=== PATIENT | female | born 1955 | race Caucasian/White ===

== ENCOUNTER → 2022-03-19 13:48 | Outpatient (BNVA) | payer MEDICARE, MEDICAID, SELFPAY | PROVIDERS: PCP Nurse Practitioner Adult Health; Visit Provider Psychiatry & Neurology Psychiatry | DX: F33.41 Major depressive disorder, recurrent, in partial remission (principal); F41.1 Generalized anxiety disorder | CPT/HCPCS: 99212 ==

== ENCOUNTER → 2022-06-25 13:59 | Outpatient (BNVA) | payer MEDICARE, MEDICAID, SELFPAY | PROVIDERS: PCP Nurse Practitioner Adult Health; Visit Provider Psychiatry & Neurology Psychiatry | DX: F41.1 Generalized anxiety disorder (principal); F33.41 Major depressive disorder, recurrent, in partial remission; E11.9 Type 2 diabetes mellitus without complications; I25.10 Atherosclerotic heart disease of native coronary artery without angina pectoris; G47.33 Obstructive sleep apnea (adult) (pediatric) | CPT/HCPCS: 90833; 99212 ==

== ENCOUNTER → 2022-08-06 14:00 | Outpatient (BNVA) | payer MEDICARE, MEDICAID, SELFPAY | PROVIDERS: PCP Nurse Practitioner Adult Health; Visit Provider Psychiatry & Neurology Psychiatry | DX: F41.1 Generalized anxiety disorder (principal); F33.41 Major depressive disorder, recurrent, in partial remission | CPT/HCPCS: 90833; 99212 ==

== ENCOUNTER → 2022-10-08 14:19 | Outpatient (BNVA) | payer MEDICARE, MEDICAID, SELFPAY | PROVIDERS: PCP Nurse Practitioner Adult Health; Visit Provider Psychiatry & Neurology Psychiatry | DX: F33.41 Major depressive disorder, recurrent, in partial remission (principal); F41.1 Generalized anxiety disorder; G47.33 Obstructive sleep apnea (adult) (pediatric); E11.9 Type 2 diabetes mellitus without complications; I25.10 Atherosclerotic heart disease of native coronary artery without angina pectoris | CPT/HCPCS: 90833; 99212 ==

== ENCOUNTER 2022-12-01 14:38 | Outpatient (AMB) | payer MEDICARE, MEDICAID, SELFPAY ==
--- NOTE | 2022-12-01 14:39 | MHC.OFFVIS ---
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 She was actually seen and worked up by [facility] emergency room back on 10/09/2022. At that time she was worked up for some chest pain in addition she was noted to have lower extremity discomfort and significant swelling. She now presents to us for vascular follow-up. Upon discussion with her she has had no prior lower extremity venous interventions. No prior history of DVT as well. She also denies any significant injuries as well. She reports some swelling right more so than left. Also of note she has a prior history of an NH with coronary stents dating back to 2020. [facility] Medical History (Updated 12/02/22 @ 09:53 by Mike Patterson MD) ASHD (arteriosclerotic heart disease) Diabetes Generalized anxiety disorder Major depressive disorder, recurrent episode, in partial remission with seasonal pattern JACQUELINE (obstructive sleep apnea) Ovarian cyst Surgical History (Updated 12/01/22 @ 14:58 by Jennifer Rascon Jordyn) H/O bilateral oophorectomy Hx of appendectomy Review of Systems Const All systems reviewed & are unremarkable except as noted in HPI and below Reports no additional complaints ENT Reports Normal hearing present Card Denies chest pain, Denies chest pain at rest, Denies chest pain with activity and Denies pedal edema Resp Denies cough GI Denies abdominal pain Musc Details: pain over varicosities, aching of lower extremities, swelling, cramping, heaviness and tiredness, itching Denies abnormal gait, Denies muscle cramps and Denies radiating pain into limb Skin/Breast Denies skin ulcer and Denies wounds Neuro Reports Normal hearing present and Denies abnormal gait Psych Reports no additional complaints Physical Exam Const General: cooperative, healthy appearing and comfortable Orientation/consciousness: oriented to person, oriented to place and oriented to time HEENT Head: Yes normal to inspection Neck Neck: Yes normal visual inspection Carotids: no bruits Chest Chest palpation & inspection: normal inspection of the chest Resp Effort & Inspection: normal respiratory effort and able to speak in complete sentences Auscultation: clear to auscultation bilaterally, no crackles, no rales, no rhonchi and no wheezes Cardio Rate: regular rate Rhythm: regular rhythm Heart sounds: S1 normal heart sound present and S2 normal heart sound present Bruits: no carotid bruits Peripheral pulses: Peripheral pulses 2+ throughout GI Inspection: Yes normal to inspection Skin Other: +2 edema, General skin exam: dry skin Wounds: no wounds Hair: normal Neuro General: oriented to person, oriented to place and oriented to time Cranial nerves: Yes CN's II-XII intact bilaterally and Yes Normal hearing present Cognition (Neuro): normal cognition Motor exam (neuro): 5/5 motor strength present throughout Extrem Other: venous exam: Plus two edema General: No clubbing, No cyanosis and Yes edema Right lower extremity: full ROM, normal capillary refill and edema Left lower extremity: full ROM, normal capillary refill and edema Psych Appearance: grossly normal Mental Status: mental status grossly normal Speech and movement: Normal speech and movement present Assessment & Plan Assessment & Plan (1) Varicose veins of right lower extremity with inflammation: Code(s): I83.11 - Varicose veins of right lower extremity with inflammation Plan: unclear etiology of lower extremity discomfort. She does have significant swelling. This may be multifactorial inclusive of her morbid obesity And coronary artery disease. In terms of the lower extremities she does have palpable arterial pulses. I have taken the liberty of ordering venous insufficiency testing to rule that out. She will follow up with us after testing. We did discuss routine conservative measures including compression elevation and exercise. Thank you for allowing us to assist in her care. If there are any questions or concerns please do not hesitate to contact us. Orders: Orders US venous duplex LE BI 1 Week I83.11 - Varicose veins of right lower extremity with inflammation Coding Level of Care Code New Pt Level 4 (40386) Diagnoses Varicose veins of right lower extremity with inflammation I83.11
== END 2022-12-01 15:10 | disposition home or self-care (01) ==
PROVIDERS: PCP Nurse Practitioner Adult Health; Visit Provider Surgery Vascular Surgery
DX: I83.11 Varicose veins of right lower extremity with inflammation (principal)
CPT/HCPCS: 99204

== ENCOUNTER → 2022-12-01 14:38 | Outpatient (BNVA) | payer MEDICARE, MEDICAID, SELFPAY | PROVIDERS: PCP Nurse Practitioner Adult Health; Visit Provider Surgery Vascular Surgery | DX: I83.11 Varicose veins of right lower extremity with inflammation (principal); R60.0 Localized edema; I25.2 Old myocardial infarction; E66.01 Morbid (severe) obesity due to excess calories; F41.1 Generalized anxiety disorder | CPT/HCPCS: 99202 ==

== ENCOUNTER 2022-12-16 13:03 | Outpatient (REF) | payer MEDICARE, MEDICAID, SELFPAY ==
--- NOTE | ~2022-12-16 | US_ITS ---
EXAMINATION: US LOWER EXTREMITY VENOUS (REFLUX EXAM), BILATERAL CLINICAL INDICATION: Varicose veins COMPARISON: None. TECHNIQUE: Color flow triplex imaging and compression Doppler was performed to evaluate both the deep and the superficial systems bilaterally. To evaluate the superficial system, the examination was performed in the upright position. Color-flow Doppler ultrasound and compression ultrasound were utilized. In addition, maneuvers were utilized to demonstrate reflux. FINDINGS: 1. DEEP VENOUS ULTRASOUND OF THE RIGHT LOWER EXTREMITY: Common Femoral Vein: Compressible, normal respiratory variation and augmented flow. Femoral Vein: Compressible, normal color flow and augmentation. Popliteal Vein: Compressible, normal augmentation. Deep Reflux: There is no evidence of reflux in the deep system in either the common femoral vein or the popliteal vein. There is no evidence of a Roe's cyst. There is a 0.3 cm subcutaneous calcification in the right popliteal fossa. There is calf edema. 2. SUPERFICIAL ULTRASOUND WITH DOPPLER OF RIGHT LOWER EXTREMITY: GREAT SAPHENOUS VEIN: Saphenofemoral Junction: 0.5 cm; Reflux: 0 ms Proximal Thigh: 0.7 cm; Reflux: 0 ms Mid Thigh: 0.3 cm; Reflux: 0 ms Above Knee: 0.3 cm; Reflux: 0 ms At Knee: 0.3 cm; Reflux: 0 ms Below Knee: 0.2 cm; Reflux: 0 ms Mid Calf: 0.1 cm; Reflux: 0 ms Ankle: 0.1 cm; Reflux: 0 ms DUPLICATED MEDIAL GREAT SAPHENOUS VEIN: Diameter: None imaged Reflux: NA DUPLICATED LATERAL GREAT SAPHENOUS VEIN: Diameter: None imaged Reflux: NA SMALL SAPHENOUS VEIN: Proximal: 0.2 cm; Reflux: 0 ms Distal: 0.2 cm; Reflux: 0 ms VEIN OF GIACOMINI: Size: NA Reflux: NA PERFORATORS: Location: Mid thigh Size: 0.2 cm Reflux: NA VARICOSITIES: Location: None imaged Size: NA Reflux: NA 3. DEEP VENOUS ULTRASOUND OF THE LEFT LOWER EXTREMITY: Common Femoral Vein: Compressible, normal respiratory variation and augmented flow. Femoral Vein: Compressible, normal color flow and augmentation. Popliteal Vein: Compressible, normal augmentation. Deep Reflux: There is no evidence of reflux in the deep system in either the common femoral vein or the popliteal vein. There is no evidence of a Roe's cyst. There is calf edema. 4. SUPERFICIAL ULTRASOUND WITH DOPPLER OF LEFT LOWER EXTREMITY: GREAT SAPHENOUS VEIN: Saphenofemoral Junction: 0.6 cm; Reflux: 0 ms Proximal Thigh: 0.5 cm; Reflux: 0 ms Mid Thigh: 0.2 cm; Reflux: 0 ms Above Knee: 0.3 cm; Reflux: 0 ms At Knee: 0.3 cm; Reflux: 0 ms Below Knee: 0.3 cm; Reflux: 0 ms Mid Calf: 0.1 cm; Reflux: 0 ms Ankle: 0.1 cm; Reflux: 0 ms DUPLICATED MEDIAL GREAT SAPHENOUS VEIN: Diameter: None imaged Reflux: NA DUPLICATED LATERAL GREAT SAPHENOUS VEIN: Diameter: None imaged Reflux: NA SMALL SAPHENOUS VEIN: Proximal: 0.3 cm; Reflux: 0 ms Distal: 0.2 cm; Reflux: 0 ms VEIN OF GIACOMINI: Size: NA Reflux: NA PERFORATORS: Location: None imaged Size: NA Reflux: NA VARICOSITIES: Location: None Imaged Size: NA Reflux: NA US/US venous duplex LE BI IMPRESSION: 1. No evidence of DVT or deep venous reflux. 2. Bilateral lower extremity edema. 3. No significant reflux in the bilateral great saphenous veins or small saphenous veins.
== END 2022-12-16 13:04 | disposition home or self-care (01) ==
LOC: HO.US 13:03
PROVIDERS: Visit Provider Surgery Vascular Surgery
DX: I83.11 Varicose veins of right lower extremity with inflammation (principal)
CPT/HCPCS: 93970

== ENCOUNTER 2023-01-07 14:32 | Outpatient (AMB) | payer MEDICARE, MEDICAID, SELFPAY ==
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
== END 2023-01-07 15:22 | disposition home or self-care (01) ==
LOC: HO.HOP 14:32
PROVIDERS: PCP Nurse Practitioner Adult Health; Visit Provider Psychiatry & Neurology Psychiatry
DX: F41.1 Generalized anxiety disorder (principal); F33.41 Major depressive disorder, recurrent, in partial remission; G47.33 Obstructive sleep apnea (adult) (pediatric); I25.10 Atherosclerotic heart disease of native coronary artery without angina pectoris
CPT/HCPCS: 90833; 99213

== ENCOUNTER → 2023-01-07 14:32 | Outpatient (BNVA) | payer MEDICARE, MEDICAID, SELFPAY | PROVIDERS: PCP Nurse Practitioner Adult Health; Visit Provider Psychiatry & Neurology Psychiatry | DX: F33.41 Major depressive disorder, recurrent, in partial remission (principal); F41.1 Generalized anxiety disorder; G47.33 Obstructive sleep apnea (adult) (pediatric); I25.10 Atherosclerotic heart disease of native coronary artery without angina pectoris | CPT/HCPCS: 90833; 99212 ==

== ENCOUNTER 2023-01-26 14:41 | Outpatient (AMB) | payer MEDICARE, MEDICAID, SELFPAY ==
--- NOTE | 2023-01-26 14:54 | A.OFFVIS_ITS ---
Intake Intake Visit Reasons: follow up 12/16/2022 Intake Note: follow up 12/16/2022 for LE swelling Left LE worse than Right LE Allergies exenatide [From Byetta] Allergy (Mild, Verified 01/26/23 14:57) Hives metronidazole [From Flagyl] Adverse Reaction (Mild, Verified 01/26/23 14:57) Vomiting HPI follow up [facility] 12/16/2022 HPI Details Very pleasant 67-year-old female presents for follow-up evaluation regarding swelling of the lower extremities. She was seen back in the [facility] emergency room for discomfort and swelling. She has undergone noninvasive venous testing. Of note she is morbidly obese and she does have some dermatologic issues that have been followed by Derm. She now presents for follow-up. 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 [facility] Medical History Ovarian cyst Generalized anxiety disorder Major depressive disorder, recurrent episode, in partial remission with seasonal pattern Diabetes JACQUELINE (obstructive sleep apnea) ASHD (arteriosclerotic heart disease) Surgical History H/O bilateral oophorectomy Hx of appendectomy Review of Systems Const All systems reviewed & are unremarkable except as noted in HPI and below Reports no additional complaints ENT Reports Normal hearing present Card Denies chest pain, Denies chest pain at rest, Denies chest pain with activity and Denies pedal edema Resp Denies cough GI Denies abdominal pain Musc Denies abnormal gait, Denies muscle cramps and Denies radiating pain into limb Skin/Breast Denies skin ulcer and Denies wounds Neuro Reports Normal hearing present and Denies abnormal gait Psych Reports no additional complaints Physical Exam Const General: cooperative, healthy appearing and comfortable Orientation/consciousness: oriented to person, oriented to place and oriented to time HEENT Head: Yes normal to inspection Neck Neck: Yes normal visual inspection Carotids: no bruits Chest Chest palpation & inspection: normal inspection of the chest Resp Effort & Inspection: normal respiratory effort and able to speak in complete sentences Auscultation: clear to auscultation bilaterally, no crackles, no rales, no rhonchi and no wheezes Cardio Rate: regular rate Rhythm: regular rhythm Heart sounds: S1 normal heart sound present and S2 normal heart sound present Bruits: no carotid bruits Peripheral pulses: Peripheral pulses 2+ throughout GI Inspection: Yes normal to inspection Skin Wounds: no wounds Hair: normal Neuro General: oriented to person, oriented to place and oriented to time Cranial nerves: Yes CN's II-XII intact bilaterally and Yes Normal hearing present Cognition (Neuro): normal cognition Motor exam (neuro): 5/5 motor strength present throughout Extrem Other: venous exam: +2 edema of the right lower extremity General: No clubbing, No cyanosis and No edema Psych Appearance: grossly normal Mental Status: mental status grossly normal Speech and movement: Normal speech and movement present Results Reviewed Results Reviewed: Brief summary of venous insufficiency testing is as follows: right great saphenous vein: negative right small saphenous vein: negative right accessory vein: none present left great saphenous vein: negative left small saphenous vein: negative left accessory vein: none present Please note there is no evidence of any venous aneurysms or significant tortuosity Assessment & Plan Assessment & Plan (1) Varicose veins of right lower extremity with inflammation: Code(s): I83.11 - Varicose veins of right lower extremity with inflammation Plan: In short patient is negative for any significant venous insufficiency I do believe some of her swelling a related to her comorbid conditions. I did discuss the importance of ambulation exercise and possibly some weight loss. We did discuss risk factor modification. In addition I did recommend follow-up dermatologic evaluation. She will see us in an as-needed basis. Thank you for allowing us to participate in her care. Coding Level of Care Code Est Pt Level 4 (19207) Diagnoses Varicose veins of right lower extremity with inflammation I83.11
== END 2023-01-26 15:11 | disposition home or self-care (01) ==
PROVIDERS: PCP Nurse Practitioner Adult Health; Visit Provider Surgery Vascular Surgery
DX: I83.11 Varicose veins of right lower extremity with inflammation (principal)
CPT/HCPCS: 99213

== ENCOUNTER → 2023-01-26 14:41 | Outpatient (BNVA) | payer MEDICARE, MEDICAID, SELFPAY | PROVIDERS: PCP Nurse Practitioner Adult Health; Visit Provider Surgery Vascular Surgery | DX: I83.11 Varicose veins of right lower extremity with inflammation (principal) | CPT/HCPCS: 99212 ==

== ENCOUNTER 2023-06-24 15:26 | Outpatient (AMB) | payer MEDICARE, MEDICAID, SELFPAY ==
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
== END 2023-06-24 15:30 | disposition home or self-care (01) ==
LOC: HO.HOP 15:26
PROVIDERS: PCP Nurse Practitioner Adult Health; Visit Provider Psychiatry & Neurology Psychiatry
DX: F41.1 Generalized anxiety disorder (principal); F33.41 Major depressive disorder, recurrent, in partial remission; G47.33 Obstructive sleep apnea (adult) (pediatric)
CPT/HCPCS: 90833; 99213

== ENCOUNTER → 2023-06-24 15:26 | Outpatient (BNVA) | payer MEDICARE, MEDICAID, SELFPAY | PROVIDERS: PCP Nurse Practitioner Adult Health; Visit Provider Psychiatry & Neurology Psychiatry | DX: F33.41 Major depressive disorder, recurrent, in partial remission (principal); F41.1 Generalized anxiety disorder; G47.33 Obstructive sleep apnea (adult) (pediatric) | CPT/HCPCS: 99212 ==

== ENCOUNTER 2023-09-09 14:10 | Outpatient (AMB) | payer MEDICARE, MEDICAID, SELFPAY ==
--- NOTE | 2023-09-09 14:36 | MHC.OFFVISPS ---
Intake Intake Visit Reasons: depression Allergies exenatide [From Byetta] Allergy (Mild, Verified 01/26/23 14:57) Hives metronidazole [From Flagyl] Adverse Reaction (Mild, Verified 01/26/23 14:57) Vomiting Medication List - Last Reconciled 09/09/23 by Sudhir Moran MD albuterol sulfate 90 mcg/actuation 1 inh inhalation QID amiodarone 200 mg PO DAILY aspirin (Adult Aspirin Regimen) 81 mg PO DAILY atorvastatin 80 mg PO DAILY betamethasone dipropionate 0.05% appl topical BID budesonide 90 mcg/actuation (Pulmicort Flexhaler) 0 inhalations inhalation calcitriol 1 appl topical BID clomipramine 75 mg (3 x 25 mg) PO QPM 3 months clonazepam 0.5 mg PO BID cyanocobalamin (vitamin B-12) 500 mcg PO 3XW famotidine 40 mg PO DAILY fluocinonide 0.05% topical DAILY furosemide 20 mg PO DAILY gabapentin 300 mg PO BEDTIME 3 months gabapentin 100 mg PO BID PRN insulin glargine (Lantus Solostar U-100 Insulin) 55 units subcut BEDTIME levothyroxine 88 mcg PO QAM losartan 100 mg PO DAILY metformin 1,000 mg PO BID metoprolol succinate ER 50 mg PO DAILY nystatin topical BEDTIME valacyclovir 500 mg PO DAILY venlafaxine ER 150 mg PO BID HPI- Psychiatric Chief Complaint: depression HPI Narrative: Pt has been having inc anxiety recently 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 Mental Status Exam Mental Status Exam Narrative: Mental Status Exam Narrative: Appearance: Casually dressed skin lesions flat noted on both arms Behavior: Cooperative appropriate psychomotor: Within normal limits Speech: Normal volume and prosody Thought proccess logical and goal-directed Thought content: Future oriented multiple worries feels overwhelmed by medical and practical issues needing to move Mood: anxious dysphoric Affect: Appropriate to mood constricted SI:denies HI:denies VH/AH:none Delusions: None Insight/judgment: insight and judgment generally intact Memory/cog: Intact Assessment and Plan Assessment & Plan (1) Generalized anxiety disorder: Status: Acute Code(s): F41.1 - Generalized anxiety disorder (2) Major depressive disorder, recurrent episode, in partial remission with seasonal pattern: Status: Acute Code(s): F33.41 - Major depressive disorder, recurrent, in partial remission (3) JACQUELINE (obstructive sleep apnea): Status: Acute Code(s): G47.33 - Obstructive sleep apnea (adult) (pediatric) (4) ASHD (arteriosclerotic heart disease): Status: Acute Code(s): I25.10 - Atherosclerotic heart disease of [place] coronary artery without angina pectoris (5) Diabetes: Status: Acute Code(s): E11.9 - Type 2 diabetes mellitus without complications Plan Given few dissolving tablets of clonazepam 0.5 mg secondary to occasional intrusive panic attack patient has been under more stress leading to move has been rehearsing 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 Self Management counseling: Breathing, Cognitive restructuring and Problem solving Details-Self Mgmt counseling: Issues related to managing chronic stress Medication management counseling: Effectiveness, Side effects and Dosing range Diagnosis and Prognosis Counseling: Adequacy of current interventions Details: I spent [37] minutes reviewing the record, seeing the patient and documenting in the medical record. Counseling provided to the patient/caregiver as outlined below. Addressed patient/caregiver concerns regarding current medication regime including effective adherence. Addressed patient/caregiver concerns regarding diagnosis and prognosis including accuracy of diagnosis, prognosis over time, impact of diagnosis. Addressed patient/caregiver concerns regarding impact of recent stressors. [facility] Medical History Ovarian cyst Generalized anxiety disorder Major depressive disorder, recurrent episode, in partial remission with seasonal pattern Diabetes JACQUELINE (obstructive sleep apnea) ASHD (arteriosclerotic heart disease) Surgical History H/O bilateral oophorectomy Hx of appendectomy Social History: The patient has 1 sister who lives in [place] limited contact her sister may have Parkinson's disease. Her mother a few years ago she has limited social contact. 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
== END 2023-09-09 15:06 | disposition home or self-care (01) ==
LOC: HO.HOP 14:10
PROVIDERS: PCP Nurse Practitioner Adult Health; Visit Provider Psychiatry & Neurology Psychiatry
DX: F41.1 Generalized anxiety disorder (principal); F33.41 Major depressive disorder, recurrent, in partial remission; G47.33 Obstructive sleep apnea (adult) (pediatric); I25.10 Atherosclerotic heart disease of native coronary artery without angina pectoris; E11.9 Type 2 diabetes mellitus without complications
CPT/HCPCS: 90833; 99213

== ENCOUNTER → 2023-09-09 14:10 | Outpatient (BNVA) | payer MEDICARE, MEDICAID, SELFPAY | PROVIDERS: PCP Nurse Practitioner Adult Health; Visit Provider Psychiatry & Neurology Psychiatry | DX: F41.1 Generalized anxiety disorder (principal); F33.41 Major depressive disorder, recurrent, in partial remission; G47.33 Obstructive sleep apnea (adult) (pediatric); I25.10 Atherosclerotic heart disease of native coronary artery without angina pectoris; E11.9 Type 2 diabetes mellitus without complications | CPT/HCPCS: 99212 ==

== ENCOUNTER 2023-11-18 14:49 | Outpatient (AMB) | payer MEDICARE, MEDICAID, SELFPAY ==
--- NOTE | 2023-11-18 14:33 | MHC.OFFVISPS ---
Intake Intake Visit Reasons: depression Allergies exenatide [From Byetta] Allergy (Mild, Verified 01/26/23 14:57) Hives metronidazole [From Flagyl] Adverse Reaction (Mild, Verified 01/26/23 14:57) Vomiting Medication List - Last Reconciled 11/18/23 by Sudhir Moran MD albuterol sulfate 90 mcg/actuation 1 inh inhalation QID amiodarone 200 mg PO DAILY aspirin (Adult Aspirin Regimen) 81 mg PO DAILY atorvastatin 80 mg PO DAILY betamethasone dipropionate 0.05% appl topical BID budesonide 90 mcg/actuation (Pulmicort Flexhaler) 0 inhalations inhalation clomipramine 75 mg (3 x 25 mg) PO QPM 3 months clonazepam 0.25 mg PO DAILY PRN clonazepam 0.5 mg PO BID cyanocobalamin (vitamin B-12) 500 mcg PO 3XW famotidine 40 mg PO DAILY fluocinonide 0.05% topical DAILY gabapentin 100 mg PO BID PRN gabapentin 300 mg PO BEDTIME insulin glargine (Lantus Solostar U-100 Insulin) 55 units subcut BEDTIME levothyroxine 88 mcg PO QAM losartan 100 mg PO DAILY metformin 1,000 mg PO BID metoprolol succinate ER 50 mg PO DAILY nystatin topical BEDTIME valacyclovir 500 mg PO DAILY venlafaxine ER 150 mg PO BID HPI- Psychiatric Chief Complaint: depression HPI Narrative: Patient seen in psychiatric follow-up. The patient recently moved to a new apartment which has been a big relief although it will cost more money. 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 Continues to have chronic medical problems unknown chronic rash that does not appear to be related to her psoriasis. Some degree of chronic anxiety some of this relates to chronic procrastination time management issues. Has been relatively stable without severe depressive episodes on Effexor 300 mg 150 b.i.d. Anafranil bedtime gabapentin which we have tried lowering and limiting over time. Some degree chronic insomnia some this appears to be related to sleep hygiene staying up late with an altered sleep-wake cycle Past Psychiatric History: Long hx of recurrent depression CHEO has been on effexor x yrs half-way psychotx Mental Status Exam Mental Status Exam Narrative: Mental Status Exam Narrative: Appearance: Casually dressed skin lesions flat noted on both arms ongoing Behavior: Cooperative appropriate psychomotor: Within normal limits Speech: Normal volume and prosody Thought proccess logical and goal-directed somewhat ruminative Thought content: Future oriented ongoing worries but somewhat less preoccupied feels more secure after move Mood: Some anxiety Affect: Appropriate to mood betts affect SI:denies HI:denies VH/AH:none Delusions: None Insight/judgment: insight and judgment generally intact Memory/cog: Intact Assessment and Plan Assessment & Plan (1) Major depressive disorder, recurrent episode, in partial remission with seasonal pattern: Status: Acute Code(s): F33.41 - Major depressive disorder, recurrent, in partial remission (2) Generalized anxiety disorder: Status: Acute Code(s): F41.1 - Generalized anxiety disorder Plan Check B12 folate TSH have been altered in the past contributing factors to anxiety and depression continue Effexor Anafranil try and gabapentin and clonazepam to lowest effective dosing Medications: Changed From cyanocobalamin (vitamin B-12) 500 mcg PO 3XW To cyanocobalamin (vitamin B-12) 500 mcg PO 3XW 13 tabs 3RF 30 days Orders: Orders TSH reflex Free T4 11/18/23 E03.9 - Hypothyroidism, unspecified, F33.41 - Major depressive disorder, recurrent, in partial remission, F41.1 - Generalized anxiety disorder Vitamin B12 and Folate 11/18/23 E03.9 - Hypothyroidism, unspecified, F33.41 - Major depressive disorder, recurrent, in partial remission, F41.1 - Generalized anxiety disorder Counseling and coordination of Care Pt. Self Management counseling: Breathing, Maintenance-social rhythm, Sleep hygiene and Behavior activation Diagnosis and Prognosis Counseling: Impact of diagnosis on life functions and Adequacy of current interventions Details: I spent [38] minutes reviewing the record, seeing the patient and documenting in the medical record. Counseling provided to the patient/caregiver as outlined below. Addressed patient/caregiver concerns regarding current medication regime including effective adherence. Addressed patient/caregiver concerns regarding diagnosis and prognosis including accuracy of diagnosis, prognosis over time, impact of diagnosis. Addressed patient/caregiver concerns regarding impact of recent stressors. [facility] Medical History Ovarian cyst Generalized anxiety disorder Major depressive disorder, recurrent episode, in partial remission with seasonal pattern Diabetes JCAQUELINE (obstructive sleep apnea) ASHD (arteriosclerotic heart disease) Surgical History H/O bilateral oophorectomy Hx of appendectomy Social History: The patient has 1 sister who lives in [place] limited contact her sister may have Parkinson's disease. Her mother a few years ago she has limited social contact. 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
== END 2023-11-18 14:54 | disposition home or self-care (01) ==
LOC: HO.HOP 14:49
PROVIDERS: PCP Nurse Practitioner Adult Health; Visit Provider Psychiatry & Neurology Psychiatry
DX: F33.41 Major depressive disorder, recurrent, in partial remission (principal); F41.1 Generalized anxiety disorder
CPT/HCPCS: 90833; 99213

== ENCOUNTER → 2023-11-18 14:49 | Outpatient (BNVA) | payer MEDICARE, MEDICAID, SELFPAY | PROVIDERS: PCP Nurse Practitioner Adult Health; Visit Provider Psychiatry & Neurology Psychiatry | DX: F33.41 Major depressive disorder, recurrent, in partial remission (principal); F41.1 Generalized anxiety disorder | CPT/HCPCS: 99212 ==

== ENCOUNTER 2024-03-02 14:16 | Outpatient (AMB) | payer MEDICARE, MEDICAID, SELFPAY ==
--- NOTE | 2024-03-02 14:39 | MHC.OFFVISPS ---
Intake Intake Visit Reasons: depression Allergies exenatide [From Byetta] Allergy (Mild, Verified 01/26/23 14:57) Hives metronidazole [From Flagyl] Adverse Reaction (Mild, Verified 01/26/23 14:57) Vomiting Medication List - Last Reconciled 03/02/24 by Sudhir Moran MD albuterol sulfate 90 mcg/actuation 1 inh inhalation QID amiodarone 200 mg PO DAILY aspirin (Adult Aspirin Regimen) 81 mg PO DAILY atorvastatin 80 mg PO DAILY betamethasone dipropionate 0.05% appl topical BID budesonide 90 mcg/actuation (Pulmicort Flexhaler) 0 inhalations inhalation clomipramine 75 mg (3 x 25 mg) PO QPM 3 months clonazepam 0.25 mg PO DAILY PRN clonazepam 0.5 mg PO BID cyanocobalamin (vitamin B-12) 500 mcg PO 3XW 30 days famotidine 40 mg PO DAILY fluocinonide 0.05% topical DAILY gabapentin 100 mg PO BID PRN gabapentin 300 mg PO BEDTIME insulin glargine (Lantus Solostar U-100 Insulin) 55 units subcut BEDTIME levothyroxine 88 mcg PO QAM losartan 100 mg PO DAILY metformin 1,000 mg PO BID metoprolol succinate ER 50 mg PO DAILY nystatin topical BEDTIME valacyclovir 500 mg PO DAILY venlafaxine ER 150 mg PO BID HPI- Psychiatric Chief Complaint: depression HPI Narrative: Patient seen psychiatric follow-up. The patient's mood is trending somewhat upward. She does have chronic anxiety but she did complete a move recently and is now in secure apartment. There has been some support regarding her finances from her sister who is helping her on a monthly basis. There is some concern with her sister who has significant Parkinson's disease and lives in [place]. 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 Mental Status Exam Mental Status Exam Narrative: Mental Status Exam Narrative: Appearance: Casually dressed skin lesions flat noted on both arms ongoing Behavior: Cooperative appropriate psychomotor: Within normal limits Speech: Normal volume and prosody sometimes mildly pressured Thought proccess logical and goal-directed somewhat ruminative Thought content: Future oriented ongoing worries but somewhat less preoccupied feels more secure after move ongoing some concerns re sleep Mood: Some anxiety Affect: Appropriate to mood betts affect SI:denies HI:denies VH/AH:none Delusions: None Insight/judgment: insight and judgment generally intact Memory/cog: Intact Assessment and Plan Assessment & Plan (1) Major depressive disorder, recurrent episode, in partial remission with seasonal pattern: Status: Acute Code(s): F33.41 - Major depressive disorder, recurrent, in partial remission (2) Generalized anxiety disorder: Status: Acute Code(s): F41.1 - Generalized anxiety disorder (3) ADD (attention deficit disorder) without hyperactivity: Status: Acute Code(s): F98.8 - Other specified behavioral and emotional disorders with onset usually occurring in childhood and adolescence Plan cont clomipramine effexor anxiety ocd in general ck feeling more secure generally discussed risks of oversedating before sleep given JACQUELINE Medications: Refilled clomipramine 75 mg (3 x 25 mg) PO QPM 270 caps 1RF 3 months clonazepam 0.5 mg PO BID 60 tabs 2RF Counseling and coordination of Care Pt. Self Management counseling: General coping skills Details-Self Mgmt counseling: issues related to grief with sister who has been having episodes of confusion Medication management counseling: Effectiveness, Side effects and Dosing range Diagnosis and Prognosis Counseling: Adequacy of current interventions Details: I spent [39] minutes reviewing the record, seeing the patient and documenting in the medical record. Counseling provided to the patient/caregiver as outlined below. Addressed patient/caregiver concerns regarding current medication regime including effective adherence. Addressed patient/caregiver concerns regarding diagnosis and prognosis including accuracy of diagnosis, prognosis over time, impact of diagnosis. Addressed patient/caregiver concerns regarding impact of recent stressors. 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 Her mother a few years ago she has limited social contact. 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
== END 2024-03-02 17:02 | disposition home or self-care (01) ==
LOC: HO.HOP 14:16
PROVIDERS: PCP Nurse Practitioner Adult Health; Visit Provider Psychiatry & Neurology Psychiatry
DX: F33.41 Major depressive disorder, recurrent, in partial remission (principal); F41.1 Generalized anxiety disorder; F98.8 Other specified behavioral and emotional disorders with onset usually occurring in childhood and adolescence
CPT/HCPCS: 90833; 99213

== ENCOUNTER → 2024-03-02 14:16 | Outpatient (BNVA) | payer MEDICARE, MEDICAID, SELFPAY | PROVIDERS: PCP Nurse Practitioner Adult Health; Visit Provider Psychiatry & Neurology Psychiatry | DX: F33.41 Major depressive disorder, recurrent, in partial remission (principal); F41.1 Generalized anxiety disorder; F98.8 Other specified behavioral and emotional disorders with onset usually occurring in childhood and adolescence; Z71.89 Other specified counseling | CPT/HCPCS: 99212 ==

== ENCOUNTER → 2024-06-08 14:06 | Outpatient (BNVA) | payer MEDICARE, MEDICAID, SELFPAY | PROVIDERS: PCP Nurse Practitioner Adult Health; Visit Provider Psychiatry & Neurology Psychiatry | DX: F41.1 Generalized anxiety disorder (principal); F98.8 Other specified behavioral and emotional disorders with onset usually occurring in childhood and adolescence; F33.41 Major depressive disorder, recurrent, in partial remission; R29.818 Other symptoms and signs involving the nervous system | CPT/HCPCS: 99212 ==

== ENCOUNTER 2024-08-04 14:25 | Outpatient (AMB) | payer MEDICARE, MEDICAID, SELFPAY ==
--- NOTE | 2024-08-04 12:54 | A.OFFPSYCH_ITS ---
Intake Intake Visit Reasons: Depression Allergies exenatide [From Byetta] Allergy (Mild, Verified 01/26/23 14:57) Hives metronidazole [From Flagyl] Adverse Reaction (Mild, Verified 01/26/23 14:57) Vomiting HPI- Psychiatric Chief Complaint: Depression HPI Narrative: Pt seen in f/u mood has been somewhat anxious recently at [facility] after episode of vertigo has had an episode of 2 falls has had episodes of vertigo Pt has small meningioma has 2 nodules being worked up . Has resentment about not performing and [employer] group that she had been in does performed with the [employer]. Chronically deals with anxiety sensory integration difficulties chronically and ADD. We have discussed trying to retrain sleep. Less difficulty with money since her sister and are sending her some monthly funds to help her with her rent recent move when okay Past Psychiatric History: Long hx of recurrent depression CHEO has been on effexor x yrs [facility] psychotx Mental Status Exam Mental Status Exam Narrative: Mental Status Exam Narrative: Appearance: Casually dressed skin lesions flat noted on both arms ongoing Behavior: Cooperative appropriate psychomotor: Within normal limits Speech: Normal volume and prosody sometimes mildly pressured Thought proccess logical and goal-directed somewhat ruminative and obsessional in thinking pattern Thought content: Future oriented ongoing worries regarding her health getting new medical workup Mood: anxiety Affect: Appropriate to mood betts affect SI:denies HI:denies VH/AH:none Delusions: None Insight/judgment: insight and judgment generally intact Memory/cog: Intact Assessment and Plan Assessment & Plan (1) Major depressive disorder, recurrent episode, in partial remission with seasonal pattern: Status: Acute Code(s): F33.41 - Major depressive disorder, recurrent, in partial remission (2) Generalized anxiety disorder: Status: Acute Code(s): F41.1 - Generalized anxiety disorder (3) ADD (attention deficit disorder) without hyperactivity: Status: Acute Code(s): F98.8 - Other specified behavioral and emotional disorders with onset usually occurring in childhood and adolescence (4) ASHD (arteriosclerotic heart disease): Status: Acute Code(s): I25.10 - Atherosclerotic heart disease of [place] coronary artery without angina pectoris (5) Diabetes: Status: Acute Code(s): E11.9 - Type 2 diabetes mellitus without complications Plan At discuss with patient getting advice from her sleep MD whether or not clonazepam gabapentin at HS might be contributing factors regarding JACQUELINE to see if they have any alternative recommendations. We have discussed sleep hygiene trying to go to sleep earlier using relaxation skills. Patient did have syncopal episode does have a meningioma no reported seizure brief periods of vertigo. Discussed consideration of benign positional vertigo patient is post see neurologist question EEG Medications: Refilled clomipramine 75 mg (3 x 25 mg) PO QPM 270 caps 1RF 3 months venlafaxine ER 150 mg PO BID 180 caps 1RF clonazepam 0.5 mg PO BID 60 tabs 2RF gabapentin 300 mg PO BEDTIME 90 caps 1RF Counseling and coordination of Care Pt. Self Management counseling: Breathing, Mindfulness, Muscle relaxation, Sleep hygiene and Cognitive restructuring Medication management counseling: Effectiveness, Side effects and Dosing range Diagnosis and Prognosis Counseling: Impact of diagnosis on life functions, Problematic behaviors secondary to diagnosis and Adequacy of current interventions Details: I spent [39] minutes reviewing the record, seeing the patient and documenting in the medical record. Counseling provided to the patient/caregiver as outlined below. Addressed patient/caregiver concerns regarding current medication regime including effective adherence. Addressed patient/caregiver concerns regarding diagnosis and prognosis including accuracy of diagnosis, prognosis over time, impact of diagnosis. Addressed patient/caregiver concerns regarding impact of recent stressors. [facility] Medical History (Updated 06/14/24 @ 14:14 by Sudhir Moran MD) ADD (attention deficit disorder) without hyperactivity Ovarian cyst Generalized anxiety disorder Major depressive disorder, recurrent episode, in partial remission with seasonal pattern Diabetes JACQUELINE (obstructive sleep apnea) ASHD (arteriosclerotic heart disease) Surgical History H/O bilateral oophorectomy Hx of appendectomy Social History: The patient has 1 sister who lives in [place] limited contact her sister may have Parkinson's disease. Her mother a few years ago she has limited social contact. 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
== END 2024-08-04 14:39 | disposition home or self-care (01) ==
LOC: HO.HOP 14:25
PROVIDERS: PCP Nurse Practitioner Adult Health; Visit Provider Psychiatry & Neurology Psychiatry
DX: F33.41 Major depressive disorder, recurrent, in partial remission (principal); F41.1 Generalized anxiety disorder; F98.8 Other specified behavioral and emotional disorders with onset usually occurring in childhood and adolescence; I25.10 Atherosclerotic heart disease of native coronary artery without angina pectoris; E11.9 Type 2 diabetes mellitus without complications
CPT/HCPCS: 90833; 99213

== ENCOUNTER → 2024-08-04 14:25 | Outpatient (BNVA) | payer MEDICARE, MEDICAID, SELFPAY | PROVIDERS: PCP Nurse Practitioner Adult Health; Visit Provider Psychiatry & Neurology Psychiatry | DX: F33.41 Major depressive disorder, recurrent, in partial remission (principal); F41.1 Generalized anxiety disorder; F98.8 Other specified behavioral and emotional disorders with onset usually occurring in childhood and adolescence; I25.10 Atherosclerotic heart disease of native coronary artery without angina pectoris; E11.9 Type 2 diabetes mellitus without complications | CPT/HCPCS: 99212 ==

== ENCOUNTER 2024-09-14 14:38 | Outpatient (AMB) | payer MEDICARE, MEDICAID, SELFPAY ==
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
== END 2024-09-14 15:14 | disposition home or self-care (01) ==
LOC: HO.HOP 14:38
PROVIDERS: PCP Nurse Practitioner Adult Health; Visit Provider Psychiatry & Neurology Psychiatry
DX: F33.41 Major depressive disorder, recurrent, in partial remission (principal); F41.1 Generalized anxiety disorder; F98.8 Other specified behavioral and emotional disorders with onset usually occurring in childhood and adolescence; I25.10 Atherosclerotic heart disease of native coronary artery without angina pectoris
CPT/HCPCS: 90833; 99213

== ENCOUNTER → 2024-09-14 14:38 | Outpatient (BNVA) | payer MEDICARE, MEDICAID, SELFPAY | PROVIDERS: PCP Nurse Practitioner Adult Health; Visit Provider Psychiatry & Neurology Psychiatry | DX: F33.41 Major depressive disorder, recurrent, in partial remission (principal); F41.1 Generalized anxiety disorder; F98.8 Other specified behavioral and emotional disorders with onset usually occurring in childhood and adolescence; I25.10 Atherosclerotic heart disease of native coronary artery without angina pectoris | CPT/HCPCS: 99212 ==

== ENCOUNTER 2024-10-19 16:38 | Outpatient (AMB) | payer MEDICARE, MEDICAID, SELFPAY ==
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
== END 2024-10-19 16:38 | disposition home or self-care (01) ==
LOC: HO.HOP 16:38
PROVIDERS: PCP Nurse Practitioner Adult Health; Visit Provider Psychiatry & Neurology Psychiatry
DX: F33.41 Major depressive disorder, recurrent, in partial remission (principal); F41.1 Generalized anxiety disorder; F98.8 Other specified behavioral and emotional disorders with onset usually occurring in childhood and adolescence; Z95.0 Presence of cardiac pacemaker
CPT/HCPCS: 99214

== ENCOUNTER → 2024-10-19 16:38 | Outpatient (BNVA) | payer MEDICARE, MEDICAID, SELFPAY | PROVIDERS: PCP Nurse Practitioner Adult Health; Visit Provider Psychiatry & Neurology Psychiatry ==

== ENCOUNTER 2024-11-07 16:15 | Outpatient (AMB) | payer MEDICARE, MEDICAID, SELFPAY ==
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
== END 2024-11-07 16:15 | disposition home or self-care (01) ==
LOC: HO.HOP 16:15
PROVIDERS: PCP Nurse Practitioner Adult Health; Visit Provider Psychiatry & Neurology Psychiatry
DX: F33.41 Major depressive disorder, recurrent, in partial remission (principal); F41.1 Generalized anxiety disorder; F98.8 Other specified behavioral and emotional disorders with onset usually occurring in childhood and adolescence; Z95.0 Presence of cardiac pacemaker
CPT/HCPCS: 99214

== ENCOUNTER 2025-03-01 14:58 | Outpatient (AMB) | payer MEDICARE, MEDICAID, SELFPAY ==
--- OUTSIDE RECORDS SUMMARY | 2025-02-27 15:57 | XMS_ITS | Encounter Summary ---
Author Organization [facility] Address [address] [place] [address] Phone Care Team Providers Care Public Health Analyst Name Role Phone Telma Chino RN Unavailable [phone] Toña Garza REGISTER IN CHANCERY Primary Care Provider Mirna Zhou PA-C Unavailable [phone] Marv Olmos MD Unavailable [phone] Kayla Toña REGISTER IN CHANCERY Unavailable [phone] Tori Esposito Unavailable [phone] Encounter Details Date Type Department Care Team (Latest Contact Info) Description 02/27/2025 3:57 PM EDT - 02/27/2025 11:59 PM EDT Hospital Encounter [facility] [address] [place] [address] Mirna Zhou PA-C [address] [place] [address] Discharge Disposition: Home or Self Care Social History Tobacco Use Types Packs/Day Years Used Date Smoking Tobacco: Never Passive Smoke Exposure: Never Smokeless Tobacco: Never Alcohol Use Standard Drinks/Week Comments No 0 (1 standard drink = 0.6 oz pur e alcohol) Home Health Assessment: Transportation Answer Date Recorded Lack of Transportation (Medical) No 12/12/2024 Lack of Transportation (Non-Medical) No 12/12/2024 Patient Unable or Declines to Respond No 12/12/2024 Child or Family Care Answer Date Record ed Do you have problems with on e of the following making it difficult for you to work, study, or receive health care? No 08/01/2020 Education Answer Date Recorded Are you interested in more education? Not on gabe e 09/04/2022 Are you concerned about learning? Not on file 09/04/2022 No 09/04/2022 No 09/04/2022 Food Answer Date Recorded Within the past 6 months we worried whether our food would run out before we got money to buy more. Sometimes True 025 Within the past 6 months the food we bought just didn't last and we didn't have enough money to get more. Sometimes True 10/2024 Residential Stability Answer Date Recor ded What is your housing situation today? I have herberth sing 10/13/2024 How many times have you move d in the past 12 months? Zero (I did not move) 10/13/2024 Paying for Meds Answer Date Recorded Do you have trouble paying for medicines? Yes 10/13/2024 Paying Utility Bills Answer Date Record ed Do you have trouble paying your heating or elect ricity bill? Yes 10/13/2024 Transportation Answer Date Recorded Has the lack of transportati on kept you from medical appointments or from getting medications? No 10/13/2024 Digital Access Answer Date Recorded No 10/13/2024 Yes 10/13/2024 Do you have reliable internet access at home? Ye s 10/13/2024 Do you have a device (e.g., phone, tablet, computer) with a working camera? Yes 10/13/2024 Intimate Partner Violence Answer Date R ecorded Are you denied basic needs s uch as food, clothing, or medical care? No 10/13/2024 In the past 12 months have y ou been in a relationship with a person who hurts, threatens, or tries to control you? No 10/13/2024 Are you denied basic needs s uch as food, clothing, or medical care? No 10/13/2024 In the past 12 months have y ou been in a relationship with a person who hurts, threatens, or tries to control you? 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 1 g 1 5 aluminum hydroxide magnesium carbonate sodium bicarbonate (GAVISCON 80) 80-14.2 mg Chew Take 2 tablets by mouth as needed. apixaban (ELIQUIS) 5 mg tabletIndications:P aroxysmal atrial fibrillation Take 1 tablet (5 mg total) by mouth 2 (two) times a day. 180 tablet 3 5 atorvastatin (LIPITOR) 80 MG tablet Take 1 tablet (80 mg total) by mouth daily. Labs due 90 tablet 5 betamethasone, augmented, (DIPROLENE) 0.05 % ointment prn 5 clonazePAM (KLONOPIN) 0.5 MG tablet Take 0.5 mg by mouth 2 (two) times a day. Pt taking this twice a day 2 7 clotrimazole-betame thasone (LOTRISONE) creamIndications:Ra sh and other nonspecific skin eruption Apply topically 2 (two) times a day for 14 days. 45 g 5 03/01/20 25 cyanocobalamin, vitamin B-12, 500 mcg disintegrating tablet TAKE 1 TABLET BY MOUTH 3 TIMES A WEEK 12 tablet 11 4 ergocalciferol (DRISDOL) 50,000 unit capsuleIndications: Vitamin D deficiency Take 1 capsule (50,000 Units total) by mouth once a week. 6 capsule 5 estradioL (ESTRACE) 0.01 % (0.1 mg/gram) vaginal cream 1/2g to vulva twice weekly 42.5 g 1 5 famotidine (PEPCID) 40 MG tabletIndications:G ERD (gastroesophageal reflux disease) TAKE 1 TABLET BY MOUTH EVERY DAY 90 tablet 3 5 ferumoxytoL (FERAHEME) 510 mg/17 mL (30 mg/mL) SolnIndications:iro n deficiency anemia Inject 510 mg of [place] iron into the vein once. The dosage is expressed in terms of mg of elemental iron, with each mL contains 30 mg of elemental iron. Indications: anemia from inadequate iron 5 fluocinonide 0.05 % ointmentIndications :Lichen sclerosus Apply 1/4g amount to the vulva daily (3 month supply) 30 g 1 5 fluticasone propionate (FLONASE) 50 mcg/actuation nasal sprayIndications:En vironmental allergies SPRAY 2 SPRAYS BY NASAL ROUTE DAILY. 48 mL 2 5 FREESTYLE 28 gauge lancetsIndications: Type 2 diabetes mellitus without complication, with long-term current use of insulin USE THREE TIMES DAILY DIRECTED. DX:E11.9 300 each 3 4 FREESTYLE FREEDOM LITE meter kitIndications:Type 2 diabetes mellitus without complication, with long-term current use of insulin,custodial current use of insulin Use as instructed E11.9 E79.4 1 each 5 FREESTYLE HAYES 2 READERIndications:T ype 2 diabetes mellitus with hyperglycemia, with long-term current use of insulin USE DIRECTED (E11.65) 1 each 5 FREESTYLE LITE Strp stripsIndications:T ype 2 diabetes mellitus without complication, with long-term current use of insulin Monitor blood sugar as directed 3 times daily DX:E11.9 300 strip 3 4 gabapentin (NEURONTIN) 300 MG capsule Take 300 mg by mouth nightly at bedtime. hydrocortisone acetate (ANUSOL-HC) [address] 1 suppository (25 mg total) rectally daily as needed for hemorrhoid discomfort. 24 suppository 1 5 insulin pen needles, disposable, (BD GINA 2ND GEN PEN NEEDLE) 32 gauge x /32 NdleIndications:Typ e 2 diabetes mellitus without complication, with long-term current use of insulin Inject 1 each under the skin 2 (two) times a day. 180 each 3 5 ketoconazole 2 % creamIndications:Fu ngal infection APPLY TO AFFECTED AREA TWICE A DAY 60 g 3 5 LANTUS SOLOSTAR U-100 INSULIN 100 unit/mL (3 mL) InPn injection penIndications:Type 2 diabetes mellitus without complication, with long-term current use of insulin Inject 55 Units under the skin daily. E11.40 60 mL 3 5 levothyroxine (SYNTHROID, LEVOTHROID) 100 MCG tabletIndications:H ypothyroidism Take 1 tablet (100 mcg total) by mouth every morning. 30 tablet 5 5 03/25/20 25 losartan (COZAAR) 100 MG tabletIndications:E ssential hypertension TAKE 1 TABLET BY MOUTH EVERY DAY 90 tablet 3 5 metFORMIN (GLUCOPHAGE-XR) 500 MG 24 hr tabletIndications:T ype 2 diabetes mellitus with other specified complication, with long-term current use of insulin Take 2 tablets (1,000 mg total) by mouth 2 (two) times a day with meals. 2 tabs with breakfast and 2 tabs with dinner 120 tablet 11 5 metoprolol succinate (TOPROL-XL) 50 MG 24 hr tabletIndications:E ssential hypertension,Fall, subsequent encounter,Dizziness TAKE 1 TABLET BY MOUTH EVERY DAY 90 tablet 5 nystatin ointmentIndications :Lichen sclerosus APPLY TOPICALLY NIGHTLY AT BEDTIME. 0.5G AMOUNT TO VULVA, 90 DAY SUPPLY 30 g 1 5 OZEMPIC 0.25 mg or 0.5 mg (2 mg/3 mL) subcutaneous injection penIndications:Type 2 diabetes mellitus without complication, with long-term current use of insulin Inject 0.25 mg under the skin every 7 days. 3 mL 1 5 STELARA 90 mg/mL Syrg subcutaneous injection syringe Inject 90 mg under the skin once every 12 weeks. 3 STEQEYMA 90 mg/mL Syrg 5 triamcinolone acetonide 0.1 % ointment Apply 1 Application topically as needed. 5 valACYclovir (VALTREX) 500 MG tabletIndications:H SV infection TAKE 1 TABLET BY MOUTH EVERY MORNING. 90 tablet 3 5 venlafaxine (EFFEXOR-XR) 150 MG 24 hr capsule Take 2 capsules (300 mg total) by mouth daily. 1 documented as of this encounter Plan of Treatment Upcoming Encounters Date Type Department Care Team (Late st Contact Info) Description 03/02/2025 1:45 PM EDT Office Visit [facility] [address] [place] [address] Cordell Lutz PA-C, MARIXA [address] [place] [address] Marshal Jimenez, PT [address] [place] [address] [email or web address] 03/06/2025 12:00 PM EDT Telemedicine - audio only [facility] [address] [place] [address] Mirna Zhou PA-C [address] [place] [address] 03/06/2025 2:40 PM EDT Office Visit [facility] [address] [place] [phone] Jasmina Peraza MD 22 [facility], 1st [place] [address] 03/08/2025 1:00 PM EDT Office Visit [facility] [address] [place] [address] Cordell Lutz PA-C, MARIXA [address] [place] [address] [email or web address] Marshal Jimenez, PT [address] [place] [address] [email or web address] 03/12/2025 1:15 PM EST Office Visit [facility] [address] [place] [address] Yessenia Shah MD, MPH [address] [place] [address] [email or web address] Qiana Llamas, OT [address] [place] [address] 03/19/2025 1:15 PM EST Office Visit [facility] [address] [place] [address] Yessenia Shah MD, MPH [address] [place] [address] [email or web address] Qiana Llamas, OT [address] [place] [address] 03/20/2025 1:20 PM EST Telemedicine [facility] [address] [place] [address] Aniyah Ogden PA-C [address] [place] [phone] [email or web address] 03/26/2025 2:10 PM EST Office Visit [facility] [address] [place] [address] Yessenia Shah MD, MPH [address] [place] [address], [address] [address] 03/30/2025 4:15 PM EST Office Visit [facility] [address] [place] [address] Arron Alejandre DO [address] [facility], [facility] 7 [place] [address] 04/12/2025 2:00 PM EST Nutrition [facility] [address] [place] [phone] Maddison Lea LDN [address] [place] [address], [address] [place] [address] 04/20/2025 2:30 PM EST Office Visit [address] [address] Toña Garza, REGISTER IN CHANCERY [address] [address] 06/04/2025 1:30 PM EST Office Visit [facility] [address] [place] [address] Anisa Crowell, REGISTER IN CHANCERY [address] [place] [address], [address] [place] [address] 08/06/2025 1:00 PM EDT Office Visit [facility] [address] [place] [address] [place] [address], [address] [place] [address] Beulah Watkins DNP [address] [place] [address], [address] [address] 02/07/2026 1:20 PM EDT Office Visit [facility] [address] [place] [address], [address] [place] [address] Diaz Verdugo MD 22 [facility], [address] [place] [address] [email or web address] documented as of this encounter Goals Goal Patient Goal Type Associated Problems Recent Progress Patient-Stated? Author Increase physical activity / mobility Care Plan Activity intolerance / Impaired Functional Mobility No Telma Chino, DIXIE Note: Adhere to treatment plan Care Plan Chronic Condition Self-Management No Telma Chino, RN Note: documented as of this encounter Procedures Procedure Name Priority Date/Time Associated Diagnosis Comments IRON AND IRON BINDING CAPACITY Routine 02/27/2025 3:58 PM EDT Iron deficiency anemia, unspecified iron deficiency anemia type CBC AND DIFFERENTIAL Routine 02/27/2025 3:58 PM EDT Iron deficiency anemia, unspecified iron deficiency anemia type FERRITIN Routine 02/27/2025 3:58 PM EDT Iron deficiency anemia, unspecified iron deficiency anemia type documented in this encounter Results * (ABNORMAL) CBC and differential (02/27/2025 3:58 PM EDT) WBC 8.05 4.00 - 11.00 K/uL [facility] RBC 4.53 4.00 - 5.20 M/uL [facility] HGB 12.4 12.0 - 16.0 g/dL [facility] HCT 40.4 36.0 - 46.0 % [facility] PLT 228 150 - 450 K/uL [facility] MCV 89.2 80.0 - 100.0 fL [facility] MCH 27.4 27.0 - 31.0 pg [facility] MCHC 30.7(L) 32.0 - 36.0 g/dL [facility] RDW 14.8(H) 11.5 - 14.5 % [facility] MPV 10.8 8.4 - 12.0 fL [facility] NRBC 0.00 0.00 /100 WBCs [facility] ABSOLUTE NRBC 0.00 0.00 K/uL [facility] DIFF METHOD Auto [facility] NEUTS 72.5 48.0 - 76.0 % [facility] LYMPHS 18.8 18.0 - 41.0 % [facility] MONOS 5.7 4.0 - 11.0 % [facility] EOS 2.0 0.0 - 5.0 % [facility] BASOS 0.6 0.0 - 1.5 % [facility] Granulocytes, immature (%) 0.4 0.0 - 0.9 % [facility] ABSOLUTE NEUTS 5.84 1.92 - 7.60 K/uL [facility] ABSOLUTE LYMPHS 1.51 0.72 - 4.10 K/uL [facility] ABSOLUTE MONOS 0.46 0.16 - 1.10 K/uL [facility] ABSOLUTE EOS 0.16 0.00 - 0.50 K/uL [facility] ABSOLUTE BASOS 0.05 0.00 - 0.15 K/uL [facility] Granulocytes, immature 0.03 0.00 - 0.09 K/uL [facility] Blood 02/27/2025 3:58 PM EDT 02/27/2025 4:07 PM EDT Mirna Zhou PA-C LAB BLOOD ORDERABLES Final Result Performing Organization Address City/[facility] Co de Phone Number [facility] [address] [place] [address] * Iron and iron binding capacity (02/27/2025 3:58 PM EDT) IRON 57 30 - 160 ug/dL [facility] IRON BINDING CAPACITY 326 228 - 428 ug/dL [facility] TRANSFERRIN SATURAT. 17 15 - 50 % [facility] Blood 02/27/2025 3:58 PM EDT 02/27/2025 4:07 PM EDT Mirna Zhou PA-C LAB BLOOD ORDERABLES Final Result [facility] [address] [place] [address] * Ferritin (02/27/2025 3:58 PM EDT) FERRITIN 28 13 - 150 ug/L [facility] Blood 02/27/2025 3:58 PM EDT 02/27/2025 4:07 PM EDT us Mirna Zhou PA-C LAB BLOOD ORDERABLES Final Result Performing Organization Address [facility] Co de Phone Number [facility] [address] [place] [address] documented in this encounter Visit Diagnoses Diagnosis Iron deficiency anemia, unspecified iron deficiency anemia type documented in this encounter Additional Health Concerns Active Problems Noted Date Diagnosed Date Activity intolerance / Impaired Functional Mobil ity 12/14/2019 Chronic Condition Self-Management 12/14/2019 Assessment Noted Time PHQ-9 Depression Total Score: 13 10/30/ 021 2:15 PM EDT PHQ-2 Depression Total Score: 2 11/04/19 25 4:43 PM EDT documented as of this encounter Care Teams Public Health Analyst Relationship Specialty Start Date End Date Toña Garza CNP [address] [place] [address], [facility] [address] [place] [address] [email or web address] PCP - General Nurse Practitioner 02/23/23 Telma Chino, RN [address] [place] [address] PHCM Viticulturist 10/24/19 Mirna Zhou PA-C [address] [place] [address] [email or web address] Physician Cause Analyst 02/18/24 Marv Olmos MD [address] [place] [address] [email or web address] Dermatology 07/11/24 Kayla Toña, CNP [address] [place] [address], [facility] [address] [place] [address] [email or web address] Insurance Assigned Provider 08/13/24 Tori Esposito [address] [place] [address] [email or web address] Community Health Worker 02/26/25 documented as of this encounter Additional Source Comments The information contained in this document represents components of the legal health record. It is not the complete legal health record.[facility]
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
--- OUTSIDE RECORDS SUMMARY | 2025-03-01 18:50 | XMS_ITS | Encounter Summary ---
Author Organization [facility] Address [address] [place] [address] Phone Care Team Providers Care Recycling Operator Name Role Phone Luci Marsh ALLIANCE MANAGER Primary Care Provider [phone] Janis Aquino MD Unavailable [phone] Telma Chino RN Unavailable [phone] Tori Esposito Unavailable [phone] Mihir Garner MD Unavailable SahArron balderas DO Primary Care Provider [phone] Luci Marsh ALLIANCE MANAGER Primary Care Provider [phone] [facility] DO Primary Care Provider [phone] Toña Garza ALLIANCE MANAGER Primary Care Provider [phone] Arron Alejandre DO Unavailable Mirna Zhou PA-C Unavailable Marv Olmos MD Unavailable Toña Garza CNP Unavailable [phone] Laura Valencia Unavailable heidi Tori Esposito Unavailable [phone] Encounter Details Date Type Department Care Team (Late Contact Info) Description 06/14/2017 Ancillary Orders [facility] [address] [place] [address] Luci Marsh, ALLIANCE MANAGER 15 [facility], 2nd [place] [address] Breast screening Social History Tobacco Use Types Packs/Day Years Used Date Smoking Tobacco: Never Smokeless Tobacco: Never Alcohol Use Standard Drinks/Week Comments No 0 (1 standard drink = 0.6 oz pur e alcohol) Comments No Sex and Gender Information Value Date Recorded Sex Assigned at Female 02/14/2020 9:35 PM EDT Legal Sex Female 8:29 AM EDT Gender Identity Female 02/14/2020 9:35 PM EDT Sexual Orientation Straight 05/18/2023 5: 26 PM EST 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 30 [place] [address] Mirna Zhou PA-C 30 [place] [address] 03/06/2025 2:40 PM EDT Office Visit [facility] [address] [place] [phone] Jasmina Peraza MD 22 [facility], 1st [place] [address] 03/08/2025 1:00 PM EDT Office Visit [address] [address] Cordell Lutz PA-C, MARIXA [address] [place] [address] Marshal Jimenez, PT 8 [place] [address] [email or web address] 03/12/2025 1:15 PM EST Office Visit [address] [address] Yessenia Shah MD, MPH [address] [place] [address], [address] [address] Qiana Llamas, OT 8 [place] [address] 03/19/2025 1:15 PM EST Office Visit [address] [address] Yessenia Shah MD, MPH 22 [facility], [address] [address] Qiana Llamas, OT 8 [place] [address] 03/20/2025 1:20 PM EST Telemedicine [facility] 2 [place] [address] Aniyah Ogden, PADuaneC 2 [place] [phone] [email or web address] 03/26/2025 2:10 PM EST Office Visit [facility] Rheumatology [address] [place] [address] Yessenia Shah MD, MPH 22 [facility], [address] [place] [address] [email or web address] 03/30/2025 4:15 PM EST Office Visit [address] [address] Arron Alejandre, 234 [facility] 7 [place] [address] [email or web address] 04/12/2025 2:00 PM EST Nutrition [facility] 40 [place] [address] Maddison Lea, JULIETTE [address] [address] [email or web address] 04/20/2025 2:30 PM EST Office Visit [address] [address] Toña Garza, ALLIANCE MANAGER 234 [facility] 7 [place] [address] [email or web address] 06/04/2025 1:30 PM EST Office Visit [facility] [address] [place] [address] Anisa Crowell, ALLIANCE MANAGER 22 [facility], [address] [place] [address] 08/06/2025 1:00 PM EDT Office Visit [facility] [address] 3rd [facility], [address] [place] [address] Beulah Watkins DNP 22 [facility], [address] [place] [address] 02/07/2026 1:20 PM EDT Office Visit [facility] [address] [place] [address] [place] [address], [address] [place] [address] Diaz Verdugo MD [address] [place] [address], [address] [place] [address] documented as of this encounter Results * BI MAMMOGRAM SCREENING WITH TOMOSYNTHESIS WITH CAD (BILATERAL) (08/05/2017 1:18 PM EDT) Anatomical Region Laterality Modality Breast Left, Breast Right, Breast Bilateral Bila teral Mammography 08/05/2017 1:33 PM EDT Impressions 08/05/2017 1:35 PM EDT No mammographic evidence of malignancy. BI-RADS CATEGORY: 1 - Negative. DENSITY: There are scattered fibroglandular densities. POS - [id number] Narrative 08/05/2017 1:35 PM EDT Standard digital full-field 2-D C view and two-plane tomographic imaging was performed and compared with multiple prior studies, most recently 2-17, with utilization of computer-aided detection. The breasts are composed of scattered fibroglandular densities. The stromal markings are essentially unchanged in overall appearance and distribution. No dominant spiculated mass, suspicious clustered microcalcifications, or focal zone of pathologic skin thickening or retraction are noted to have arisen in the interim. Procedure Note Silvano Nieto MD - 08/05/2017 Standard digital full-field 2-D C view and two-plane tomographic imagingwas performed and compared with multiple prior studies, most recently2-17, with utilization of computer-aided detection. The breasts are composed of scattered fibroglandular densities. Thestromal markings are essentially unchanged in overall appearance anddistribution. No dominant spiculated mass, suspicious clusteredmicrocalcifications, or focal zone of pathologic skin thickening orretraction are noted to have arisen in the interim. IMPRESSION: No mammographic evidence of malignancy. BI-RADS CATEGORY: 1 - Negative. DENSITY: There are scattered fibroglandular densities. POS - [id number] Luci Marsh ALLIANCE MANAGER IMG MG EXAMS Final Resu lt documented in this encounter Visit Diagnoses Diagnosis Breast screening Breast screening, unspecified Breast screening Breast screening, unspecified documented in this encounter Additional Health Concerns Infection Onset Date Last Indicated Resolved Time CoV-Risk Comment:Per note documentation 04/16/2020 04/17/2020 0 2:00 PM EST CoV-Risk 06/10/2020 06/10/2020 06/20/2020 1:24 AM EST CoV-Risk 07/09/2020 07/09/2020 07/10/2020 7:23 PM EST CoV-Presumed Comment:Negative second test 07/09/2020 07/09/2020 07/15/2020 11:28 AM EST CoV-Exposed Comment:Recent close contact documented in the COVID-19 PCR/PRO order 12/08/2020 12/14/2020 12/23/2020 1:25 AM E DT CoV-Presumed 03/25/2022 03/25/2022 04/15/2022 2:31 AM EST CoV-Risk 03/29/2022 03/29/2022 04/09/2022 1:36 AM EST CoV-Risk 05/18/2023 05/18/2023 05/18/2023 6:21 PM EST COVID-19 05/18/2023 05/18/2023 06/08/2023 1:22 AM EST CoV-Risk 08/16/2023 08/16/2023 08/27/2023 1:25 AM EDT CDiff-Risk 01/30/2025 02/12/2025 02/06/2025 1:25 AM EDT CDiff-Risk 02/11/2025 02/11/2025 02/12/2025 7:15 PM EDT Assessment Noted Time PHQ-2 Depression Total Score: 2 06/01/19 18 11:15 AM EST documented as of this encounter Care Teams Recycling Operator Relationship Specialty Start Date End Date Luci Marsh CNP [address] [address] [email or web address] PCP - General 05/20/17 10/20/22 Arron Alejandre DO [address] [place] [address] 7 [place] [address] [email or web address] PCP - General Family Medicine 10/21/22 01/16/23 Luci Marsh CNP [address] [place] [address] PCP - General Nurse Practitioner 01/17/23 02/01/23 Arron Alejandre DO [address] [place] [address] 7 [place] [address] [email or web address] PCP - General Family Medicine 02/02/23 02/22/23 Toña Garza CNP [address] [place] [address] 7 [place] [address] PCP - General Nurse Practitioner 02/23/23 Janis Aquino MD [address] [place] [address] 7 [place] [address] Insurance Assigned Provider 09/10/18 08/15/22 Telma Chino, RN [address] [place] [address] [email or web address] Network Technical Analyst 10/24/19 Tori Esposito [address] [place] [address] [email or web address] Community Health Worker 01/08/20 01/27/21 Mihir Garner MD [address] [place] [address] 7 [place] [address] [email or web address] Insurance Assigned Provider 08/15/22 08/14/23 Arron Alejandre DO [address] [place] [address] 7 [place] [address] [email or web address] Insurance Assigned Provider 08/14/23 08/13/24 Mirna Zhou PA-C [address] [place] [address] [email or web address] Physician Piccolo Mechanic 02/18/24 Marv Olmos MD 29 [place] [address] [email or web address] Dermatology 07/11/24 Toña Garza CNP [address] [place] [address] 7 [place] [address] [email or web address] Insurance Assigned Provider 08/13/24 Laura Valencia [address] [place] [address] [email or web address] [facility] Community Sql Dba 10/09/24 10/09/24 Tori Esposito [address] [place] [address] [email or web address] Community Health Worker 02/26/25 documented as of this encounter Additional Source Comments The information contained in this document represents components of the legal health record. It is not the complete legal health record.[facility]
--- OUTSIDE RECORDS SUMMARY | 2025-03-01 18:50 | XMS_ITS | Encounter Summary ---
Author Organization [facility] Address [address] [place] [address] Phone Care Team Providers Care Door To Door Selling Distributor Name Role Phone Telma Chino RN Unavailable Toña Garza DIRECTOR IMMUNOLOGY Primary Care Provider Mirna Zhou PA-C Unavailable Marv Olmos MD Unavailable Toña Garza DIRECTOR IMMUNOLOGY Unavailable Tori Esposito Unavailable [phone] Reason for Visit * Reason Onset Date Comments Care Coordination 02/26/2025 Social Work Encounter Details Date Type Department Care Team (Latest Contact Info) Description 02/26/2025 Patient Outreach [facility] Physicians - Primary Care [address] [place] [address] Jailyn Mathur, FRANCISCO [address] [place] [address] [email or web address] Care Coordination (Social Work) Social History Tobacco Use Types Packs/Day Years [...] fi le documented as of this encounter Miscellaneous Notes * Plan of Care - Jailyn Mathur, [facility] - 02/26/2025 2:00 PM EDT ICMP Social Work Progress Note [facility] This SW spoke with Alice over the phone. She reports that she has felt increasing worry around paying her bills and rent. She is currently paying $1900 a month for rent. 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 Alice shares that she sees a psychiatrist thru [facility], Dr. Moran and a therapist, [place], weekly in [place]. She has multiplehealth concerns and sees a few different specialists. She receives MOW and is on the list for homemaking services thru [facility]. PLAN/INTERVENTIONS: -POC reviewed and updated -SMP discussed and sent to patient: Not Indicated at this encounter -Referral to [facility] for support with applying for SNAP, fuel assistance and affordable housing FOLLOW-UP OUTREACH: Two weeks Contact method: Phone outreach Plan of Care Problem: Financial Insecurity - Care Management - Adult/Pediatric Goal: Reduce financial stress Description: Patient's stated goal: Feel less worried about paying bills and rent Progress measured by: Applying to two programs that offer financial assistance Patient will contribute towards managing this health goal by: Working with [facility] on applications Barrier(s) identified by patient to achieving this health goal: Limited time and resources Patient Agrees with goal priority: Yes Outcome: [facility]ing [facility]: Alice reports that she is worried about paying her bills and rent. She pays $1900 a month for rent and gets $997 a month from [employer]. 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 She is interested in applying for fuel assistance, SNAP and affordable housing. This SW sent referral to [facility] for assistance with completing applications. Alice also reports that she needs dental insurance and this SW encouraged her to meet with a [facility] counselor as well to review her Medicare benefits. She has worked with Rufina at [facility] in the past and plans to meet with her on this. Next contact to assess goal progression: Date: Two weeks Method of contact: Phone outreach documented in this encounter Plan of Treatment Upcoming Encounters Date Type Department Care Team (Late st Contact Info) Description 03/02/2025 1:45 PM EDT Office Visit [facility] 8 [place] [address] Cordell Lutz PA-C, MARIXA [address] [place] [address] Marshal Jimenez, PT 8 [place] [address] [email or web address] 03/06/2025 12:00 PM EDT Telemedicine - audio only [facility] 30 [place] [address] Mirna Zhou PA-C 30 [place] [address] 03/06/2025 2:40 PM EDT Office Visit [facility] [address] [place] [phone] Jasmina Peraza MD 22 [facility], 1st [place] [address] 03/08/2025 1:00 PM EDT Office Visit [facility] 8 [place] [address] Cordell Lutz PA-C, MARIXA [address] [place] [address] Marshal Jimenez, PT 8 [place] [address] [email or web address] 03/12/2025 1:15 PM EST Office Visit [address] [address] Yessenia Shah MD, MPH [address] [place] [address] Qiana Llamas, OT 8 [place] [address] 03/19/2025 1:15 PM EST Office Visit [address] [address] Yessenia Shah MD, MPH [address] [place] [address] Qiana Llamas, OT 8 [place] [address] 03/20/2025 1:20 PM EST Telemedicine [facility] SUPPORT 2 [place] [address] Aniyah Ogden PA-C 2 [place] [phone] 03/26/2025 2:10 PM EST Office Visit [facility] Rheumatology [address] [place] [address] Yessenia Shah MD, MPH 22 [facility], [address] [place] [address] 03/30/2025 4:15 PM EST Office Visit [facility] [address] [place] [address] Arron Alejandre, 234 [facility] 7 [place] [address] 04/12/2025 2:00 PM EST Nutrition [facility] 40 [place] [address] Maddison Lea, JULIETTE 22 [facility], 1st [place] [address] 04/20/2025 2:30 PM EST Office Visit [facility] [address] [place] [address] Toña Garza, DIRECTOR IMMUNOLOGY 234 [facility] 7 [place] [address] 06/04/2025 1:30 PM EST Office Visit [facility] [address] [place] [address] Anisa Crowell, DIRECTOR IMMUNOLOGY 22 [facility], 1st [place] [address] 08/06/2025 1:00 PM EDT Office Visit [facility] 22 [facility] 3rd Floor, [address] [address] Roland BeulahPATRICA santos [address] [address] 02/07/2026 1:20 PM EDT Office Visit [facility] [address] [place] [address] 3rd Floor, [address] [address] Diaz Verdugo MD [address] [address] [email or web address] documented as of this encounter Goals Goal Patient Goal Type Associated Problems Recent Progress Patient-Stated? Author Increase physical activity / mobility Care Plan Activity intolerance / Impaired Functional Mobility No Telma Chino, DIXIE Note: Adhere to treatment plan Care Plan Chronic Condition Self-Management No Telma Chino RN Note: documented as of this encounter Visit Diagnoses Not on filedocumented in this encounter Additional Health Concerns Active Problems Noted Date Diagnosed Date Activity intolerance / Impaired Functional Mobil ity 12/14/2019 Chronic Condition Self-Management 12/14/2019 Assessment Noted Time PHQ-9 Depression Total Score: 13 10/30/ 021 2:15 PM EDT PHQ-2 Depression Total Score: 2 11/04/19 25 4:43 PM EDT documented as of this encounter Care Teams Door To Door Selling Distributor Relationship Specialty Start Date End Date Toña Garza CNP [address] [place] [address] PCP - General Nurse Practitioner 02/23/23 Telma Chino RN [address] [place] [phone] PHCM Doctor Of Podiatric Medicine 10/24/19 Mirna Zhou PA-C [address] [place] [address] Physician Software Development Specialist 02/18/24 Marv Olmos MD [address] [place] [address] Dermatology 07/11/24 Toña Garza CNP [address] [place] [address] 7 [place] [address] [email or web address] Insurance Assigned Provider 08/13/24 Tori Esposito [address] [place] [address] [email or web address] Community Health Worker 02/26/25 documented as of this encounter Additional Source Comments The information contained in this document represents components of the legal health record. It is not the complete legal health record.[facility]
--- OUTSIDE RECORDS SUMMARY | 2025-03-01 18:50 | XMS_ITS | Encounter Summary ---
Author Organization [facility] Address [address] [place] [address] Phone Care Team Providers Care Community Cultural Development Officer Name Role Phone Telma Chino RN Unavailable [phone] Toña Garza PROFESSOR OF FINANCE Primary Care Provider Mirna Zhou PA-C Unavailable Marv Olmos MD Unavailable [phone] Toña Garza PROFESSOR OF FINANCE Unavailable [phone] Tori Esposito Unavailable [phone] Reason for Visit * Reason Comments Med Change Request Encounter Details Date Type Department Care Team (Late st Contact Info) Description 02/22/2025 [facility] 22 [place] [address] Anisa Crowell CNP 22 [facility], 1st [place] [address] [email or web address] Med Change Request Social History Tobacco Use Types Packs/Day Years [...] fi le documented as of this encounter Progress Notes * Shawanda Puri MA - 02/22/2025 11:45 AM EDT EPA initiated for [facility] documented in this encounter Plan of Treatment Upcoming Encounters Date Type Department Care Team (Late st Contact Info) Description 03/02/2025 1:45 PM EDT Office Visit [facility] 8 [place] [address] Cordell Lutz PA-C, MARIXA [address] [place] [address] Marshal Jimenez, PT 8 [place] [address] [email or web address] 03/06/2025 12:00 PM EDT Telemedicine - audio only [facility] 30 [place] [address] Mirna Zhou PA-C 30 [place] [address] 03/06/2025 2:40 PM EDT Office Visit [facility] [address] [place] [phone] Jasmina Peraza MD 22 [facility], 1st [place] [address] 03/08/2025 1:00 PM EDT Office Visit [facility] 8 [place] [address] Cordell Lutz PA-C, MARIXA [address] [place] [address] Marshal Jimenez, PT 8 [place] [address] [email or web address] 03/12/2025 1:15 PM EST Office Visit [address] [address] Yessenia Shah MD, MPH [address] [place] [address], [address] [address] Qiana Llamas, OT 8 [place] [address] [email or web address] 03/19/2025 1:15 PM EST Office Visit [facility] [address] [place] [address] Yessenia Shah MD, MPH [address] [place] [address], [address] [address] Qiana Llamas OT 8 [place] [address] 03/20/2025 1:20 PM EST Telemedicine [facility] 2 [place] [address] Aniyah Ogden PA-C [address] [place] [phone] 03/26/2025 2:10 PM EST Office Visit [facility] Rheumatology [address] [place] [address] Yessenia Shah MD, MPH 22 [facility], [address] [place] [address] 03/30/2025 4:15 PM EST Office Visit [facility] 234 [place] [address] Arron Alejandre, [address] [address] 04/12/2025 2:00 PM EST Nutrition [facility] 40 [place] [address] Maddison Lea, KATHYN 22 [facility], [address] [place] [address] 04/20/2025 2:30 PM EST Office Visit [facility] 234 [place] [address] Toña Garza, PROFESSOR OF FINANCE 234 [facility] 7 [place] [address] 06/04/2025 1:30 PM EST Office Visit [facility] [address] [place] [address] Anisa Crowell, PROFESSOR OF FINANCE 22 [facility], [address]st [place] [address] 08/06/2025 1:00 PM EDT Office Visit [facility] [address] [place] [address] Dr 3rd Floor, [address] [place] [address] Beulah Watkins DNP 22 [facility], [address] [address] 02/07/2026 1:20 PM EDT Office Visit [facility] [address] 3rd [facility], [address] [place] [address] Diaz Verdugo MD 22 [facility], [address] [address] [email or web address] documented as of this encounter Goals Goal Patient Goal Type Associated Problems Recent Progress Patient-Stated? Author Increase physical activity / mobility Care Plan Activity intolerance / Impaired Functional Mobility No Telma Chino, DIXIE Note: Adhere to treatment plan Care Plan Chronic Condition Self-Management No Telma Chino, RN Note: documented as of this encounter Visit Diagnoses Diagnosis Type 2 diabetes mellitus with hyperglycemia, with long-term current use of insulin documented in this encounter Additional Health Concerns Active Problems Noted Date Diagnosed Date Activity intolerance / Impaired Functional Mobil ity 12/14/2019 Chronic Condition Self-Management 12/14/2019 Assessment Noted Time PHQ-9 Depression Total Score: 13 10/30/ 021 2:15 PM EDT PHQ-2 Depression Total Score: 2 11/04/19 25 4:43 PM EDT documented as of this encounter Care Teams Community Cultural Development Officer Relationship Specialty Start Date End Date Toña Garza CNP [address] [place] [address] 7 [place] [address] PCP - General Nurse Practitioner 02/23/23 Telma Chino RN [address] [place] [address] PHCM Edi Manager 10/24/19 Mirna Zhou PA-C 30 [place] [address] [email or web address] Physician Wooden Boat Builder 02/18/24 Marv Olmos MD 29 [place] [address] [email or web address] Dermatology 07/11/24 Toña Garza CNP [address] [place] [address], [address] [place] [address] [email or web address] Insurance Assigned Provider 08/13/24 Tori Esposito 10 [place] [address] [email or web address] Community Health Worker 02/26/25 documented as of this encounter Additional Source Comments The information contained in this document represents components of the legal health record. It is not the complete legal health record.[facility]
--- OUTSIDE RECORDS SUMMARY | 2025-03-01 18:50 | XMS_ITS ---
Author Organization [facility] Address [address] [address] Phone Care Team Providers Care Hard Metals Hand Engraver Name Role Phone Telma Chino RN Unavailable [phone] Toña Garza STORE MGR Primary Care Provider Mirna Zhou PA-C Unavailable Marv Olmos MD Unavailable [phone] Toña Garza STORE MGR Unavailable Tori Esposito Unavailable [phone] Population Health Care Management (PHCM) Status:Enrolled (Active) Start date:05/25/2023 Enrollment date:05/25/2023 Current support & services provided:[facility] Related social drivers of health:Housing Stability, Child or Family Care, Education, Food, Unemployment, Paying for Meds, Paying Utility Bills, Transportation, Digital Access, SNAP/WIC Case Team Name Relationship Phone Email Telma Chino RN Registered Nurse [phone] puja Jailyn Mathur [facility] PHCM Windows System Admin(Responsible Staff) [phone] Tori Esposito Community Health Worker [phone] Shanon Brock [facility] Appointment Coordinator Continued Care and Services Coordination
--- OUTSIDE RECORDS SUMMARY | 2025-03-01 18:51 | XMS_ITS | Encounter Summary ---
Author Organization [facility] Address [address] [place] [address] [place] [address] Phone Care Team Providers Care Forest Examiner Name Role Phone Telma Chino RN Unavailable Toña Garza SYSTEMS APPLICATIONS PROGRAMMING LEAD Primary Care Provider Mirna Zhou PA-C Unavailable Marv Olmos MD Unavailable Toña Garza SYSTEMS APPLICATIONS PROGRAMMING LEAD Unavailable [phone] Tori Esposito Unavailable [phone] Reason for Visit * Reason Comments Medication Refill Encounter Details Date Type Department Care Team (Late st Contact Info) Description 01/12/2025 Refill [facility] [address] [place] [address] Arron Alejandre, 234 [facility] [address] [place] [address] [email or web address] Medication Refill Social History Tobacco Use Types Packs/Day Years [...] as of this encounter Progress Notes * Babs Carias CNP - 01/12/2025 11:32 AM EDT * Miguelina Will - 01/12/2025 10:27 AM EDT Rx Care Gap Status - Instructions for Clinical Staff (prescriber discretion applies): > Mismatch review guide > N/a - No action needed Visit Info Last visit: 12/04/2024 Clair-Cait Rogers MD - Family Medicine [facility] > Requested f/u: Return in about 4 weeks (around 01/01/2025). Upcoming visit: 01/16/2025 Arron Alejandre DO - Family Medicine [facility] ACTIONS TAKEN BY Miguelina Will - Criteria met. - Updated rx duration per protocol. AV Rosibel Blockers Rx Protocol (on HTN Registry) - metoprolol succinate Criteria met; renew for up to 12 months. Visit in the past 14 months: Yes Clinical criteria: - BP within last 6 months: 158/79 on 01/10/2025 - Last HR: 75 on 01/10/2025 documented in this encounter Plan of Treatment Upcoming Encounters Date Type Department Care Team (Late st Contact Info) Description 03/02/2025 1:45 PM EDT Office [facility] [address] [place] [address] [place] [address] Cordell Lutz PA-C, MARIXA [address] [place] [address] Marshal Jimenez, PT 8 [place] [address] [email or web address] 03/06/2025 12:00 PM EDT Telemedicine - audio only [facility] 30 [place] [address] Mirna Zhou PA-C 30 [place] [address] 03/06/2025 2:40 PM EDT Office Visit [facility] [address] [place] [phone] Jasmina Peraza MD 22 [facility], 1st [place] [address] 03/08/2025 1:00 PM EDT Office Visit [facility] 8 [place] [address] Cordell Lutz PA-C, MARIXA [address] [place] [address] Marshal Jimenez, PT 8 [place] [address] [email or web address] 03/12/[email or web address] 1:15 PM EST Office Visit [facility] 8 [place] [address] Yessenia Shah MD, MPH 22 [facility], [address] [place] [address] Muriel Qiana, OT 8 [place] [address] 03/19/2025 1:15 PM EST Office Visit [facility] [address] [place] [address] Yessenia Shah MD, MPH 22 [facility], [address] [place] [address] Muriel Qiana, OT 8 [place] [address] 03/20/2025 1:20 PM EST Telemedicine [facility] 2 [place] [address] Aniyah Ogden, PA-C 2 [place] [phone] [email or web address] 03/26/2025 2:10 PM EST Office Visit [facility] Rheumatology [address] [place] [address] Yessenia Shah MD, MPH [address] [place] [address] 03/30/2025 4:15 PM EST Office Visit [address] [address] Arron Aljeandre, 234 [facility], [address] [place] [address] [email or web address] 04/12/2025 2:00 PM EST Nutrition [facility] [address] [place] [address] [place] [address] Maddison Lea LDN [address] [place] [address], [address] [place] [address] 04/20/2025 2:30 PM EST Office Visit [facility] 234 [place] [address] Toña Garza, SYSTEMS APPLICATIONS PROGRAMMING LEAD 234 [facility] 7 [place] [address] 06/04/2025 1:30 PM EST Office Visit [facility] [address] [place] [address] [place] [address] Anisa Crowell, SYSTEMS APPLICATIONS PROGRAMMING LEAD 22 [facility], [address] [place] [address] 08/06/2025 1:00 PM EDT Office Visit [facility] [address] [place] [address], [address] [place] [address] Beulah Watkins DNP [address] [place] [address] 02/07/2026 1:20 PM EDT Office Visit [facility] [address], [address] [address] Diaz Verdugo MD [address] [place] [address], [address] [address] documented as of this encounter Goals Goal Patient Goal Type Associated Problems Recent Progress Patient-Stated? Author Increase physical activity / mobility Care Plan Activity intolerance / Impaired Functional Mobility No Telma Chino, DIXIE Note: Adhere to treatment plan Care Plan Chronic Condition Self-Management No Telma Chino RN Note: documented as of this encounter Visit Diagnoses Diagnosis Essential hypertension Unspecified essential hypertension Fall, subsequent encounter Dizziness Dizziness and giddiness documented in this encounter Additional Health Concerns Active Problems Noted Date Diagnosed Date Activity intolerance / Impaired Functional Mobil ity 12/14/2019 Chronic Condition Self-Management 12/14/2019 Infection Onset Date Last Indicated Resolved Time CDiff-Risk 01/30/2025 02/12/2025 02/06/2025 1:25 AM EDT CDiff-Risk 02/11/2025 02/11/2025 02/12/2025 7:15 PM EDT Assessment Noted Time PHQ-9 Depression Total Score: 13 021 2:15 PM EDT PHQ-2 Depression Total Score: 2 11/04/19 25 4:43 PM EDT documented as of this encounter Care Teams Forest Examiner Relationship Specialty Start Date End Date Toña Garza CNP [address] [place] [address] PCP - General Nurse Practitioner 02/23/23 Telma Chino, RN [address] [place] [address] PHCM Boring Machine Operator Production 10/24/19 Mirna Zhou PA-C [address] [place] [address] Physician Diesel Mechanic Farm 02/18/24 Marv Olmos MD 29 [place] [address] Dermatology 07/11/24 Toña Garza CNP [address] [place] [address] Insurance Assigned Provider 08/13/24 Tori Esposito [address] [place] [address] Community Health Worker 02/26/25 documented as of this encounter Additional Source Comments The information contained in this document represents components of the legal health record. It is not the complete legal health record.[facility]
--- OUTSIDE RECORDS SUMMARY | 2025-03-01 18:51 | XMS_ITS | Encounter Summary ---
Author Organization [facility] Address [address] [address] Phone Care Team Providers Care Government Affairs Specialist Name Role Phone Telma Chino RN Unavailable Toña Garza FRAUD ANALYST Primary Care Provider Mirna Zhou PA-C Unavailable Marv Olmos MD Unavailable [phone] Toña Garza FRAUD ANALYST Unavailable Tori Esposito Unavailable [phone] Reason for Visit * Reason Onset Date Comments Care Coordination 03/01/2025 Care compass C Encounter Details Date Type Department Care Team (Latest Contact Info) Description 03/01/[address] [facility] Physicians - Primary Care [address] [place] [address] Tori Esposito [address] [place] [phone] [email or web address] Care Coordination (Care compass CHW) Social History Tobacco Use Types Packs/Day Years [...] as of this encounter Progress Notes * Tori Esposito - 03/01/2025 9:11 AM EDT Note Subject: iCMP Progress Note Resource Requested: DTA, Fuel Assistance, Housing Status: Active Comments: Community Health Worker (CHW) 03/01/2025 PROGRESS NOTE CHW called patient yesterday. Patient reported he was at an appointment and will call back to schedule community visit. PLAN Follow-up with patient schedule community visit. Next Follow-Up Date: 03/01/2025 Update:03/01/2025 Outreach call to patient. CHW scheduled community visit with patient for next week to assist with housing, DTA, and fuel assistance. documented in this encounter Plan of Treatment Upcoming Encounters Date Type Department Care Team ([facility] Contact Info) Description 03/02/2025 1:45 PM EDT Office Visit [facility] Services 8 [place] [address] Cordell Lutz PA-C, MARIXA [address] [place] [address] Marshal Jimenez, PT 8 [place] [address] [email or web address] 03/06/2025 12:00 PM EDT Telemedicine - audio only [facility] 30 [place] [address] Mirna Zhou PA-C 30 [place] [address] 03/06/2025 2:40 PM EDT Office Visit [facility] 234 [place] [address] Jasmina Peraza MD 22 [facility], 1st [place] [address] 03/08/2025 1:00 PM EDT Office Visit [address] [address] Cordell Lutz PA-C, MARIXA [address] [place] [address] Marshal Jimenez, PT 8 [place] [address] [email or web address] 03/12/2025 1:15 PM EST Office Visit [address] [address] Yessenia Shah MD, MPH [address] [place] [address] Qiana Llamas, OT 8 [place] [address] 03/19/2025 1:15 PM EST Office Visit [facility] 8 [place] [address] Yessenia Shah MD, MPH [address] [place] [address] Qiana Llamas, OT 8 [place] [address] 03/20/2025 1:20 PM EST Telemedicine [facility] 2 [place] [address] Aniyah Ogden PA-C 2 [place] [phone] [email or web address] 03/26/2025 2:10 PM EST Office Visit [facility] Rheumatology [address] [place] [address] Yessenia Shah MD, MPH 22 [facility], [address] [place] [address] [email or web address] 03/30/2025 4:15 PM EST Office Visit [address] [address] Arron Alejandre, DO 234 [facility], [facility] 7 [place] [address] [email or web address] 04/12/2025 2:00 PM EST Nutrition [facility] 40 [place] [phone] Maddison Lea, JULIETTE 22 [facility], 1st [place] [address] 04/20/2025 2:30 PM EST Office Visit [facility] 234 [place] [address] Toña Garza, RAFAEL 234 [facility], [address] [place] [address] 06/04/2025 1:30 PM EST Office Visit [facility] [address] [place] [address] [place] [address] Anisa Crowell CNP [address] [place] [address], 1st [place] [address] [email or web address] 08/06/2025 1:00 PM EDT Office Visit [facility] [address] [place] [address] Dr 3rd Floor, [address] [place] [address] Beulah Watkins DNP [address] [place] [address], [address] [address] 02/07/2026 1:20 PM EDT Office Visit [facility] [address], [address] [place] [address] Diaz Verdugo MD [address] [place] [address], [address] [place] [address] documented as of this encounter Goals Goal Patient Goal Type Associated Problems Recent Progress Patient-Stated? Author Increase physical activity / mobility Care Plan Activity intolerance / Impaired Functional Mobility No Tlema Chino, DIXIE Note: Adhere to treatment plan [...] documented as of this encounter Care Teams Government Affairs Specialist Relationship Specialty Start Date End Date Toña Garza CNP [address] [place] [address] 7 [place] [address] [email or web address] PCP - General Nurse Practitioner 02/23/23 Telma Chino, RN [address] [place] [address] [email or web address] PHCM Conference And Event Organiser 10/24/19 Mirna Zhou PA-C [address] [place] [address] [email or web address] Physician Creative Services Designer 02/18/24 Marv Olmos MD [address] [place] [address] Dermatology 07/11/24 Toña Garza CNP [address] [place] [address] [address] [place] [address] [email or web address] Insurance Assigned Provider 08/13/24 Tori Esposito [address] [place] [address] [email or web address] Community Health Worker 02/26/25 documented as of this encounter Additional Source Comments The information contained in this document represents components of the legal health record. It is not the complete legal health record.[facility]
--- OUTSIDE RECORDS SUMMARY | 2025-03-01 18:51 | XMS_ITS | Encounter Summary ---
Author Organization [facility] Address [address] [place] [address] Phone Care Team Providers Care Tool And Die Engineer Name Role Phone Telma Chino RN Unavailable Toña Garza REMOTE SENSING SPECIALIST Primary Care Provider Mirna Zhou PA-C Unavailable Marv Olmos MD Unavailable Toña Garza REMOTE SENSING SPECIALIST Unavailable Tori Esposito Unavailable [phone] Encounter Details Date Type Department Care Team (Late st Contact Info) Description 10/13/2024 Procedure Pass [facility] 30 [place] [address] Social History Tobacco Use Types Packs/Day Years Used Date Smoking Tobacco: Never Passive Smoke Exposure: Never Smokeless Tobacco: Never Alcohol Use Standard Drinks/Week Comments No 0 (1 standard drink = 0.6 oz pur e alcohol) Home Health Assessment: Transportation Answer Date Recorded Lack of Transportation (Medical) Yes 10/17/2024 Lack of Transportation (Non-Medical) Yes 10/17/2024 Patient Unable or Declines to Respond No 10/17/2024 Child or Family Care Answer Date Record [...] fi le documented as of this encounter Functional Status * Calculated C-SSRS Risk Score (Lifetime/Recent) Answer Date of Assessment Author No Risk Indicated 10/13/2024 8:36 AM EDT Siri Nieves ma, RN * [place] Suicide Severity Rating Scale (Screener/Recent Self-Report) Question Answer Date of Assessment Author 1. Wish to be (Past 1 Month) No 025 8:36 AM EDT Shante Nieves RN 2. Non-Specific Active Suici lupe Thoughts (Past 1 Month) No 10/13/2024 8:36 AM EDT Shante Nieves RN 6. Suicidal Behavior (Lifetime) No 8:36 AM EDT Shante Nieves RN documented as of this encounter Plan of Treatment Upcoming Encounters Date Type Department Care Team (Late st Contact Info) Description 03/02/2025 1:45 PM EDT Office Visit [facility] 8 [place] [address] Cordell Lutz PA-C, MARIXA [address] [place] [address] Marshal Jimenez, PT 8 [place] [address] [email or web address] 03/06/2025 12:00 PM EDT Telemedicine - audio only [facility] 30 [place] [address] Mirna Zhou PA-C 30 [place] [address] 03/06/2025 2:40 PM EDT Office Visit [facility] 234 [place] [address] Jasmina Peraza MD 22 [facility], 1st [place] [address] 03/08/2025 1:00 PM EDT Office Visit [facility] 8 [place] [address] Cordell Lutz PA-C, MARIXA [address] [place] [address] Marshal Jimenez, PT 8 [place] [address] [email or web address] 03/12/2025 1:15 PM EST Office Visit [address] [address] Yessenia Shah MD, MPH 22 [facility], [address] [place] [address] Qiana Llamas, OT 8 [place] [address] [email or web address] 03/19/2025 1:15 PM EST Office Visit [address] [place] [address] Yessenia Shah MD, MPH 22 [facility], [address] [place] [address] Qiana Llamas, OT 8 [place] [address] [email or web address] 03/20/2025 1:20 PM EST Telemedicine [facility] [address] [place] [address] Aniyah Ogden PA-C [address] [place] [phone] 03/26/2025 2:10 PM EST Office Visit [facility] [address] [place] [address] Yessenia Shah MD, MPH 22 [facility], [address] [place] [address] 03/30/2025 4:15 PM EST Office Visit [address] [address] Arron Alejandre, DO [address] [address] 04/12/2025 2:00 PM EST Nutrition [facility] [address] [place] [phone] Maddison Lea LDN [address] [address] 04/20/2025 2:30 PM EST Office Visit [address] [address] Toña Garza, REMOTE SENSING SPECIALIST [address] [address] 06/04/2025 1:30 PM EST Office Visit [facility] 22 [place] [address] Anisa Crowell, REMOTE SENSING SPECIALIST 22 [facility], [address] [place] [address] 08/06/2025 1:00 PM EDT Office Visit [facility] [address] [place] [address] 3rd Floor, [address] [place] [address] Beulah Watkins DNP 22 [facility], [address] [address] 02/07/2026 1:20 PM EDT Office Visit [facility] [address] 3rd Floor, [address] [place] [address] Diaz Verdugo MD 22 [facility], [address] [address] [email or web address] documented as of this encounter Goals Goal [...] PM EDT PHQ-2 Depression Total Score: 2 07/29/19 24 3:40 PM EDT documented as of this encounter Care Teams Tool And Die Engineer Relationship Specialty Start Date End Date Toña Garza CNP [address] [place] [address] 7 [place] [address] [email or web address] PCP - General Nurse Practitioner 02/23/23 Telma Chino, RN 10 [place] [address] [email or web address] PHCM Bread Supervisor 10/24/19 Mirna Zhou PA-C 30 [place] [address] [email or web address] Physician Encoding Machine Operator 02/18/24 Marv Olmos MD [address] [place] [address] [email or web address] Dermatology 07/11/24 Toña Garza CNP [address] [place] [address], [facility] 7 [place] [address] [email or web address] Insurance Assigned Provider 08/13/24 Tori Esposito 10 [place] [address] [email or web address] Community Health Worker 02/26/25 documented as of this encounter Additional Source Comments The information contained in this document represents components of the legal health record. It is not the complete legal health record.[facility]
--- OUTSIDE RECORDS SUMMARY | 2025-03-01 18:51 | XMS_ITS | Encounter Summary ---
Author Organization [facility] Address [address] [place] [address] Phone Care Team Providers Care Sfdc Architect Name Role Phone Telma Chino RN Unavailable [phone] Toña Garza SALES AGENT PEST CONTROL SERVICE Primary Care Provider Arron Alejandre DO Unavailable Mirna Zhou PA-C Unavailable [phone] Marv Olmos MD Unavailable Toña Garza SALES AGENT PEST CONTROL SERVICE Unavailable [phone] Laura Valencia Unavailable heidi Tori Esposito Unavailable [phone] Encounter Details Date Type Department Care Team (Late st Contact Info) Description 02/09/2024 Procedure Pass [facility] Endoscopy Admitting Dept Virtual Department 30 [place], [place] [id number] Social History Tobacco Use Types Packs/Day Years Used Date Smoking Tobacco: Never Smokeless Tobacco: Never Alcohol Use Standard Drinks/Week Comments No 0 (1 standard drink = 0.6 oz pur e alcohol) Child or Family Care Answer Date Record [...] got money to buy more. Sometimes True 021 Within the past 6 months the food we bought just didn't last and we didn't have enough money to get more. Sometimes True 07/09 Paying for Meds Answer Date Recorded Do you have trouble paying for medicines? No 08/01/2020 Paying Utility Bills Answer Date Record ed Do you have trouble paying your heating or elect ricity bill? Yes 08/01/2020 Transportation Answer Date Recorded Has the lack of transportati on kept you from medical appointments or from getting medications? No 08/01/2020 Digital Access Answer Date Recorded No 09/30/2022 No 09/30/2022 Reliable internet access at home? Not on file 09/30/2022 Device with a working camera? Not on file Intimate Partner Violence Answer Date R ecorded Are you denied basic needs s uch as food, clothing, or medical care? No 02/08/2024 In the past 12 months have y ou been in a relationship with a person who hurts, threatens, or tries to control you? No 02/08/2024 Are you denied basic needs s uch as food, clothing, or medical care? No 02/08/2024 In the past 12 months have y ou been in a relationship with a person who hurts, threatens, or tries to control you? No 02/08/2024 Comments No Sex and Gender Information Value [...] Description 03/02/2025 1:45 PM EDT Office Visit [facility] 8 [place] [address] Cordell Lutz PA-C, MARIXA [address] [place] [address] [email or web address] Marshal Jimenez, PT 8 [place] [address] [email or web address] 03/06/2025 12:00 PM EDT Telemedicine - audio only [facility] 30 [place] [address] Mirna Zhou PA-C 30 [place] [address] 03/06/2025 2:40 PM EDT Office Visit [facility] 234 [place] [phone] Jasmina Peraza MD 22 [facility], 1st [place] [address] 03/08/2025 1:00 PM EDT Office Visit [facility] 8 [place] [address] Cordell Lutz PA-C, MARIXA [address] [place] [address] [email or web address] Marshal Jimenez, PT 8 [place] [address] [email or web address] 03/12/[email or web address] 1:15 PM EST Office Visit [facility] 8 [place] [address] Yessenia Shah MD, MPH 22 [facility], [address] [address] [email or web address] Muriel Qinaa, OT 8 [place] [address] [email or web address] 03/19/2025 1:15 PM EST Office Visit [facility] [address] [place] [address] Yessenia Shah MD, MPH [address] [place] [address], [address] [address] [email or web address] Muriel Qiana, OT 8 [place] [address] 03/20/2025 1:20 PM EST Telemedicine [facility] 2 [place] [address] Aniyah Ogden, PA-C 2 [place] [phone] [email or web address] 03/26/2025 2:10 PM EST Office Visit [facility] [address] [place] [address] Yessenia Shah MD, MPH [address] [place] [address], [address] [address] 03/30/2025 4:15 PM EST Office Visit [address] [address] Arron Alejandre, 234 [facility], [address] [place] [address] [email or web address] 04/12/2025 2:00 PM EST Nutrition [facility] [address] [place] [address] Maddison Lea LDN 22 [facility], [address] [place] [address] 04/20/2025 2:30 PM EST Office Visit [facility] 234 [place] [address] Toña Garza, SALES AGENT PEST CONTROL SERVICE [address] [address] 06/04/2025 1:30 PM EST Office Visit [facility] 22 [place] [address] Anisa Crowell, SALES AGENT PEST CONTROL SERVICE 22 [facility], [address] [place] [address] 08/06/2025 1:00 PM EDT Office Visit [facility] [address] [place] [address] [place] [address], [address] [place] [address] Beulah Watkins DNP [address] [place] [address], [address] [address] 02/07/2026 1:20 PM EDT Office Visit [facility] [address] 3rd [facility], [address] [place] [address] Diaz Verdugo MD [address] [place] [address], [address] [address] documented as of this encounter Goals Goal Patient Goal Type Associated Problems Recent Progress Patient-Stated? Author Increase physical activity / mobility Care Plan Activity intolerance / Impaired Functional Mobility Telma Schneider, RN Note: Adhere to treatment plan Care Plan [...] documented as of this encounter Care Teams Sfdc Architect Relationship Specialty Start Date End Date Toña Garza CNP [address] [place] [address] [email or web address] PCP - General Nurse Practitioner 02/23/23 Telma Chino, DIXIE [address] [place] [phone] [email or web address] PHCM Machine Trimmer 10/24/19 Arron Alejandre DO [address] [place] [address] [email or web address] Insurance Assigned Provider 08/14/23 08/13/24 Mirna Zhou PA-C 30 [place] [address] [email or web address] Physician Ride Assembly Supervisor 02/18/24 Marv Olmos MD 29 [place] [address] [email or web address] Dermatology 07/11/24 Toña GarzaRAFAEL [address] [place] [address], [address] [place] [address] [email or web address] Insurance Assigned Provider 08/13/24 Laura Valencia [address] [place] [address] [email or web address] PHCM Community Triage Licensed Practical Nurse 10/09/24 10/09/24 Tori Esposito [address] [place] [address] [email or web address] Community Health Worker 02/26/25 documented as of this encounter Additional Source Comments The information contained in this document represents components of the legal health record. It is not the complete legal health record.[facility]
--- OUTSIDE RECORDS SUMMARY | 2025-03-01 18:51 | XMS_ITS | Encounter Summary ---
Author Organization [facility] Address [address] [place] [address] Phone Care Team Providers Care Dispatcher Motor Vehicle Name Role Phone Luci Marsh MAINTENANCE MECHANIC SUPERVISOR Primary Care Provider [phone] Janis Aquino MD Unavailable [phone] Telma Chino RN Unavailable [phone] Tori Esposito Unavailable [phone] Mihir Garner MD Unavailable SahArron balderas DO Primary Care Provider [phone] Luci Marsh MAINTENANCE MECHANIC SUPERVISOR Primary Care Provider [phone] [facility] DO Primary Care Provider [phone] Toña Garza MAINTENANCE MECHANIC SUPERVISOR Primary Care Provider [phone] Arron Alejandre DO Unavailable Mirna Zhou PA-C Unavailable Marv Olmos MD Unavailable Toña Garza CNP Unavailable [phone] Laura Valencia Unavailable heidi Tori Esposito Unavailable [phone] Encounter Details Date Type Department Care Team (Late st Contact Info) Description 09/12/2020 Procedure Pass [facility] [address] [place] [address] Social History Tobacco Use Types Packs/Day Years [...] Answer Date Recorded Are you interested in help w ith more adult education (for example, completing high school, GED, job training, learning the German language, technical skills, or developing parenting skills)? No 08/01/2020 Food Answer Date Recorded Within the past [...] appointments or from getting medications? No 08/01/2020 Comments No Sex and Gender Information Value [...] Description 03/02/2025 1:45 PM EDT Office Visit [facility] [address] [place] [address] Cordell Lutz PA-C, MARIXA [address] [place] [address] Marshal Jimenez, PT 8 [place] [address] [email or web address] 03/06/2025 12:00 PM EDT Telemedicine - audio only [facility] at [facility] 30 [place] [address] Mirna Zhou PA-C 30 [place] [address] [email or web address] 03/06/2025 2:40 PM EDT Office Visit [facility] [address] [place] [phone] Jasmina Peraza MD 22 [facility], 1st [place] [address] 03/08/2025 1:00 PM EDT Office Visit [facility] 8 [place] [address] Cordell Lutz PA-C, MARIXA [address] [place] [address] Marshal Jimenez, PT 8 [place] [address] [email or web address] 03/12/2025 1:15 PM EST Office Visit [facility] 8 [place] [address] Yessenia Shah MD, MPH 22 [facility], [address] [place] [address] Muriel Qiana, OT 8 [place] [address] [email or web address] 03/19/2025 1:15 PM EST Office Visit [facility] [address] [place] [address] Yessenia Shah MD, MPH 22 [facility], [address] [place] [address] Muriel Qiana, OT 8 [place] [address] 03/20/2025 1:20 PM EST Telemedicine [facility] 2 [place] [address] Aniyah Ogden, PA-C 2 [place] [phone] [email or web address] 03/26/2025 2:10 PM EST Office Visit [facility] [address] [place] [address] Yessenia Shah MD, MPH [address] [place] [address] 03/30/2025 4:15 PM EST Office Visit [address] [address] Arron Alejandre, 234 [facility], [address] [place] [address] [email or web address] 04/12/2025 2:00 PM EST Nutrition [facility] [address] [place] [address] [place] [address] Maddison Lea LDN [address] [place] [address], [address] [place] [address] 04/20/2025 2:30 PM EST Office Visit [facility] 234 [place] [address] Toña Garza, MAINTENANCE MECHANIC SUPERVISOR [address] [address] 06/04/2025 1:30 PM EST Office Visit [facility] [address] [place] [address] [place] [address] Anisa Crowell, MAINTENANCE MECHANIC SUPERVISOR 22 [facility], [address] [place] [address] 08/06/2025 1:00 PM EDT Office Visit [facility] [address] [place] [address], [address] [address] Beulah Watkins DNP [address] [place] [address] 02/07/2026 1:20 PM EDT Office Visit [facility] [address], [address] [address] Diaz Verdugo MD [address] [place] [address], [address] [address] documented as of this encounter Goals Goal [...] Infection Onset Date Last Indicated Resolved Time CoV-Exposed Comment:Recent close contact documented in the [...] Noted Time PHQ-9 Depression Total Score: 13 07/04/ 021 1:25 PM EST PHQ-2 Depression Total Score: 2 06/01/19 18 11:15 AM EST documented as of this encounter Care Teams Dispatcher Motor Vehicle Relationship Specialty Start Date End Date Luci Marsh CNP [address] [place] [address] [email or web address] PCP - General 05/20/17 10/20/22 Arron Alejandre DO [address] [place] [address] [address] [place] [address] [email or web address] PCP - General Family Medicine 10/21/22 01/16/23 Luci Marsh CNP [address] [place] [address], [place] [address] [email or web address] PCP - General Nurse Practitioner 01/17/23 02/01/23 Arron Alejandre DO [address] [place] [address] [address] [place] [address] [email or web address] PCP - General Family Medicine 02/02/23 02/22/23 Toña Garza CNP [address] [place] [address] 7 [place] [address] [email or web address] PCP - General Nurse Practitioner 02/23/23 Janis Aquino MD [address] [place] [address] [address] [place] [address] [email or web address] Insurance Assigned Provider 09/10/18 08/15/22 Telma Chino, RN [address] [place] [address] [email or web address] PHCM Telecommunications Technician 10/24/19 Tori Esposito [address] [place] [address] [email or web address] PHC Community Health Worker 01/08/20 01/27/21 Mihir Garner MD [address] [place] [address] 7 [place] [address] [email or web address] Insurance Assigned Provider 08/15/22 08/14/23 Arron Alejandre DO [address] [place] [address] [address] [place] [address] [email or web address] Insurance Assigned Provider 08/14/23 08/13/24 Mirna Zhou PA-C 30 [place] [address] [email or web address] Physician Day Care Attendant 02/18/24 Marv Olmos MD 29 [place] [address] Dermatology 07/11/24 Toña Garza CNP [address] [place] [address], [facility] [address] [place] [address] [email or web address] [email or web address] Insurance Assigned Provider 08/13/24 Laura Valencia [address] [place] [address] [email or web address] PHCM Community Disaster Recovery Analyst 10/09/24 10/09/24 Tori Esposito [address] [place] [address] [email or web address] Community Health Worker 02/26/25 documented as of this encounter Additional Source Comments The information contained in this document represents components of the legal health record. It is not the complete legal health record.[facility]
--- OUTSIDE RECORDS SUMMARY | 2025-03-01 18:51 | XMS_ITS | Encounter Summary ---
Author Organization [facility] Address [address] [place] [address] [address] [place] [address] Phone Care Team Providers Care Systems Applications Programming Lead Name Role Phone Telma Chino RN Unavailable [phone] Toña Garza INCOME TAX INVESTIGATOR Primary Care Provider [phone] Arron Alejandre DO Unavailable Mirna Zhou PA-C Unavailable Marv Olmos MD Unavailable Toña Garza INCOME TAX INVESTIGATOR Unavailable Laura Valencia Unavailable heidi Tori Esposito Unavailable [phone] Encounter Details Date Type Department Care Team (Late st Contact Info) Description 06/29/2024 Ancillary Orders [facility] [address] [place], [place] [phone] Arron Alejandre DO 234 [facility], [address] [place] [address] [email or web address] Acute cystitis without hematuria (Primary Dx); Elevated alkaline phosphatase level; Iron deficiency anemia, unspecified iron deficiency anemia type; Type 2 diabetes mellitus without complication, with long-term current use of insulin Social History Tobacco Use Types Packs/Day Years [...] as food, clothing, or medical care? No 04/22/2024 In the past 12 months have y ou been in a relationship with a person who hurts, threatens, or tries to control you? No 04/22/2024 Are you denied basic needs s uch as food, clothing, or medical care? No 04/22/2024 In the past 12 months have y ou been in a relationship with a person who hurts, threatens, or tries to control you? No 04/22/2024 Comments No Sex and Gender Information Value [...] Description 03/02/2025 1:45 PM EDT Office Visit [facility] 8 [place] [address] Cordell Lutz PA-C, MARIXA [address] [place] [address] Marshal Jimenez, PT 8 [place] [address] [email or web address] 03/06/2025 12:00 PM EDT Telemedicine - audio only [facility] 30 [place] [address] Mirna Zhou PA-C 30 [place] [address] 03/06/2025 2:40 PM EDT Office Visit [facility] [address] [place] [phone] Jasmina Peraza MD 22 [facility], 1st [place] [address] 03/08/2025 1:00 PM EDT Office Visit [facility] 8 [place] [address] Cordell Lutz PA-C, MARIXA [address] [place] [address] Charleswade Marshal, PT 8 [place] [address] [email or web address] 03/12/2025 1:15 PM EST Office Visit [facility] 8 [place] [address] Yessenia Shah MD, MPH [address] [place] [address] Qiana Llamas, OT 8 [place] [address] 03/19/2025 1:15 PM EST Office Visit [facility] [address] [place] [address] Yessenia Shah MD, MPH [address] [place] [address] Qiana Llamas, OT 8 [place] [address] 03/20/2025 1:[address] [facility]UAL CLIN[facility] SUPPORT 2 [place] [address] Aniyah Ogden, PA-C 2 [place] [phone] 03/26/2025 2:10 PM EST Office Visit [facility] Rheumatology [address] [place] [address] Yessenia Shah MD, MPH [address] [place] [address] 03/30/2025 4:15 PM EST Office Visit [facility] 234 [place] [address] Arron Alejandre DO [address] [address] 04/12/2025 2:00 PM EST Nutrition [facility] Center 40 [place] [address] Maddison Lea, KATHYN 22 [facility], [address] [place] [address] 04/20/2025 2:30 PM EST Office Visit [address] [address] Toña Garza, INCOME TAX INVESTIGATOR [address] [address] 06/04/2025 1:30 PM EST Office Visit [facility] [address] [place] [address] Anisa Crowell, INCOME TAX INVESTIGATOR 22 [facility], [address] [place] [address] 08/06/2025 1:00 PM EDT Office Visit [facility] [address] [place] [address] 3rd [facility], [address] [place] [address] Beulah Watkins DNP 22 [facility], [address] [address] 02/07/2026 1:20 PM EDT Office Visit [facility] [address] [place] 3rd [facility], [address] [place] [address] Diaz Verdugo MD [address] [place] [address] [address] [place] [address] [email or web address] documented as of this encounter Goals Goal Patient Goal Type Associated Problems Recent Progress Patient-Stated? Author Increase physical activity / mobility Care Plan Activity intolerance / Impaired Functional Mobility No Telma Chino, RN Note: Adhere to treatment plan Care Plan Chronic Condition Self-Management No Telma Chino RN Note: documented as of this encounter Results * US ABDOMEN LIMITED RIGHT UPPER QUADRANT (06/29/2024 11:53 AM EST) Anatomical Region Laterality Modality Abdomen Ultrasound 06/29/2024 12:3 1 PM EST Impressions 06/29/2024 12:35 PM EST Increased echogenicity of the hepatic parenchyma. This is a nonspecific finding indicating diffuse hepatocellular disease and limiting the sensitivity of this exam. In the correct clinical scenario, this commonly represents fatty liver. Within the limitations of this study, there is no sonographic evidence for focal hepatic lesion. Narrative 06/29/2024 12:35 PM EST US ABDOMEN LIMITED RIGHT UPPER QUADRANT Referring clinician's provided indication for this examination in [facility]: Elevated Alkaline Phosphatase Level TECHNIQUE: US Abdominal limited right upper quadrant. COMPARISON: CT ABDOMEN/PELVIS (KIDNEY STONE) WITHOUT CONTRAST FINDINGS: Liver: There is increased echogenicity of the hepatic parenchyma. No focal hepatic lesions demonstrated sonographically. Main Portal Vein: Patent with normal direction of flow. Gallbladder: No gallstones or gallbladder wall thickening. Charles's Sign: Negative. Biliary: No intrahepatic or extrahepatic biliary ductal dilatation. The common bile duct measures 3 mm. Right Kidney: No stones or hydronephrosis. Procedure Note Ember Herrera MD - 06/29/2024 US ABDOMEN LIMITED RIGHT UPPER QUADRANT Referring clinician's provided indication for this examination in [facility]:Elevated Alkaline Phosphatase Level TECHNIQUE: US Abdominal limited right upper quadrant. COMPARISON: CT ABDOMEN/PELVIS (KIDNEY STONE) WITHOUT [id number] FINDINGS: Liver: There is increased echogenicity of the hepatic parenchyma. No focalhepatic lesions demonstrated sonographically. Main Portal Vein: Patent with normal direction of flow. Gallbladder: No gallstones or gallbladder wall thickening. Charles's Sign: Negative. Biliary: No intrahepatic or extrahepatic biliary ductal dilatation. The common bile duct measures 3 mm. Right Kidney: No stones or hydronephrosis. IMPRESSION: Increased echogenicity of the hepatic parenchyma. This is a nonspecificfinding indicating diffuse hepatocellular disease and limiting thesensitivity of this exam. In the correct clinical scenario, this commonlyrepresents fatty liver. Within the limitations of this study, there is nosonographic evidence for focal hepatic lesion. us Arron Alejandre DO IMG US ABDOMEN Final Result documented in this encounter Visit Diagnoses Diagnosis Elevated alkaline phosphatase level Acute cystitis without hematuria- Primary Elevated alkaline phosphatase level Iron deficiency anemia, unspecified iron deficiency anemia type Type 2 diabetes mellitus without complication, with long-term current use of insulin documented [...] documented as of this encounter Care Teams Systems Applications Programming Lead Relationship Specialty Start Date End Date Toña Garza CNP [address] [place] [address], [address] [place], [place] [phone] PCP - General Nurse Practitioner 02/23/23 Telma Chino, RN 10 [place] [address] [email or web address] PHCM Chief Compliance Officer 10/24/19 Arron Alejandre DO [address] [place] [address], [address] [place] [address] [email or web address] Insurance Assigned Provider 08/14/23 08/13/24 Mirna Zhou PA-C 30 [place] [address] Physician Seo Intern 02/18/24 Marv Olmos MD 29 [place] [address] Dermatology 07/11/24 Toña Garza CNP [address] [place] [address] 7 [place] [address] Insurance Assigned Provider 08/13/24 Laura Valencia [address] [place] [address] [email or web address] PHCM Community Tanbark Peeler 10/09/24 10/09/24 Tori Esposito [address] [place] [address] [email or web address] Community Health Worker 02/26/25 documented as of this encounter Additional Source Comments The information contained in this document represents components of the legal health record. It is not the complete legal health record.[facility]
--- OUTSIDE RECORDS SUMMARY | 2025-03-01 18:51 | XMS_ITS | Encounter Summary ---
Author Organization [facility] Address [address] [place] [address] Phone Care Team Providers Care Supervisor Bottle House Cleaners Name Role Phone Telma Chino RN Unavailable Toña Garza PORT SURVEYOR Primary Care Provider Arron Alejandre DO Unavailable Mirna Zhou PA-C Unavailable Marv Olmos MD Unavailable Toña Garza PORT SURVEYOR Unavailable [phone] Laura Valencia Unavailable heidi Toir Esposito Unavailable [phone] Encounter Details Date Type Department Care Team (Late st Contact Info) Description 12/15/2023 Procedure Pass [facility] Endoscopy Admitting Dept Virtual Department 30 [place], [place] [phone] Social History Tobacco Use Types Packs/Day Years [...] with a working camera? Not on file Comments No Sex and Gender Information Value [...] Description 03/02/2025 1:45 PM EDT Office Visit [facility] 8 [place] [address] Cordell Lutz PA-C, MARIXA [address] [place] [address] Marshal Jimenez, PT 8 [place] [address] [email or web address] 03/06/2025 12:00 PM EDT Telemedicine - audio only [facility] 30 [place] [address] Mirna Zhou PA-C 30 [place] [address] 03/06/2025 2:40 PM EDT Office Visit [facility] Center 234 [place] [phone] Jasmina Peraza MD 22 [facility], 1st [place] [address] 03/08/2025 1:00 PM EDT Office Visit [facility] 8 [place] [address] Cordell Lutz PA-C, MARIXA [address] [place] [address] Marshal Jimenez, PT 8 [place] [address] [email or web address] 03/12/[email or web address] 1:15 PM EST Office Visit [facility] 8 [place] [address] Yessenia Shah MD, MPH 22 [facility], [address] [place] [address] Qiana Llamas, OT 8 [place] [address] [email or web address] 03/19/2025 1:15 PM EST Office Visit [facility] 8 [place] [address] Yessenia Shah MD, MPH 22 [facility], [address] [address] [email or web address] Qiana Llamas, OT 8 [place] [address] [email or web address] 03/20/2025 1:20 PM EST Telemedicine [facility]IRTUAL CLINIC SUPPORT 2 [place] [address] Aniyah Ogden PADuaneC 2 [place] [phone] [email or web address] 03/26/2025 2:10 PM EST Office Visit [facility] Rheumatology [address] [place] [address] [place] [address] Yessenia Shah MD, MPH [address] [place] [address], [address] [address] [email or web address] 03/30/2025 4:15 PM EST Office Visit [address] [address] Arron Alejandre, [address] [place] [address] [email or web address] 04/12/2025 2:00 PM EST Nutrition [facility] 40 [place] [address] Maddison Lea LDN 22 [facility], 1st [place] [address] [email or web address] 04/20/2025 2:30 PM EST Office Visit [address] [address] Fani Garzaghan, PORT SURVEYOR 234 [facility], [address] [place] [address] 06/04/2025 1:30 PM EST Office Visit [facility] 22 [place] [address] Anisa Crowell, PORT SURVEYOR 22 [facility], 1st [place] [address] 08/06/2025 1:00 PM EDT Office Visit [facility] [address] [place] [address] [facility], [address] [place] [address] Beulah Watkins DNP [address] [place] [address], [address] [address] 02/07/2026 1:20 PM EDT Office Visit [facility] [address] [facility], [address] [place] [address] Diaz Verdugo MD 22 [facility], [address] [place] [address] documented as of this encounter Goals Goal Patient Goal Type Associated Problems Recent Progress Patient-Stated? Author Increase physical activity / mobility Care Plan Activity intolerance / Impaired Functional Mobility No Telma Chino, DIXIE Note: Adhere to treatment plan Care Plan Chronic Condition Self-Management No Telma Chino, DIXIE Note: documented as of this encounter Visit [...] documented as of this encounter Care Teams Supervisor Bottle House Cleaners Relationship Specialty Start Date End Date Toña Garza CNP 234 [facility] 7 [place] [address] [email or web address] PCP - General Nurse Practitioner 02/23/23 Telma Chino, RN [address] [place] [address] [email or web address] PHCM Cloth Mercerizer Back Tender 10/24/19 Arron Alejandre DO [address] [place] [address] 7 [place] [address] [email or web address] Insurance Assigned Provider 08/14/23 08/13/24 Mirna Zhou PA-C 30 [place] [address] [email or web address] Physician Laundry Operator Wash Room 02/18/24 Marv Olmos MD 29 [place] [address] Dermatology 07/11/24 Toña Garza CNP 234 [facility] 7 [place] [address] [email or web address] Insurance Assigned Provider 08/13/24 Laura Valencia [address] [place] [address] [email or web address] PHCM Community Public Stenographer 10/09/24 10/09/24 Tori Esposito [address] [place] [address] [email or web address] Community Health Worker 02/26/25 documented as of this encounter Additional Source Comments The information contained in this document represents components of the legal health record. It is not the complete legal health record.[facility]
--- OUTSIDE RECORDS SUMMARY | 2025-03-01 18:51 | XMS_ITS | Encounter Summary ---
Author Organization [facility] Address [address] [place] [address] [place] [address] Phone Care Team Providers Care Environmental Health Technologist Name Role Phone Telma Chino RN Unavailable Toña Garza CNP Primary Care Provider [phone] Mirna Zhou PA-C Unavailable Marv Olmos MD Unavailable Toña Garza SKETCH LINER Unavailable Tori Esposito Unavailable [phone] Reason for Visit * Reason Onset Date Comments VNA Update 12/21/2024 Encounter Details Date Type Department Care Team (Late st Contact Info) Description 12/21/[address] [facility] 234 [place], [place] [phone] Toña Garza CNP 234 [facility], [address] [place] [address] [email or web address] VNA Update Social History Tobacco Use Types Packs/Day Years [...] as of this encounter Progress Notes * Timi Goldman - 12/21/2024 3:10 PM EDT [facility] called in, Pt had been discharged from [facility]NA services as of 12/12/2024. Central Support Process Maintenance Technician (Please do not reply to this user; this inbox is not monitored.) Thank you. documented in this encounter Plan of Treatment Upcoming Encounters Date Type Department Care Team (Late st Contact Info) Description 03/02/2025 1:45 PM EDT Office Visit [facility] Services [address] [place] [address] Cordell Lutz PA-C, MARIXA 978 [place] [address] Marshal Jimenez, PT 8 [place] [address] [email or web address] 03/06/[email or web address] 12:00 PM EDT Telemedicine - audio only [facility] at [facility] 30 [place] [address] Mirna Zhou PA-C 30 [place] [address] [email or web address] 03/06/2025 2:40 PM EDT Office Visit [facility] 234 [place] [phone] Jasmina Peraza MD 22 [facility], 1st [place] [address] 03/08/2025 1:00 PM EDT Office Visit [address] [address] Cordell Lutz PA-C, MARIXA 978 [place] [address] Marshal Jimenez, PT 8 [place] [address] [email or web address] 03/12/2025 1:15 PM EST Office Visit [address] [address] Yessenia Shah MD, MPH 22 [facility], [address] [place] [address] Qiana Llamas, OT 8 [place] [address] 03/19/2025 1:15 PM EST Office Visit [address] [place] [address] Yessenia Shah MD, MPH 22 [facility], [address] [place] [address] Qiana Llamas, OT 8 [place] [address] 03/20/2025 1:20 PM EST Telemedicine [facility]IN[facility] SUPPORT 2 [place] [address] Aniyah Ogden PA-C 2 [place] [phone] [email or web address] 03/26/2025 2:10 PM EST Office Visit [facility] Rheumatology [address] [place] [address] [place] [address] Yessenia Shah MD, MPH 22 [facility], [address] [place] [address] [email or web address] 03/30/2025 4:15 PM EST Office Visit [address] [address] Arron Alejandre, DO [address] [address] [email or web address] 04/12/2025 2:00 PM EST Nutrition [facility] 40 [place] [address] Maddison Lea, JULIETTE [address] [place] [address], [address] [place] [address] 04/20/2025 2:30 PM EST Office Visit [address] [address] Toña Garza, SKETCH LINER [address] [address] [email or web address] 06/04/2025 1:30 PM EST Office Visit [facility] [address] [place] [address] [place] [address] Anisa Crowell, SKETCH LINER 22 [facility], 1st [place] [address] 08/06/2025 1:00 PM EDT Office Visit [facility] [address] [place] [address] Dr 3rd Floor, [address] [place] [address] Beulah Watkins DNP 22 [facility], [address] [place] [address] 02/07/2026 1:20 PM EDT Office Visit [facility] [address] 3rd Floor, [address] [place] [address] Diaz Verdugo MD [address] [place] [address], [address] [address] [email or web address] documented as of this encounter Goals Goal [...] documented as of this encounter Care Teams Environmental Health Technologist Relationship Specialty Start Date End Date Toña Garza CNP [address] [place] [address] 7 [place] [address] [email or web address] PCP - General Nurse Practitioner 02/23/23 Telma Chino, RN [address] [place] [address] [email or web address] PHCM Janitor And Cleaner 10/24/19 Mirna Zhou PA-C [address] [place] [address] [email or web address] Physician Stave Saw Operator 02/18/24 Marv Olmos MD [address] [place] [address] [email or web address] Dermatology 07/11/24 Toña Garza CNP [address] [place] [address], [address] [place] [address] [email or web address] Insurance Assigned Provider 08/13/24 Tori Esposito 10 [place] [address] [email or web address] Community Health Worker 02/26/25 documented as of this encounter Additional Source Comments The information contained in this document represents components of the legal health record. It is not the complete legal health record.[facility]
--- OUTSIDE RECORDS SUMMARY | 2025-03-01 18:51 | XMS_ITS | Encounter Summary ---
Author Organization [facility] Address [address] [place] [address] Phone Care Team Providers Care Staffing Consultant Name Role Phone Luci Marsh VALIDATION CONSULTANT Primary Care Provider [phone] Janis Aquino MD Unavailable [phone] Telma Chino RN Unavailable [phone] Tori Esposito Unavailable [phone] Mihir Garner MD Unavailable SahArron balderas DO Primary Care Provider [phone] Luci Marsh VALIDATION CONSULTANT Primary Care Provider [phone] [facility] HealthArron balderas DO Primary Care Provider [phone] Toña Garza VALIDATION CONSULTANT Primary Care Provider [phone] Arron Alejandre DO Unavailable Minra Zhou PA-C Unavailable Marv Olmos MD Unavailable Toña Garza CNP Unavailable [phone] Laura Valencia Unavailable heidi Tori Esposito Unavailable [phone] Encounter Details Date Type Department Care Team (Latest Contact Info) Description 07/17/2020 Transcribe Orders [facility] EKG [address] [place] [address] Ap Paulino MD 22 [facility], [address] [place] [address] [email or web address] Stented coronary artery (Primary Dx) Social History Tobacco Use Types Packs/Day Years [...] Date of Assessment Author No Risk Indicated 07/17/2020 3:15 PM Mor Carter RN * [place] Suicide Severity Rating Scale (Screener/Recent Self-Report) Question Answer Date of Assessment Author 1. Wish to be (Past 1 Month) No 021 3:15 PM Za Carter, RN 2. Non-Specific Active Suici lpue Thoughts (Past 1 Month) No 07/17/2020 3:15 PM Za Carter , RN 6. Suicidal Behavior (Lifetime) No 3:15 PM Za Carter, RN documented as of this encounter Plan of Treatment Upcoming Encounters Date Type Department Care Team (Late st Contact Info) Description 03/02/2025 1:45 PM EDT Office Visit [facility] 8 [place] [address] Cordell Lutz PA-C, MARIXA [address] [place] [address] Marshal Jimenez, PT 8 [place] [address] [email or web address] 03/06/2025 12:00 PM EDT Telemedicine - audio only [facility] 30 [place] [address] Mirna Zhou PA-C 30 [place] [address] 03/06/2025 2:40 PM EDT Office Visit [facility] [address] [place] [phone] Jasmina Peraza MD 22 [facility], 1st [place] [address] 03/08/2025 1:00 PM EDT Office Visit [facility] 8 [place] [address] Cordell Lutz PA-C, MARIXA [address] [place] [address] Marshal Jimenez, PT 8 [place] [address] [email or web address] 03/12/2025 1:15 PM EST Office Visit [facility] 8 [place] [address] Yessenia Shah MD, MPH 22 [facility], [address] [place] [address] Qiana Llamas, OT 8 [place] [address] [email or web address] 03/19/2025 1:15 PM EST Office Visit [facility] [address] [place] [address] Yessenia Shah MD, MPH 22 [facility], [address] [place] [address] Muriel Qiana, OT 8 [place] [address] 03/20/2025 1:20 PM EST Telemedicine [facility] SUPPORT 2 [place] [address] Aniyah Ogden, PA-C 2 [place] [phone] 03/26/2025 2:10 PM EST Office Visit [facility] Rheumat[facility] [address] [place] [address] Yessenia Shah MD, MPH [address] [place] [address], [address] [place] [address] 03/30/2025 4:15 PM EST Office Visit [address] [address] Arron Alejandre, DO [address] [place] [address], [address] [place] [address] 04/12/2025 2:00 PM EST Nutrition [facility] [address] [place] [phone] Maddison Lea LDN 22 [facility], 1st [place] [address] 04/20/2025 2:30 PM EST Office Visit [facility] 234 [place] [address] Toña Garza, VALIDATION CONSULTANT 234 [facility] 7 [place] [address] 06/04/2025 1:30 PM EST Office Visit [facility] 22 [place] [address] Anisa Crowell, VALIDATION CONSULTANT 22 [facility], 1st [place] [address] [email or web address] 08/06/2025 1:00 PM EDT Office Visit [facility] [address] [place] [address] 3rd [facility], [address] [place] [address] Beulah Watkins DNP [address] [place] [address], [address] [address] 02/07/2026 1:20 PM EDT Office Visit [facility] [address], [address] [place] [address] Diaz Verdugo MD [address] [place] [address], [address] [address] documented as of this encounter Goals Goal Patient Goal Type Associated Problems Recent Progress Patient-Stated? Author Increase physical activity / mobility Care Plan Activity intolerance / Impaired Functional Mobility No Telma Chino RN Note: Adhere to treatment plan Care Plan Chronic Condition Self-Management No Telma Chino RN Note: documented as of this encounter Results * ECG 12-LEAD (07/17/2020 2:16 PM EST) Ventricular Rate EKG/MIN 82 BPM [facility] Atrial Rate 82 BPM [facility] WV Interval 140 ms [facility] QRS Duration 94 ms [facility] QT Interval 352 ms [facility] QTC Interval 411 ms [facility] P [place] -2 degrees [facility] R Wave [place] 5 degrees [facility] T Wave [place] 44 degrees [facility] 07/17/2020 2:16 PM EST 07/19/2020 6:31 PM EST Narrative [facility] - 07/19/2020 6:31 PM EST Normal sinus rhythm Normal ECG When compared with ECG of 22-JUN-2020 08:09, No significant change was found Confirmed by ZIA RAYMOND MD ([id number]) on 07/19/2020 6:31:34 PM us Ap Paulino MD ECG ORDERABLES Final Resul t [facility] documented in this encounter Visit Diagnoses Diagnosis Stented coronary artery- Primary Postsurgical percutaneous transluminal coronary angioplasty status Stented coronary artery Postsurgical percutaneous transluminal coronary angioplasty status documented in this encounter Additional Health Concerns [...] Time PHQ-9 Depression Total Score: 13 021 1:25 PM EST PHQ-2 Depression Total Score: 2 06/01/19 11:15 AM EST documented as of this encounter Care Teams Staffing Consultant Relationship Specialty Start Date End Date Luci Marsh CNP [address] [place] [address] [email or web address] PCP - General 05/20/17 10/20/22 Arron Alejandre DO [address] [place] [address] 7 [place] [address] [email or web address] PCP - General Family Medicine 10/21/22 01/16/23 Luci Marsh CNP [address] [place] [address] PCP - General Nurse Practitioner 01/17/23 02/01/23 Arron Alejandre DO [address] [place] [address] 7 [place] [address] [email or web address] PCP - General Family Medicine 02/02/23 02/22/23 Toña Garza CNP [address] [place] [address] 7 [place] [address] PCP - General Nurse Practitioner 02/23/23 Janis Aquino MD [address] [place] [address] 7 [place] [address] [email or web address] Insurance Assigned Provider 09/10/18 08/15/22 Telma Chino, RN [address] [place] [address] [email or web address] PHCM Cnc Machine Operator 10/24/19 Tori Esposito [address] [place] [address] [phone] [email or web address] PHC Community Health Worker 01/08/20 01/27/21 Mihir Garner MD [address] [place] [address] 7 [place] [address] [email or web address] Insurance Assigned Provider 08/15/22 08/14/23 Arron Alejandre DO [address] [place] [address] [email or web address] Insurance Assigned Provider 08/14/23 08/13/24 Mirna Zhou PA-C [address] [place] [email or web address] Physician Cardroom Plastic Card Grader 02/18/24 Marv Olmos MD 29 [place] [address] [email or web address] Dermatology 07/11/24 Toña Garza CNP [address] [place] [address] 7 [place] [address] [email or web address] Insurance Assigned Provider 08/13/24 Laura Valencia [address] [place] [address] [email or web address] PHC Community Silk Screen Painter 10/09/24 10/09/24 Tori Esposito [address] [place] [address] [phone] [email or web address] Community Health Worker 02/26/25 documented as of this encounter Additional Source Comments The information contained in this document represents components of the legal health record. It is not the complete legal health record.[facility]
--- OUTSIDE RECORDS SUMMARY | 2025-03-01 18:51 | XMS_ITS | Encounter Summary ---
Author Organization [facility] Address [address] [place] [address] Phone Care Team Providers Care Building And Construction Manager Name Role Phone Telma Chino RN Unavailable Mihir Garner MD Unavailable SahArron balderas DO Primary Care Provider [phone] Luci Marsh ORTHOPEDICS PEDIATRIC PHYSICIAN Primary Care Provider [phone] SahArron balderas DO Primary Care Provider [phone] Toña Garza ORTHOPEDICS PEDIATRIC PHYSICIAN Primary Care Provider [facility] bal[facility] DO Unavailable Mirna Zhou PA-C Unavailable Marv Olmos MD Unavailable Toña Garza CNP Unavailable [phone] Laura Valencia Unavailable heidi Tori Esposito Unavailable [phone] Encounter Details Date Type Department Care Team (Late st Contact Info) Description 01/15/2023 Ancillary Orders [facility] [address] [place] [address] Arron Alejandre Krystal, DO 234 [facility], [address] [place] [address] [email or web address] Bumps on skin Social History Tobacco Use Types Packs/Day Years [...] Description 03/02/2025 1:45 PM EDT Office Visit [facility] 8 [place] [address] Cordell Lutz PA-C, MARIXA [address] [place] [address] Marshal Jimenez, PT 8 [place] [address] [email or web address] 03/06/[email or web address] 12:00 PM EDT Telemedicine - audio only [facility] 30 [place] [address] Mirna Zhou PA-C 30 [place] [address] 03/06/2025 2:40 PM EDT Office Visit [facility] [address] [place] [phone] Jasmina Peraza MD 22 [facility], 1st [place] [address] 03/08/2025 1:00 PM EDT Office Visit [facility] 8 [place] [address] Cordell Lutz PA-C, MARIXA [address] [place] [address] Marshal Jimenez, PT 8 [place] [address] [email or web address] 03/12/[email or web address] 1:15 PM EST Office Visit [facility] 8 [place] [address] Yessenia Shah MD, MPH 22 [facility], [facility] 203 [place] [address] [email or web address] Qiana Llamas, OT 8 [place] [address] [email or web address] 03/19/2025 1:15 PM EST Office Visit [facility] [address] [place] [address] Yessenia Shah MD, MPH [address] [place] [address], [address] [address] [email or web address] Qiana Llamas, OT 8 [place] [address] 03/20/2025 1:20 PM EST Telemedicine [facility] 2 [place] [address] Aniyah Ogden, PA-C 2 [place] [phone] [email or web address] 03/26/2025 2:10 PM EST Office Visit [facility] [address] [place] [address] Yessenia Shah MD, MPH [address] [place] [address], [address] [address] [email or web address] 03/30/2025 4:15 PM EST Office Visit [address] [address] Arron Alejandre, [address] [place] [address], [address] [place] [address] [email or web address] 04/12/2025 2:00 PM EST Nutrition [facility] 40 [place] [address] Maddison Lea LDN 22 [facility], [address] [place] [address] 04/20/2025 2:30 PM EST Office Visit [facility] 234 [place] [address] Toña Garza, ORTHOPEDICS PEDIATRIC PHYSICIAN [address] [address] 06/04/2025 1:30 PM EST Office Visit [facility] 22 [place] [address] Anisa Crowell, ORTHOPEDICS PEDIATRIC PHYSICIAN 22 [facility], [address] [place] [address] 08/06/2025 1:00 PM EDT Office Visit [facility] [address] [place] [address] [place] [address], [address] [place] [address] Beulah Watkins DNP [address] [place] [address], [address] [address] 02/07/2026 1:20 PM EDT Office Visit [facility] [address] [place] [address] Dr 3rd [facility], [address] [place] [address] Diaz Verdugo MD [address] [place] [address], [address] [address] documented as of this encounter Goals Goal Patient Goal Type Associated Problems Recent Progress Patient-Stated? Author Increase physical activity / mobility Care Plan Activity intolerance / Impaired Functional Mobility Telma Schneider, RN Note: Adhere to treatment plan Care Plan Chronic Condition Self-Management Telma Schneider RN Note: documented as of this encounter Results * US ABDOMEN LIMITED RIGHT UPPER QUADRANT (01/15/2023 3:37 PM EDT) Anatomical Region Laterality Modality Abdomen Ultrasound 01/16/2023 6:05 AM EDT Impressions 01/16/2023 7:45 PM EDT No abnormality identified in the areas of clinical concern involving the abdominal wall. RECOMMENDATION: If the palpable abnormality enlarges or becomes increasingly painful, consider further evaluation with CT or MRI. Narrative 01/16/2023 7:45 PM EDT US ABDOMEN LIMITED RIGHT UPPER QUADRANT TECHNIQUE: US Abdominal limited right upper quadrant. COMPARISON: CT ABDOMEN/PELVIS WITH CONTRAST FINDINGS: Focal examination of the superficial right left upper quadrant abdominal wall in the areas of clinical concern indicated by the patient demonstrate no mass, fluid collection, hernia, or other focal soft tissue abnormality. Procedure Note Juan Miguel Singh MD - 01/16/2023 US ABDOMEN LIMITED RIGHT UPPER QUADRANT TECHNIQUE: US Abdominal limited right upper quadrant. COMPARISON: CT ABDOMEN/PELVIS WITH CONTRAST FINDINGS: Focal examination of the superficial right left upper quadrant abdominalwall in the areas of clinical concern indicated by the patient demonstrateno mass, fluid collection, hernia, or other focal soft tissueabnormality. IMPRESSION: No abnormality identified in the areas of clinical concern involving theabdominal wall. RECOMMENDATION: If the palpable abnormality enlarges or becomes increasingly painful,consider further evaluation with CT or MRI. us Arron Alejandre DO IMG US ABDOMEN Final Result documented in this encounter Visit Diagnoses Diagnosis Bumps on skin Bumps on skin documented in this encounter Additional Health Concerns Active Problems Noted Date Diagnosed Date Activity intolerance / Impaired Functional Mobil ity 12/14/2019 Chronic Condition Self-Management 12/14/2019 Infection Onset Date Last Indicated Resolved Time CoV-Risk 05/18/2023 05/18/2023 05/18/2023 6:21 PM EST COVID-19 05/18/2023 05/18/2023 06/08/2023 1:22 AM EST CoV-Risk 08/16/2023 08/16/2023 08/27/2023 1:25 AM EDT CDiff-Risk 01/30/2025 02/12/2025 02/06/2025 1:25 AM EDT CDiff-Risk 02/11/2025 02/11/2025 02/12/2025 7:15 PM EDT Assessment Noted Time PHQ-9 Depression Total Score: 13 021 2:15 PM EDT PHQ-2 Depression Total Score: 2 12/05/19 22 2:15 PM EDT documented as of this encounter Care Teams Building And Construction Manager Relationship Specialty Start Date End Date Arron Alejandre DO [address] [place] [address] 7 [place] [address] PCP - General Family Medicine 10/21/22 01/16/23 Luci Marsh, ORTHOPEDICS PEDIATRIC PHYSICIAN 15 [facility], 2nd [place] [address] PCP - General Nurse Practitioner 01/17/23 02/01/23 Arron Alejandre DO [address] [place] [address] 7 [place] [address] PCP - General Family Medicine 02/02/23 02/22/23 Toña Garza CNP [address] [place] [address] 7 [place] [address] PCP - General Nurse Practitioner 02/23/23 Telma Chino, DIXIE [address] [place] [address] PHCM Buncher Hand 10/24/19 Mihir Garner MD [address] [place] [address] 7 [place] [address] [email or web address] Insurance Assigned Provider 08/15/22 08/14/23 Arron Alejandre DO [address] [place] [address] 7 [place] [address] [email or web address] Insurance Assigned Provider 08/14/23 08/13/24 Mirna Zhou PA-C [address] [place] [address] [email or web address] Physician Surveillance Technician 02/18/24 Marv Olmos MD 29 [place] [address] [email or web address] Dermatology 07/11/24 Toña Garza CNP [address] [place] [address] 7 [place] [address] [email or web address] Insurance Assigned Provider 08/13/24 Laura Valencia [address] [place] [address] [email or web address] PHCM Community Transitional Care Manager 10/09/24 10/09/24 Tori Esposito [address] [place] [address] [email or web address] Community Health Worker 02/26/25 documented as of this encounter Additional Source Comments The information contained in this document represents components of the legal health record. It is not the complete legal health record.[facility]
--- OUTSIDE RECORDS SUMMARY | 2025-03-01 18:51 | XMS_ITS | Encounter Summary ---
Author Organization [facility] Address [address] [place] [address] Phone Care Team Providers Care Glass Ribbon Machine Operator Name Role Phone Telma Chino RN Unavailable [phone] Toña Garza BRAIDED BAND ASSEMBLER Primary Care Provider Arron Alejandre DO Unavailable Mirna Zhou PA-C Unavailable Marv Olmos MD Unavailable Toña Garza BRAIDED BAND ASSEMBLER Unavailable Laura Valencia Unavailable heidi Tori Esposito Unavailable [phone] Encounter Details Date Type Department Care Team (Late st Contact Info) Description 12/15/2023 Procedure Pass [facility] Endoscopy Admitting Dept Virtual Department 30 [place], [place] [phone] Social History Tobacco Use Types Packs/Day Years [...] 03/02/2025 1:45 PM EDT Office Visit [facility] 8 [place] [address] Cordell Lutz PA-C, MARIXA [address] [place] [address] Marshal Jimenez, PT 8 [place] [address] [email or web address] 03/06/2025 12:00 PM EDT Telemedicine - audio only [facility] 30 [place] [address] Mirna Zhou PA-C 30 [place] [address] 03/06/2025 2:40 PM EDT Office Visit [facility] 234 [place] [phone] Jasmina Peraza MD 22 [facility], 1st [place] [address] 03/08/2025 1:00 PM EDT Office Visit [facility] 8 [place] [address] Cordell Lutz PA-C, MARIXA [address] [place] [address] Marshal Jimenez, PT 8 [place] [address] [email or web address] 03/12/[email or web address] 1:15 PM EST Office Visit [facility] 8 [place] [address] Yessenia Shah MD, MPH 22 [facility], [address] [place] [address] Qiana Llamas, OT 8 [place] [address] 03/19/2025 1:15 PM EST Office Visit [facility] 8 [place] [address] Yessenia Shah MD, MPH 22 [facility], [address] [address] [email or web address] Qiana Llamas, OT 8 [place] [address] [email or web address] 03/20/2025 1:20 PM EST Telemedicine [facility] SUPPORT 2 [place] [address] Aniyah Ogden PADuaneC 2 [place] [phone] [email or web address] 03/26/2025 2:10 PM EST Office Visit [facility]umatology [address] [place] [address] [place] [address] Yessenia Shah MD, MPH [address] [place] [address], [address] [address] [email or web address] 03/30/2025 4:15 PM EST Office Visit [address] [address] Arron Alejandre, [address] [place] [address] [email or web address] 04/12/2025 2:00 PM EST Nutrition [facility] 40 [place] [phone] Maddison Lea LDN 22 [facility], 1st [place] [address] [email or web address] 04/20/2025 2:30 PM EST Office Visit [address] [address] Fani Garzaghan, BRAIDED BAND ASSEMBLER 234 [facility], [address] [place] [address] 06/04/2025 1:30 PM EST Office Visit [facility] 22 [place] [address] Anisa Crowell, BRAIDED BAND ASSEMBLER 22 [facility], 1st [place] [address] 08/06/2025 1:00 PM EDT Office Visit [facility] [address] [place] [address] [facility], [address] [place] [address] Beulah Watkins DNP [address] [place] [address], [address] [address] 02/07/2026 1:20 PM EDT Office Visit [facility] [address] [facility], [address] [place] [address] Diaz Verdugo MD 22 [facility], [address] [place] [address] documented as of this encounter Goals Goal [...] documented as of this encounter Care Teams Glass Ribbon Machine Operator Relationship Specialty Start Date End Date Toña Garza CNP 234 [facility] 7 [place] [address] [email or web address] PCP - General Nurse Practitioner 02/23/23 Telma Chino, RN [address] [place] [address] [email or web address] PHCM Hris Specialist 10/24/19 Arron Alejandre DO [address] [place] [address] 7 [place] [address] [email or web address] Insurance Assigned Provider 08/14/23 08/13/24 Mirna Zhou PA-C 30 [place] [address] [email or web address] Physician Seater Grinder 02/18/24 Marv Olmos MD [address] [place] [address] Dermatology 07/11/24 Toña Garza CNP 234 [facility] 7 [place] [address] [email or web address] Insurance Assigned Provider 08/13/24 Laura Valencia [address] [place] [address] [email or web address] PHCM Community Ticket Collector 10/09/24 10/09/24 Tori Esposito [address] [place] [address] [email or web address] Community Health Worker 02/26/25 documented as of this encounter Additional Source Comments The information contained in this document represents components of the legal health record. It is not the complete legal health record.[facility]
--- OUTSIDE RECORDS SUMMARY | 2025-03-01 18:51 | XMS_ITS | Encounter Summary ---
Author Organization [facility] Address [address] [place] [address] [address] [place] [address] Phone Care Team Providers Care Front Desk Name Role Phone Telma Chino RN Unavailable [phone] Toña Garza CNP Primary Care Provider Mirna Zhou PA-C Unavailable Marv Olmos MD Unavailable [phone] Toña Garza DETECTIVE AUTOMOBILE SECTION Unavailable [phone] Tori Esposito Unavailable [phone] Reason for Visit * Reason Onset Date Comments Triage 01/03/2025 Red - Rapid hear t beat after medication Encounter Details Date Type Department Care Team (Late st Contact Info) Description 01/04/2025 Telephone [facility] [address] [place], [place] [phone] Toña Garza CNP 234 [facility], [address] [place] [address] [email or web address] Triage (Red - Rapid heart beat after medication) Social History Tobacco Use Types Packs/Day Years [...] as of this encounter Progress Notes * Loretta Lowry CNP - 01/04/2025 1:51 PM EDT VCS Reviewed: She continues to have racing heart while she is not taking the albuterol I recommend she be seen in person. Thank you Loretta Lowry CNP 01/04/25 1:51 PM * Katharine Page RN - 01/04/2025 1:03 PM EDT Spoke to patient, states her heart rate feels normal again. States she used her albuterol inhaler last night and it made her heart beat fast and gave her anxiety. States she felt it again this morning to. 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 States she is going to stop taking albuterol and try her pulmicort inhaler. States she tested negative for covid. States she is experiencing a dry cough, sore throat, temperature last night 99.4, and hands were achy. States she took tylenol and it helped. Advised no available in-person appts, advised UC and OTC medications to treat symptoms. Will review with VCS. * Beulah Curran - 01/04/2025 12:16 PM EDT Red Yellow Green Guidelines Select Red, Yellow, Green Triage Intake *Route to appropriate staff member/pool according to practice guidelines* Red Call Intake Call Back Number: (if not patient, name/relationship and if patient is with caller) [phone] Red Symptom(s): Triage (Red - Rapid heart beat after medication) When did these symptoms start? Last night Have you ever experienced these symptoms before? Additional information: Pt reports a rapid heart rate after taking Albuterol last night. She statesit slowed down for a little while, but is now rapid again. She also reports sore throat, cough and cold symptoms, which started earlier in the week. (Warm transfer unavailable.) Transfer LIVE call to RN for prompt triage Reason for Call = TRIAGE Comment = RED + symptom Route TE directly to the RN receiving the warm transfer, NOT the nursing pool documented in this encounter Plan of Treatment Upcoming Encounters Date Type Department Care Team (Late st Contact Info) Description 03/02/2025 1:45 PM EDT Office Visit [facility] 8 [place] [address] Cordell Lutz PA-C, MARIXA [address] [place] [address] Marshal Jimenez, PT 8 [place] [address] [email or web address] 03/06/[email or web address] 12:00 PM EDT Telemedicine - audio only [facility] 30 [place] [address] Mirna Zhou PA-C 30 [place] [address] 03/06/2025 2:40 PM EDT Office Visit [facility] [address] [place] [phone] Jasmina Peraza MD 22 [facility], 1st [place] [address] 03/08/2025 1:00 PM EDT Office Visit [address] [address] Cordell Lutz PA-C, MARIXA [address] [place] [address] Marshal Jimenez, PT 8 [place] [address] [email or web address] 03/12/2025 1:15 PM EST Office Visit [address] [address] Yessenia Shah MD, MPH 22 [facility], [address] [place] [address] Qiana Llamas, OT 8 [place] [address] 03/19/2025 1:15 PM EST Office Visit [address] [place] [address] Yessenia Shah MD, MPH 22 [facility], [address] [place] [address] Qiana Llamas, OT 8 [place] [address] 03/20/2025 1:20 PM EST Telemedicine [facility] 2 [place] [address] Aniyah Ogden PA-C 2 [place] [phone] [email or web address] 03/26/2025 2:10 PM EST Office Visit [facility] [address] [place] [address] [place] [address] Yessenia Shah MD, MPH 22 [facility], [facility] 203 [place] [address] [email or web address] 03/30/2025 4:15 PM EST Office Visit [address] [address] Arron Alejandre, DO [address] [address] [email or web address] 04/12/2025 2:00 PM EST Nutrition [facility] 40 [place] [address] Maddison Lea, KATHYN [address] [place] [address], [address] [place] [address] 04/20/2025 2:30 PM EST Office Visit [address] [address] Toña Garza, DETECTIVE AUTOMOBILE SECTION [address] [place] [address] 06/04/2025 1:30 PM EST Office Visit [facility] [address] [place] [address] Anisa Crowell, DETECTIVE AUTOMOBILE SECTION 22 [facility], 1st [place] [address] 08/06/2025 1:00 PM EDT Office Visit [facility] [address] [place] [address] 3rd Floor, [address] [place] [address] Beulah Watkins DNP 22 [facility], [address] [place] [address] 02/07/2026 1:20 PM EDT Office Visit [facility] [address] 3rd Floor, [address] [place] [address] Diaz Verdugo MD [address] [place] [address], [address] [address] [email or web address] documented as of this encounter Goals Goal [...] documented as of this encounter Care Teams Front Desk Relationship Specialty Start Date End Date Toña Garza CNP [address] [place] [address] 7 [place] [address] [email or web address] PCP - General Nurse Practitioner 02/23/23 Telma Chino, RN [address] [place] [address] [email or web address] PHCM Insulation Board Calender Operator 10/24/19 Mirna Zhou PA-C 30 [place] [address] [email or web address] Physician Ready Mix Truck Driver 02/18/24 Marv Olmos MD 29 [place] [address] [email or web address] Dermatology 07/11/24 Toña Garza CNP [address] [place] [address] [address] [place] [address] [email or web address] Insurance Assigned Provider 08/13/24 Tori Esposito [address] [place] [address] [email or web address] Community Health Worker 02/26/25 documented as of this encounter Additional Source Comments The information contained in this document represents components of the legal health record. It is not the complete legal health record.[facility]
--- OUTSIDE RECORDS SUMMARY | 2025-03-01 18:51 | XMS_ITS | Encounter Summary ---
Author Organization [facility] Address [address] [facility] [address] [place] [address] Phone Care Team Providers Care Certified Registered Nurse Anesthetist Name Role Phone Telma Chino RN Unavailable Toña Garza SEED CONE PICKER Primary Care Provider Mirna Zhou PA-C Unavailable Marv Olmos MD Unavailable [phone] Toña Garza SEED CONE PICKER Unavailable Laura Valencia Unavailable [email or web address] Tori Esposito Unavailable [phone] Encounter Details Date Type Department Care Team (Late st Contact Info) Description 10/03/2024 Telephone [facility] [address] 3rd Floor, [address] [place] [address] Bakari Arrington, SEED CONE PICKER 50 [place] [address] [email or web address] Social History Tobacco Use Types Packs/Day Years [...] before we got money to buy more. Never True 08/17/2024 Within the past 6 months the food we bought just didn't last and we didn't have enough money to get more. Never True Residential Stability Answer Date Recor ded What is your housing situation today? I have herberth sing 08/17/2024 How many times have you move d in the past 12 months? Zero (I did not move) 08/17/2024 Paying for Meds Answer Date Recorded Do you have trouble paying for medicines? No 08/17/2024 Paying Utility Bills Answer Date Record ed Do you have trouble paying your heating or elect ricity bill? No 08/17/2024 Transportation Answer Date Recorded Has the lack of transportati on kept you from medical appointments or from getting medications? No 08/17/2024 Digital Access Answer Date Recorded No 08/17/2024 Yes 08/17/2024 Do you have reliable internet access at home? Ye s 08/17/2024 Do you have a device (e.g., phone, tablet, computer) with a working camera? Yes 08/17/2024 Intimate Partner Violence Answer Date R ecorded Are you denied basic needs s uch as food, clothing, or medical care? No 08/17/2024 In the past 12 months have y ou been in a relationship with a person who hurts, threatens, or tries to control you? No 08/17/2024 Are you denied basic needs s uch as food, clothing, or medical care? No 08/17/2024 In the past 12 months have y ou been in a relationship with a person who hurts, threatens, or tries to control you? No 08/17/2024 Comments No Sex and Gender Information Value [...] Description 03/02/2025 1:45 PM EDT Office Visit [facility] 8 [place] [address] Cordell Lutz PA-C, MARIXA [address] [place] [address] Marshal Jimenez, PT 8 [place] [address] [email or web address] 03/06/[email or web address] 12:00 PM EDT Telemedicine - audio only Located [facility] at [facility] 30 [place] [address] Mirna Zhou PA-C 30 [place] [address] 03/06/2025 2:40 PM EDT Office Visit [facility] 234 [place] [phone] Jasmina Peraza MD 22 [facility], 1st [place] [address] 03/08/2025 1:00 PM EDT Office Visit [facility] 8 [place] [address] Cordell Lutz PA-C, MARIXA [address] [place] [address] Charleswade Marshal, PT 8 [place] [address] [email or web address] 03/12/2025 1:15 PM EST Office Visit [facility] [address] [place] [address] Yessenia Shah MD, MPH [address] [place] [address] Qiana Llamas, OT 8 [place] [address] 03/19/2025 1:15 PM EST Office Visit [facility] [address] [place] [address] Yessenia Shah MD, MPH [address] [place] [address] Qiana Llamas, OT 8 [place] [address] 03/20/2025 1:20 PM EST Telemedicine [facility] 2 [place] [address] Aniyah Ogden, PA-C 2 [place] [phone] 03/26/2025 2:10 PM EST Office Visit [facility] [address] [place] [address] Yessenia Shah MD, MPH [address] [place] [address] 03/30/2025 4:15 PM EST Office Visit [facility] 234 [place] [address] Arron Alejandre, [address] [address] 04/12/2025 2:00 PM EST Nutrition [facility] 40 [place] [address] Maddison Lea, KATHYN 22 [facility], [address] [place] [address] 04/20/2025 2:30 PM EST Office Visit [facility] 234 [place] [address] Toña Garza, SEED CONE PICKER [address] [address] maria 06/04/2025 1:30 PM EST Office Visit [facility] [address] [place] [address] Anisa Crowell, SEED CONE PICKER 22 [facility], [address] [place] [address] 08/06/2025 1:00 PM EDT Office Visit [facility] [address] [place] [address], [address] [place] [address] Beulah Watkins DNP 22 [facility], [address] [address] 02/07/2026 1:20 PM EDT Office Visit [facility] [address] [place] [address], [address] [place] [address] Diaz Verdugo MD 22 [facility], [address] [place] [address] documented as of this encounter Goals Goal [...] documented as of this encounter Care Teams Certified Registered Nurse Anesthetist Relationship Specialty Start Date End Date Toña Garza CNP [address] [place] [address] 7 [place] [address] PCP - General Nurse Practitioner 02/23/23 Telma Chino, DIXIE 10 [place] [address] PHCM Cut Lace Machine Operator 10/24/19 Mirna Zhou PA-C 30 [place] [address] Physician Assistant Credit Manager 02/18/24 Marv Olmos MD 29 [place] [address] [email or web address] Dermatology 07/11/24 Toña Garza CNP [address] [place] [address], [address] [place] [address] maria Insurance Assigned Provider 08/13/24 Laura Valencia [address] [place] [address] [email or web address] PHCM Community River Pilot 10/09/24 10/09/24 Tori Esposito [address] [place] [address] [email or web address] Community Health Worker 02/26/25 documented as of this encounter Additional Source Comments The information contained in this document represents components of the legal health record. It is not the complete legal health record.[facility]
--- OUTSIDE RECORDS SUMMARY | 2025-03-01 18:51 | XMS_ITS | Encounter Summary ---
Author Organization [facility] Address [address] [place] [address] Phone Care Team Providers Care Welt Wheeler Name Role Phone Luci Marsh SILVER CLEANER Primary Care Provider [phone] Janis Aquino MD Unavailable [phone] Telma Chino RN Unavailable [phone] Tori Esposito Unavailable Mihir Garner MD Unavailable SahArron balderas DO Primary Care Provider [phone] Luci Marsh SILVER CLEANER Primary Care Provider [phone] [facility] DO Primary Care Provider [phone] Toña Garza SILVER CLEANER Primary Care Provider [phone] Arron Alejandre DO Unavailable Mirna Zhou PA-C Unavailable Marv Olmos MD Unavailable Toña Garza CNP Unavailable [phone] Laura Valencia Unavailable heidi Tori Esposito Unavailable [phone] Reason for Visit * Reason Comments Follow-up Encounter Details Date Type Department Care Team (Late st Contact Info) Description 08/07/2020 Documentation [facility] [address] [place] [address] [email or web address] Follow-up Social History Tobacco Use Types Packs/Day Years [...] high school, GED, job training, learning the Citizen [place] language, technical skills, or developing parenting skills)? [...] as of this encounter Progress Notes * Hola Knox - 08/07/2020 1:50 PM EDT PT IS DOING WELL WITH COMING TO HER EXERCISE. FOR NOW WE ARE STICKING WITH LOW INTENSITY EXERCISE AND FOCUSING ON DURATION AND WATCHING BLOOD SUGARS. * Hola Knox - 08/07/2020 1:50 PM EDT THE PRIMARY GOAL FOR SUNIL IS TO BE EXTREMELY VIGILANT ABOUT HER WEIGHT. SHE NEEDS TO PRIORITIZE HER WEIGHT LOSS AND HbA1c. * Hola Knox - 08/07/2020 1:50 PM EDT SUNIL HAS A LONG UNFORTUNATE HISTORY BATTLING MAJOR DEPRESSIVE DISORDER AND ANXIETY. SHE CURRENTLY SEES BOTH A PSYCHOTHERAPIST AND PSYCHIATRIST AND SHE IS ON MEDICATION. SHE WOULD LIKE TO START DOINGSOME MEDITATION WITH A PROFESSIONAL OR SOME WORKSHOP CLASSES TO FURTHER IMPROVE HER ANXIETY SYMPTOMS. * Hola Knox - 08/07/2020 1:50 PM EDT PT NEEDS TO PRIORITIZE WEIGHT LOSS AND STRESS REDUCTION. THESE WILL HELP WITH HER BLOOD PRESSURE AND BLOOD SUGAR documented in this encounter Plan of Treatment Upcoming Encounters Date Type Department Care Team (Late st Contact Info) Description 03/02/2025 1:45 PM EDT Office Visit [facility] 8 [place] [address] Cordell Lutz PA-C, MARIXA 8 [place] [address] Marshal Jimenez, PT 8 [place] [address] [email or web address] 03/06/2025 12:00 PM EDT Telemedicine - audio only [facility] 30 [place] [address] Mirna Zhou PA-C 30 [place] [address] 03/06/2025 2:40 PM EDT Office Visit [facility] 234 [place] [phone] Jasmina Peraza MD 22 [facility], 1st [place] [address] 03/08/2025 1:00 PM EDT Office Visit [facility] 8 [place] [address] Cordell Lutz PA-C, MARIXA [address] [place] [address] Marshal Jimenez, PT 8 [place] [address] [email or web address] 03/12/2025 1:15 PM EST Office Visit [facility] [address] [place] [address] Yessenia Shah MD, MPH [address] [facility], [address] [place] [address] Qiana Llamas, OT 8 [place] [address] 03/19/2025 1:15 PM EST Office Visit [facility] [address] [place] [address] Yessenia Shah MD, MPH 22 [facility], [address] [place] [address] [email or web address] Qiana Llamas, OT 8 [place] [address] [email or web address] 03/20/2025 1:20 PM EST Telemedicine [facility] 2 [place] [address] Aniyah Ogden PA-C 2 [place] [phone] [email or web address] 03/26/2025 2:10 PM EST Office Visit [facility] [address] [place] [address] Yessenia Shah MD, MPH 22 [facility], [address] [address] [email or web address] 03/30/2025 4:15 PM EST Office Visit [address] [address] Arron Alejandre DO 234 [facility] 7 [place] [address] [email or web address] 04/12/2025 2:00 PM EST Nutrition [facility] 40 [place] [phone] Maddison Lea LDN 22 [facility], 1st [place] [address] [email or web address] 04/20/2025 2:30 PM EST Office Visit [address] [address] Toña Garza, RAFAEL 234 [facility], [address] [place] [address] 06/04/2025 1:30 PM EST Office Visit [facility] 22 [place] [address] Anisa Crowell, SILVER CLEANER 22 [facility], 1st [place] [address] 08/06/2025 1:00 PM EDT Office Visit [facility] [address] [place] [address] [address] [facility], [address] [place] [address] Beulah Watkins DNP [address] [place] [address], [address] [place] [address] 02/07/2026 1:20 PM EDT Office Visit [facility] [address] [facility], [address] [place] [address] Diaz Verdugo MD 22 [facility], [address] [place] [address] Scheduled Orders Name Type Priority Associated Diagnoses Orde r Schedule Cardiac Rehab ITP Procedures Routine Stented coronary artery Ordered: 08/07/2020 documented as of this encounter Goals Goal Patient Goal Type Associated Problems Recent Progress Patient-Stated? Author Increase physical activity / mobility Care Plan Activity intolerance / Impaired Functional Mobility No Telma Chino, RN Note: Adhere to treatment plan Care Plan Chronic Condition Self-Management No Telma Chino, RN Note: documented as of this encounter Visit Diagnoses Diagnosis Stented coronary artery- Primary Postsurgical percutaneous transluminal coronary angioplasty status documented [...] documented as of this encounter Care Teams Welt Wheeler Relationship Specialty Start Date End Date Luci Marsh CNP [address] [place] [address] PCP - General 05/20/17 10/20/22 Arron Alejandre DO [address] [place] [address] PCP - General Family Medicine 10/21/22 01/16/23 Luci Marsh CNP [address] [place] [address] PCP - General Nurse Practitioner 01/17/23 02/01/23 Arron Alejandre DO [address] [place] [address] 7 [place] [address] [email or web address] PCP - General Family Medicine 02/02/23 02/22/23 Toña Garza CNP [address] [place] [address] 7 [place] [address] [email or web address] PCP - General Nurse Practitioner 02/23/23 Janis Aquino MD [address] [place] [address] 7 [place] [address] [email or web address] Insurance Assigned Provider 09/10/18 08/15/22 Telma Chino, DIXIE [address] [place] [address] [email or web address] PHC Steamfitter 10/24/19 Tori Esposito [address] [place] [address] [email or web address] PHC Community Health Worker 01/08/20 01/27/21 Mihir Garner MD [address] [place] [address] 7 [place] [address] [email or web address] Insurance Assigned Provider 08/15/22 08/14/23 Arron Alejandre DO [address] [place] [address] 7 [place] [address] [email or web address] Insurance Assigned Provider 08/14/23 08/13/24 Mirna Zhou PA-C [address] [place] [address] [email or web address] Physician Coater Smoking Pipe 02/18/24 Marv Olmos MD [address] [place] [address] [email or web address] Dermatology 07/11/24 Toña Garza CNP [address] [place] [address], [address] [place] [address] [email or web address] Insurance Assigned Provider 08/13/24 Laura Valencia [address] [place] [address] [email or web address] PHCM Community Volunteer Manager 10/09/24 10/09/24 Tori Esposito [address] [place] [address] [email or web address] Community Health Worker 02/26/25 documented as of this encounter Additional Source Comments The information contained in this document represents components of the legal health record. It is not the complete legal health record.[facility]
--- OUTSIDE RECORDS SUMMARY | 2025-03-01 18:51 | XMS_ITS | Encounter Summary ---
Author Organization [facility] Address [address] [place] [address] Phone Care Team Providers Care Process Stripper Name Role Phone Luci Marsh REPAIRER WELDING EQUIPMENT Primary Care Provider [phone] Janis Aquino MD Unavailable [phone] Telma Chino RN Unavailable [phone] Tori Esposito Unavailable [phone] Mihir Garner MD Unavailable SahArron balderas DO Primary Care Provider [phone] Luci Marsh REPAIRER WELDING EQUIPMENT Primary Care Provider [phone] [facility] Primary Care Provider [phone] Toña Garaz REPAIRER WELDING EQUIPMENT Primary Care Provider [phone] Arron Alejandre DO Unavailable Mirna Zhou PA-C Unavailable Marv Olmos MD Unavailable Toña Garza CNP Unavailable [phone] Laura Valencia Unavailable heidi Tori Esposito Unavailable [phone] Encounter Details Date Type Department Care Team (Late st Contact Info) Description 09/12/2020 Ancillary Orders [facility] [address] [place] [address] Belzoni, Luci Marina, REPAIRER WELDING EQUIPMENT 15 [facility], 2nd [place] [address] [email or web address] Breast screening Social History Tobacco Use Types [...] high school, GED, job training, learning the American language, technical skills, or developing parenting skills)? [...] Description 03/02/2025 1:45 PM EDT Office Visit [facility] 8 [place] [address] Cordell Lutz PA-C, MARIXA [address] [place] [address] Marshal Jimenez, PT 8 [place] [address] [email or web address] 03/06/2025 12:00 PM EDT Telemedicine - audio only [facility] 30 [place] [address] Mirna Zhou PA-C 30 [place] [address] 03/06/2025 2:40 PM EDT Office Visit [facility] 234 [place] [phone] Jasmina Peraza MD 22 [facility], 1st [place] [address] 03/08/2025 1:00 PM EDT Office Visit [facility] 8 [place] [address] Cordell Lutz PA-C, MARIXA [address] [place] [address] Marshal Jimenez, PT 8 [place] [address] [email or web address] 03/12/2025 1:15 PM EST Office Visit [facility] [address] [place] [address] Yessenia Shah MD, MPH [address] [place] [address] [email or web address] Qiana Llamas, OT 8 [place] [address] [email or web address] 03/19/2025 1:15 PM EST Office Visit [address] [place] [address] Yessenia Shah MD, MPH [address] [place] [address] [email or web address] Qiana Llamas, OT 8 [place] [address] [email or web address] 03/20/2025 1:20 PM EST Telemedicine [facility] 2 [place] [address] Aniyah Ogden, PA-C 2 [place] [phone] [email or web address] 03/26/2025 2:10 PM EST Office Visit [facility] [address] [place] [address] Yessenia Shah MD, MPH [address] [place] [address] [email or web address] 03/30/2025 4:15 PM EST Office Visit [facility] [address] [place] [address] Arron Alejandre, DO 234 [facility], [address] [place], [place] [phone] 04/12/2025 2:00 PM EST Nutrition [facility] 40 [place] [address] Maddison Lea LDN 22 [facility], [address] [place] [address] 04/20/2025 2:30 PM EST Office Visit [facility] 234 [place] [address] Toña Garza, REPAIRER WELDING EQUIPMENT [address] [address] 06/04/2025 1:30 PM EST Office Visit [facility] [address] [place] [address] Anisa Crowell, REPAIRER WELDING EQUIPMENT [address] [place] [address], [address] [place] [email or web address] 08/06/2025 1:00 PM EDT Office Visit [facility] [address] [place] [address] [place] [address], [address] [place] [address] Beulah Watkins DNP [address] [place] [address], [address] [address] 02/07/2026 1:20 PM EDT Office Visit [facility] [address] [place] [address] Dr 3rd [facility], [address] [place] [address] Diaz Verdugo MD 22 [facility], [address] [address] documented as of this encounter Goals Goal Patient Goal Type Associated Problems Recent Progress Patient-Stated? Author Increase physical activity / mobility Care Plan Activity intolerance / Impaired Functional Mobility Telma Schneider, RN Note: Adhere to treatment plan Care Plan Chronic Condition Self-Management No Telma Chino RN Note: documented as of this encounter Results * BI MAMMOGRAM SCREENING WITH TOMOSYNTHESIS WITH CAD (BILATERAL) (09/20/2020 1:58 PM EDT) Anatomical Region Laterality Modality Breast Left, Breast Right, Breast Bilateral Bila teral Mammography 09/20/2020 2:59 PM EDT Impressions 09/20/2020 3:03 PM EDT No mammographic signs of malignancy. Annual screening is recommended. BI-RADS CATEGORY: 2 - Benign finding. DENSITY: The breast tissue is almost entirely fat. Narrative 09/20/2020 3:03 PM EDT Bilateral mammography is performed in conjunction with computed aided detection. 3-D tomography along with 2-D C view imaging was also performed. Comparison made to previous dated as far back as 05/16/2012 and as recent as 04/28/2019. No suspicious masses, areas of architectural distortion or suspicious microcalcifications. Bilateral skin calcifications. Procedure Note Richie Figueroa MD - 09/20/2020 Bilateral mammography is performed in conjunction with computed aideddetection. 3-D tomography along with 2-D C view imaging was alsoperformed. Comparison made to previous dated as far back as 05/16/2012 andas recent as 04/28/2019. No suspicious masses, areas of architectural distortion or suspiciousmicrocalcifications. Bilateral skin calcifications. IMPRESSION: No mammographic signs of malignancy. Annual screening is recommended. BI-RADS CATEGORY: 2 - Benign finding. DENSITY: The breast tissue is almost entirely fat. Luci Marsh REPAIRER WELDING EQUIPMENT IMG MG EXAMS Final Resu lt documented [...] Noted Time PHQ-9 Depression Total Score: 13 07/04/2 021 1:25 PM EST PHQ-2 Depression Total Score: 2 06/01/19 18 11:15 AM EST documented as of this encounter Care Teams Process Stripper Relationship Specialty Start Date End Date Luci Marsh CNP [address] [address] PCP - General 05/20/17 10/20/22 Arron Alejandre DO [address] [place] [address], [facility] 7 [place] [address] PCP - General Family Medicine 10/21/22 01/16/23 Luci Marsh CNP [address] [address] [email or web address] PCP - General Nurse Practitioner 01/17/23 02/01/23 Arron Alejandre DO [address] [place] [address] 7 [place] [address] [email or web address] PCP - General Family Medicine 02/02/23 02/22/23 Toña Garza CNP [address] [place] [address] [email or web address] PCP - General Nurse Practitioner 02/23/23 Janis Aquino MD [address] [place] [address] [email or web address] Insurance Assigned Provider 09/10/18 08/15/22 Telma Chino, RN [address] [place] [address] [email or web address] PHC Integrated Pest Management Technician 10/24/19 Tori Esposito [address] [place] [address] [email or web address] PHC Community Health Worker 01/08/20 01/27/21 Mihir Graner MD [address] [place] [address] [email or web address] Insurance Assigned Provider 08/15/22 08/14/23 Arron Alejandre DO [address] [place] [address] [email or web address] Insurance Assigned Provider 08/14/23 08/13/24 Mirna Zhou PA-C [address] [place] [address] [email or web address] Physician Bulk Delivery Driver 02/18/24 Marv Olmos MD 29 [place] [address] Dermatology 07/11/24 Toña Garza CNP [address] [place] [address] [address] [place] [address] [email or web address] Insurance Assigned Provider 08/13/24 Laura Valencia [address] [place] [address] [email or web address] PHCM Community Police Captain Precinct 10/09/24 10/09/24 Tori Esposito [address] [place] [address] [email or web address] Community Health Worker 02/26/25 documented as of this encounter Additional Source Comments The information contained in this document represents components of the legal health record. It is not the complete legal health record.[facility]
--- OUTSIDE RECORDS SUMMARY | 2025-03-01 18:51 | XMS_ITS | Encounter Summary ---
Author Organization [facility] Address [address] [place] [address] Phone Care Team Providers Care Care Analyst Name Role Phone Telma Chino RN Unavailable Toña Garza [facility] Primary Care Provider Mirna Zhou PA-C Unavailable Marv Olmos MD Unavailable [phone] Kayla Toña PIPE BOWLS PAINT TRIMMER Unavailable Laura Valencia Unavailable [email or web address] Tori Esposito Unavailable [phone] Reason for Referral * MRI/CAT Scan - New Request Specialty Diagnoses / Procedures Referred By Tony t Referred To Contact Radiology Diagnoses Chest pain, unspecified type Procedures NC Myocardial Perfusion Rest Single NC Myocardial Perfusion Pharmacologic Stress Alana Olivo DNP [address] [place] [address] Phone: tel: fax: [email or web address] Referral ID Status Reason Start Date Expiration Date V isits Requested Visits Authorized [id number] New Request 09/06/2024 1 1 Encounter Details Date Type Department Care Team (Latest Contact Info) Description 10/03/2024 Ancillary Orders [facility] [address] 3rd Floor, [address] [place] [address] Alana Fall DNP [address] [place] [address] [email or web address] Chest pain, unspecified type (Primary Dx); Essential hypertension; Coronary artery disease involving [place] coronary artery of [place] heart without angina pectoris; Syncope and collapse Social History Tobacco Use Types Packs/Day Years [...] Description 03/02/2025 1:45 PM EDT Office Visit [facility] 8 [place] [address] Cordell Lutz PA-C, MARIXA [address] [place] [address] Marshal Jimenez, PT 8 [place] [address] [email or web address] 03/06/2025 12:00 PM EDT Telemedicine - audio only [facility] 30 [place] [address] Mirna Zhou PA-C [address] [place] [address] 03/06/2025 2:40 PM EDT Office Visit [facility] 234 [place] [address] Jasmina Peraza MD 22 [facility], 1st [place] [address] 03/08/2025 1:00 PM EDT Office Visit [address] [address] Cordell Lutz PA-C, MARIXA [address] [place] [address] Marshal Jimenez, PT 8 [place] [address] [email or web address] 03/12/2025 1:15 PM EST Office Visit [address] [address] Yessenia Shah MD, MPH [address] [place] [address] Qiana Llamas, OT [address] [place] [address] 03/19/2025 1:15 PM EST Office Visit [address] [place] [address] Yessenia Shah MD, MPH [address] [place] [address] Qiana Llamas, OT 8 [place] [address] 03/20/2025 1:20 PM EST Telemedicine [facility] 2 [place] [address] Aniyah Ogden PADuaneC 2 [place] [phone] [email or web address] 03/26/2025 2:10 PM EST Office Visit [facility] [address] [place] [address] Yessenia Shah MD, MPH 22 [facility], [address] [place] [address] 03/30/2025 4:15 PM EST Office Visit [address] [address] Arron Alejandre, 234 [facility] 7 [place] [address] [email or web address] 04/12/2025 2:00 PM EST Nutrition [facility] 40 [place] [address] Maddison Lea, JULIETTE 22 [facility], 1st [place] [address] 04/20/2025 2:30 PM EST Office Visit [address] [address] Toña Garza, RAFAEL 234 [facility] 7 [place] [address] 06/04/2025 1:30 PM EST Office Visit [facility] [address] [place] [address] Anisa Crowell, PIPE BOWLS PAINT TRIMMER 22 [facility], 1st [place] [address] [email or web address] 08/06/2025 1:00 PM EDT Office Visit [facility] [address] 3rd Floor, [address] [place] [address] Beulah Watkins DNP 22 [facility], [address] [place] [address] 02/07/2026 1:20 PM EDT Office Visit [address] 3rd [facility], [address] [place] [address] Diaz Verdugo MD [address] [place] [address], [address] [address] [email or web address] documented as of this encounter Goals Goal Patient Goal Type Associated Problems Recent Progress Patient-Stated? Author Increase physical activity / mobility Care Plan Activity intolerance / Impaired Functional Mobility No Telma Chino RN Note: Adhere to treatment plan Care Plan Chronic Condition Self-Management No Telma Chino RN Note: documented as of this encounter Results * NC Myocardial Perfusion Rest Single (10/03/2024 1:01 PM EDT) Max Predicted Heart Rate 152 bpm Nuc Rest EF 55 % RNMDIAVOL 119.0 mL RNMSYSVOL 53.0 mL Anatomical Region Laterality Modality Heart, Vascular Ultrasound Narrative 10/04/2024 7:43 AM EDT Limited study This is a rest only study because of her seizure disorder and her inability to exercise, stress images could not be done. Cannot comment on ischemia. At rest there appears to be normal perfusion. No evidence of prior myocardial infarction. There is some artifact. Normal LV function. This is a rest only study and ischemia was not evaluated. ECG STRESS REPORT: BMI: 41.07 I met with Alice today who is here for her nuclear stress test. She does have a history of CAD s/p stent however also with a long history of noncardiac chest discomfort and severe anxiety. She is here due to some syncopal/presyncopal episodes. She is denying any new exertional symptoms. She is having episodes where she has a vague prodrome where she knows something is going to happen, sometimes she will lose consciousness completely, sometimes she will find herself in an altered mental state confused on the floor sometimes calling out for help, sometimes associated with very pronounced diaphoresis. She denies any associated chest pain or palpitations with these episodes. Following the events she feels pretty washed out for a while. Given her presentation there is some concern there may be some sort of seizure activity going on. She is not having any typical anginal symptoms. With the thought that there may be some seizure activity it is unsafe giving her Natasha scan which she would require for stress test today given her known LBBB. I did discuss the case today with her primary atm technician Dr. Verdugo. He does not think that a stress test is indicated for her at this time given the lack of anginal symptoms and her known history of noncardiac chest discomfort. She did recently have a 48-hour Holter monitor which was pretty unrevealing, she had no episodes while she was wearing the monitor she says. Due to her syncopal/presyncopal episodes I would order her for a 30-day monitor. She can follow-up here in the office once the monitor is complete. We did discuss that if she is to develop any new exertional symptoms she should call us and let us know. I also did recommend that she follow-up with her PCP as well, it does appear that her PCP is already placed a referral to neurology due to her syncope.. Demian Arrington NP NUCLEAR REPORT: TYPE OF STUDY: Myocardial Perfusion Imaging after a Rest protocol with gated SPECT. PROTOCOL USED: One day rest protocol in the supine position. Images were obtained in gated tomographic technique. Images were processed in SPECT format, reconstructed tomographically and compared [id number] in short axis, horizontal long axis and vertical long axis. DOSE: Technetium 99m Sestamibi 7.0 mCi injected intravenously in the right antecubital vein at rest on 10/03/2024 with post injection scan time of 60 minutes. Overall image quality is good. No motion artifact is present. Rest Function Defect Left ventricular global function is normal at rest. Resting ejection fraction was 55%. The rest end diastolic cavity size is mildly enlarged. The rest end systolic cavity size is mildly enlarged. Rest end systolic size: 53.0 mL. Nuclear Prior Study There is a prior study available for comparison that was performed on 11/17/2021. Perfusion Scoring Resting Summed Score: 6 Percent Normal: 8.82% Moderate count reduction in the following segments: mid anteroseptal and apical septal. Mild count reduction in the following segments: basal anteroseptal and mid anterolateral. All other segments are normal. SUPINE IMAGING REST Perfusion Scores: SRS Score: 6 Percentage Abnormal: 8.82% Perfusion Scores: SSS Score: N/A Percentage Abnormal: N/A Perfusion Scores: SDS Score: N/A Percentage Abnormal: N/A Alana Hooksnevin Fall DNP CV NM CARDIAC Final Re sult documented in this encounter Visit Diagnoses Diagnosis Chest pain, unspecified type- Primary Chest pain, unspecified type- Primary Essential hypertension Unspecified essential hypertension Coronary artery disease involving [place] coronary artery of [place] heart without angina pectoris Syncope and collapse documented in this encounter Additional Health Concerns [...] documented as of this encounter Care Teams Care Analyst Relationship Specialty Start Date End Date Toña Garza CNP 234 [facility] 7 [place] [address] PCP - General Nurse Practitioner 02/23/23 Telma Chino, RN [address] [place] [address] [email or web address] PHCM Bander Operator 10/24/19 Mirna Zhou PA-C 30 [place] [address] Physician Technical Applications Specialist 02/18/24 Marv Olmos MD [address] [place] [address] Dermatology 07/11/24 Toña Garza RAFAEL [address] [place] [address] 7 [place] [address] Insurance Assigned Provider 08/13/24 Laura Valencia [address] [place] [address] [email or web address] PHCM Community Commercial Journeyman Electrician 10/09/24 10/09/24 Tori Esposito [address] [place] [address] Community Health Worker 02/26/25 documented as of this encounter Additional Source Comments The information contained in this document represents components of the legal health record. It is not the complete legal health record.[facility]
--- OUTSIDE RECORDS SUMMARY | 2025-03-01 18:51 | XMS_ITS | Clinical Summary ---
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 Name Role Phone Telma Chino RN Unavailable Toña Treviño [facility] Primary Care Provider [phone] Mirna Zhou PA-C Unavailable Marv Olmos MD Unavailable Toña Treviño [facility] Unavailable Tori Esposito Unavailable [phone] Allergies Active Allergy Reactions Criticality Noted Date Comments Exenatide Mental Status Change 03/15/2017 Metronidazole Nausea and/or Vomiting High 03/15/2017 Milk Containing Products (Dairy) GI Upset 03/15/2017 Soy Diarrhea 07/29/2023 Medications gabapentin (NEURONTIN) 300 MG capsule Take 300 mg by mouth nightly at bedtime. Active clonazePAM (KLONOPIN) 0.5 MG tablet Take 0.5 mg by mouth 2 (two) times a day. Pt taking this twice a day 2 2016 Active venlafaxine (EFFEXOR-XR) 150 MG 24 hr capsule Take 2 capsules (300 mg total) by mouth daily. 2020 Active STELARA 90 mg/mL Syrg subcutaneous injection syringe Inject 90 mg under the skin once every 12 weeks. 2022 Active FREESTYLE 28 gauge lancetsIndicatio ns:Type 2 diabetes mellitus without complication, with long-term current use of insulin USE THREE TIMES DAILY DIRECTED. DX:E11.9 300 each 3 2023 Active FREESTYLE LITE Strp stripsIndication s:Type 2 diabetes mellitus without complication, with long-term current use of insulin Monitor blood sugar as directed 3 times daily DX:E11.9 300 strip 3 2023 Active aluminum hydroxide magnesium carbonate sodium bicarbonate (GAVISCON 80) 80-14.2 mg Chew Take 2 tablets by mouth as needed. Active cyanocobalamin, vitamin B-12, 500 mcg disintegrating tablet TAKE 1 TABLET BY MOUTH 3 TIMES A WEEK 12 tablet 11 2023 Active ferumoxytoL (FERAHEME) 510 mg/17 mL (30 mg/mL) SolnIndications: iron deficiency anemia Inject 510 mg of hoh iron into the vein once. The dosage is expressed in terms of mg of elemental iron, with each mL contains 30 mg of elemental iron. Indications: anemia from inadequate iron 2024 Active insulin pen needles, disposable, (BD GINA 2ND GEN PEN NEEDLE) 32 gauge x 5/32 NdleIndications: Type 2 diabetes mellitus without complication, with long-term current use of insulin Inject 1 each under the skin 2 (two) times a day. 180 each 3 2024 Active fluticasone propionate (FLONASE) 50 mcg/actuation nasal sprayIndications :Environmental allergies SPRAY 2 SPRAYS BY NASAL ROUTE DAILY. 48 mL 2 2024 Active triamcinolone acetonide 0.1 % ointment Apply 1 Application topically as needed. 2024 Active nystatin ointmentIndicati ons:Lichen sclerosus APPLY TOPICALLY NIGHTLY AT BEDTIME. 0.5G AMOUNT TO VULVA, 90 DAY SUPPLY 30 g 1 2024 Active estradioL (ESTRACE) 0.01 % (0.1 mg/gram) vaginal cream 1/2g to vulva twice weekly 42.5 g 1 2024 Active levothyroxine (SYNTHROID, LEVOTHROID) 100 MCG tabletIndication s:Hypothyroidism Take 1 tablet (100 mcg total) by mouth every morning. 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 80 g 1 2024 Active famotidine (PEPCID) 40 MG tabletIndication s:GERD (gastroesophagea l reflux disease) TAKE 1 TABLET BY MOUTH EVERY DAY 90 tablet 3 2024 Active hydrocortisone acetate (ANUSOL-HC) [address] 1 suppository (25 mg total) rectally daily as needed for hemorrhoid discomfort. 24 suppository 1 2024 Active apixaban (ELIQUIS) 5 mg tabletIndication s:Paroxysmal atrial fibrillation Take 1 tablet (5 mg total) by mouth 2 (two) times a day. 180 tablet 3 2024 Active OZEMPIC 0.25 mg or 0.5 mg (2 mg/3 mL) subcutaneous injection penIndications:T ype 2 diabetes mellitus without complication, with long-term current use of insulin Inject 0.25 mg under the skin every 7 days. 3 mL 1 2024 Active Additional Information Patient not taking.Reported on 02/06/2025 valACYclovir (VALTREX) 500 MG tabletIndication s:HSV infection TAKE 1 TABLET BY MOUTH EVERY MORNING. 90 tablet 3 2024 Active atorvastatin (LIPITOR) 80 MG tablet Take 1 tablet (80 mg total) by mouth daily. Labs due 90 tablet 2024 Active ketoconazole 2 % creamIndications :Fungal infection APPLY TO AFFECTED AREA TWICE A DAY 60 g 3 2024 Active Additional Information Patient taking differently:TopicalDaily as needed, APPLY TO AFFECTED AREA, Reported on 02/06/2025 albuterol (VENTOLIN HFA) 90 mcg/actuation inhalerIndicatio ns:Asthmatic bronchitis, mild persistent, uncomplicated Inhale 2 puffs into the lungs every 4 (four) hours as needed for wheezing. 1 g 1 2024 Active budesonide (PULMICORT FLEXHALER) 90 mcg/actuation inhalerIndicatio ns:Subacute cough Inhale 1 puff into the lungs 2 (two) times a day. 1 each 2024 Active Additional Information Patient taking differently:1 puff InhalationDaily as needed, Reported on 02/06/2025 STEQEYMA 90 mg/mL Syrg 2024 Active betamethasone, augmented, (DIPROLENE) 0.05 % ointment prn 2024 Active metoprolol succinate (TOPROL-XL) 50 MG 24 hr tabletIndication s:Essential hypertension,Fal l, subsequent encounter,Dizzin ess TAKE 1 TABLET BY MOUTH EVERY DAY 90 tablet 2024 Active fluocinonide 0.05 % ointmentIndicati ons:Lichen sclerosus Apply 1/4g amount to the vulva daily (3 month supply) 30 g 1 2024 Active metFORMIN (GLUCOPHAGE-XR) 500 MG 24 hr tabletIndication s:Type 2 diabetes mellitus with other specified complication, with long-term current use of insulin Take 2 tablets (1,000 mg total) by mouth 2 (two) times a day with meals. 2 tabs with breakfast and 2 tabs with dinner 120 tablet 11 2024 Active ergocalciferol (DRISDOL) 50,000 unit capsuleIndicatio ns:Vitamin D deficiency Take 1 capsule (50,000 Units total) by mouth once a week. 6 capsule 2024 Active clotrimazole-bet amethasone (LOTRISONE) creamIndications :Rash and other nonspecific skin eruption Apply topically 2 (two) times a day for 14 days. 45 g 03/01 Active FREESTYLE HAYES 2 READERIndication s:Type 2 diabetes mellitus with hyperglycemia, with long-term current use of insulin USE DIRECTED (E11.65) 1 each 2024 Active losartan (COZAAR) 100 MG tabletIndication s:Essential hypertension TAKE 1 TABLET BY MOUTH EVERY DAY 90 tablet 3 2024 Active LANTUS SOLOSTAR U-100 INSULIN 100 unit/mL (3 mL) InPn injection penIndications:T ype 2 diabetes mellitus without complication, with long-term current use of insulin Inject 55 Units under the skin daily. E11.40 60 mL 3 2024 Active clomiPRAMINE (ANAFRANIL) 25 MG capsule Take 3 capsules (75 mg total) by mouth nightly at bedtime. 02/15 Discontinued( No longer taking) losartan (COZAAR) 100 MG tabletIndication s:Essential hypertension take 1 tablet by mouth every day 90 tablet 3 02/21 Discontinued metFORMIN (GLUCOPHAGE) 1000 MG tabletIndication s:Type 2 diabetes mellitus without complication, with long-term current use of insulin TAKE 1 TABLET BY MOUTH TWICE A DAY DIRECTED DX:E11.9 180 tablet 3 02/01 Discontinued( Duplicate order) LANTUS SOLOSTAR U-100 INSULIN 100 unit/mL (3 mL) InPn injection penIndications:T ype 2 diabetes mellitus without complication, with long-term current use of insulin Inject 50 Units under the skin daily. E11.40 45 mL 3 02/22 Discontinued( Reorder) ergocalciferol (DRISDOL) 50,000 unit capsuleIndicatio ns:Vitamin D deficiency Take 1 capsule (50,000 Units total) by mouth once a week. 12 capsule 02/05 Discontinued benzonatate (TESSALON) 100 MG capsuleIndicatio ns:Chronic cough Take 1 capsule (100 mg total) by mouth 3 (three) times a day as needed for cough. 30 capsule 02/06 Additional Information Patient taking differently:100 mg OralAs needed, cough, Reported on 02/06/2025 FREESTYLE HAYES 2 READERIndication s:Type 2 diabetes mellitus with hyperglycemia, with long-term current use of insulin Use with Hayse 2 sensor to continously monitor BG 1 each 02/22 Discontinued clotrimazole-bet amethasone (LOTRISONE) creamIndications :Rash and other nonspecific skin eruption Apply topically 2 (two) times a day for 14 days. 45 g 02/15 Discontinued clotrimazole-bet amethasone (LOTRISONE) creamIndications :Rash and other nonspecific skin eruption Apply topically 2 (two) times a day for 14 days. 45 g 02/15 Discontinued( Reorder) clotrimazole-bet amethasone (LOTRISONE) creamIndications :Rash and other nonspecific skin eruption Apply topically 2 (two) times a day for 14 days. 45 g 02/15 Discontinued( Reorder) Active Problems Patient Care Coordination No te Formatting of this note migh t be different from the original. Patient is high risk for these reasons: Multiple chronic conditions Living Situation: 1st apt, 3 steps to enter - will need new apt May 10 Functional Status (ADL's/iADLs): independent Family/Social Supports: Friends Goals of Care (HCP/Molst): HCP not on file Community Supports (e.g. VNA, DME Vendors, Elder Services): PT Transportation: Drives self Medication Management System/Specialized Pharmacy Needs: Local pharmacy pick-up, pillbox Financial Concerns: N/A Other Supports and Care Needs: N/A Problem Noted Date Diagnosed Date Pain in both hands 02/15/2025 Assessment & Plan (02/15/2025 9:34 AM EDT): Alice has pain of her hands bilaterally-deformities noted-likely arthritis. Referral placed to OT for a consult. She was appreciative. Chronic cough 01/16/2025 Assessment & Plan (01/16/2025 2:50 PM EDT): Alice presents for a chronic cough-she had a negative flu, COVID, RSV test on 01/10/2025. I will order a chest x-ray today to rule out walking pneumonia-I will update her with results. I wrote for Robin Zurita-to be taken as directed and I gave her guidance regarding symptomatic management. Informed her to call if her symptoms get worse or if any other issues or concerns. She understands and agrees. Screening for condition 01/16/2025 Assessment & Plan (02/15/2025 9:34 AM EDT): Alice is due for a bone density that she was in agreement. I placed this referral today. I will update her with the result. Assessment & Plan (01/16/2025 2:51 PM EDT): Alice is due for a bone density scan-I ordered this today and I will update her with the result. Grade II hemorrhoids 11/03/2024 Assessment & Plan (11/03/2024 4:53 PM EDT): Alice has hemorrhoids-she is requesting something other than the and anucort as she is not able to insert the suppositories anymore. I wrote for triamcinolone ointment-to be applied to the rectal area 2-3 times a day for the next 14 days. I gave her a refill if needed. I informed her to call if she has any other issues or concerns or if this does not improve. She understands and agrees. Dizziness 11/03/2024 Assessment & Plan (11/03/2024 4:54 PM EDT): Alice's dizziness has improved status post a pacemaker placed. She is normotensive with a heart rate of 82. I congratulated her on this. There is no signs of infection over the pacemaker site. She will go for labs early next week and I will update her with the results. I informed her to call if there are any other issues or concerns. She understands and agrees. Sinus node dysfunction 10/26/2024 Assessment & Plan (12/04/2024 2:32 PM EDT): S/p pacemaker placement without any further issues. Pacemaker site is well- healed. Assessment & Plan (11/02/2024 3:23 PM EDT): Cardiac pacemaker in situ. Incision is healing well. Steri strips removed today. No exudate or erythema. Pt to follow-up in 3 months. Assessment & Plan (10/26/2024 3:59 PM EDT): Cardiac pacemaker in situ. AV node dysfunction 10/26/2024 Assessment & Plan (10/26/2024 3:59 PM EDT): Cardiac pacemaker in situ. Cardiac pacemaker in situ 10/26/2024 Assessment & Plan (10/26/2024 4:01 PM EDT): Device interrogated today. 6 yr battery life. RA and RV pacing and sensing stable. No episodes. 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 No parameter changes. Pt to return in 1 week for a wound check. Her incision is healing well. Pt reports some anxiety with the steristrips and dermabond coming off. She felt more at ease coming in to have me remove them next week. Plan: Continue remote checks Follow-up in 1 week NSTEMI (non-ST elevated myocardial infarction) 0 10/13/2024 Acute pain of left knee 08/30/2024 Assessment & Plan (08/30/2024 5:17 PM EDT): Alice had a recent fall on the of this month. She went to [facility] for this and had an x-ray of the knee. This showed arthritis but no fractures. Symptomatic management given. She will call if there are any other issues or concerns. She understands and agrees. Fall 08/30/2024 Assessment & Plan (09/26/2024 2:14 PM EDT): No recent falls-I increased her levothyroxine [id number] in 2 weeks. I referred her to neurology today for consult secondary to her last syncopal episode. She will call if there are any other issues or concerns. She understands and agrees. Assessment & Plan (09/15/2024 3:52 PM EDT): Alice has been experiencing ongoing falls and lightheadedness. I am unsure of the culprit but I do believe the metoprolol may be a factor driving this. She is taking 75 mg of metoprolol-extended release and her heart rate is 58 today. I gave her guidance to go down to 50 mg-1 tab a day and I sent this new prescription into her pharmacy. I advised her to call her sheet rocker group to update them about this change. I also advised her to go for the nuclear stress test that is still scheduled later this month. I would like her to go for the above lab work today and I will update her with the results. Follow-up in 2 weeks. She will call if there are any other issues or concerns. She understands and agrees. Assessment & Plan (08/30/2024 5:17 PM EDT): Alice had a recent fall on 08/26/2024. She was seen by artificial fly tier and presented to [facility]. She had CT scans done of her head along with an EKG and labs. Overall reassuring-no acute changes but I did refer her to neurology and neurosurgery at [facility] as per follow-up instructions from the ED. She was appreciative. I advised her to stay well-hydrated as I believe that this is causing a lot of her symptoms currently. Repeat labs in 2 weeks. Follow-up with PCP in 1 month. I informed her to call if there are any other issues or concerns. She understands and agrees. Syncope and collapse 07/28/2024 Assessment & Plan (09/06/2024 1:21 PM EDT): Patient reports since her last visit here she has had 2 ED visits for dizziness. Patient is asymptomatic on exam today. Patient reports that her PCP ordered a 48-hour Holter monitor which patient recently dropped off results are pending. Patient also reports echo was done during her [facility] admission which discharge note reported echo was normal. I have requested echo results. I have ordered a nuclear stress test due to patient's new chest tightness accompanied by her dizziness. I have encouraged patient to continue to stay very well-hydrated stand slowly from a seated position and to start wearing compression stockings. Will see patient's after nuclear stress testing and we will discuss Holter results that PCP ordered. Patient has planned physical therapy for her ongoing dizziness scheduled in the beginning of September that PCP ordered. Assessment & Plan (07/28/2024 6:22 PM EDT): EKG today shows sinus bradycardia 57 bpm with IVCD unchanged from prior EKG. Patient had 1 isolated syncopal episode after using the restroom. She reports after getting up from the toilet she walked over to the sink started to feel very dizzy and had a syncopal episode. She reports she is not sure if she actually lost consciousness or not however after she fell she laid on the ground for couple seconds before getting up. She denies confusion after this episode. She went to the emergency room after a syncopal episode workup was reassuring. This was 1 isolated episode. Patient reports she was significantly dehydrated. Patient asymptomatic on exam today. I have advised patient this most likely was a vasovagal episode in relation to her dehydration. I have educated patient on staying very well-hydrated standing slowly after a seated position and she can also try using compression stockings. I have advised patient to let the office know if this she has any symptoms again. For now no further cardiac workup recommended. Pulmonary nodules 07/26/2024 Assessment & Plan (07/26/2024 3:57 PM EDT): Incidental finding on head CT 07/2024. Agreed to assess via chest CT although low risk. Meningioma 07/26/2024 Assessment & Plan (12/04/2024 2:31 PM EDT): Has upcoming consultation with Dr. Plaza of neurosurgery, scheduled for later this week. Asymptomatic currently and without neurologic deficits. Assessment & Plan (08/30/2024 5:16 PM EDT): Alice was found to have a meningioma measuring 1.[address] scan of her head while at [facility] on 08/26/2024 while she was being evaluated for a recent fall/lightheadedness and dizziness. I referred her to [facility] neurology and [facility] neurosurgery at her request. I informed her to call if there are any other issues or concerns. She understands and agrees. Follow in 1 month with PCP. She understands and agrees. Assessment & Plan (08/17/2024 1:18 PM EDT): Given contact information to schedule with [facility] Neurosurgery. Assessment & Plan (07/26/2024 3:58 PM EDT): Discussed incidental finding on head CT. 11mm and appears stable from prior imaging. We agreed to further evaluate via MRI. ER had recommended she go for neurosurgery consult. Discussed this is small and asymptomatic. Unlikely to require surgical management but placed referral for consult as requested. Right wrist pain 07/11/2024 Left shoulder pain 07/11/2024 Assessment & Plan (07/11/2024 2:25 PM EST): Likely of c-spine > shoulder joint origin; exacerbated by occupational exposures Rash of groin 06/07/2024 Assessment & Plan (06/07/2024 3:24 PM EST): Alice presents for a worsening rash of the right groin-likely a fungal infection. She has been using intermittent nystatin powder but this is hard for her to treat this area thus she is not getting much powder on the affected area. She has been using some nystatin ointment without much relief. I advised her to stop the nystatin ointment and I wrote for ketoconazole cream-to be applied twice a day and to continue with the nystatin powder to help dry the area out. I informed her to call if this is not improving over the next 2 to 4 weeks at which point I would recommend trialing Lotrisone cream. She understands and agrees with this plan of action. Lower leg edema 06/07/2024 Assessment & Plan (06/07/2024 3:24 PM EST): Alice has lower leg edema bilaterally. I gave guidance to take the lasix as directed. She will go for repeat lab work next week to monitor her renal function. Vaginitis and vulvovaginitis 05/11/2024 Assessment & Plan (05/11/2024 10:07 PM EST): Alice is experiencing intense vaginal itching following recent antibiotic use. Suspected candidal infection. Discussed use of topical OTC products- topical miconazole. Encouraged to follow up if symptoms not improving with this treatment plan. Elevated alkaline phosphatase level 05/02/2024 Assessment & Plan (06/07/2024 3:05 PM EST): Alice has an elevated alk phos-she also has an elevated GGT. I placed a referral to GI last month. I advised her to follow-up with GI along with her PCP if there are any other issues or concerns. She understands and agrees. Assessment & Plan (05/12/2024 8:36 AM EST): Previously elevated alkaline phosphatase which has now normalized. Noted to have elevated GGT. US scheduled 05/19. She has been referred to [facility] and has an appointment later this month. Assessment & Plan (05/02/2024 3:24 PM EST): I reviewed Alice's two most previous liver enzyme lab work showing an increasingly elevated alkaline phosphatase. Her last alk phos was 148 on 05/01/2024. This may be elevated secondary to an infection-UTI, but I will further investigate this with additional lab work and an ultrasound of the liver. I will update her with the results. She will see her PCP next week. I informed her to call if there are any other issues or concerns. She understands and agrees. Iron deficiency anemia 03/23/2024 Overview (07/07/2024): Now following with [facility] hematology. Assessment & Plan (07/16/2024 12:55 PM EDT): Following with Dr. Zhou. She was unable to tolerate oral iron supplement. Anemia recently improved following IV iron. Pending workup with GI. Assessment & Plan (07/07/2024 4:20 PM EST): Following with Dr. Zhou. She was unable to tolerate oral iron supplement. Anemia recently improved following IV iron. Pending workup with GI. Assessment & Plan (05/02/2024 3:25 PM EST): Alice will be going for an iron infusion in the near future. Tongue pain 02/07/2024 Assessment & Plan (02/07/2024 3:12 PM EDT): Unable to give more details about duration of symptoms, precipitating events, and character of pain/itching. No visible lesions, erythema, or other abnormalities of her mouth. She denies teeth or buccal involvement. I offered to trial lidocaine swish and spit for pain, she reports her symptoms are nearly gone and decided against any medications. Advised to avoid spicy, acidic, or extreme temperature foods. Can try a new sensitive toothpaste, OTC pain medications as needed. Follow up for persistent or worsening symptoms. Hemorrhoids 01/13/2024 Assessment & Plan (01/13/2024 3:14 PM EDT): I diagnosed Alice with an external hemorrhoid-I treated her with a cortisone suppository and I gave her guidance regarding continuation of Preparation H. She is staying well-hydrated and she will avoid straining while having a BM. She will be seeing GI next month for colonoscopy. I informed her to call if this does not improve or if this gets worse. I advised her to follow-up with her PCP in a month. She will call if there are any other issues or concerns. She understands and agrees. Fungal infection 01/13/2024 Assessment & Plan (01/13/2024 3:13 PM EDT): I diagnosed Alice with a fungal infection of the right fifth digit and I treated her with ketoconazole cream to be applied as directed twice a day. I informed her to call if there are any other issues or concerns or if this gets worse. She will follow-up with the PCP in a month. She understands and agrees. Shortness of breath 09/02/2023 Assessment & Plan (11/04/2023 5:01 PM EDT): Her shortness of breath is chronic and has been unchanged for quite some time. She is not having any symptoms suggestive of congestive heart failure, she has not gained any significant weight, she has no orthopnea or PND and has had no leg swelling. On examination her lungs are clear and she has no swelling and no notable JVD, no murmurs to auscultation that I can appreciate. I do not think that further testing is indicated at this time however I will review this case with her primary sheet rocker and will reach out to her if any further cardiac testing is warranted at this time. Assessment & Plan (09/02/2023 12:17 PM EDT): Patient states that she has chronic shortness of breath, she notices this when she walks up a flight of stairs. She states this is not new. She has no chest pain, diaphoresis or otherwise. Medications and lifestyle have not changed. She is currently recovering from an upper respiratory infection. Suggested we updated echo, but patient declines until she is evaluated. Will therefore have patient follow- up in the office for physical exam to determine if any further testing is necessary. Pruritus 07/29/2023 Assessment & Plan (05/11/2024 9:53 PM EST): Discussed potential for worsened pruritus and rash around neck to be from Macrobid. She is no longer taking this. Advised to begin cetirizine 10mg. Encouraged to follow up if not improving. Assessment & Plan (07/29/2023 9:13 PM EDT): Patient continues to have lesions scattered across body and she is unable to break herself of the scratch-itch cycle. She is interested in getting a second derm opinion. I discussed with her my recommendation to try and focus on not scratching, using topical instead, wearing gloves to try and break cycle. Referral placed as requested. Mass of neck 07/13/2023 Overview (07/29/2023): US shows 17mm mass consistent with lipoma, recommended to monitor for changes. Assessment & Plan (07/13/2023 1:53 PM EST): Alice presents for a concern regarding a neck mass-midline. I suspect a cyst of some sort but I do want to rule out any abnormalities such as a lymph node abnormality or infection with an ultrasound thus ordered this today and I will update her with the result. I advised her to follow-up with her PCP in 2 weeks and to call if there are any other issues or concerns. She understands and agrees. Osteoarthritis of fingers of hands, bilateral Overview (08/15/2024): Plain film left hand 06/2023 - very severe joint space narrowing of 3rd and 5th DIPs with subchondral cyst formation > 5th PIP; no erosions Assessment & Plan (08/15/2024 2:16 PM EDT): Re-visited potential benefit of colchicine > methotrexate; she will contact me if she would like to pursue this off-label option. 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 No specific objective e/o underlying psoriatic arthritis though again assessment is complicated by continued ustekinumab rx' d by derm. Assessment & Plan (07/11/2024 2:21 PM EST): Clinical picture favors OA > psoriatic arthritis though ongoing ustekinumab rx may be treating joint inflammation as well. Topical diclofenac use has been limited by logistical barriers. 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 We discussed potential benefit of off-label colchicine versus methotrexate; she will consider these options and contact me if she'd like to proceed. Assessment & Plan (07/29/2023 9:08 PM EDT): Stable, she is not interested in medication or injections for this at this time. Encouraged to follow up if pain worsens and she is interested in further treatment. Assessment & Plan (07/02/2023 3:12 PM EST): She continues to have pain in 3rd DIP joint. Encouraged her to begin use of diclofenac gel. Assessment & Plan (04/30/2023 12:24 PM EST): Alice presents for left middle finger pain-DIP joint. I want to rule out gout with a uric acid test and she will get this done today. I will update her with result. I also will have her go for an x-ray to rule out arthritic changes of the joint. I gave her exercises to start on at the front office java developer and I informed her to follow-up with her PCP if this gets worse or if there are any other issues or concerns. She understands and agrees. Microcytic anemia 04/06/2023 Assessment & Plan (02/29/2024 7:24 AM EDT): She started iron supplementation but does feel this si causing GI upset. She is scheduled with hematology early March. Assessment & Plan (01/18/2024 2:09 PM EDT): Upper and lower endoscopy planned for early Feb; encouraged patient to contact GI RN with concerns re: pre-procedure instructions. Avoid oral NSAIDs. Assessment & Plan (10/08/2023 2:29 PM EDT): Upper and lower endoscopy scheduled; she is asymptomatic. Avoid oral NSAIDs. Updated Fe studies ordered. Assessment & Plan (04/11/2023 5:45 PM EST): First noted 01/2023. HGB Date Value Ref Range Status 04/06/2023 10.1 (L) 11.4 - 15.9 g/dL Final She is asymptomatic, denies any blood in stool. She has a GI referral. We will repeat some lab work in two weeks. Assessment & Plan (04/06/2023 2:06 PM EST): Please see plan other specified anemias. Rash and other nonspecific skin eruption 023 Assessment & Plan (02/15/2025 9:32 AM EDT): Alice has a rash of her lower abdominal region-waistline area. Likely secondary to the heat rash but I believe there is a fungal infection-this area skin is irritated thus I wrote for Lotrisone cream to be applied twice a day for 14 days-she will call if this does not improve or if this gets worse. She understands and agrees. Assessment & Plan (10/08/2023 2:26 PM EDT): Derm 2nd opinion pending for 02/2024 Assessment & Plan (04/06/2023 2:06 PM EST): Alice has a rash to the lower legs-this looks like an irritant and I did agree with the escapement maker plan of action of triamcinolone-steroid treatment to the legs twice a day as directed. I informed her to call if this gets worse but at this time there is no infection noted and this is reassuring. She understands and agrees with this plan of action. Chronic bilateral low back pain without sciatica 03/02/2023 Assessment & Plan (10/12/2024 2:12 PM EDT): Alice will see Dr. Bradford Plaza later this month. Follow-up as needed. She understands and agrees. Assessment & Plan (02/29/2024 7:34 AM EDT): Left sided low back pain seems to be flaring at this time. She will work on home exercises and consider PT for the low back once finished with PT for her knees. Assessment & Plan (03/02/2023 3:19 PM EDT): Alice has chronic low back pain. I we will have her go for above x-ray and I wrote for physical therapy today. Also gave her some exercises to start on. I advised her to follow-up in a month and to call if there are any other issues or concerns with this or if this gets worse. She understands and agrees. Cervicalgia 03/02/2023 Assessment & Plan (07/11/2024 2:18 PM EST): Amenable to dedicated OT; no clinical e/o myelopathy Assessment & Plan (03/02/2023 3:20 PM EDT): Alice has ongoing neck pains. I ordered an x-ray for evaluation. I also gave her exercises to start on. I advised her to follow-up in a month. She will call if there are any other issues or concerns. She understands and agrees. Left leg pain 03/02/2023 Assessment & Plan (04/21/2024 2:37 PM EST): Alice presents for left lower leg pain and edema-I would like to rule out a DVT with an ultrasound thus ordered this today and I will update her with the results. I informed her to call if there are any other issues or concerns or if this gets worse. She understands and agrees. Assessment & Plan (03/02/2023 3:20 PM EDT): Alice's left leg pain is improving-she was seen in the ER last month for this. I reviewed her ultrasound showed no clot. I gave her exercises to start on at home. I advised her to call if her symptoms get worse or if there are any other issues or concerns. Follow-up in a month. She understands and agrees. Bumps on skin 01/01/2023 Assessment & Plan (01/01/2023 5:07 PM EDT): Alice has bumps underneath the abdominal wall surface-subdermal and I suspect lipomas but she has been concerned that this is a growth of some sort thus ordered an ultrasound today and I will update her with the result. She was appreciative. She will call if there are any other issues or concerns. She understands and agrees. Insomnia 11/26/2022 Assessment & Plan (11/26/2022 2:58 PM EDT): Alice has issues with sleep. I gave guidance regarding good sleep hygiene. Multiple joint pain 11/15/2022 Overview (11/15/2022): H/o atraumatic left ankle swelling, sudden onset 2017 Assessment & Plan (07/11/2024 2:24 PM EST): High burden of non-inflammatory pain that is secondary to both osteo arthritis and occupational exposures. Discussed benefit of resuming regular low impact exercise routine, ideally water based. Unfortunately I do not have a rheum-specific intervention to offer. Assessment & Plan (12/30/2023 9:31 PM EDT): Alice is experiencing more knee pain at this time. She is planning to go for a steroid injection which she has benefited from in the past. Will continue to monitor. Assessment & Plan (10/08/2023 2:32 PM EDT): Difficult to confirm psoriatic arthritis dx on ustekinumab; elevated sed rate may reflect significant anemia / is non-specific. D/w patient empiric trial of addition of low dose methotrexate or leflunomide to current ustekinumab. She is reluctant to proceed but I have provided written information on both of these medications for her review and we will re-visit options on f/u. In the interim I have recommended topical diclofenac to painful left 3rd and bl 5th DIPs. Assessment & Plan (07/13/2023 4:19 PM EST): Current clinical presentation, especially with respect to acute onset left 3rd DIP inflammation, suspicious for psoriatic arthritis. It is premature to tribal judge full efficacy of ustekinumab after only 2 doses; can discuss addition of methotrexate pending clinical response. Unfortunately the only rapidly effective therapy to mitigate left 3rd DIP inflammation would be oral steroid, which patient declines today given h/o prednisone-induced hyperglycemia. Assessment & Plan (07/13/2023 1:46 PM EST): Alice hs intermittent left hand pain- she is followed by her probation officer. Assessment & Plan (01/12/2023 4:56 PM EDT): Stable-chronic joint pain. Assessment & Plan (11/15/2022 9:08 PM EDT): OA +/- psoriatic arthritis; discussed with patient potential diagnostic utility of left knee aspiration, which she chose to defer today. Baseline plain films. Methotrexate would be reasonable initial therapy if psoriatic arthritis can be confirmed. Acute right-sided low back pain without sciatica 10/01/2022 Assessment & Plan (02/15/2025 9:33 AM EDT): Alice presents for ongoing right lower back pain which comes and goes. I will have her go for the above lab work and I will update her with the results-rule out UTI versus kidney abnormalities-I advised her to stay well-hydrated. I informed her to call if there are any other issues or concerns. She understands and agrees. Assessment & Plan (05/12/2024 8:38 AM EST): Alice is experiencing right lower back pain. Appears muscular, reproducible on exam today, pain with position changes. No weakness, no red flag symptoms. Encouraged to use heat and begin HEP. Exercises provided today. Encouraged to follow up if not improving and should consider PT as next step. Assessment & Plan (10/01/2022 2:36 PM EDT): Alice presents for left-sided sciatica pains. I treated her with a prednisone taper- 12-day taper. I advised her to take this as directed and guidance given regarding side effects. I also wrote a prescription for physical therapy to help strengthen and stretching exercises for the back. She will follow-up as needed if there are any further issues or concerns with this. She understands and agrees. Primary osteoarthritis of both knees 10/01/2022 Overview (07/11/2024): R > L; plain films 12/2022 Intra-articular steroid injection left knee 01/2024 right knee 02/2024 Assessment & Plan (07/11/2024 2:23 PM EST): Regular exercise routine encouraged; no current indication for ongoing rheum- specific mgmt Assessment & Plan (02/14/2024 2:39 PM EDT): Significant benefit following left knee intra-articular steroid injection 1 month ago; right knee injected today as per procedure note. Discussed wall squats for strengthening while she awaits initial PT evaluation. Assessment & Plan (01/18/2024 2:07 PM EDT): L > R sxs currently; intra-articular steroid injection today as detailed in procedure note. Patient never started topical diclofenac d/t fear of AEs. Re-referred to PT per patient preference. Assessment & Plan (10/08/2023 2:31 PM EDT): Discussed but deferred intra-articular steroid injection today given patient's concern for hyperglycemia. Avoid oral NSAIDs as above. Trial topical diclofenac. Assessment & Plan (07/13/2023 4:21 PM EST): Patient declined intra-articular steroid injection today d/t concern for steroid-induced exacerbation of baseline hyperglycemia. She can f/u with ortho for repeat injection if needed once her glycemic control has improved. Assessment & Plan (11/02/2022 1:56 PM EDT): Alice has ongoing pain. I advised her to call to set up the x-ray and I will further evaluate the site. She understands and agrees. Assessment & Plan (10/30/2022 2:54 PM EDT): Alice has left knee pain-ongoing. I reviewed her most recent x-ray from 2020-I repeated this today. I will update her with the results. I gave her some exercises to start on as well. She was appreciative. Assessment & Plan (10/01/2022 2:36 PM EDT): Alice has chronic left knee pain. She had a steroid injection done recently without much benefit. Guidance given that she cannot receive another injection for another 2 months in this knee. I wrote a prescription for physical therapy today. She will call if there are any other issues or concerns. TMJ arthralgia 05/25/2022 Assessment & Plan (05/25/2022 2:55 PM EST): Referred for PT Edema, peripheral 05/01/2022 Assessment & Plan (05/11/2024 9:49 PM EST): Alice continues to experience bilateral lower leg edema. Discussed can wait to trial furosemide but also would recommend prioritizing compression stockings and putting legs up when able. Mild edema noted today, no erythema or discomfort. Will continue to monitor. Assessment & Plan (05/11/2024 9:47 PM EST): >>ASSESSMENT AND PLAN FOR BILATERAL LEG EDEMA WRITTEN ON 10/30/2022 2:48 PM BY ARRON ALEJANDRE, I gave guidance to elevate legs while sitting down, decreased salt in her diet. She will be seeing vascular in the near future. Assessment & Plan (05/11/2024 9:47 PM EST): >>ASSESSMENT AND PLAN FOR BILATERAL LEG EDEMA WRITTEN ON 04/26/2024 3:17 PM BY ARRON ALEJANDRE, Alice continues to have lower leg edema. I reviewed the U/S of the lower legs on 04/21/24- no clots noted- this is reassuring. She notes that she has not started the Lasix yet and I advised her to take the medication as directed and to follow-up with her PCP in 2 weeks. I reminded her to obtain lab work next week to monitor her renal function and electrolytes while on the Lasix. She understands and agrees with this plan of action. Assessment & Plan (05/11/2024 9:47 PM EST): >>ASSESSMENT AND PLAN FOR EDEMA, PERIPHERAL WRITTEN ON 05/11/2024 9:47 PM BY TOÑA TREVIÑO CNP >>ASSESSMENT AND PLAN FOR EDEMA WRITTEN ON 04/21/2024 2:37 PM BY ARRON ALEJANDRE, Please see plan lower leg edema for further detail. >>ASSESSMENT AND PLAN FOR BILATERAL LEG EDEMA WRITTEN ON 04/21/2024 2:37 PM BY ARRON ALEJANDRE, Alice presents for lower leg edema bilaterally. I started her on Lasix 20 mg to be taken in the morning for the next 7 days. I advised her to go for above lab work and I will update her with the results-I will monitor her renal function as well as BNP. I advised her to try and get some exercise, to decrease her salt and elevate her legs while sitting down. I informed her to call if her lower leg edema is worsening. Follow-up with PCP in a month. She will call earlier if needed. She understands and agrees. Assessment & Plan (09/10/2022 5:54 PM EDT): Asked her to wear her compression stockings every day, put them on in the morning and take them off before bed Assessment & Plan (08/14/2022 3:43 PM EDT): Alice presents for edema lower extremities-she denies any recent travel. She notes that she stopped the Lasix but recently restarted earlier this week. I gave her guidance to continue with the Lasix but in the morning and to go for the lab work to follow-up on renal function and electrolytes. I gave her guidance to increase activity and exercise as this will help for the lower leg edema. She should follow-up with her PCP in a month. She will call if there are any other issues or concerns. She understands and agrees. Assessment & Plan (07/02/2022 4:23 PM EST): She will continue Lasix. Her recent electrolytes were normal except for her glucose Assessment & Plan (05/25/2022 2:55 PM EST): She is unable to use compression stockings due to sensory processing issues. The Lasix is helping partially and she will continue it. We discussed walking regularly for exercise. Elevating feet when at rest. Assessment & Plan (05/01/2022 1:42 PM EST): Bilateral 1-2+ ankle edema. Small murmur with normal rate and rhythm. Cardiorespiratory exam unremarkable. Peripheral pulses intact x4 with BLE well perfused. Alice is concerned. Encouraged low sodium, heart healthy diet with gentle exercise such as walking. Chronic insomnia 02/12/2022 Assessment & Plan (09/18/2023 10:22 PM EDT): She continues to struggle with sleep. She reports eating late in the evening/night. Often awoken by her itching. Poor sleep hygiene. We discussed importance of good sleep hygiene and discussed techniques. Encourage to change dietary habits and when and what she is eating. Encouraged to work on increasing exercise and movement during the day. Assessment & Plan (09/10/2022 5:54 PM EDT): She is going to try melatonin per her psychiatrist recommendation Assessment & Plan (02/12/2022 2:09 PM EDT): Alice has insomnia. I advised her to double her melatonin from 1 mg nightly to 2 mg at night to see if this will help. She will call if there are any other issues or [id number] with her PCP in 2 weeks. Hip pain, bilateral 09/30/2021 Assessment & Plan (09/30/2021 3:25 PM EDT): Alice presents for bilateral hip pains. No recent trauma. Decreased range of motion though. I will have her go for above x-rays and I will update her with the results. I put a referral into physical therapy and then orthopedics for consult. Advised her to use Tylenol [id number] and to put heat to the sites. She will call if there are any other issues or concerns. She understands and agrees. Neck pain 08/07/2021 Assessment & Plan (02/14/2024 2:40 PM EDT): No clinical e/o radiculopathy; conservative mgmt discussed. She declined rx for muscle relaxant. Assessment & Plan (05/25/2022 2:54 PM EST): Neck pain and left TMJ. This seems muscular. My colleague did order an x-ray to evaluate for arthritis in the neck. She has a PT referral in. Assessment & Plan (08/07/2021 1:59 PM EDT): Alice presents for neck pain. This started months ago. I suspect a muscle strain. I wrote a script for PT today. I gave guidance regarding tylenol and heat to be used as needed. She will call if there are any other concerns. F/U with PCP in a month. Gross hematuria 05/21/2021 Assessment & Plan (09/04/2021 3:01 PM EDT): She is scheduled for CT scan and then cystoscopy with Dr. Concepcion. I encouraged her to discuss her anxiety about procedure related pain in light of her vulvar lichen sclerosus with him. Assessment & Plan (05/21/2021 1:09 PM EST): Urine culture was negative. Her sx have not recurred. Nevertheless as we can't explain the hematuria with a UTI I recommend she see urology for cystoscopy. Myocardial infarction 05/16/2021 Coronary artery disease invo lving [place] coronary artery of [place] heart 05/16/2021 Assessment & Plan (10/26/2024 3:57 PM EDT): S/p ISAAC to the LAD in 05/2020. She denies any current cardiac symptoms at this time. Pt is on atorvastatin and tolerating well. No changes in management. Plan: Continue atorvastatin Assessment & Plan (09/06/2024 1:19 PM EDT): Patient tells me she has new intermittent episodes of chest tightness that is accompanied with her dizziness. Patient has had a recent [facility] admission for dizziness and chest pain which was reassuring. I have requested this echo as [facility]'s discharge note states that patient had a normal echo during this hospital admit. Patient does have history for CAD she is status post ISAAC to the LAD in May 2020. Since patient does have new episodes of chest tightness I have ordered a pharmacological nuclear stress test as patient does have a history for left bundle branch block. I went over this protocol with patient. I also went over strict ED precautions with patient. Patient will continue on aspirin 81 mg daily, metoprolol succinate 75 mg daily and atorvastatin 80 mg daily. Most recent LDL 71. It was reported patient had previous VT before her stenting in 2020. Patient will continue on amiodarone 200 mg daily. Most recent TSH elevated patient reports she is routine follow-up with PCP regarding this. Assessment & Plan (07/28/2024 6:27 PM EDT): No concerning symptoms for angina. Patient is pretty active without anginal symptoms. Patient will continue on aspirin 81 mg daily, metoprolol succinate 75 mg daily and atorvastatin 80 mg daily. Most recent LDL 71. It was reported patient had previous VT before her stenting in 2020. Patient will continue on amiodarone 200 mg daily. Most recent TSH elevated patient reports she is routine follow-up with PCP regarding this. Assessment & Plan (07/16/2024 12:56 PM EDT): Managed on atorvastatin 80mg and aspirin. Will continue these medications. Assessment & Plan (11/04/2023 5:00 PM EDT): She has a history of CAD s/p ISAAC to LAD in May 2020. Patient is endorsing intermittent exertional chest pressure which she is telling me has been an issue for quite some time now. She does have a history of noncardiac chest pain which has been attributed to her anxiety. She has had a normal nuclear stress 11/17/2021. She is admittedly quite anxious currently, she says she had a panic attack this morning, almost tearful here in the office due to generalized worry she tells me. I do not think that her current symptoms are reflective of any cardiac etiology. I have not ordered any additional testing at this time however I am going to review this case with her primary sheet rocker and if it is determined that further testing is needed I will reach back out to the patient and set this up. Of note patient is currently off of statin therapy per the recommendation of her escapement maker due to her rash evaluation of which is ongoing. If it is determined by the escapement maker that her rash is due to her statin we can consider alternate therapies, if not I have told her we will just resume her statin. Assessment & Plan (09/02/2023 12:03 PM EDT): history of CAD status post ISAAC to the LAD May 2020. Patient denies any symptoms concerning for angina at this time. This is a telemedicine visit today. She is taking her medications as prescribed per her report. Continue to optimize cardiovascular risk factors. Assessment & Plan (05/25/2023 3:36 PM EST): Optimize risk factors with good blood pressure control, ASA, statin, and good glucose control. Adding GLP1 will indirectly benefit cardiovascular health as well as glucose control. Encouraged low sodium, heart healthy diet with gentle exercise as tolerates. Assessment & Plan (04/11/2023 5:57 PM EST): Managed on atorvastatin 80mg and aspirin. Continue these medications. Assessment & Plan (04/06/2023 2:00 PM EST): Stable on her medication. Assessment & Plan (01/12/2023 4:50 PM EDT): Stable on her medication. Assessment & Plan (11/26/2022 2:55 PM EDT): Stable on her medication. Assessment & Plan (11/22/2022 8:05 AM EDT): Optimize risk factors with good blood pressure control, ASA, statin, and good glucose control. Encouraged low sodium, heart healthy diet with gentle exercise as tolerates. Assessment & Plan (11/02/2022 1:48 PM EDT): Stable, CAD- she is taking her medication as directed. Assessment & Plan (10/30/2022 2:47 PM EDT): Stable on her medication. Assessment & Plan (08/21/2022 11:39 AM EDT): Optimize risk factors with good blood pressure control, ASA, statin, and good glucose control. Encouraged low sodium, heart healthy diet with gentle exercise as tolerates. Assessment & Plan (05/01/2022 2:05 PM EST): Optimize risk factors with good blood pressure control, ASA, statin, and good glucose control. Encouraged low sodium, heart healthy diet with gentle exercise as tolerates. Assessment & Plan (09/04/2021 3:00 PM EDT): She has follow-up with cardiology next week RUQ pain 02/05/2021 Overview (02/05/2021): Reported this to me in 2017. Normal labs. UL showed fatty liver, no gallstones Assessment & Plan (02/05/2021 8:17 PM EDT): Diff dx includes GERD, IBS, gallstones Will get another UL to evaluate for gallbladder pathology & check on hepatic steatosis Fatty liver 02/05/2021 Overview (07/07/2024): US 06/2024. Assessment & Plan (07/07/2024 4:28 PM EST): She is currently following with [facility]. She plans to go for lab they have ordered for workup today. Will continue to monitor. Assessment & Plan (11/10/2023 10:19 PM EDT): Weight loss will be most helpful for reversing fatty liver Use of GLP1ra therapy may also support improvement in hepatic integrity Equinus deformity of both feet 10/11/2020 Chest pressure 08/01/2020 Assessment & Plan (09/19/2020 1:18 PM EDT): Did not improve w asthma tx. Diff dx includes angina & anxiety. She has FU w Dr Verdugo scheduled. Assessment & Plan (09/05/2020 6:05 PM EDT): Current Differential Dx includes asthma, chest wall pain, vasospastic angina Advised to start Pulmicort & use it BID as prescribed. Use albuterol when sx occur. If sx acutely worsen & persist to ER. Assessment & Plan (08/01/2020 5:26 PM EDT): She has CAD But her sheet rocker does not think her sx are cardiac. I suggested that she do try her albuterol Next time sx occur. Her asthma is mild & intermittent & she doesn't;t require daily ICS yet. Diff dx for sx is GERD, anxiety Stented coronary artery 06/17/2020 Overview (06/17/2020): 06/05/20 drug eluting stents to LAD and diagonal 1. [facility] Assessment & Plan (06/17/2020 9:42 PM EST): Continue plavix & asa, lipitor. A-fib 06/01/2020 Assessment & Plan (11/02/2024 3:22 PM EDT): Previous amiodarone use. She is currently on metoprolol and Eliquis for CVA prophylaxis. She denies any bleeding issues. She is overall feeling well. Will continue current management. Plan: Continue metoprolol Continue Eliquis Follow-up in 3 months Assessment & Plan (10/26/2024 3:56 PM EDT): Previous amiodarone use. She is currently on metoprolol and Eliquis for CVA prophylaxis. No episodes noted on device interrogated. She denies any bleeding issues. She is overall feeling well. Will continue current management. Plan: Continue metoprolol Continue Eliquis Assessment & Plan (10/14/2024 10:53 PM EDT): - is anticoagulated on eliquis, back on metoprolol, stopped amiodarone - has JACQUELINE but does not wear CPAP Assessment & Plan (07/16/2024 12:55 PM EDT): Stable, asymptomatic, continues to follow with cardiology, managed on amiodarone 200mg and metoprolol 75mg, denies side effects. Continue these medications. Assessment & Plan (04/11/2023 5:56 PM EST): Stable, asymptomatic, continues to follow with cardiology, managed on amiodarone 200mg and metoprolol 75mg, denies side effects. Continue these medications. Assessment & Plan (09/10/2022 5:53 PM EDT): Follows with cardiology Assessment & Plan (12/04/2021 5:24 PM EDT): She has had no further known episodes since May 2020, prior to her PCI She is not anticoagulated I increased her metoprolol dose today for hypertension but she was already rate controlled. I messaged her sheet rocker regarding recommendations for anticoagulation Assessment & Plan (08/01/2020 5:23 PM EDT): Amiodarone refilled today, FU w cardiology in future for refills Assessment & Plan (06/17/2020 9:30 PM EST): Had A FIb with RVR last month. At one point had NSVT vs A.Fib w aberrancy, so she was put on amiodarone. She did convert to sinus rhythm. She is on low dose beta umer now. She has short term FU w cardiology & monitor is planned to evaluate for recurrence of A. Fib. She has [id number] score of 4 (female, DM, HTN, vascular disease) and will need anticoagulation if paroxysmal A.Fib Assessment & Plan (06/03/2020 2:55 PM EST): Patient presented with new onset A. fib as noted above. Converted to sinus rhythm in the ED however has had bursts of A. Fib/NSVT, confirmed with Cards that these were episodes of VT S/p amiodarone drip which was discontinued and patient on oral load of amio On heparin drip, stopped for Eliquis dose, but when events appeared more like VT and less atrial fibrillation, Cardiology recommended switching back to Heparin gtt which will restart tonight at 11:40PM -Continue metoprolol and amiodarone -Full anticoagulation with heparin drip. -Continue atorvastatin 40 mg daily. -Continue losartan 25 mg daily. -Monitor on telemetry. -Plan for cardiac cath tomorrow, NPO past midnight Primary insomnia 10/24/2019 Assessment & Plan (08/06/2022 10:34 AM EDT): She is trying to improve sleep hygiene and use some insomnia apps on her phone. She follows with psychiatry for medication management. Assessment & Plan (05/25/2022 2:52 PM EST): I gave her Dr. Liudmila Bustamante's information for CBT-I or BBTI. I also encouraged her to talk to her psychiatrist about the issue Assessment & Plan (03/05/2022 2:33 PM EDT): Melatonin doesn't help. Sent info sheet on sleep hygiene. [facility]. Assessment & Plan (10/24/2019 2:00 PM EDT): Difficulty falling asleep. Has not tired melatonin, which I encouraged. She will discuss insomnia w her psychiatrist too. Diarrhea 12/07/2018 Assessment & Plan (02/15/2025 9:35 AM EDT): Alice notes that she has ongoing diarrhea and loose stool. She is intermittently taking Imodium-I gave guidance regarding this. I also gave guidance to completely eliminate all dairy including the 1 square [place] cheese she eats every day. I ordered labs today to further workup a celiac panel. I gave her guidance to follow-up with GI-referral placed again today. I informed her to call if there are any other issues or concerns. She understands and agrees. I have maintained a long-term relationship with the patient, overseeing the care of their diarrhea. This has significantly influenced my decision-making and treatment plans during today's encounter. Assessment & Plan (08/16/2023 5:24 PM EDT): Alice has been having diarrhea since starting Trulicity. I advised her to call her prescriber to update them about this. I advised her to stay well-hydrated and I will have her go for the above lab work-I will update her with the results. I informed her to call if there are any other issues or concerns. She understands and agrees. Assessment & Plan (02/05/2021 8:14 PM EDT): Chronic. Normal colonoscopy. Hx c/w lactose intolerance & I reminded her of this. Also reminded her to try fiber supplement Assessment & Plan (04/25/2020 2:27 PM EST): She has lactose intolerance she has intermittent diarrhea this is likely due to metformin We discussed adding fiber, like metamucil. Assessment & Plan (12/07/2018 2:55 PM EDT): This sounds like lactose intolerance. I asked her to eliminate dairy. If sx improve she can add back yogurt. Also will check TTG & IgA Calcaneal spur of left foot 05/06/2018 Faint heart murmur 07/22/2017 Overview (08/02/2017): Echo 07/2017 There is mild asymmetric left ventricular hypertrophy. Left ventricular systolic function is normal. The estimated ejection fraction is 68% There is trace mitral regurgitation. Normal pulmonary artery pressure. Assessment & Plan (07/22/2017 1:14 PM EDT): Asymptomatic. Echocardiogram ordered. Atrophy of vulva 05/14/2017 Overview (01/30/2025): Patient hesitant to use estrogens 01/2018 - pt states she will try vulvar premarin 05/2019 using premarin 2-3x/wk to vulva 03/2023- has not been using estrogen 12/2023 - afraid of using estrogen so she has not been using 01/2025 -reports she is using with a finger a few times a week Assessment & Plan (01/31/2025 7:41 AM EDT): Advised to continue applying estrace a few times weekly to help strengthen skin Assessment & Plan (03/23/2023 2:04 PM EST): has not been using estrogen Assessment & Plan (07/09/2022 2:13 PM EST): Has not been using the estrogen. Advised to restart; new Rx sent Assessment & Plan (03/05/2022 2:47 PM EDT): Atrophic vaginitis is contributing to her itching. She follows with gynecology. She has been reluctant to use topical estrogens Assessment & Plan (06/02/2019 12:53 PM EST): She has tried the premarin cream recently, using once every few days; feels this is helping a bit Assessment & Plan (05/14/2017 12:41 PM EST): Continue Estrace. Reviewed amount and areas of application. Lichen sclerosus 04/09/2017 Overview (01/30/2025): Change 09/2017 from fluocinonide back to triamcinolone (due to vascular effect) 3x/wk mixed with Nystatin, then this was increased to nightly. Calmoseptine in perianal area and perineal body prn itch. Mometasone in the anal area three times per week. Nightly soaks. Coconut oil. Premarin 3x/wk started 03/2018 - increased 05/2018 to daily. 09/2018 worsening symptoms -change back to fluocinonide 05/2019 stable, minimal symptoms; however still with thickened skin, purpura. I offer her steroid injection and she will consider 11/2019 stable. No changes planned. Declines injection for now 09/2020 - stable. New media photo taken 11/2020 - increased keratosis of perineum 12/2023 - increased redness and excoriations on b/l labia . Has not been using creams for several weeks because of moving and not knowing where creams are. 09/2024- due to thin skin, tried tacrolimus - pt did not tolerate 01/2025 fluocinonide every 1-2 days Assessment & Plan (01/31/2025 7:44 AM EDT): She reports the vulva has been uncomfortable. The vestibule has multiple patches of purpura and thin white patches. There is keratosis of the perineum toward the anal folds. Overall this is unchanged from prior exams which consistently show uncontrolled lichen sclerosis disease and skin thinning from steroid use. Although imperfectly controlled, I do advise her to continue with the steroid use every day or every other day, the estrace a few times a week. Sitz baths are recommended for comfort. Every 3 month visits for a skin check due to poor control, she is at some risk for developing skin breakdown and skin cancer. Assessment & Plan (08/21/2024 3:02 PM EDT): She has been using fluocinonide nightly; if she misses an application she notes itching. Overall it is not bothering her much (which I point out is much better than she ever has told me) and I wonder if this relates to having started a biologic Stelara- for her psoriasis, by escapement maker. Exam today shows atrophy with very thin skin with vessels very visible neil on the posterior aspect of the intoitus - as previously seen. No longer any signs of infection as last visit. I am concerned about thinning of skin with daily steroid in her case and ask her to cut back to every other day. I am replacing this with tacrolimus 1% ointment on alternative days. Advised using estradiol cream; Rx sent. Nystatin 2x/wk PRN. She also notes dizzy spells for unclear reason; has been a few times to ER Assessment & Plan (03/23/2023 2:06 PM EST): Using fluocinonide/nystatin daily Feels things are very itchy I discuss option of trying protopic but as she may be starting a new medication tomorrow will defer making this change today; can re-address at next visit Assessment & Plan (07/09/2022 2:15 PM EST): Stable appearance, no keratosis noted. Only mild purpura. Blotchy hypopigmentation and scarring of vestibule. Reviewed area to apply fluocinonide. Continue daily use of steroid and nystatin. Assessment & Plan (03/05/2022 2:48 PM EDT): Advised her to take daily sitz bath's and use her fluocinonide and nystatin as she was. Assessment & Plan (12/06/2020 1:01 PM EDT): Pt noted some rough skin at perineum. Exam shows increase keratosis compared to previously documented notes. Compared to media but perineum not well see in prior photos. Today, vulva is stable, but perineum shows white kerotosis. I see no sign of infection or significant concern for malignancy. I advised making sure to apply the fluocinonide to this area, and resume baths/soaks. 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 She continues to have symtpoms. Photo taken today. Advised she continue as she is doing, with soak and seal, daily steroid and nystatin, and premarin 3x/wk. Refill given. Assessment & Plan (03/15/2020 8:43 AM EST): Continue topical steroids & anitfungal. FU with barrel waterer. Assessment & Plan (06/02/2019 12:56 PM EST): 05/2019 stable, minimal symptoms; however still with thickened skin, purpura. I offer her steroid injection and she will consider Assessment & Plan (03/09/2019 12:19 PM EDT): Exam more or less stable; new photo taken today See some steroid effects; advised to keep fluocinonide to 5x/week and to start using estrogen cream 3x/week; reviewed on photo the reasons to try estrogen cream to strengthen skin. Continue 3 month visits due to poor control Assessment & Plan (05/14/2017 12:30 PM EST): Reviewed findings with patient. I reviewed the importance of regular maintenance topical steroid use to prevent symptoms, further scarring, and squamous cell cancer of the vulva. I also explained the importance of regular follow up to ensure she has no evidence of precancerous or cancerous changes and that she is not having side effects from her medication. I reviewed areas of application and amount of medication to use. Continue fluocinonide daily in the vulvar area with care to get to deep part of labia. Asthmatic bronchitis, mild persistent, uncomplic ated 03/15/2017 Assessment & Plan (07/16/2024 12:56 PM EDT): Stable. Managed on Pulmicort and albuterol PRN. Denies symptoms today. Will continue these medications. Assessment & Plan (02/29/2024 7:31 AM EDT): Stable. Managed on Pulmicort and albuterol PRN. Denies symptoms today. Will continue these medications. Assessment & Plan (12/30/2023 9:33 PM EDT): Stable. Managed on Pulmicort and albuterol PRN. Denies symptoms today. Will continue these medications. Assessment & Plan (09/18/2023 10:15 PM EDT): Stable. Managed on Pulmicort and albuterol PRN. Denies symptoms today. Will continue these medications. Assessment & Plan (08/16/2023 5:23 PM EDT): I refilled Alcie's inhalers today-to be used as directed. She was appreciative. Assessment & Plan (07/02/2023 3:03 PM EST): Stable. Managed on albuterol and pulmicort. Denies symptoms today. Will continue these medications. Assessment & Plan (04/11/2023 5:58 PM EST): Managed on albuterol and pulmicort. Denies symptoms today. Assessment & Plan (03/29/2018 12:09 PM EST): she uses flovent when has URI to try to prevent asthma attack. She will continue the flovent and albuterol until URI sx resolve Depression with anxiety 03/15/2017 Overview (06/01/2017): Sudhir Moran. Hx Depression w psychosis - s/p risperdal, lithium, paxil, abilify fearful of being alone Assessment & Plan (07/16/2024 12:58 PM EDT): Stable. Followed by kathryn Aguiar, managed on venlafaxine 300mg, clomipramine 25mg, and clonazepam BID, she reports her moods have been stable. Denies SI/HI. Will continue to monitor. Assessment & Plan (02/29/2024 7:19 AM EDT): Stable. Followed by kathryn Aguiar, managed on venlafaxine 300mg, clomipramine 25mg, and clonazepam BID, she reports her moods have been stable. Denies SI/HI. Will continue to monitor. Assessment & Plan (12/30/2023 9:29 PM EDT): Stable. Followed by kathryn Aguiar, managed on venlafaxine 300mg, clomipramine 25mg, and clonazepam BID, she reports her moods have been stable. Denies SI/HI. Will continue to monitor. Assessment & Plan (09/18/2023 10:19 PM EDT): Stable. Followed by kathryn Aguiar, managed on venlafaxine 150mg and clomipramine 25mg, and clonazepam BID, she reports her moods have been stable. Denies SI/HI. Will continue to monitor. Assessment & Plan (07/02/2023 3:05 PM EST): Stable. Followed by psychiatry- zachery Barney- [place], managed on venlafaxine 150mg and clomipramine 25mg, and clonazepam BID, she reports her moods have been stable. Denies SI/HI. Will continue to monitor. Assessment & Plan (04/11/2023 6:08 PM EST): Stable. Followed by psychiatry- zachery Barney- [place], managed on venlafaxine 150mg and clomipramine 25mg, and clonazepam BID, she reports her moods have been stable and she has been appropriately coping with the stress. Denies SI/HI. Will continue to monitor. Assessment & Plan (01/12/2023 4:56 PM EDT): Alice has anxiety and depression. I gave her support in the office. I advised her to continue with taking her medication as directed. Follow-up as needed. Assessment & Plan (11/26/2022 2:57 PM EDT): Alice has anxiety and derepression- stable on her medication. Assessment & Plan (09/10/2022 5:54 PM EDT): Stable Assessment & Plan (03/08/2020 4:02 PM EDT): Alice has anxiety and depression. She was crying multiple times during the visit to when she was discussing her stress and anxiety. She is taking her medication as directed. She is followed by her psychiatrist and her therapist. She will follow-up with her PCP next week. She understands and agrees. Assessment & Plan (06/02/2018 12:01 PM EST): Following w [facility]. Condolences for her losses Assessment & Plan (07/22/2017 1:14 PM EDT): Has follow-up scheduled with Dr. Moran. Feels safe Assessment & Plan (06/01/2017 8:21 PM EST): Stable, follows w therapist & psychiatrist Binge eating disorder 03/15/2017 Overview (08/17/2018): Binge eating behavior Assessment & Plan (11/21/2020 1:26 PM EDT): Encouraged her to FU with [facility] Assessment & Plan (03/15/2019 3:21 PM EST): Largest barrier to getting help w this is anxiety & poor executive functioning. I would like to start her on vyvanse. Will need to monitor BP closely. I want to discuss this w her psychiatrist first. She will sign an TRACY for him. Assessment & Plan (12/07/2018 2:57 PM EDT): I don't recommend she do a dieting program, like weight watchers, until she has addressed the underlying eating disorder. She has [facility] phone number & discusses this w her therapist too. Assessment & Plan (09/29/2018 10:36 AM EDT): Encouraged her to call [facility] Assessment & Plan (09/23/2018 2:36 PM EDT): Given information for [facility], strongly encouraged to look into services there which will combine nutrition therapy with much needed mental health support, Alice has a very poor relationship with food stemming from her weight issues in childhood which were managed by restricting her access to many foods while her family ate a normal diet, she spent her childhood and adulthood sneaking food and is constantly overcome with guilt related to eating Alice is interested in hypnosis to avoid sugar and although this may be very helpful in managing her sugar intake it will certainly not address her underlying difficulty with her relationship with food Assessment & Plan (08/17/2018 2:55 PM EDT): Again encouraged her to look into [facility] [place], BED program Assessment & Plan (12/28/2017 6:08 PM EDT): Discussed eval at [facility]. Today she described disordered eating that doesn't meet criteria for BED, but I think she would benefit from full eval. Assessment & Plan (04/26/2017 3:45 PM EST): Advised to contact [facility], efforts at managing binge eating disorder and work targeted more specifically on the effects of weight management modalities used during her childhood will likely be most effective in helping Alice to develop a healthy relationship with food and meal planning Genital herpes 03/15/2017 Assessment & Plan (06/03/2020 2:57 PM EST): Continue valtrex GERD (gastroesophageal reflux disease) 7 Assessment & Plan (07/16/2024 12:58 PM EDT): Stable, managed on famotidine 40mg, without symptoms at this time. Will continue this medication. Assessment & Plan (09/18/2023 10:17 PM EDT): Stable, managed on famotidine 40mg, without symptoms at this time. Will continue this medication. Assessment & Plan (07/02/2023 3:05 PM EST): Stable, remains on famotidine 40mg, without symptoms at this time. Will continue this medication. Assessment & Plan (04/11/2023 6:06 PM EST): Stable, remains on famotidine 40mg, without symptoms at this time. Will continue this medication. Assessment & Plan (06/01/2020 5:55 PM EST): Continue with H2 umer. Assessment & Plan (03/15/2019 3:19 PM EST): Continue ranitidine & tums Essential hypertension 03/15/2017 Assessment & Plan (02/01/2025 12:54 PM EDT): Continues on therapy which includes ARB Blood pressure is in good range Most recent GFR is 98 Assessment & Plan (12/28/2024 4:41 PM EDT): Continues on therapy which includes ARB Blood pressure is in good range Most recent GFR is 98 Assessment & Plan (12/04/2024 2:33 PM EDT): BP at goal today, continue current regimen of losartan 100mg daily with metoprolol succinate 50mg daily. Assessment & Plan (11/21/2024 12:00 AM EDT): Continues on therapy which includes ARB Blood pressure is borderline today Alice continues to struggle with sleep and improvement in sleep quality and weight loss would likely support blood pressure control Most recent routine labs reviewed, GFR is 98 Assessment & Plan (10/26/2024 3:58 PM EDT): Blood pressure is mildly elevated but patient is anxious during her visit. She is on metoprolol and losartan. No changes in management at this time. Plan: Continue metoprolol Continue losartan Assessment & Plan (10/14/2024 5:36 PM EDT): Assessment & Plan (10/12/2024 2:10 PM EDT): Alice Griffith has hypertension and she is taking the above medication as directed without any side effects. her blood pressure is within normal limits and stable. she will follow up as directed. Assessment & Plan (09/28/2024 9:36 PM EDT): Continues on therapy which includes ARB Blood pressure is elevated today, historically in good range, Alice is emotional today which likely is affecting blood pressure Most recent GFR is 98 Assessment & Plan (09/26/2024 2:11 PM EDT): Alice Griffith has hypertension and she is taking the above medication as directed without any side effects. her blood pressure is within normal limits and stable. I gave her guidance to follow-up with her sheet rocker. she will follow up as directed. Assessment & Plan (09/15/2024 3:50 PM EDT): Alice has been taking metoprolol 75 mg extended release a day and has been experiencing lightheadedness and dizziness and is experiencing frequent falls. I decrease this down to 50 mg a day and I gave guidance to call her sheet rocker to update them about this. Follow-up in 2 weeks. She will call if there are any other issues or concerns. She understands and agrees. Assessment & Plan (09/06/2024 1:16 PM EDT): Blood pressure well-controlled today 130/86. Patient educated on HTN pathophysiology, htn medication, importance of low salt DASH heart healthy diet, exercise and home B/P monitoring. Advised if home blood pressure readings are higher than 130/80 to call the office. Patient will continue on metoprolol succinate 75 mg daily. Assessment & Plan (08/17/2024 2:06 PM EDT): Continues on therapy which includes ARB Blood pressure is in excellent range today Most recent GFR is 98 Assessment & Plan (07/28/2024 6:17 PM EDT): Blood pressure controlled in the office today 128/64. Patient educated on HTN pathophysiology, htn medication, importance of low salt DASH heart healthy diet, exercise and home B/P monitoring. Advised if home blood pressure readings are higher than 130/80 to call the office. Patient will continue on metoprolol succinate 75 mg daily. Assessment & Plan (07/16/2024 12:55 PM EDT): Stable, managed on metoprolol 75mg and losartan 100mg, denies side effects. Normotensive today. Will continue these medications. Assessment & Plan (05/18/2024 11:06 AM EST): Continues on therapy which includes ARB Blood pressure is borderline today Alice continues to struggle with sleep and improvement in sleep quality and weight loss would likely support blood pressure control Most recent routine labs reviewed, GFR is 98 Assessment & Plan (02/29/2024 7:26 AM EDT): Stable, managed on metoprolol 75mg and losartan 100mg, denies side effects. Normotensive today. Will continue these medications. Assessment & Plan (02/15/2024 3:11 PM EDT): Continues on therapy which includes ARB Blood pressure is essentially normal today Most recent GFR is 98 Assessment & Plan (12/30/2023 9:32 PM EDT): Stable, managed on metoprolol 75mg and losartan 100mg, denies side effects. Normotensive today. Will continue these medications. Assessment & Plan (11/10/2023 10:20 PM EDT): Continues on therapy which includes ARB Blood pressure is borderline today Improvement in sleep quality and weight loss would likely support blood pressure control Most recent routine labs reviewed, GFR is 98 Assessment & Plan (09/18/2023 10:15 PM EDT): Stable, managed on metoprolol 75mg and losartan 100mg, denies side effects. Normotensive today. Will continue these medications. Assessment & Plan (09/02/2023 12:13 PM EDT): Continue current medications and doses. At this time, this is a telemedicine visit, so we will have her follow-up in the office as scheduled later this year. Assessment & Plan (08/24/2023 3:44 PM EDT): Continues on therapy which includes ARB Blood pressure is borderline today Improvement in sleep and weight loss would likely support blood pressure control Most recent routine labs reviewed, GFR is 98 Assessment & Plan (08/10/2023 5:39 PM EDT): Continues on therapy which includes ARB Blood pressure is mildly elevated today Most recent GFR is 103 Assessment & Plan (07/02/2023 3:03 PM EST): Stable, managed on metoprolol 75mg and losartan 100mg, denies side effects. Continue these medications. Assessment & Plan (05/25/2023 3:34 PM EST): Managed on BB and ARB Encouraged low sodium, heart healthy diet Assessment & Plan (04/11/2023 5:54 PM EST): Stable, managed on metoprolol 75mg and losartan 100mg, denies side effects. Continue these medications. Assessment & Plan (04/06/2023 2:03 PM EST): Alice Griffith has hypertension and she is taking the above medication as directed without any side effects. her blood pressure is within normal limits and stable. she will follow up as directed. Assessment & Plan (03/02/2023 3:11 PM EDT): Alice Griffith has hypertension and she is taking the above medication as directed without any side effects. her blood pressure is within normal limits and stable. she will follow up as directed. Assessment & Plan (02/18/2023 10:17 PM EDT): Continues on therapy which includes ARB Blood pressure is elevated today Improvement in sleep and weight loss would likely support blood pressure control Most recent GFR is 103 Assessment & Plan (01/12/2023 4:47 PM EDT): Alice Griffith has hypertension and she is taking the above medication as directed without any side effects. her blood pressure is within normal limits and stable. she will follow up as directed. Assessment & Plan (11/26/2022 2:54 PM EDT): Alice Griffith has hypertension and she is taking the above medication as directed without any side effects. her blood pressure is within normal limits and stable. she will follow up as directed. Assessment & Plan (11/22/2022 8:04 AM EDT): Continues on BB and loop diuretic Blood pressure today 136/64 Goal BP <130/80 Assessment & Plan (11/02/2022 1:48 PM EDT): Alice Griffith has hypertension and she is taking the above medication as directed without any side effects. her blood pressure is within normal limits and stable. she will follow up as directed. Assessment & Plan (10/30/2022 2:47 PM EDT): Alice Griffith has hypertension and she is taking the above medication as directed without any side effects. her blood pressure is within normal limits and stable. she will follow up as directed. Assessment & Plan (10/17/2022 10:18 PM EDT): Continues on therapy which includes ARB Blood pressure at upper end of desired range today Assessment & Plan (10/01/2022 2:29 PM EDT): Alice Griffith has hypertension and she is taking the above medication as directed without any side effects. her blood pressure is within normal limits and stable. she will follow up as directed. Assessment & Plan (09/10/2022 5:54 PM EDT): Stable Assessment & Plan (08/21/2022 11:38 AM EDT): Continue ARB, BB, and diuretic Not assessed today Low sodium diet encouraged Assessment & Plan (08/14/2022 3:37 PM EDT): Alice Griffith has hypertension and she is taking the above medication as directed without any side effects. her blood pressure is within normal limits and stable. she will follow up as directed. Assessment & Plan (08/06/2022 10:33 AM EDT): She did not increase her metoprolol as we discussed at last visit because she forgot. She has not any vital signs to share with me today so I have her follow-up in office in a month Assessment & Plan (07/02/2022 4:21 PM EST): Her systolic blood pressure has been elevated at every recent visit. I am going to manage her metoprolol up to 75 mg. She should continue the same dose of losartan. Assessment & Plan (06/22/2022 2:08 PM EST): Continues on therapy which includes ARB Most recent blood pressure documented is borderline Assessment & Plan (05/25/2022 2:53 PM EST): Stable. Continue current regimen. Assessment & Plan (05/01/2022 1:32 PM EST): Well managed on ARB and BB. Systolic blood pressure slightly elevated today, 144/68 Encouraged low sodium diet Assessment & Plan (03/05/2022 2:46 PM EDT): BP is well controlled today. Due for metabolic panel Assessment & Plan (03/02/2022 10:56 AM EDT): Well managed on ARB and BB. Systolic blood pressure slightly elevated today, 144/70 Encouraged low sodium diet Assessment & Plan (02/12/2022 2:07 PM EDT): Alice Griffith has hypertension and she is taking the above medication as directed without any side effects. her blood pressure is within normal limits and stable. she will follow up as directed. Assessment & Plan (01/18/2022 5:42 PM EDT): Blood pressure is in excellent control Continues on ARB Good sleep quality, regular exercise and weight loss will help support optimal blood pressure Assessment & Plan (12/19/2021 5:17 PM EDT): Blood pressure is in excellent control Continues on ARB Good sleep quality, regular exercise and weight loss will help support optimal blood pressure Assessment & Plan (12/04/2021 5:26 PM EDT): Continue losartan 100 mg. Increase metoprolol from 25 mg daily to 50 mg daily Assessment & Plan (09/26/2021 11:29 AM EDT): No blood pressure obtained today due to Alice's emotional distress with anxiety. Antihypertensive regimen include ARB. Goal blood pressure <130/80 Assessment & Plan (09/04/2021 3:00 PM EDT): Increase losartan to 100 mg. She is quite anxious about any medication changes so I did reassure her that if she does experience any side effects (she is particular concerned about lightheadedness) she should call me Assessment & Plan (06/26/2021 3:13 PM EST): Blood pressure is in excellent control Continues on ARB Assessment & Plan (04/10/2021 2:29 PM EST): Blood pressure is in excellent control Continues on ARB Assessment & Plan (03/13/2021 3:30 PM EDT): Blood pressure is in excellent control Continues on ARB Assessment & Plan (02/27/2021 2:25 PM EDT): Blood pressure is in excellent control Continues on ARB Assessment & Plan (10/24/2020 3:41 PM EDT): Blood pressure is in excellent control Continues on ARB We discussed possible blood pressure effect from SGLT2i therapy Assessment & Plan (08/23/2020 10:04 PM EDT): Blood pressure is in reasonable control Continues on ARB Assessment & Plan (08/01/2020 5:24 PM EDT): stable Assessment & Plan (07/04/2020 2:37 PM EST): Alice Griffith has hypertension and she is taking the above medication as directed without any side effects. her blood pressure is within normal limits and stable. she will follow up as directed. Assessment & Plan (06/17/2020 9:33 PM EST): Now on losartan 75 mg & Metoprolol XL 25 mg Assessment & Plan (06/03/2020 2:57 PM EST): History of hypertension previously on losartan 75 mg daily. Continue with losartan 25mg daily and metoprolol 25 mg p.o. every 8 hours -Monitor blood pressures on current regimen. Assessment & Plan (04/28/2020 3:29 PM EST): Continues on ARB Assessment & Plan (04/25/2020 2:26 PM EST): Unable to see her in office today to recheck BP. She has an appt at [facility] tomorrow & will contact me if her BP is high there Assessment & Plan (03/28/2020 3:38 PM EST): She is nervous to increase losartan reyes to 100 mg, so she will go up to 75 mg.FU 1 month for recheck Assessment & Plan (03/14/2020 9:00 PM EST): systolics elevated multiple visits. increase losartan to 100 mg. Assessment & Plan (11/09/2019 2:07 PM EDT): Recent blood pressure was well controlled Continues on ARB Assessment & Plan (11/07/2019 2:02 PM EDT): Well controlled Assessment & Plan (05/05/2019 12:48 PM EST): Well controlled Continues on ARB Assessment & Plan (03/15/2019 3:18 PM EST): Continue current regimen Assessment & Plan (09/23/2018 2:27 PM EDT): Blood pressure is in good control Continues on ARB Assessment & Plan (01/13/2018 12:50 PM EDT): Elevated today Continues on ARB Assessment & Plan (12/28/2017 6:08 PM EDT): Stable Assessment & Plan (09/03/2017 8:44 PM EDT): Blood pressure is well controlled on current regimen which includes ARB Assessment & Plan (09/02/2017 7:58 PM EDT): Stable, continue current regimen Assessment & Plan (06/01/2017 8:22 PM EST): stable Assessment & Plan (04/26/2017 3:23 PM EST): On ARB therapy Blood pressure borderline today however in good control at previous visits Hypersensitive sensory proce ssing disorder, fearful or cautious 03/15/2017 Assessment & Plan (07/02/2022 4:21 PM EST): Alice gets very easily overwhelmed. She is in a near constant state of overwhelmed about her chronic health problems, her financial stress and her work related responsibilities Hypothyroidism 03/15/2017 Assessment & Plan (11/20/2024 11:48 PM EDT): Most recent TSH on file was reviewed, this is from last month and was elevated Continues Levothyroxine, dosing adjusted based on most recent LT4 Assessment & Plan (09/26/2024 2:13 PM EDT): Alice has hypothyroidism. Her last TSH was elevated. She has room to increase her levothyroxine based on her last T4. I increase this from 88 mcg daily to 100 mcg a day to see if this helps with her heart rate-to increase this a little. She will call if there are any issues or side effects. Repeat labs in 3 months. I will see her back on October 12. I informed her to call if there are any other issues or concerns. She understands and agrees. Assessment & Plan (07/16/2024 12:56 PM EDT): Stable, well managed on levothyroxine 88mcg, denies symptoms of hyperthyroidism or hypothyroidism. Will continue this medication. Assessment & Plan (05/18/2024 11:03 AM EST): Most recent TSH on file was reviewed, this is from last January and was in desired range Continues Levothyroxine Assessment & Plan (02/29/2024 7:33 AM EDT): Stable, well managed on levothyroxine 88mcg, denies symptoms of hyperthyroidism or hypothyroidism. Will continue this medication. Assessment & Plan (08/24/2023 3:45 PM EDT): Most recent TSH on file was reviewed, this is from early 2022 and was in desired range Continues Levothyroxine Assessment & Plan (07/02/2023 3:03 PM EST): Stable, well managed on levothyroxine 88mcg, denies symptoms of hyperthyroidism or hypothyroidism. Continue this medication. Assessment & Plan (05/25/2023 3:38 PM EST): Recent TSH on file is in desired range Continues Levothyroxine Assessment & Plan (04/11/2023 5:59 PM EST): Stable, well managed on levothyroxine 88mcg, denies symptoms of hyperthyroidism or hypothyroidism. Continue this medication. Assessment & Plan (02/18/2023 10:02 PM EDT): Most recent TSH on file reviewed, this is in desired range Continues Levothyroxine Assessment & Plan (11/22/2022 8:05 AM EDT): Recent TSH on file is in desired range Continues Levothyroxine Assessment & Plan (10/17/2022 10:25 PM EDT): Recent TSH on file is in desired range Continues Levothyroxine Assessment & Plan (08/21/2022 11:52 AM EDT): Recent TSH 3.55 Clinically euthroid Continue Levothyroxine Assessment & Plan (07/02/2022 4:21 PM EST): Labs were drawn today and we are waiting on the results. Assessment & Plan (06/22/2022 2:08 PM EST): Recent TSH normal Continues Levothyroxine Assessment & Plan (03/05/2022 2:46 PM EDT): Up-to-date on TSH. Levothyroxine refill sent Assessment & Plan (03/02/2022 11:12 AM EDT): Recent TSH normal Continue Levothyroxine Clinically euthroid Assessment & Plan (01/18/2022 6:03 PM EDT): Recent TSH normal Continue Levothyroxine Clinically euthroid Assessment & Plan (09/26/2021 11:20 AM EDT): Recent TSH normal Continue Levothyroxine Clinically euthroid Assessment & Plan (09/04/2021 3:01 PM EDT): Recent TSH normal continue current dose of levothyroxine Assessment & Plan (06/26/2021 4:08 PM EST): Most recent TSH 11 months ago on higher end of normal range. Appears clinically euthroid, but reports chronic fatigue. TSH ordered. Continues on Levothyroxine. Assessment & Plan (03/13/2021 3:27 PM EDT): Most recent TSH in desired range Continues on LT4 Assessment & Plan (06/17/2020 9:31 PM EST): Recent TSH elevated while in hospital. She was recently started on amiodarone. Recheck TSh, if elevated increase levothyroxine dose. Monitor TSH closely on amiodarone Assessment & Plan (06/02/2020 4:22 PM EST): Patient taking 88 mcg of levothyroxine daily. TSH is 3.92 -Continue with levothyroxine. Assessment & Plan (03/14/2020 9:19 PM EST): Due for TSH Assessment & Plan (11/09/2019 2:09 PM EDT): Most recent TSH in desired range Continues on LT4 Assessment & Plan (03/15/2019 3:18 PM EST): Due for TSH Assessment & Plan (06/01/2017 8:22 PM EST): Last TSH 11/23 wnl. Will recheck today. Continue levothyroxine [facility] current use of insulin 03/15/2017 Class 3 severe obesity with serious comorbidity and body mass index (BMI) of 40.0 to 44.9 in adult 03/15/2017 Overview (06/01/2017): Max wt 245. Complicated by binge eating disorder & poor mental health Assessment & Plan (12/04/2024 2:32 PM EDT): Has started on Ozempic without AE so far. Assessment & Plan (11/20/2024 11:59 PM EDT): Alice has been doing better overall with some aspects of eating and her glucose patterns indicate improvement, issues with stress and poor sleep often derail these efforts Has had improvement from Trulicity and [place] however had difficulty tolerating these due to diarrhea, interested in trying Ozempic; if this too causes diarrhea then we will explore the possibe impact of Metformin, Alice reports episodic diarrhea not associated with GLP1 and GLP/GIP use BMI has remained ~41, weight has fluctuated but is down about 10lb since early 2024 Assessment & Plan (10/14/2024 5:36 PM EDT): Assessment & Plan (05/18/2024 11:08 AM EST): Alice has been doing better overall with some aspects of eating and her glucose patterns indicate improvement, issues with stress and poor sleep often derail these efforts Continues on Trulicity at modest dosage, she is likely to have more robust weight loss effect from this at higher dosage if tolerated BMI has remained ~40, Alice has lost modest weight since last month Assessment & Plan (11/10/2023 10:22 PM EDT): Alice has struggled with binge eating and overconsumption of sugar, she has been doing better with some aspects of eating but issues with stress and poor sleep often derail these efforts Trulicity is likely to be helpful in her efforts at portion control and appetite management, she is encouraged to retry this and if similar symptoms to ones she experienced after first dose occur then they are likely side effects and would preclude continued use BMI has remained >40, weight has been stable over past three months Assessment & Plan (08/24/2023 3:47 PM EDT): Alice continues to struggle with binge eating and overconsumption of sugar, she has been doing better with some aspects of eating but issues with stress and poor sleep often derail these efforts Trulicity is likely to be helpful in her efforts at portion control and appetite management, she will retry another dose of this and if similar symptoms to ones she experienced after first dose occur then they are likely side effects and would preclude continued use BMI has remained >40, though there has been modest weight loss in the past 2 weeks Assessment & Plan (05/25/2023 4:00 PM EST): Alice continues to struggle with binge eating and overconsumption of sugar, she has been doing better with some aspects of eating but issues with stress and poor sleep often derail these efforts GLP1 will likely indirectly benefit her weight loss efforts in addition to stabilizing her sugars BMI has remained >40 Assessment & Plan (02/18/2023 10:21 PM EDT): Alice continues to struggle with binge eating and overconsumption of sugar, she has been doing better with some aspects of eating but issues with stress and poor sleep often derail these efforts BMI has remained >40 Assessment & Plan (11/26/2022 2:55 PM EDT): BMI of 42. Assessment & Plan (10/30/2022 2:53 PM EDT): Alice has a BMI of 42. I gave guidance to improve lifestyle. She will call if there are any other issues or concerns. Follow-up in a month. She understands agrees. Assessment & Plan (10/17/2022 10:28 PM EDT): Alice continues to struggle with binge eating and overconsumption of sugar, she has been doing better with some aspects of eating but issues with stress often derail these Alice has had a fairly steady weight gain since summer 2019 Assessment & Plan (12/19/2021 5:20 PM EDT): Alice's weight has been fairly stable over the three months, however overall increase since last fall Has been more careful about portions Encouraged to do her best with healthy eating, she is reassured that her efforts at paying off and her blood sugar data is reassuring from the past week Alice has been going to the gym when her schedule allows, she is enjoying this and is encouraged to try to make time for it 2-3 times per week Assessment & Plan (10/24/2020 3:43 PM EDT): Alice's weight has been fairly stable over the three months Recent increase in carb intake due to stress eating, strong cravings for sugar Encouraged to do her best with healthy eating, less snacking at night but this is going to be very difficult for Alice to curb as this brings her deep seated comfort related to her experiences in childhood Assessment & Plan (08/23/2020 10:18 PM EDT): Alice's weight has been fairly stable over the past month, she has lost ~7lb since June Recent increase in carb intake due to stress eating, we discussed some strategies to try to curb this Alice would like to consider support groups for binge eating disorders, we discussed reaching out to [place], however these are all likely to be virtual at this time Assessment & Plan (07/04/2020 2:44 PM EST): Alice is obese based on her BMI and I congratulated her on her recent cardiac rehab journey. We also discussed improved dietary practices. Assessment & Plan (11/09/2019 2:08 PM EDT): Has struggled with consistency in eating patterns, has a long history of binge eating disorder Would like to get evaluated at [facility], encouraged to call to set up intake, may be able to have this done virtually Assessment & Plan (09/18/2019 1:36 PM EDT): Reports no known change in weight Assessment & Plan (01/13/2018 12:53 PM EDT): Has lost nearly 10lbs in past 3 months We discussed improvement in insulin sensitivity with weight loss, may need adjustment of insulin doses if continues to lose weight to help prevent low blood sugars Improved diet and more attention to exercise have helped, encouraged to continue Assessment & Plan (09/03/2017 8:47 PM EDT): Encouraged to continue efforts at being more active, advised to increase step counts as tolerated Encouraged to continue efforts at healthy food choices and consistent eating Alice has a long history, since childhood, of being put on restrictive diets and developed a very poor relationship with food, this unfortunately will be difficult for her to overcome and will always serve as a significant barrier to her success Assessment & Plan (09/02/2017 7:58 PM EDT): Lifestyle changes discussed, encouraged self care Assessment & Plan (06/01/2017 8:23 PM EST): Asked her to try going for a walk every day Assessment & Plan (04/26/2017 3:46 PM EST): Weight is stable, based on new height determination the BMI is now just below 40 Alice would benefit from weight loss with respect to insulin sensitivity and reduced insulin requirement We discussed continuing her efforts at meeting a step goal, making an effort to go for walks consistently with her new partner Alice is vulnerable with respect to dietary consistency which is rooted in her history of restriction and deprivation in childhood due to management for overweight, she has been working on this with her therapist and is encouraged to contact [facility] JACQUELINE (obstructive sleep apnea) 03/15/2017 Overview (06/01/2017): sleep apnea/hyponea - severe - s/p CPAP, BiPAP at 12/7 cm H2O (poorly tolerated) Assessment & Plan (02/18/2023 10:02 PM EDT): Given reported poor sleep it is unclear how consistent CPAP use is Continues with worsened insomnia due to pruritus related to psoriasis Improving sleep quality would likely give Alice many benefits including more optimal glucose control and weight management benefits Assessment & Plan (10/17/2022 10:24 PM EDT): Using CPAP consistently Recent issues with worsened insomnia due to pruritus related to psoriasis Assessment & Plan (06/22/2022 2:07 PM EST): Using CPAP consistently We revisited importance of good sleep quality on blood sugar/metabolic control, Alice has noted some improvement in how she feels after a good night's sleep, encouraged to continue with regular CPAP Recent issues with worsened insomnia, advised to try sleep meditations/sleepcasts to help her fall asleep Assessment & Plan (12/19/2021 5:16 PM EDT): Using CPAP consistently now, was interrupted for a few nights recently due to having to sleep in her living room due to heat We revisited importance of good sleep quality on blood sugar/metabolic control, Alice has noted some improvement in how she feels after a good night's sleep, encouraged to continue with regular CPAP Assessment & Plan (02/27/2021 2:24 PM EDT): Using CPAP consistently now We revisited importance of good sleep quality on blood sugar/metabolic control, encouraged to continue with regular CPAP Assessment & Plan (10/24/2020 3:40 PM EDT): Has been using new CPAP mask consistently, has better fit since tightened straps last night, this may result in better sleep and less daytime fatigue We revisited importance of good sleep quality on blood sugar/metabolic control, encouraged to continue with regular CPAP Assessment & Plan (06/17/2020 9:36 PM EST): She reports since hospital discharge using CPAP nightly Assessment & Plan (05/05/2019 12:47 PM EST): Has been using new CPAP mask consistently but recently unable to wear CPAP due to URI symptoms We revisited importance of good sleep quality on blood sugar/metabolic control, encouraged to return to regular CPAP use when able Assessment & Plan (08/17/2018 2:56 PM EDT): Getting CPAP this month Assessment & Plan (03/29/2018 12:11 PM EST): She is not using her CPAP. She will FU w sleep med Assessment & Plan (01/13/2018 12:52 PM EDT): Not using CPAP consistently due to discomfort in hot weather We discussed the overwhelming metabolic benefits from improved quality of sleep, strongly advised to use CPAP consistently, may need reassessment by sleep services Assessment & Plan (07/22/2017 1:14 PM EDT): Supplies ordered. Contact [facility] Psoriasis 03/15/2017 Overview (07/13/2023): Derm Dr. Olmos; interaction of UV light therapy with medications ----> diffuse pustulosis; UV light therapy dc'd 10/2022 No nail involvement No h/o methotrexate or other DMARDs Ustekinumab c. 04/2023 to current Assessment & Plan (08/15/2024 2:16 PM EDT): Continued and significant improvement with ustekinumab Assessment & Plan (07/16/2024 12:59 PM EDT): She continues to follow with Dr. Olmos, remains on Stelara. Denies side effects. Continues to have itching. She has a follow up soon with Dr. Olmos. Will continue to monitor. Assessment & Plan (07/11/2024 2:24 PM EST): Very significant benefit since ustekinumab initiation Assessment & Plan (02/14/2024 3:48 PM EDT): Continues on ustekinumab rx'd by derm; will monitor clinically for any specific e/o to confirm underlying psoriatic arthritis. Assessment & Plan (01/18/2024 2:06 PM EDT): There remains no specific objective e/o co-morbid psoriatic arthritis; skin disease now significantly improved since ustekinumab initiation Assessment & Plan (07/13/2023 4:20 PM EST): Psoriasis improved since ustekinumab initiation Assessment & Plan (07/02/2023 3:07 PM EST): She continues to follow with Dr. Olmos, remains on Stelara. Denies side effects. Continues to have itching. She has a follow up soon with Dr. Olmos. Will continue to monitor. Assessment & Plan (04/11/2023 6:05 PM EST): This remains a concern for her, she reports often being awoken at night due to itching. She is being followed by Dr. Olmos. She recently started Stelara. She has not yet seen an improvement though she has only had one dose. She will continue this medication and follow up with Dr. Olmos. Assessment & Plan (03/23/2023 2:03 PM EST): Might try a new medication for this, has appointment tomorrow to discuss Assessment & Plan (11/15/2022 9:05 PM EDT): Discussed potential benefit of methotrexate with respect to both psoriasis and psoriatic arthritis Assessment & Plan (07/02/2022 4:22 PM EST): Her escapement maker just confirmed that the diffuse skin lesions on her arms and legs are in fact from her psoriasis and not from insect bites. She is doing light treatment and she is continuing her topical therapy Assessment & Plan (05/25/2022 2:52 PM EST): Follows with Dr. Olmos. She is about to restart light therapy. Assessment & Plan (03/05/2022 2:47 PM EDT): Continue creams as prescribed by escapement maker Assessment & Plan (06/03/2020 2:59 PM EST): Betamethasone ointment to elbows twice daily, wait 1 hour after application to apply barrier ointment -Start on bacitracin ointment to left elbow twice daily. -Wound consult requested, examined elbows and appear to have significant dryness, encourage barrier cream and emollient use Assessment & Plan (04/25/2020 2:25 PM EST): She is following derm's recommendations I reminded her to wash the area gently w soap & water daily, and then dry it, then apply ointments & occlusive dressing. Reviewed s/s infection to watch for Assessment & Plan (03/28/2020 3:40 PM EST): Ok to use Vaseline for next few nights, then switch back to usual steroid cream Assessment & Plan (03/15/2019 3:22 PM EST): Stable. Given rx for vistaril for itching & insomnia Type 2 diabetes mellitus, wi th long-term current use of insulin 03/15/2017 Overview (06/01/2017): Type 2 diabetes since May 2000, uncont, s/p Byetta,Januvia,glimepiride,inj site rxn Levamir microalbuminuria x1 - / Assessment & Plan (02/01/2025 8:52 PM EDT): CGM data reviewed with Alice, this indicates fair control, higher patterns with early data, most recent data indicates better control, likely related to recovering from illness Continues on basal insulin and metformin, we discussed trying extended release metformin to see if this helps with GI side effects Encouraged to work with GI for ongoing diarrheal concerns Encouraged working on getting in touch with [facility] services, reaching back out to see if she can receive some services Encouraged working on reducing carb intake at meals if able to help reduce prandial rise Encouraged working closely with therapist as there are many mental health barriers that are impacting blood sugar control and management Alice will return to see Dr. Peraza in 1 month and with Maddison Lea in 2 months Assessment & Plan (12/28/2024 4:38 PM EDT): CGM data reviewed with Alice, this indicates fair control but general 1-2 prandial elevations/day, occ these can be more significant Has been off GLP1 since visit with Maddison Lea due to diarrhea, leading to more prandial elevations Alice is having a hard time tolerating any GLP1 so we discussed that this is likely a class effect of the medications and do not recommend continuing with GLP1 therapy Continues on basal insulin and metformin Encouraged meeting with GI if finding there are still ongoing GI concerns despite being off GLP1, briefly discussed metformin can cause diarrhea so if she would like to evaluate if this is a cause, we can trial decreasing dosing to see if this helps, no plans to do this, just a consideration if diarrhea persists We discussed short acting insulin with higher carb meals, however she is nervous about hypoglycemia with short acting insulin Encouraged working on getting in touch with [facility] services, reaching back out to see if she can receive some services Encouraged working on reducing carb intake at meals if able to help reduce prandial rise Encouraged working closely with therapist as there are many mental health barriers that are impacting blood sugar control and management We will follow up in 1 month Assessment & Plan (11/20/2024 11:55 PM EDT): A1c is in good range but higher and CGM indicates that TIR is lower, prandial elevations higher, CGM has been useful in helping assess the effects of food choices, Alice continues to have variability in eating at times but is doing better with this overall, poor sleep impacts this to some degree Alice continues to utilize CPAP however due to historically inconsistent sleep it is unclear how consistent CPAP use is We did not adjust insulin dosing today, overall insulin requirement remains lower than in the past Alice will continue Metformin therapy at current dosage Alice has had side effects from Trulicity and Mounjaro, both caused diarrhea, Alice reports episodic diarrhea aside from these medications which may be due to Metformin therapy particularly after higher carb intake; we discussed trial of Ozempic, this too would provide CV benefits, weight loss benefits and glucose improvement, if diarrhea also impacts tolerability of this medication then we will deescalate Metformin therapy and assess impact of this Alice is advised to continue to work on eating a healthy balanced diet and optimizing sleep, both of these will help support improvement in glucose management She is currently s/p pacemaker therapy for complete heart block and afib, follows with cardiology Alice is encouraged to contact us with any concerns or question, she will return for a follow up appointment with Maddison Lea next month, with Anisa Crowell January and with me in 3 months Assessment & Plan (10/14/2024 10:53 PM EDT): - cont current insulin Assessment & Plan (10/12/2024 2:10 PM EDT): Alice Griffith has diabetes and she is taking the above medication as directed.I reviewed her last A1c. I advised her to continue to improve her diet and exercise regimen. she will follow up in 3 months. Assessment & Plan (09/28/2024 9:34 PM EDT): A1c in good range CGM indicates that TIR is very near goal, CGM has been useful in helping assess the effects of food choices, Alice continues to struggle with healthy eating but continues to work on this, we discussed being mindful of carb intake Alice became very tearful during our visit today, at times hysterical, reporting she is very distressed by current health challenges and that there is not a known cause for dizziness and reports of losing consciousness, now has unhealthy fear of fainting in commonly visited places, encouraged to discuss concerns with therapist to see if there are strategies that can be used to address this Alice also reports that tearful hasn't been this bad since before starting on clomipramine which psychiatrist recently decreased dosage on in case this could be leading to higher likelihood of dizziness, encouraged talking with psychiatrist about increased tearfulness Alice will continue Metformin therapy at current dosage Alice is encouraged to trial Mounjaro, she does not wish to until her current health challenges are diagnosed and addressed Alice is advised to continue to work on eating a healthy balanced diet Alice is encouraged to contact us with any concerns or question, she will return for a follow up appointment with with Dr. Peraza in November Assessment & Plan (09/26/2024 2:06 PM EDT): Alice is followed by Dr. Peraza for her diabetes. Assessment & Plan (08/17/2024 2:05 PM EDT): A1c in very good range, this was before discontinuing Trulicity CGM indicates that TIR is very near goal, CGM has been useful in helping assess the effects of food choices, Alice continues to struggle with healthy eating but continues to work on this, we reviewed some strategies when shopping Alice will continue Metformin therapy at current dosage Alice is encouraged to trial Ozempic 0.25 mg to see if this is better tolerated, encouraged starting lower than 0.25 mg dosing to see if this is tolerated, advised insulin should be lowered back to 42 units if she is able to increase to 0.25 mg dosing, encouraged staying well hydrated and getting adequate amounts of fiber, diarrhea was likely related to constipation that Alice had after dose days Alice is advised to continue to work on eating a healthy balanced diet Alice is encouraged to contact us with any concerns or question, she will return for a follow up appointment with me in [address] Peraza in November Assessment & Plan (07/16/2024 12:58 PM EDT): Continues to follow with diabetes center. Managed on metformin 2,000mg, lantus insulin 43u, and Trulicity 0.75mg. Encouraged to continue to work with psychiatrist and therapist on managing BED. Assessment & Plan (06/07/2024 3:13 PM EST): Alice had an A1c done recently- this improved. She is followed by her retirement benefits specialist. She is taking her medication as directed. Assessment & Plan (05/18/2024 11:12 AM EST): A1c is in good range, glucose patterns are improved compared to past; CGM indicates that TIR remains at goal, CGM has been useful in helping assess the effects of food choices, Alice continues to struggle with healthy eating at times but is doing better with this overall, poor sleep impacts this to some degree Alice continues to utilize CPAP however due to historically inconsistent sleep it is unclear how consistent CPAP use is We did not adjust insulin dosing today, overall insulin requirement remains lower than in the past Alice will continue Metformin therapy at current dosage Alice is encouraged to continue Trulicity 0.75mg once weekly and we will consider optimizing this for more effective weight loss and glucose lowering impact Alice is advised to continue to work on eating a healthy balanced diet and optimizing sleep, both of these will help support improvement in glucose management Alice is encouraged to contact us with any concerns or question, she will return for a follow up appointment with Maddison Lea in 2 months, with Anisa Crowell in 3 months and with me in the summer Assessment & Plan (05/02/2024 3:25 PM EST): Alice's most recent glucose was elevated-she is followed by her retirement benefits specialist. Assessment & Plan (02/29/2024 7:32 AM EDT): Continues to follow with diabetes center. Managed on metformin 2,000mg, lantus insulin 50u. Encouraged to restart Trulicity. We discussed there may never be a time that feels perfect to restarting this. She reports desire to begin this again. Encouraged to continue to work with psychiatrist and therapist on managing BED. Assessment & Plan (02/15/2024 3:10 PM EDT): A1c remains in fair range, CGM indicates that TIR is essentially at goal, CGM has been useful in helping assess the effects of food choices, Alice continues to struggle with healthy eating but continues to work on this, we reviewed some strategies when shopping We did not adjust insulin dosing today Alice will continue Metformin therapy at current dosage Alice is encouraged to resume Trulicity 0.75mg once weekly and let me know how she does with this, some symptoms she developed after her first dose in August may have been related to Trulicity (nausea the day after injection) but diarrhea several days later and URI symptoms are unusual Alice is advised to continue to work on eating a healthy balanced diet and optimizing sleep, both of these will help support improvement in glucose management Alice is encouraged to contact us with any concerns or question, she will return for a follow up appointment with me in [place] next week and with Dr. Peraza in May Assessment & Plan (12/30/2023 9:34 PM EDT): Continues to follow with diabetes center. Managed on metformin 2,000mg, lantus insulin 50u. Encouraged to restart Trulicity. We discussed there may never be a time that feels perfect to restarting this, I do suspect prior symptoms were viral vs medication side effect. She reports desire to begin this again. Encouraged to continue to work with psychiatrist and therapist on managing BED. Assessment & Plan (11/10/2023 10:27 PM EDT): A1c remains in fair range, but improved glucose patterns compared to past; CGM indicates that TIR remains at goal though lower than at our last visit, CGM has been useful in helping assess the effects of food choices, Alice continues to struggle with healthy eating but continues to work on this, we reviewed some strategies when shopping Continues to have issues with sleep due to stressors and also increase in pruritus from psoriasis, she is followed by dermatology Alice continues to utilize CPAP however due to historically inconsistent sleep it is unclear how consistent CPAP use is We did not adjust insulin dosing today Alice will continue Metformin therapy at current dosage Alice is encouraged to resume Trulicity 0.75mg once weekly and let me know how she does with this, some symptoms she developed after her first dose in August may have been related to Trulicity (nausea the day after injection) but diarrhea several days later and URI symptoms are unusual Alice is advised to continue to work on eating a healthy balanced diet and optimizing sleep, both of these will help support improvement in glucose management Alice is encouraged to contact us with any concerns or question, she will return for a follow up appointment with me in early 2024 and with Anisa Lozano and Maddison Lea this coming fall Assessment & Plan (09/18/2023 10:17 PM EDT): Continues to follow with diabetes center. Managed on metformin 2,000mg, lantus insulin 50u. Encouraged to restart Trulicity. Encouraged to continue to work with psychiatrist and therapist on managing BED. Assessment & Plan (08/24/2023 3:54 PM EDT): A1c remains in fair range, but improved glucose patterns compared to past CGM has been useful in helping assess the effects of food choices, Alice continues to struggle with healthy eating but continues to work on this, we reviewed some strategies when shopping Continues to have issues with sleep due to stressors and also increase in pruritus from psoriasis, she is followed by dermatology We reviewed dosing of some of Alice's medications which may improve her sleep latency and duration, she is advised to take sedating medications earlier in the night rather than waiting until the very late night since it likely takes these an hour or more to have the sedating impact Alice continues to utilize CPAP however due to inconsistent sleep it is unclear how consistent CPAP use is We did not adjust insulin dosing today Alice will continue Metformin therapy at current dosage Alice will resume Trulicity 0.75mg once weekly and let me know how she does with this, some symptoms she developed after her first dose may have been related to Trulicity (nausea the day after injection) but diarrhea several days later and URI symptoms are unusual Alice is advised to continue to work on eating a healthy balanced diet and optimizing sleep, both of these will help support improvement in glucose management Alice is encouraged to contact us with any concerns or question, she will return for a follow up appointment with me in November and with Anisa Lozano in the fall Assessment & Plan (08/10/2023 5:40 PM EDT): Primary purpose of visit today was Trulicity teaching and for Alice to given first injection in the office A1c remains in fair range, rather stable compared to previous A1c CGM has been useful in helping assess the effects of food choices, Alice continues to struggle with healthy eating Continues to have issues with sleep due to stressors and also increase in pruritus from psoriasis, she is followed by dermatology Revisited GLP1ra therapy today, discussed action, frequency, storage, administration technique, side effects, and special considerations. Alice gave first injection in office today Recommend mild decrease in basal insulin dosing to 50 units daily to help reduce risk of hypoglycemia, something that Alice has expressed fear of Alice will continue Metformin therapy at current dosage Alice is advised to continue to work on eating a healthy diet which will help support improvement in glucose management, GLP1 usage likely will aid in this as well Alice is encouraged to contact us with any concerns or question, she will return for a follow up appointment with Dr. Peraza in 2 weeks as previously scheduled, and will return seeing one of us every 3 months thereafter Instruction/Education: Medication: Medication: Trulicity Instruction: Provider order reviewed with patient. When to take medication, dosage, and how to take medication. Information given on troubleshooting and side effects of medication. Medication Instruction: Patient was instructed on the following topics: Trulicity pen, needle disposal, needle/lancet reuse, site selection Education Topics Discussed: Coping and stress managment, self care through lifestyle Patient Demonstrated: Injection with Trulicity pen, demonstrates good technique, good understanding Assessment & Plan (07/29/2023 9:11 PM EDT): Continues to follow with diabetes center. Wearing CGM at this time. I encouraged her to further consider GLP1 as recommended. We again discussed benefits, risks, and side effects of this. Encouraged to follow up with diabetes center to begin. Encouraged to consider meeting with entertainment centre manager/vamp liner to help with choosing better food options. Encouraged to continue to work with psychiatrist and therapist on managing BED. Assessment & Plan (07/13/2023 1:46 PM EST): Alice has type II DM- she is taking her medication as directed. Assessment & Plan (07/02/2023 3:04 PM EST): Continues to follow with Ciara Aldrich. She has not been taking the Trulicity. She will be following up with them to discuss this. Will continue to monitor. Assessment & Plan (05/25/2023 4:16 PM EST): Rosa sugars were running quite high prior to her Covid infection and stabilized somewhat with a smaller appetite associated with her illness. Her appetite is returning to more normal which is good since she additionally reports having frequent lows during Covid. We reviewed sick day rules and also discussed if she is not going to have a robust meal then to skip her Metformin to prevent overnight lows. Reviewed hypoglycemia prevention, recognition and management. Additionally we discussed the benefits and risks of GLP1 therapy which should help her elevated PPGs as well as indirectly benefit her cardiovascular health and weight loss efforts. A drug interaction check was performed with Trulicity and her current medications. Her lab and ECG values are reassuring. Alice is agreeable to low dose Trulicity. She will call us when she picks up her medication for a nurse visit for injection instruction. Reviewed hypoglycemia prevention, recognition and management. Encouraged to continue to make healthy diet choices and remain as physically active as tolerates. Encouraged to contact us with any concerns or questions and follow up in 6 weeks to evaluate GLP1 therapy. Assessment & Plan (04/11/2023 6:02 PM EST): Hemoglobin A1c Date Value Ref Range Status 02/16/2023 8.1 (*) 4.2 - 5.8 % Final HEMOGLOBIN A1C Date Value Ref Range Status 09/10/2022 7.8 (H) 4.3 - 5.8 % Final Managed on metformin, lantus insulin 55u. She struggles with diet and binge eating. She is followed by Dr. Peraza. She has declined additional antihyperglycemic medications in the past due to concerns around side effects. She wears a CGM. We discussed continuing to work on lifestyle modifications. Assessment & Plan (02/18/2023 10:19 PM EDT): A1c remains in fair range, slightly worsened compared to last CGM has been useful in helping assess the effects of food choices, Alice continues to struggle with healthy eating Continues to have issues with sleep due to stressors and also increase in pruritus from psoriasis, she is followed by dermatology Alice continues to utilize CPAP however due to inconsistent sleep it is unclear how consistent CPAP use is We did not adjust insulin dosing today, Alice will bring her Hayes reader in for download in the near future and if needed therapy adjustments will be made based on these patterns Alice will continue Metformin therapy at current dosage, she has been resistant to starting additional antihyperglycemic medications due to concerns about possible side effects Alice is advised to continue to work on eating a healthy diet and optimizing sleep, both of these will help support improvement in glucose management Alice is encouraged to contact us with any concerns or question, she will return for a follow up appointment with Nicole Aldrich in 3 months and with me in 6 months Assessment & Plan (01/12/2023 4:50 PM EDT): Alice Griffith has diabetes and she is taking the above medication as directed. I advised her to continue to improve her diet and exercise regimen. she will follow up in 3 months. Assessment & Plan (11/22/2022 8:15 AM EDT): Alice has improved her glucose control with today's GMI 7% versus 7.8% at her last visit. She is trying hard to practice portion control, especially when she craves sweets. She is now having half a breakfast sandwich with a couple munchkins at [facility]. She has also been trying to walk a little more when her knee and hip feel well. She is relieved to know what has been causing her rashes, phototherapy with phototoxic medications, but also frustrated by this. Additionally, she is worried she has been on Valacyclovir low dose for greater than a decade. She plans to see her Income Tax Preparer. Her sleep is suboptimal which has been chronic. Overall, her stress is a little less than earlier in the year. Congratulated her on her good efforts and progress. No medication adjustments today. Reviewed hypoglycemia prevention, recognition and management. Encouraged to continue to make healthy diet choices and remain as physically active as tolerates. Encouraged to contact us with any concerns or questions and follow up with Dr ePraza in 3 months and me in 6 months. Assessment & Plan (10/17/2022 10:49 PM EDT): Alice's A1c has risen from 7% last April to 7.8% today, GMI per most recent CGM data is 7.6% She reports finding CGM useful in helping her see the effects of choices she makes during the day, food and otherwise, on her blood sugar; there is a consistent rise in glucose in early afternoon, sometimes to >250 range, this correlates with when Alice tends to have a bagel sandwich and munchkins from [facility], we discussed some strategies around this such as reducing the portion of the bagel sandwich to 1/2 sandwich if she is unable to avoid the munchkins Alice is having issues with sleep due to stressors and also increase in pruritus from psoriasis, she is followed by dermatology but was recently told that due to some of her meds being phototoxic she may not be able to get phototherapy anymore, Alice continues to utilize CPAP Alice will continue her current Lantus dosage, this appears to be very effective at maintaining FPG at target Encouraged to continue to make healthy diet choices and remain as physically active as she tolerates Encouraged to contact us with any concerns or question, Alice has a follow up appointment with Nicole Aldrich next month and we will follow up in 4 months Assessment & Plan (09/10/2022 5:55 PM EDT): Following ranjit PEÑALOZA Assessment & Plan (08/21/2022 11:49 AM EDT): Alice forgot her FSL2 reader today. She reports more highs and lows ranging 64 to 240s. Her lows were to the 60s a few nights over the last 2 weeks. She is walking every couple days now. Alice is struggling with her diet now eating more [place]on munchkins and breakfast (bagel) sandwiches. We discussed reducing her munchkins by one this week to three and again in September. Reminded her that at least they are munchkins and not whole donuts as she was feeling bad. She will also take off half of bagel. Additionally Alice will decrease her Lantus to 50u nightly to decrease her lows. Reviewed hypoglycemia prevention, recognition and management. Encouraged to continue to make healthy diet choices and remain as physically active as tolerates. Encouraged to contact us with any concerns or questions and follow up in 3 months. Assessment & Plan (07/02/2022 4:22 PM EST): Recent hyperglycemic issues related to steroid injection and joint. She is back to her baseline now. She follows with diabetes center. Assessment & Plan (06/26/2022 11:28 AM EST): Alice's most recent A1c on file is 7% which is in excellent range, GMI per most recent CGM data is 7.3% She reports finding CGM useful in helping her see the effects of choices she makes during the day, food and otherwise, on her blood sugar She is managing her stress fairly well, though sleep has been poor and this has been stressful; sleep disruptions are likely to impact glucose control negatively Alice will continue her current Lantus dosage, this appears to be very effective at maintaining FPG at target Reviewed hypoglycemia prevention, recognition and management. Encouraged to continue to make healthy diet choices and remain as physically active as tolerates We discussed some strategies to try to get sleep back on track as this will also help Alice in her daily activities Encouraged to contact us with any concerns or question, Alice has a follow up appointment with Nicole Aldrich next month and we will follow up in 3 months Assessment & Plan (05/26/2022 12:52 PM EST): .CGM Trial Type of Diabetes: Diabetes mellitus Type 2 Assessment/HPI: Alice is here today for personal placement of Freestyle Hayes 2. Procedures: Glucose Monitoring: Type of Sensor: Freestyle Hayes Personal Instruction: Patient Instructed on:, Calibrations, When to test BS, Troubleshooting, What to expect with the sensor, Patient instructed to remove sensor if redness, pain or bleeding occurs. . Insertion Site Selected: Right arm Site Prep: Insertion site wiped with alcohol. Insertion: completed, area looks good, no redness, no bleeding. Plan: Patient will remove sensor and return in 2 weeks to drop off at front office java developer or follow up appointment. Assessment & Plan (05/25/2022 2:51 PM EST): Encouragement given Assessment & Plan (05/01/2022 2:02 PM EST): Alice's A1c is 7% which is quite good for her. She reports a healthier diet with smaller portions, a little walking, and Lantus 55u and Metformin. Her sugars are 89% in range with only 1% low and an average glucose of 124. She is managing her stress fairly well. Encouraged her to continue her diabetic therapy without adjustment today. Congratulated her on a good A1c and overall sugar control. Reviewed hypoglycemia prevention, recognition and management. Encouraged to continue to make healthy diet choices and remain as physically active as tolerates. Encouraged to contact us with any concerns or question and follow up in 3 months. Assessment & Plan (03/05/2022 2:46 PM EDT): Significant improvement in her A1c with increasing her insulin dose. I also want to check a CBC to make sure that this is not falsely low due to anemia Assessment & Plan (03/02/2022 11:11 AM EDT): Alice presents today with suboptimal glycemic control. Her average FPG is 221 recently, although her last A1c one month ago was 6.9%. 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 She also reports that her eating is not terrible, but not great either recently. She additionally asks today for assistance with learning to place her CGM. We did not adjust her basal insulin today due to reports of low symptoms with occasionally smaller or skipped meals. We discussed the benefits and risks of repaglinide prior to meals as a safer option to help her with post prandial high sugars which would be more appropriate for her more erratic eating patterns. Provided instruction and demonstration how to apply CGM sensor and use reader. Reviewed hypoglycemia prevention, recognition and management. Encouraged to continue to make healthy diet choices and remain as physically active as tolerates. Encouraged to contact us with any concerns or question and follow up in 2 months. Assessment & Plan (01/18/2022 6:02 PM EDT): Alice's A1C is quite good at 6.9% with only 1% low <70 on recent CGM trial (3 days until sensor fell off). She was in range 95% with her variability well within range. Her sugars were most elevated during the evening and night. Alice is doing well with managing her eating, she has been watching portions, allowing herself treats in small quantities Has been exercising somewhat regularly when she can, recent past has been more difficult due to lots of appointments, encouraged to return to regular gym workouts at least twice per week as soon as she can. She has been more stressed recently about work. We discussed her CGM pro and her A1c with congratulation on managing her diabetes so well. Alice brought her personal new FSL2 with her today for instruction/education for its use which was provided. We did not adjust medication therapy today. Reviewed hypoglycemia prevention, recognition and management. Encouraged to continue to make healthy diet choices and remain as physically active as tolerates. Encouraged to contact us with any concerns or question and follow up 3 months. Assessment & Plan (12/19/2021 5:27 PM EDT): Alice's A1C is in fair range most recently, she will be due for another routine A1c later this month Alice is doing well with managing her eating, she has been watching portions, allowing herself treats in small quantities Has been exercising fairly regularly when she can, recent past has been more difficult due to lots of appointments, encouraged to return to regular gym workouts at least twice per week as soon as she can We discussed repeat CGM pro, Alice is agreeable to this, would also like to have CGM personal, since Alice is insulin requiring we will attempt order for FSL2 for her We did not adjust medication therapy today, we will review CGM pro data and make adjustments as needed based on this Alice is in good spirits today, emotionally seems to be doing well She is reassured that her data though sparse appears to indicate improved control CGM Trial Type of Diabetes: Type 2 Procedures: Glucose Monitoring: Type of Sensor: Hayes pro Instruction: Patient Instructed on:, Calibrations, When to test BS, Troubleshooting, What to expect with the sensor, Patient instructed to remove sensor if redness, pain or bleeding occurs. . Insertion Site Selected: Left arm Site Prep: Insertion site wiped with alcohol. Insertion: completed, area looks good, no redness, no bleeding. Plan: Patient will remove sensor and return in 2 weeks for follow up appointment. T his patient has diabetes This patient is insulin-treated with 1or more daily injections OR a continuous subcutaneous insulin infusion pump This patient's insulin treatment regimen requires adjustment by the patient on the basis of blood glucose meter readings or continuous glucose monitoring results This patient has had an in-person visit with the treating provider to evaluate diabetes control and determine criteria for CGM use This patient will return for follow up visits at least every 6 months to assess adherence to CGM regimen, the effect of the current diabetes treatment regimen and to have insulin and medication therapy adjusted as needed for optimal outcome Assessment & Plan (09/26/2021 11:59 AM EDT): Alice's A1C has remained stable and in a range that is fair for her in setting of recent increased stressors. She has managed to maintain less fast food intake on a daily basis from [employer] versus last fall. She also eats one MOW meal daily which is pretty balanced'. She did increase her Lantus to 48u with last visit, but no further. She manages to test her sugars about 2 weeks prior to her diabetes visits and otherwise more sporadic monitoring. 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 Alice appears anxious today and is apologetic for her high sugars. Reassured her that maintaining a stable and still improved A1C is pretty good for her. Emphasized importance of trying to decrease her stress through professional help or at least enjoyable activities such as music and pottery which she enjoys. Plan- Increase Lantus to 55u nightly. Reviewed hypoglycemia prevention, recognition and management. Encouraged to continue to make healthy diet choices and remain as physically active as tolerates. Encouraged to contact us with any concerns or question and follow up in 5 months. Assessment & Plan (09/04/2021 3:01 PM EDT): Chronically struggles to comply with ADA diet which is complicated by binge eating disorder. I have encouraged her multiple times to seek specialized treatment for the binge eating disorder Assessment & Plan (06/26/2021 4:07 PM EST): Alice has reduced her A1C over the last few months with modestly increased basal insulin, metformin, slightly improved diet (less donuts), and increased physical activity recently joining a gym and working with physical scientist. Recently monitoring her glucose 1-2x daily due to her upcoming diabetes medical appointment. Glucose patterns tend to be elevated in the evening. More consistent glucose data per CGM trial would be helpful to evaluate overall patterns. Alice is a little reluctant and will consider for the future. FPG averages 177 with a regular glucose average of 192 which is 30 lower than last April. Alice is hesitant to consider bolus insulin and is more comfortable with modestly increasing her basal insulin by 5 units now and another 2-3 units in one week while monitoring her FPG to no less than 140. No recent B12 level in setting of detention metformin use with lab ordered today. No true hypoglycemia, although sporadically low if unable to eat on time. Reviewed hypoglycemia prevention, recognition and management. Baqsimi glucagon ordered and demonstrated with instruction. Discussed safe practices for exercising such as not exhausting oneself. Encouraged frequency versus very long sessions (>60 minutes). Encouraged to continue to make healthy diet choices and remain as physically active as tolerates. Encouraged to contact us with any concerns or question and follow up 3 months. Assessment & Plan (04/10/2021 3:14 PM EST): Alice is a pleasant T2DM female who returns for a follow up with poor to fair glucose control, but slightly improved health behaviors. She now reports that she is able to decrease her daily intake of donuts by 1-2 servings at least 2-3x per week which is improved. She also has started more seated exercises a few times per week for about 5 minutes at a time with a once weekly physical therapy. Alice also has restarted checking her glucose more regularly on most days which she had stopped for a period of time. Her average glucose per glucometer is 177 which is also her FPG appears similar to her recent CGM trial which reflected an average glucose of 222 with an FPG between 175-180. Alice has started cortisone injections for arthritis which help relive her pain allowing her to be more active, although concern remains as to the effects on her glucose control which is difficult to gauge with sporadic monitoring. She has a prior history of poor tolerance to the SGLT2i and GLP1ra medications and prefers not to revisit these options. Filament test performed on bilateral lower extremities with normal results throughout. Plan- Discussed starting bolus injections with meals which she finds to overwhelming at this time. Increase Lantus to 45 units nightly and start 5 units in the morning daily in 3- 4 days. She does not feel confident or comfortable adjusting her basal insulin upwards on her own to a target FPG of 130-150, so we will follow up in 6 weeks. She agrees to continue to check at least her morning fasting glucose daily. Discussed trying to eat a healthy vegetable, fruit, or protein prior to each higher carb food item which she is quite amenable. Discussed increasing her seated exercise time by one extra commercial (2-4 minutes) daily while watching TV and she plans to try to go to the gym 1-2 times weekly. Encouraged to continue to strive for healthy diet choices and remain as active as tolerates. Encouraged to contact us with any questions or concerns. Follow up in 6 weeks. Assessment & Plan (03/13/2021 3:25 PM EDT): Alice's pro eval with a CGM reveals a GMI of 8.4% which is modestly improved from her recent A1C of 8.9% in early February. Her glucose patterns show elevated sugars > 70% of the time (28% very high). She has not tolerated GLP1 ra or SGLT2i therapy to date although it would provide a cardio protective benefit. Suggested she start low dose bolus insulin for her 1st meal and again at dinner which she was not eager to try at this time. Her alternative is to further modify her recent dietary habits. She reports her current weakness is multiple donuts for her first meal in addition to bagel - egg-cheese sandwich. Alice agreed to decrease to one donut with her sandwich daily at [employer] starting this week vs multiple. The following week she will decrease to x2 munchkin donuts only and the following week she will reduce to x1 munchkin donut with her first daily meal and maintain this pattern. Her goal is decrease her A1C to 8% or less by late April maintaining her blood sugars >50% of the time in the range of 110-180 with her glucometer checks. She agreed this is an achievable goal. Encouraged Alice to incorporate chair/seated exercises during commercials when she watches TV and remain as active as tolerates. Encouraged her to call with any concerns or questions. Follow up in one month via telemed or in person. Assessment & Plan (02/27/2021 2:31 PM EDT): A1c is stable but suboptimal Scattered FPG and random readings are in reasonable range, more consistent glucose data per CGM would be helpful to evaluate overall patterns, Alice is agreeable to a CGM trial and a sensor was placed today We revisited dietary considerations which will be helpful in improving overall control, also has contacted Jackie and has contact information for therapy resources in the area to help with binge eating management Trialed Mayadiance after our last visit, did not tolerate after just one day, very concerned about increase in urination and pain, therapy escalation is difficult with Alice due to her anxiety about medication side effects, SGLT2i and GLP1ra therapies would be helpful to her given her CAD history Alice is encouraged to contact me with any questions or concerns, she will follow up in 2 weeks with Nicole Aldrich to go over CGM pro results, Alice also has an upcoming appt with our entertainment centre manager in May and we will follow up in 6 months Assessment & Plan (02/05/2021 8:15 PM EDT): Follows ranjit PEÑALOZA. 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 Discussed measures to decrease risk & sx to watch for. Discussed that Fourniers gangrene is a rare side effect. I'm not sure that LS would increase that risk. She can discuss w her [employer]ED [employer] SPOOL STRAIGHTENER Assessment & Plan (10/25/2020 12:12 AM EDT): A1c is worsened FPG is in reasonable range however random blood sugar data is not available and given Alice's poor eating habits she is likely having fairly significant prandial glucose excursions Alice would be able to make significant improvements to her diabetes control if she were able to improve her diet, unfortunately much of her coping and comfort are related to food which certainly poses significant challenges to her ability to find healthy balance in her eating patterns We discussed Jardiance today, this medication will help blood sugar control and also carries additional cardiovascular benefits since Alice has been diagnosed with CAD, this is also likely to provide renal benefits; we discussed common side effects, 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 and if she experiences any discomfort or candidiasis then we will likely need to explore other avenues For now will continue current dose of basal insulin and Metformin, we will adjust this once SGLT2i effect is assessed Alice is encouraged to reach to me with any questions or concerns, we will follow up in 4 months, Alice also has an upcoming appt with our entertainment centre manager in 2 months Assessment & Plan (09/19/2020 1:18 PM EDT): Labs ordered to do in advance for [facility] appt Assessment & Plan (08/23/2020 10:24 PM EDT): We discussed increase of basal insulin dosage to 34 units daily, Alice will continue Metformin Encouraged to do her best with healthy lifestyle habits, her chest pressure has been evaluated and deemed to not be cardiac in nature per Alice's report, however this is still limiting her activity due to worry about her heart issues We discussed healthier eating habits which Alice was doing well with for a time, however recent increased stressors have led to an increase in intake of sweets/carbs We will continue to support Alice and help her adjust insulin as needed to achieve most optimal glucose control, she is encouraged to reach out to me via the patient portal; Alice will return in 2 months to follow up with me, she also has a follow up scheduled with our entertainment centre manager Assessment & Plan (07/04/2020 2:45 PM EST): Alice has type 2 diabetes. Her sugars have been spiking likely secondary to poor lifestyle choices. She recently has started cardiac rehab and I congratulated her on this. We also discussed dietary modification. She is taking her Metformin as directed and I advised her to continue with 10 units of insulin Lantus at night. She will follow-up with her specialist as directed. Follow-up with PCP in 1 month. She understands and agrees. Assessment & Plan (07/03/2020 10:18 PM EST): Alice has type 2 diabetes and she is taking her oral medication as directed. She is followed by Dr. Peraza and was advised by Dr. Stu musa to take 10 units of the long-acting insulin as her sugar is elevated at 222. I agreed with this and during the phone conversation she administered the 10 units to her self. No issues with this. We discussed diet and I advised her to try to make healthy choices. I advised her to make appointment tomorrow in the office to review all of this again as she has multiple questions/concerns. She was reassured about this. My nurses will call her in the morning to make an appointment. She understands and agrees to this plan. Assessment & Plan (06/17/2020 9:37 PM EST): She restarted metformin after d/c. She remains on insulin. Reports dietary improvements historically has struggled w binged eating sweets. Has FU at [facility] next week. Assessment & Plan (06/03/2020 3:04 PM EST): Patient has type 2 diabetes and takes Lantus 40 units subcu every morning and 50 units subcu nightly. She is also taking Metformin 1000 mg twice daily at home. Blood sugars remain elevated to 180-220s. I anticipate this will improve some with NPO status overnight into tomorrow so will keep regimen the same at 30 units qhs and 20 units in AM -Continue Metformin 1000mg BID -[id number] blood sugars before meals and at bedtime with lispro insulin sliding scale coverage. Assessment & Plan (04/28/2020 3:35 PM EST): Continues on Lantus bid and Metformin We revisited resuming GLP1ra therapy, Alice was on Victoza in the past which she recalls tolerating well but this was stopped due to safety concerns at the time, Alice trialed Soliqua in recent past but had rash/pruritus at injection sites Encouraged to continue to work on eating a healthy diet, this has been difficult since Alice's move and increased stressors, encouraged to try for more consistent pattern in eating and sleeping, GLP1ra therapy may benefit Alice is helping to control appetite and reduce portion at any one sitting Alice is encouraged to try to resume her routine of walking by trying out areas around her new apartment that may be comfortable for her, regular walking/activity too will help with blood sugar control and weight management Encouraged to self monitor blood sugars as she hopefully begins Victoza therapy again, I'm hopeful that we can reduce Alice's Lantus insulin to once daily Alice will return to meet with Pearl George in June and with me in the spring, encouraged to reach out to us with any questions or concerns Assessment & Plan (03/14/2020 3:39 PM EST): Stopped soliqua due itching at injection site. It also caused nausea Back on lantus 40 units in AM 45 in pm Assessment & Plan (11/09/2019 2:14 PM EDT): Will continue current dose of Lantus bid and Metformin We had a long discussion regarding resuming GLP1ra therapy, Alice was on this in the past Would prefer Victoza daily, this was sent however if any coverage issues then we will need to try a once weekly GLP (Trulicity is preferred); we also discussed Soliqua which has the benefit of basal insulin + GLP1ra in one injection, the basal insulin dosage max is 60u which may not be enough for Alice but addition of Lantus is possible Encouraged to continue to work on eating a healthy diet, try for more consistent pattern, GLP1ra therapy may benefit Alice is helping to control appetite and reduce portion at any one sitting Alice is encouraged to continue her routine of walking, this too will help with blood sugar control and weight management Alice will return to meet with ALO KAPADIA in January and we will meet again later in the year; we will follow up with Alice in 1-2 weeks to see how she is doing back on GLP1ra therapy and adjust insulin dosing as needed Encouraged to self monitor blood sugars as she begins new antihyperglycemic therapy, this may affect her insulin dosing and may cause hypoglycemia in conjunction with insulin therapy Assessment & Plan (11/07/2019 2:04 PM EDT): DISCUSSED W PT: consider another trial of GLP1 receptor agonist or adding a rapid acting insulin. She has upcoming appt w Dr Peraza. Assessment & Plan (06/02/2019 12:52 PM EST): This is risk factor for yeast skin infections Assessment & Plan (05/05/2019 12:54 PM EST): We did not adjust insulin or meformin dosing today Alice wanted to discuss newer meds such as SGLT2i and GLP1ra therapies which in theory would be helpful to her metabolically, we did discuss these in the past and decided against them due to possible side effects, she did trial Byetta in the past, we revisited these medication, their mechanism of action and possible side effects and again Alice was hesitant and I agree that these may not be the right agents for her We discussed the importance of getting appropriate therapy to work on her relationship with food, if this can be addressed adequately it is very likely that Alice's insulin requirement and glucose control would actually improve, she is encouraged to call Jackie Advised to continue to stay as active as she can We discussed podiatric care, we have a waterworks supervisor at [address] [place] [id number] now and Alice is encouraged to consider seeing her Alice is advised to call me with any questions or concerns Assessment & Plan (03/15/2019 3:19 PM EST): Following ranjit PEÑALOZA. We discussed treating the BED more today Assessment & Plan (12/07/2018 2:56 PM EDT): Labs due Assessment & Plan (11/14/2018 3:17 PM EDT): Encouraged pt to decrease carb intake and increase exercise. Discussed relationship between poor wound healing and yeast infections with DM. Assessment & Plan (09/23/2018 2:40 PM EDT): FPG has improved since using CPAP consistently, prandial blood sugars are elevated due to dietary challenges, most recent A1c is high We did not make changes to basal insulin dosing Alice is aware that she will need changes to her insulin doses if she adopts a new eating pattern/plan, encouraged to monitor blood sugars closely when she begins any new program and to call us so that we can proactively make changes to her insulin dosing Alice is encouraged to do her best with daily self management We discussed importance of seeking diet/eating related therapy which will be instrumental in giving her tools to improve her blood sugar control Alice is encouraged to call with any questions or concerns Assessment & Plan (08/17/2018 2:56 PM EDT): Labs due. Has FU ranjit Peraza next month Assessment & Plan (04/28/2018 10:51 AM EST): Asked her to increase Lantus to 40 units in a.m. 50 units in p.m. Follow-up with entertainment centre manager Assessment & Plan (03/29/2018 12:10 PM EST): struggles with disordered eating. Compliant w meds. Labs ordered for her to do before next meeting w DM educator. FU ranjit kim in 2 mos Assessment & Plan (01/13/2018 12:55 PM EDT): Will continue current insulin doses Encouraged to call if she finds that low blood sugar symptoms are more frequent We discussed the difference between hypoglycemia and pseudohypoglycemia and differences in treatment approaches to these Assessment & Plan (12/28/2017 6:09 PM EDT): Labs ordered that she is due for. Up-to-date on A1c. Diabetes is poorly controlled largely due to diet and lifestyle. Assessment & Plan (09/03/2017 8:48 PM EDT): Suboptimal blood sugar control overall complicated by recent illness We did not make any adjustments in medication doses today Encouraged to try to remain active Will obtain A1c at upcoming visit with our educator staff Assessment & Plan (09/02/2017 7:57 PM EDT): Labs ordered. Following with ANABELA Assessment & Plan (07/22/2017 1:14 PM EDT): Follow-up retirement benefits specialist Assessment & Plan (06/01/2017 8:23 PM EST): Follows w ANABELA Assessment & Plan (05/14/2017 12:41 PM EST): Encouraged Alice to continue to work on tighter control to avoid yeast. Assessment & Plan (04/26/2017 3:42 PM EST): A1c is stable in fair range Blood sugar data looks reassuring and Alice is encouraged to continue to monitor blood sugars consistently to assess the effect of activity and foods We discussed the [employer] monitoring system which would be helpful for Alice to monitor more during the day and get realtime feedback on the effects of her lifestyle on blood sugars Alice will continue her current insulin doses, we discussed consideration for adjustment based on blood sugar data Hyperlipidemia 03/15/2017 Overview (10/17/2022): LDL goal <55 Assessment & Plan (02/01/2025 12:54 PM EDT): Most recent lipid panel reviewed, this was from 2022, LDL remains in good range but above optimal goal, most recently 71 Continue on moderate intensity statin Goal LDL <55 given DM and CAD Assessment & Plan (12/28/2024 4:39 PM EDT): Most recent lipid panel reviewed, this was from 2022, LDL remains in good range but above optimal goal, most recently 71 Continue on moderate intensity statin Goal LDL <55 given DM and CAD Assessment & Plan (11/20/2024 11:50 PM EDT): Most recent lipid panel reviewed, this is from fall 2022, LDL remains in good range but above optimal goal, most recently 71 Continues on high intensity statin, has been tolerating this well Goal LDL <55 given DM and CAD Continues to work on healthy eating Follows with cardiology Assessment & Plan (10/14/2024 5:36 PM EDT): Assessment & Plan (09/28/2024 9:35 PM EDT): Most recent lipid panel reviewed, this was from 2022, LDL remains in good range but above optimal goal, most recently 71 Continue on moderate intensity statin Goal LDL <55 given DM and CAD Diet remains suboptimal Assessment & Plan (08/17/2024 2:06 PM EDT): Most recent lipid panel reviewed, LDL remains in good range but above optimal goal, most recently 71 Continue on moderate intensity statin Goal LDL <55 given DM and CAD Diet remains suboptimal Assessment & Plan (05/18/2024 11:05 AM EST): Most recent lipid panel reviewed, this is from fall 2022, LDL remains in good range but above optimal goal, most recently 71 Continues on high intensity statin, has been tolerating this well Goal LDL <55 given DM and CAD Diet remains suboptimal per Alice's report but she continues to work on this Assessment & Plan (02/29/2024 7:33 AM EDT): Managed on simvastatin 80mg, denies side effects. Will continue this medication. Assessment & Plan (02/15/2024 3:13 PM EDT): Most recent lipid panel reviewed, LDL remains in good range but above optimal goal, most recently 71 Continue on moderate intensity statin Goal LDL <55 given DM and CAD Diet remains suboptimal Assessment & Plan (11/10/2023 10:21 PM EDT): Most recent lipid panel reviewed, this is from last fall, LDL remains in good range but above optimal goal, most recently 71 Had been on high intensity statin but this was stopped several weeks ago due to possible derm side effects, Alice will be following up with derm and cardiology in near future Goal LDL <55 given DM and CAD Diet remains suboptimal per Alice's report but she continues to work on this Assessment & Plan (09/02/2023 12:15 PM EDT): Continue atorvastatin 80 mg daily. Patient states that her escapement maker, Dr. Olmos, suggested that she trial off her atorvastatin to see if this helps resolve her rash that she has had for approximately 2 years. I am skeptical that they may have suggested this for amiodarone not atorvastatin. However, patient states that she is not going to stop any of her cardiac medications and she prefers to seek a second dermatology opinion. Will see her back in the office later this year. Assessment & Plan (08/24/2023 3:43 PM EDT): Most recent lipid panel reviewed, this is from last fall, LDL remains in good range but above optimal goal, most recently 71 Continue on high intensity statin Goal LDL <55 given DM and CAD Diet remains suboptimal per Alice's report but she continues to work on this Assessment & Plan (08/10/2023 5:39 PM EDT): Most recent lipid panel reviewed, LDL remains in good range but above optimal goal, most recently 71 Continue on high intensity statin Goal LDL <55 given DM and CAD Diet remains suboptimal Assessment & Plan (05/25/2023 4:03 PM EST): LDL 71 Goal LDL with T2DM and CAD <55 Continue high intensity statin Assessment & Plan (02/18/2023 10:05 PM EDT): Most recent lipid panel reviewed, LDL remains in good range but above optimal goal, most recently 71 Continue on high intensity statin Goal LDL <55 given DM and CAD Diet remains suboptimal Assessment & Plan (11/22/2022 8:06 AM EDT): LDL was 63 recently, improved Continue on high intensity statin Goal LDL <55 given DM and CAD Assessment & Plan (10/17/2022 10:29 PM EDT): LDL was 63 recently, improved Continue on high intensity statin Goal LDL <55 given DM and CAD Assessment & Plan (08/21/2022 11:51 AM EDT): LDL was 63 recently, improved Continue on high intensity statin Goal LDL <55 given DM and CAD Assessment & Plan (06/22/2022 2:17 PM EST): Most recent lipid panel on file is from 2020, LDL was 76 Continue on high intensity statin Goal LDL <55 given DM and CAD Assessment & Plan (05/01/2022 2:06 PM EST): LDL 76 recently Continue on high intensity statin Goal LDL <55 given DM and CAD Assessment & Plan (03/02/2022 11:12 AM EDT): LDL 76 recently Continue on high intensity statin Goal LDL <55 given DM and CAD Assessment & Plan (01/18/2022 6:04 PM EDT): LDL 76 recently Continue on high intensity statin Goal LDL <55 given DM and CAD Assessment & Plan (12/19/2021 5:18 PM EDT): LDL 76 recently Continue on high intensity statin Goal LDL <55 given DM and CAD Assessment & Plan (09/26/2021 11:28 AM EDT): LDL 76 recently Continue on high intensity statin Goal LDL 55 (optimal) Assessment & Plan (06/26/2021 3:14 PM EST): LDL goal <70 On high dose Statin and low dose ASA Assessment & Plan (04/10/2021 3:13 PM EST): LDL goal <55 ideally On high dose Statin and low dose ASA Most recent LDL 76. Assessment & Plan (03/13/2021 3:31 PM EDT): LDL goal <70 On high dose Statin and low dose ASA Assessment & Plan (02/27/2021 2:26 PM EDT): Continues on high intensity statin therapy Most recent LDL is 76 which is above target of <55 given CAD and DM history Assessment & Plan (10/24/2020 3:44 PM EDT): Most recent LDL is from last October, this was 84 which is above goal Given Alice's CAD and DM her LDL goal is <55 She is on high intensity statin therapy Assessment & Plan (08/23/2020 10:27 PM EDT): Most recent LDL is from last October, this was 84 which is above goal Given Alice's CAD and DM her LDL goal is <55 She is on high intensity statin therapy Assessment & Plan (04/28/2020 3:29 PM EST): On atorvastatin as high intensity Most recent LDL was <100 Assessment & Plan (11/09/2019 2:07 PM EDT): On atorvastatin as high intensity Most recent LDL was <100 Assessment & Plan (11/07/2019 2:02 PM EDT): Change from simvastatin to atorvastatin Assessment & Plan (09/23/2018 2:24 PM EDT): Most recent lipid panel reviewed, LDL at goal on current statin therapy TG elevated and this is likely related to high sugar intake and poor glucose control Anxiety and depression Overview (09/26/2024): (Sudhir Moran) Assessment & Plan (02/15/2025 9:31 AM EDT): Alice has ongoing anxiety/depression. I placed a referral to social work today- she was appreciative of this. She will call if there are any other issues or concerns. She understands and agrees. Assessment & Plan (10/14/2024 10:53 PM EDT): Continue home meds, unclear if they are cause of sedation today, assessing? Assessment & Plan (10/12/2024 2:11 PM EDT): Alice has anxiety-she is taking her medication as directed. Follow-up in a month. She understands and agrees. Assessment & Plan (09/26/2024 2:07 PM EDT): I gave guidance to Alice to talk to her psychiatrist about her clomipramine. Resolved Problems Problem Noted Date Diagnosed Date Resolved Date Urine retention 10/14/2024 10/15/2024 Assessment & Plan (10/14/2024 10:53 PM EDT): - voiding trial Third degree heart block 10/13/202412/2024 Assessment & Plan (10/14/2024 10:53 PM EDT): - had PM placed 10/13 Cardiology recs - Arm sling at night - Keflex 500mg PO TID until 10/15/2024 - Stop Amiodarone - Device interrogation in a.m. - Chest x-ray in AM - Do not lift arm above head or extreme movements for the next 6 weeks -No showering and do not remove dressing until seen by Mirian/ Martha in follow-up - Do not remove Steri-Strips - Arm sling to use mainly at night - no heavy lifting anything above 5 lbs - Follow-up with Mirian/ Martha in clinic within 1- 2 weeks for wound check - Follow-up with MD in 4 to 6 weeks for follow-up - xray no pneumothorax - cardiology recommended ok for discharge Acute cystitis without hematuria 04/26/2024 09/26/2024 Assessment & Plan (05/02/2024 3:22 PM EST): I diagnosed Alice with a continued UTI today in the office based on her signs and symptoms along with her urinalysis. She has recently completed a course of Vantin-given to her by the ER on 04/22/2024. I reviewed this previous workup and the urine culture did not grow anything specific. I reviewed her most recent urinalysis and urine sediment test that was done yesterday showing the possibility of a UTI. She is continuing to have right lower back pain and right flank pain with positive CVA tenderness on exam. I will await the urine culture. I ordered a round of Macrobid-1 tablet a day for the next 5 days to treat a smoldering UTI. I informed her to stay well-hydrated. She will see her PCP next week. I informed her to call if her symptoms are getting worse or if there are any other issues or concerns. She understands and agrees. Assessment & Plan (04/26/2024 3:16 PM EST): Alice was diagnosed with UTI on 04/22/2024 in the ER. I reviewed the notes as well as the lab work and image studies that were done. No signs of a kidney stones noted on the CT scan. She was prescribed Vantin. I advised her to continue to take this medication as directed and to hydrate well. I informed her to call if there are any other issues or concerns or if her symptoms are getting worse. She understands and agrees. Dizziness 04/21/2024 10/15/2024 Assessment & Plan (10/12/2024 2:11 PM EDT): Alice has ongoing dizziness-a recent fall but unsure if this was syncopal or not. Guidance given to hydrate well. She will repeat labs next week. She has an appointment with neurology in the near future. Follow-up in a month. She will call if there are any other issues or concerns. She understands and agrees. Assessment & Plan (09/26/2024 2:15 PM EDT): Alice has intermittent dizziness-syncopal episodes in the past. I placed a referral to neurology today for consult. She was appreciative. I reviewed her most recent lab work-overall stable. She had a Holter monitor done-overall reassuring. She is followed by her sheet rocker. She will call if there are any other issues or concerns. She understands and agrees. I have maintained a long-term relationship with the patient, overseeing the care of their dizziness. This has significantly influenced my decision-making and treatment plans during today's encounter. Assessment & Plan (09/15/2024 3:52 PM EDT): Alice has been experiencing intermittent dizziness and frequent falls-please see plan fall for further detail. Assessment & Plan (08/30/2024 5:18 PM EDT): Alice has intermittent dizziness-please see plan fall for further detail. She has had a longstanding history of dizziness. I have maintained a long-term relationship with the patient, overseeing the care of their dizziness. This has significantly influenced my decision-making and treatment plans during today's encounter. Assessment & Plan (08/17/2024 1:16 PM EDT): Alice presents for TCM following admission to [facility] 08/07-08/09/24. Experiencing intermittent episodes of dizziness. Symptoms consistent with BPPV. I have recommended she return to PT for this and she is agreeable. Discussed staying well hydrated and being cautious with position changes. Assessment & Plan (04/21/2024 2:37 PM EST): Alice has intermittent dizziness-I suspect vertigo. I put a referral to physical therapy for vestibular rehab. She was appreciative. She will call if this gets worse or if there are any other issues or concerns. Follow-up with PCP in a month as scheduled. She understands and agrees. Subacute cough 08/16/2023 05/11/2024 Assessment & Plan (08/16/2023 5:23 PM EDT): Alice presents for cough which has been going on for the past 3 days. Her lung exam is within normal limits and this is reassuring. I refilled her inhalers-to be taken as directed. I also ordered a chest x-ray to be done tomorrow. I informed her to call if her symptoms get worse. I will wait her COVID, flu, RSV test that were done today in the office-I will update her with the results tomorrow. I gave guidance regarding symptomatic management as needed at home. I informed her to call if there are any other issues or concerns. She understands and agrees. Other specified anemias 04/06/202306/11 Assessment & Plan (04/06/2023 2:06 PM EST): Alice has anemia noted on her last blood work-I will further investigate this and rule out low iron with the additional lab work that I ordered today. She will follow-up with her PCP this Wednesday. I informed her to call if there are any other issues or concerns. She understands and agrees. Knee effusion, left 11/15/2022 07/02/19 Assessment & Plan (11/15/2022 9:04 PM EDT): Patient declined therapeutic / diagnostic aspiration / injection today Rash and other nonspecific skin eruption 10/30/2022 07/02/2023 Assessment & Plan (01/12/2023 4:56 PM EDT): Alice has been seen by Dr. Olmos recently and 2 biopsies were taken. She will consider starting Humira. Follow-up with the escapement maker as directed. Assessment & Plan (01/01/2023 5:07 PM EDT): Alice has a rash on her abdomen, trunk, arms and back-this has been spreading. She is requesting an urgent referral to Dr. Liz Walker-I put the referral in today and she was appreciative. She has tried multiple creams without much benefit. She will call if there are any other issues or concerns. She understands and agrees. Assessment & Plan (11/26/2022 3:01 PM EDT): Alice has a rash on her upper extremities and she is looking to see a different escapement maker-I put a referral into Dr. Walker. She was appreciative. She will call if there are any other issues or concerns. Assessment & Plan (11/02/2022 1:57 PM EDT): Alice has an ongoing rash. The escapement maker gave her guidance regarding methotrexate but she is on the fence with this. We discussed this medication along with its risk and benefits. She opted to avoid sunlight for the next month and if her symptoms get worse then to go ahead and try the methotrexate-monitoring labs closely. But if her symptoms improve then I would advise going without medication. She will call if there are any other issues or concerns. She understands and agrees. Assessment & Plan (10/30/2022 2:53 PM EDT): Alice has a rash of her upper extremities-she is followed by dermatology for this. Likely in response to light therapy. She stopped this recently. She will follow- up with a escapement maker as directed. She understands and agrees. Acute cough 03/29/2022 05/25/2022 Assessment & Plan (03/29/2022 1:25 PM EST): Virtual Visit Attestation Modality: interactive audio (phone only) Provider Location: home / other Patient Location: home Patient State: [place] E&M Billing based on time ([id number]): Yes Total time spent on date of service (min): 6 Time spent with patient during visit (min): 8 I personally spent the total time as documented on care for this patient on the date of the encounter, of which the time spent with the patient during the encounter has been separately documented. Alice notes that she has a bad cough that she is getting worse. She was diagnosed with COVID on the of this month. She has been getting antibodies- she had her third dose yesterday. She is using her inhalers. I advised her to go to urgent care or emergency room today for an evaluation to rule out pneumonia worsening disease. She is wondering how she can to get anywhere and I advised her to call friends, family members or anyone I can drive her for evaluation. She understands and agrees. COVID-19 virus infection 03/29/2022 Assessment & Plan (03/29/2022 1:26 PM EST): Alice was diagnosed with COVID on 03/25/2022 and she is going to the hospital and getting antibodies-yesterday was the third dose. Her symptoms are worsening though. I advised her to go for an evaluation today at urgent care or emergency room. She notes that she went to call somebody to drive her. She understands and agrees. Fungal infection 02/12/2022 09/10/2022 Assessment & Plan (03/05/2022 2:48 PM EDT): She still has some evidence of tinea around the rectum. She will use the Lotrisone cream for another week. Assessment & Plan (02/12/2022 2:09 PM EDT): Alice has a fungal infection to the perineum and I wrote for an antifungal cream as well as an antifungal tablet-to be taken/used as directed. She will call if this does not improve or if this gets worse. She understands and agrees. Left leg pain 08/07/2021 05/25/2022 Assessment & Plan (08/07/2021 1:59 PM EDT): Alice had left lower leg pain yesterday- resolved today. This is reassuring. She will call if there are any other issues with this. Left hip pain 08/07/2021 05/25/2022 Assessment & Plan (08/07/2021 1:58 PM EDT): Alice has left hip pain. I will have her go for an X-ray and I will update her with the results. guidance regarding symptomatic management given in the office today. F/U with PCP in a month. Gastrocnemius equinus of left lower extremity 10/12/1907/29/2023 Gastrocnemius equinus of rig ht lower extremity 10/11/2020 07/29/2023 Pain in left foot 10/11/2020 09/04/2021 Pain in right foot 10/11/2020 Left foot pain 09/19/2020 09/04/2021 Assessment & Plan (08/07/2021 2:00 PM EDT): Alice has left foot pain. I put a referral in the system for podiatry today. She was appreciative of this. Assessment & Plan (09/19/2020 1:20 PM EDT): My impression is that she has tendonitis, brought on by recent increase in weight bearing exercise in cardiac rehab. Discussed stretching, supportive shoes, rest, ice elevation. Referred to podiatry in case this doesn't improve over next few weeks w conservative measures. Pressure injury of left elbow, stage 2 06/17/2020 09/19/2020 Assessment & Plan (08/01/2020 5:22 PM EDT): Nearly resolved. Continue pressure offloading & good skin care Assessment & Plan (07/04/2020 2:45 PM EST): For Alice's left elbow wound-her current dressing was taken down and she was given a new dressing today in the office. Guidance given. She will call if there is any other issues. She understands and agrees. Demand ischemia 06/02/2020 06/17/2020 Assessment & Plan (06/03/2020 2:56 PM EST): Troponins in the ED increased from 14 up to 28. Following episode of wide-complex tachycardia troponins increased to 38. EKG's revealed sinus rhythm followed by A. fib but no significant T wave inversion. Concern that VT on groundwater monitoring technician might be precipitated by ischemia -Continue heparin drip Ventricular tachycardia 06/01/202006/11 Overview (12/04/2021): May 2020 prior to coronary stenting Assessment & Plan (12/04/2021 5:23 PM EDT): She remains on amiodarone. Message sent to her sheet rocker regarding possibility of discontinuing the amiodarone since she has been symptom-free since her stenting Assessment & Plan (06/17/2020 9:35 PM EST): Unclear from hospital notes if she had NSVT vs A.fib w aberancy. She was put on amiodarone . Has FU with cardiology next week. Assessment & Plan (06/03/2020 3:07 PM EST): VT episode on 06/01, concern that this might be in setting of ischemia, so plan for cardiac cath tomorrow 06/04 for further investigation. Cardiology was called and patient was treated with IV Lopressor 5 mg x 1 followed by amiodarone 300 mg IV bolus. With this intervention blood pressure improved significantly. After bolus of amiodarone monitor revealed atrial fib/flutter with periods of sinus rhythm. Amiodarone drip was started at 1 mg/h for 6 hours then 0.5 mg/h for 18 hours. Patient converted to sinus rhythm, but there is concern for VT, not afib with aberrancy? Cardiology following and recommending cath Patient continued on amiodarone load 400mg BID for 1 week Electrolytes reveal normal magnesium phosphorus and potassium. -Continue to monitor on telemetry. Fungal infection 03/08/2020 06/17/2020 Assessment & Plan (03/08/2020 4:01 PM EDT): Alice was diagnosed with a fungal infection of the skin and I treated her with nystatin powder-to be used as directed. She understands and agrees with this plan. She will call if this does not improve or if this is getting worse. Primary osteoarthritis of left ankle 05/06/2018 05/25/2022 Assessment & Plan (06/02/2018 12:00 PM EST): She will try naproxen w food Acute left ankle pain 04/28/20182020 Assessment & Plan (04/28/2018 10:52 AM EST): Still bothering her since February. Seeing rheum next week. Will update UL & autoimmune labs ordered. Asked her to get compressive sleeve. Stretch daily. Morbid obesity with BMI of 40.0-44.9, adult 04/14/2018 11/09/2019 Assessment & Plan (05/05/2019 12:50 PM EST): Weight has been stable over past several months but there has been about a 10lb weight gain since one year ago Strongly encouraged to call Jackie for resources around managing disordered eating Assessment & Plan (09/23/2018 2:36 PM EDT): Weight is stable within a 10lb range, BMI consistently >40 Heel callus 12/28/2017 06/17/2020 Assessment & Plan (12/28/2017 6:06 PM EDT): Has had this checked by dermatology, retirement benefits specialist and me. There is no sign of infection. She will use the topical products she was given. I did suggest she follow-up with orthotic specialist about shoes since she clearly chronically has pressure and probably some rubbing in this area. She continues to have pain I will send her to waterworks supervisor Rash and other nonspecific skin eruption 10/08/2017 06/17/2020 Assessment & Plan (03/22/2019 9:16 PM EST): I reassured her this doesn't look like shingles. I think it is fungal, it is improving with the nystatin cream. There lateral edge is a bit more inflamed & so I recommend she put hydrocortisone cream on the aspect for a few days. Continue to tx the psoriasis as per derm recommendations. Pt advised to follow up if sx worsen or fail to improve. Assessment & Plan (03/15/2019 3:22 PM EST): Doesn't look psoriatic. Diff dx is tinea, erythema migrans, contact derm. Will get Lyme testing. Will have her continue nystatin cream & call in 1 week w update Assessment & Plan (10/08/2017 10:13 AM EDT): Aliec was diagnosed with a heat rash to her back. It does not appear to be fungal or shingles. She was advised to use triamcinolone cream to the area BID x 14 days and to use baby powder to the back to help dry the area out. She was given guidance. She will call if this does not improve. She understands and agrees. Pruritus vulvae 09/29/2017 06/17/2020 Assessment & Plan (09/29/2017 1:18 PM EDT): Continue regimen of nightly fluocinonide. Increase nystatin to twice daily for 1 week. Tepid tub baths and then apply topicals, Moisture barrier of vaseline or coconut oil also discussed. Ice pack to vulva in evening to avoid scratching. PCOS (polycystic ovarian syndrome) 06/01/2017 07/02/2023 Overview (06/01/2017): with hirsutism, s/p spironolatone Assessment & Plan (02/28/2021 9:59 AM EDT): CGM Trial Type of Diabetes: Diabetes mellitus Type 2 Assessment/HPI: Alice is here today for CGM trial. Procedures: Glucose Monitoring: Type of Sensor: IPro, Instruction: Patient Instructed on:, Calibrations, When to test BS, Troubleshooting, What to expect with the sensor, Patient instructed to remove sensor if redness, pain or bleeding occurs. . Insertion Site Selected: arms, right Site Prep: Insertion site wiped with alcohol. Insertion: completed, area looks good, no redness, no bleeding. Plan: Procedure Codes: 64357 Glucose monitoring, cont Cutaneous candidiasis 04/09/20172017 Assessment & Plan (04/09/2017 5:18 PM EST): I recommended she restart daily use of nystatin powder in the right groin. Anxiety disorder 03/15/2017 10/13/2024 Assessment & Plan (07/02/2022 4:20 PM EST): Alice was experiencing a lot of anxiety today. She gets overwhelmed easily and feels very guilty about her chronic health problems. She was given the opportunity to ventilate her feelings and offered emotional support. She has a therapist and a psychiatrist and she feels safe at this time. Assessment & Plan (07/03/2020 10:17 PM EST): Alice was anxious throughout the telemedicine visit-crying at times secondary to feeling overwhelmed/anxious. She notes that she does this quite frequently. She states that she has medication for this. I advised her to take the medication as directed. She was able to calm down with some deep breathing. Follow-up in the office tomorrow-she was reassured by this. She understands and agrees. Assessment & Plan (06/03/2020 2:55 PM EST): Patient with significant anxiety disorder, very tearful and anxious about returning home, social work and case management consulted for assistance and transition of care -Continue with Klonopin 0.5 mg p.o. 3 times daily as needed. -Continue Effexor 375 mg p.o. daily. Assessment & Plan (03/15/2020 8:42 AM EST): Follows w psychiatrist Assessment & Plan (10/24/2019 2:03 PM EDT): Pt given guidance about COVID risk and measures she can take to reduce risk including social distancing, wearing mask, hand hygiene. Continue therapy & FU with psychiatrist regarding recent sleep issues Carpal tunnel syndrome of left wrist 03/15/2017 02/05/2021 Cubital tunnel syndrome on left 03/15/2017 02/05/2021 Pain of left hand 03/15/2017 06/01/2017 Pain of right hand 03/15/2017 8 Lipoma 03/15/2017 07/02/2023 Assessment & Plan (03/05/2022 2:49 PM EDT): On her mons pubis. Stable Lichen sclerosus 03/15/2017 05/14/2017 Assessment & Plan (04/09/2017 5:14 PM EST): Reviewed findings with patient. I reviewed the importance of regular maintenance topical steroid use to prevent symptoms, further scarring, and squamous cell cancer of the vulva. I also explained the importance of regular follow up to ensure she has no evidence of precancerous or cancerous changes and that she is not having side effects from her medication. I reviewed areas of application and amount of medication to use. I explained that she needs to cover the area further in on the labia and showed her explicitly where to do this. Will continue fluocinonide and mometasone daily at this time with plans to cut back once covering right areas and better controlled. Close follow up in 6 weeks. Right knee pain 03/15/2017 09/19/2020 Acute pain of left shoulder 03/15/2017 06/17/2020 Assessment & Plan (03/08/2020 4:02 PM EDT): Alice notes that her left shoulder has been painful thus I put a referral in for physical therapy. She will call to make the appointment. I advised her to call if this does not improve or if this gets worse. She understands and agrees. 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 Assessment & Plan (04/09/2017 5:14 PM EST): No treatment at this time. Epidermal inclusion cyst 03/15/2017 Diabetes 05/10/2000 06/01/2017 Overview (06/01/2017): type 2 diabetes since May 2000, uncont, s/p ByMeghan minaya, Glimepiride; inj site rxn Levamir Encounters Date Type Department Care Team Description 03/01/2025 Patient Outreach [facility] [address] [place] [phone] Tori Esposito Care Coordination (Care compass [facility]) 02/27/2025 3:57 PM EDT - 02/27/2025 11:59 PM EDT Hospital Encounter [facility] [address] [place] [address] Mirna Zhou, PADuaneC Discharge Disposition: Home or Self Care 02/26/2025 Patient Outreach [facility] [address] [place] [phone] Jailyn Mathur HEAD OF DRAMA Care Coordination (Social Work) 02/23/2025 Patient Outreach [facility] [address] [place] [phone] Jailyn Mathur HEAD OF DRAMA Care Coordination (SW) 02/22/2025 Refill [facility] [address] [place] [address] Anisa Crowell, RAFAEL Medication Refill 02/22/2025 Refill [facility] [address] [place] [address] Anisa Crowell CNP Med Change Request 02/21/2025 Telephone [facility] [address] [place], [place] [phone] Toña Treviño CNP Care Coordination ([facility] Outreach ) 02/21/2025 Refill [facility] [address] [place] [address] Toña Treviño CNP Medication Refill 02/18/2025 Refill [facility] [address] [place] [address] Anisa Crowell CNP Medication Refill 02/15/2025 9:49 AM EDT - 02/15/2025 11:59 PM EDT Hospital Encounter [facility] [address] [place] [address] Arron Alejandre, DO Discharge Disposition: Home or Self Care 02/15/2025 8:45 AM EDT Office Visit [address] [address] Arron Alejandre, Pain in both hands (Primary Dx); Diarrhea, unspecified type; Rash and other nonspecific skin eruption; Anxiety and depression; Acute right-sided low back pain without sciatica; Screening for condition 02/15/[address] [address] Mariann Sandhu MA Medication Problem (clotrimazole-betame thasone (LOTRISONE) cream) 02/13/2025 2:30 PM EDT Office Visit [facility] [address] [place] [address] Cordell Lutz PA-C, MARIXA Marshal Jimenez, PT Bilateral chronic knee pain (Primary Dx) 02/12/2025 3:23 PM EDT - 02/12/2025 11:59 PM EDT Hospital Encounter [facility] [address] [place] [address] Vanessa Rubin MD Discharge Disposition: Home or Self Care 02/11/2025 12:46 PM EDT - 02/11/2025 11:59 PM EDT Hospital Encounter [facility] [address] [place] [address] Vanessa Rubin MD Discharge Disposition: Home or Self Care 02/06/2025 1:20 PM EDT Office Visit [facility] [address], [address] [place] [address] Diaz Verdugo MD Mixed hyperlipidemia (Primary Dx); Essential hypertension; Paroxysmal atrial fibrillation; Coronary artery disease involving [place] coronary artery of [place] heart without angina pectoris; Cardiac pacemaker in situ 02/05/2025 Enrollment [facility] [address] [place] [address] 02/03/2025 Refill [facility] [address] [place] [address] Yessenia Shah MD, MPH Medication Refill 02/01/2025 12:30 PM EDT Office Visit [facility] [address] [place] [address] Anisa Crowell, RAFAEL Type 2 diabetes mellitus with other specified complication, with long-term current use of insulin (Primary Dx); Mixed hyperlipidemia; Essential hypertension 01/30/2025 2:50 PM EDT Office Visit [facility] [address] [place] [address] Vanessa Rubin MD Lichen sclerosus (Primary Dx); Atrophy of vulva; Diarrhea, unspecified type 01/30/2025 [facility] [address] [place] [address] Vanessa Rubin MD Appointment 01/29/2025 1:45 PM EDT Office Visit [facility] [address] [place] [address] Cordell Lutz PA-C, MARIXA Marshal Jimneez, PT Bilateral chronic knee pain (Primary Dx) 01/29/2025 Telephone [facility] [address] [place] [address] Yessenia Shah MD, MPH 01/29/2025 Plan of Care Documentation [facility] [address] [place] [address] 01/25/2025 Telephone [facility] [address] [place] [address] Gloria Vela MA CLINICAL NOTES 01/22/2025 Telephone [facility] [address] [place] [address] Anisa Crowell, RAFAEL ALVARENGAE 2 READER 01/17/2025 1:20 PM EDT - 01/17/2025 11:59 PM EDT Hospital Encounter [facility], [address] [address] Arron Alejandre, DO Discharge Disposition: Home or Self Care 01/16/2025 2:15 PM EDT Office Visit [address] [address] Arron Alejandre, Chronic cough (Primary Dx); Screening for condition 01/15/2025 Telephone [facility] at [address] [address] Mirna Zhou PA-C 01/12/[address] [address] Arron Alejandre, Medication Refill 01/10/2025 2:40 PM EDT Office Visit [facility] at [address] [address] Sherrill Alford, RAFAEL Acute cough (Primary Dx); Sore throat; Shortness of breath on exertion 01/09/2025 Nurse Triage [facility] [address] [place] [address] Hanna Harris PA-C Cough (After hours call) 01/04/[address] [address] Toña Treviño CNP Triage (Red - Rapid heart beat after medication) 01/03/2025 Telephone [facility] [address] [place] [address] Qiana Javed PA-C Medication Question (After-hours on-call) 01/02/2025 Telephone [facility] 2 [facility] [address] [place] [address] Mary Jo Thomas PA-C Medication Refill (After hours call) 12/27/2024 Refill [facility] [address] [place] [address] Emilia Packer PA-C Medication Refill 12/26/2024 2:30 PM EDT Office Visit [facility] [address] [place] [address] [place] [address] Anisa Crowell CNP Type 2 diabetes mellitus with other specified complication, with long-term current use of insulin (Primary Dx); Essential hypertension; Mixed hyperlipidemia 12/22/2024 6:00 PM EDT Office Visit [facility] at [address] [address] Nya Flores PA-C Allergic contact dermatitis due to jewelry (Primary Dx); History of psoriasis 12/21/[address] [address] Toña Treviño CNP [facility] Update 12/19/2024 Patient Outreach [facility] [address] [place] [address] Telma Chino, DIXIE Care Coordination (iCMP) 12/12/2024 9:00 AM EDT Home Care Visit [facility] [address] [place] [phone] Yi oSusa, DIXIE SN OASIS DISCHARGE VISIT 12/11/2024 2:00 PM EDT Nutrition [facility] [address] [place] [address] [place] [address] Jasmina Peraza MD Dawicki, Jessica Jeanne, LDN Type 2 diabetes mellitus without complication, with long-term current use of insulin (Primary Dx) 12/09/2024 Refill [facility] [address] [place] [address] Hanna Harris PA-C Medication Refill 12/06/2024 Orders Only [facility] [address], [address] [place] [address] ProviderPuneet MD 12/04/2024 1:45 PM EDT Office Visit [facility] [address] [place] [address] Cait Mcbride MD Sinus node dysfunction (Primary Dx); Meningioma; Class 3 severe obesity with serious comorbidity and body mass index (BMI) of 40.0 to 44.9 in adult; Essential hypertension from Last 3 Months Immunizations Immunization Administration Dates Next Due COVID-19 (Pre-03/01) Pfizer Vaccine, mRNA, PF 08/09/2020,07/19/2020 INFLUENZA, SPLIT VIRUS, TRIVALENT PF 03/07/2014 INFLUENZA, SPLIT VIRUS, TRIV ALENT W/ PRESERVATIVE IM 02/21/2016,03/09/2011,02/04/2010 Influenza High-Dose Quadriva lent Preservative Free IM 03/05/2022 Influenza Quadrivalent Adjuv anted Preservative Free IM 02/13/2023 Influenza Quadrivalent MDCK Preservative Free IM 02/22/2018,03/02/2017 Influenza Quadrivalent Preservative Free IM 01/09,03/08/2020 Influenza Trivalent Adjuvant ed Preservative free IM 02/23/2024 Influenza, Unspecified Formulation 01/27/2019,,02/07/2017 Pneumococcal conjugate PCV20 05/25/2022 Pneumococcal polysaccharide PPSV23 05/21/2021, Td (adult),2 Lf Tetanus Toxo id, PF, Adsorbed 07/15/2017,11/19/1999 Tdap 06/18/2009 Family History Medical History Relation Comments Hypertension Father Parkinson's disease Father Cancer Maternal Grandmother CV disease Mother Crohn's disease Mother Dementia Mother Arthritis Paternal Aunt 1 Breast cancer Paternal Aunt 1 Diabetes mellitus Paternal Aunt 1 Lung cancer Paternal Aunt 1 Lymphoma Paternal Aunt 1 Hypertension Paternal Grandfather Cancer Paternal Grandmother Parkinson's disease Sister Uterine cancer Sister Relation Status Comments Father Maternal Grandfather Maternal Grandmother Mother Paternal Aunt 1 Paternal Aunt 2 Paternal Grandfather Paternal Grandmother Sister Alive Social History Tobacco Use Types Packs/Day Years Used Date Smoking Tobacco: Never Passive Smoke Exposure: Never Smokeless Tobacco: Never Tobacco Cessation:Counseling Given: Not Answered Alcohol Use Standard Drinks/Week Comments No 0 [...] is your housing situation today? I have herberthjesus feliicano 10/13/2024 How many times have you move [...] Not on file Not on fi le Last Filed Vital Signs Vital Sign Reading Time Taken Comments Blood Pressure 126/72 02/15/2025 9:02 AM EDT Pulse 62 02/15/2025 9:02 AM EDT Temperature 36.2 C (97.2 F) 02/15/2025 9:02 AM EDT Respiratory Rate 22 01/10/2025 2:44 PM EDT Oxygen Saturation 97% 02/15/2025 9:02 AM EDT Inhaled Oxygen Concentration - - Weight 97.5 kg (215 lb) 02/06/2025 1:32 PM EDT Height 154.9 cm (5' 0.98 ) 02/15/2025 9:02 AM ED T Body Mass Index 40.65 02/06/2025 1:32 PM EDT Plan of Treatment Upcoming Encounters Date Type Department Care Team (Late st Contact Info) Description 03/02/2025 1:45 PM EDT Office Visit [facility] [address] [place] [address] Cordell Lutz PA-C, MARIXA [address] [place] [address] Marshal Jimenez, PT [address] [place] [address] [email or web address] 03/06/2025 12:00 PM EDT Telemedicine - audio only [facility] at [facility] [address] [place] [address] Mirna Zhou PA-C [address] [place] [address] 03/06/2025 2:40 PM EDT Office Visit [facility] [address] [place] [phone] Jasmina Peraza MD 22 [facility], 1st [place] [address] 03/08/2025 1:00 PM EDT Office Visit [address] [address] Cordell Lutz PA-C, MARIXA [address] [place] [address] Marshal Jimenez, PT 8 [place] [address] [email or web address] 03/12/2025 1:15 PM EST Office Visit [facility] [address] [place] [address] Yessenia Shah MD, MPH [address] [facility], [address] [place] [address] Qiana Llamas, OT 8 [place] [address] 03/19/2025 1:15 PM EST Office Visit [facility] [address] [place] [address] Yessenia Shah MD, MPH [address] [facility], [address] [place] [address] Muriel Qiana, OT 8 [place] [address] 03/20/2025 1:20 PM EST Telemedicine [facility] [address] [place] [address] Aniyah Ogden, PA-C [address] [place] [phone] 03/26/2025 2:10 PM EST Office Visit [facility] [address] [place] [address] Yessenia Shah MD, MPH [address] [place] [address], [address] [address] 03/30/2025 4:15 PM EST Office Visit [address] [address] rAron Alejandre, [address] [place] [address] 7 [place] [address] 04/12/2025 2:00 PM EST Nutrition [facility] [address] [place] [phone] Maddison Lea LDN [address] [facility], 1st [place] [address] 04/20/2025 2:30 PM EST Office Visit [facility] [address] [place] [address] Toña Treviño, FACILITIES MANAGEMENT EXECUTIVE [address] [address] 06/04/2025 1:30 PM EST Office Visit [facility] [address] [place] [address] Anisa Crowell, FACILITIES MANAGEMENT EXECUTIVE [address] [facility], 1st [place] [address] 08/06/2025 1:00 PM EDT Office Visit [facility] [address] [place] [address] 3rd Floor, [address] [place] [address] Beulah Watkins DNP [address] [place] [address], [address] [address] 02/07/2026 1:20 PM EDT Office Visit [facility] [address] [place] [address] 3rd [facility], [address] [place] [address] Diaz Verdugo MD [address] [place] [address], [address] [place] [address] Health Maintenance Due Date Last Done Comments COLOGUARD 2001 FOBT 2001 SIGMOIDOSCOPY 2001 VIRTUAL COLONOSCOPY 2001 RSV VACCINE (1 - Risk 50-74 years 1-dose series) 2006 ZOSTER VACCINES (1 of 2) 2006 OSTEOPOROSIS SCREENING INITIAL (ONE-TIME) 2021 DIABETIC EYE EXAM 12/26/2022 12/26/2021, , 05/16/2020 INFLUENZA VACCINE (#1) 2024 4, 02/13/2023, 02/13/2023, Additional history exists HEMOGLOBIN A1C 05/03/2025 02/01/2025, 09/08, 07/03/2024, Additional history exists FIT TEST 07/12/2025 07/12/2024 COVID-19 VACCINE ( season) 2025 01/31/2025, 01/22/2024, 03/03/2023, Additional history exists BLOOD PRESSURE 08/16/2025 02/15/2025 TSH LEVEL 10/13/2025 10/13/2024, 07/08, 07/07/2024, Additional history exists MAMMOGRAM 10/20/2025 10/21/2023, 09/07, 04/28/2019, Additional history exists DEPRESSION SCREENING 11/03/2025 11/03/2024, 10/31/19 21 CREATININE LEVEL 02/15/2026 02/15/2025, 12/2024, 10/15/2024, Additional history exists POTASSIUM LEVEL 02/15/2026 02/15/2025, 07/0 12/2024, 10/15/2024, Additional history exists Adult Td,Tdap Booster 07/16/2027 07/15/2017 , 06/18/2009, 11/19/1999 COLONOSCOPY 02/08/2034 02/09/2024, 01/06/2012 COLORECTAL CANCER SCREENING 02/08/2034 PNEUMOCOCCAL VACCINES (50+ years) Completed 05/25/2022, 05/21/2021, 04/14/1999 HEPATITIS C SCREENING Completed 07/07/2024 , 07/07/2024, 05/08/2024, Additional history exists SMOKING STATUS SCREENING (Once After 26 Yrs) Completed 02/06/2025 HEPATITIS A VACCINES Aged Out No long er eligible based on patient's age to complete this topic HIB VACCINES Aged Out No longer eligi ble based on patient's age to complete this topic MENINGOCOCCAL VACCINES (ACWY) Aged Out No longer eligible based on patient's age to complete this topic MENINGOCOCCAL VACCINES (B) Aged Out N o longer eligible based on patient's age to complete this topic Goals Goal Patient Goal Type Associated Problems Recent Progress Patient-Stated? Author Increase physical activity / mobility Care Plan Activity intolerance / Impaired Functional Mobility No Telma Chino RN Note: Adhere to treatment plan Care Plan Chronic Condition Self-Management No Telma Chino RN Note: Medical Devices Implanted Type Area Hose Cementer Device Identifier Shelf Expiration Date Model / Serial / Lot Lead Tendril Sts 6fr 58cm Pacing Optim Insulation Ext/Ret Erath Silicone Tip Is-1 Bipolar Connector - [id number] Implanted:Qty: 1 on 10/13/2024 by Arron Torres MD at [facility] Lead [employer] [id number] 04/08/2027 2088TC/58 / [id number] / Lead Tendril Sts 6fr 52cm Pacing Optim Insulation Ext/Ret Erath Silicone Tip Is-1 Bipolar Connector - [id number] Implanted:Qty: 1 on 10/13/2024 by Arron Torres MD at [facility] Lead [employer] [id number] 06/09/20278TC/52 / [id number] / Pacemaker Dual Chamber [id number] 20g 10.4cc Is-1 Connector Assurity Mri - [id number] Implanted:Qty: 1 on 10/13/2024 by Arron Torres MD at [facility] Pacemaker [employer] [id number] 12/07/2025 [id number] / [id number] / Cardiac Stent Procedures Procedure Name Priority Date/Time Associated Diagnosis Comments CBC AND DIFFERENTIAL Routine 02/27/2025 3:58 PM EDT Iron deficiency anemia, unspecified iron deficiency anemia type IRON AND IRON BINDING CAPACITY Routine 02/27/2025 3:58 PM EDT Iron deficiency anemia, unspecified iron deficiency anemia type FERRITIN Routine 02/27/2025 3:58 PM EDT Iron deficiency anemia, unspecified iron deficiency anemia type URINE SEDIMENT Routine 02/15/2025 10:04 AM EDT URINALYSIS W/REFLEX URINE CULTURE Routine 02/15/2025 10:04 AM EDT Acute right-sided low back pain without sciatica URINE CULTURE Routine 02/15/2025 10:04 AM EDT TISSUE TRANSGLUTAMINASE IGA Routine 02/15/2025 9:50 AM EDT 25-OH VITAMIN D Routine 02/15/2025 9:50 AM EDT Vitamin D deficiency, unspecified CBC Routine 02/15/2025 9:50 AM EDT Acute right-sided low back pain without sciatica COMPREHENSIVE METABOLIC PANEL Routine 02/15/2025 9:50 AM EDT Acute right-sided low back pain without sciatica Celiac antibodies Routine 02/15/2025 9:5 0 AM EDT Diarrhea, unspecified type OVA AND PARASITES, STOOL Routine 02/11/2025 7:30 PM EDT Diarrhea, unspecified type FECAL LEUKOCYTE EXAMINATION Routine 02/11/2025 7:30 PM EDT Diarrhea, unspecified type C. DIFFICILE PCR Routine 02/11/2025 7:30 PM EDT Diarrhea, unspecified type POCT HEMOGLOBIN A1C Routine 02/01/2025 12:58 PM EDT Type 2 diabetes mellitus with other specified complication, with long-term current use of insulin AMB REFERRAL TO [facility] PHYSICAL THERAPY Routine 01/29/2025 3:28 PM EDT Knee pain XR CHEST PA AND LATERAL 2 VIEWS Urgent/patient waiting 01/17/2025 1:58 PM EDT Chronic cough POCT COVID-19 RT-PCR/INFLUENZA A & B/RSV CEPHEID Routine 01/10/2025 2:49 PM EDT Acute cough TSH WITH REFLEX STAT 10/13/2024 8:43 AM EDT HC BLOOD OCCULT FECAL HGB DETER IA QUAL FECES 1-3 Routine 07/12/2024 4:00 PM EST Acquired hypothyroidism Anemia, unspecified type Abnormal liver function Fatty liver disease, nonalcoholic HEPATITIS C ANTIBODY, QUALITATIVE Routine 07/07/2024 1:58 PM EST Acquired hypothyroidism Anemia, unspecified type Abnormal liver function Fatty liver disease, nonalcoholic ENDOSCOPY, COLON 02/09/2024 11:46 AM EDT BI MAMMOGRAM SCREENING WITH TOMOSYNTHESIS WITH CAD (BILATERAL) Routine 10/21/2023 2:18 PM EDT Screening mammogram for breast cancer DIABETES EYE EXAM FOR RESULT ENTRY ONLY Routine 12/26/2021 from Last 3 Months or Most Recently Relevant to Health Maintenance Results * Iron and iron binding capacity (02/27/2025 3:58 PM EDT) IRON 57 30 - 160 ug/dL [facility] IRON BINDING CAPACITY 326 228 - 428 ug/dL [facility] TRANSFERRIN SATURAT. 17 15 - 50 % [facility] Blood 02/27/2025 3:58 PM EDT 02/27/2025 4:07 PM EDT Mirna Zhou PA-C LAB BLOOD ORDERABLES Final Result [address] [address] * (ABNORMAL) CBC and differential (02/27/2025 3:58 PM EDT) WBC 8.05 4.00 - 11.00 K/uL [facility] RBC 4.53 4.00 - 5.20 M/uL [facility] HGB 12.4 12.0 - 16.0 g/dL [facility] HCT 40.4 36.0 - 46.0 % [facility] PLT 228 150 - 450 K/uL [facility] MCV 89.2 80.0 - 100.0 fL [facility] MCH 27.4 27.0 - 31.0 pg [facility] MCHC 30.7(L) 32.0 - 36.0 g/dL [facility] RDW 14.8(H) 11.5 - 14.5 % [facility] MPV 10.8 8.4 - 12.0 fL [facility] NRBC 0.00 0.00 /100 WBCs [facility] ABSOLUTE NRBC 0.00 0.00 K/uL [facility] DIFF METHOD Auto [facility] NEUTS 72.5 48.0 - 76.0 % [facility] LYMPHS 18.8 18.0 - 41.0 % [facility] MONOS 5.7 4.0 - 11.0 % [facility] EOS 2.0 0.0 - 5.0 % [facility] BASOS 0.6 0.0 - 1.5 % [facility] Granulocytes, immature (%) 0.4 0.0 - 0.9 % [facility] ABSOLUTE NEUTS 5.84 1.92 - 7.60 K/uL [facility] ABSOLUTE LYMPHS 1.51 0.72 - 4.10 K/uL [facility] ABSOLUTE MONOS 0.46 0.16 - 1.10 K/uL [facility] ABSOLUTE EOS 0.16 0.00 - 0.50 K/uL [facility] ABSOLUTE BASOS 0.05 0.00 - 0.15 K/uL [facility] Granulocytes, immature 0.03 0.00 - 0.09 K/uL [facility] Blood 02/27/2025 3:58 PM EDT 02/27/2025 4:07 PM EDT us Mirna Zhou PA-C LAB BLOOD ORDERABLES Final Result [facility] [address] [place] [address] * Ferritin (02/27/2025 3:58 PM EDT) FERRITIN 28 13 - 150 ug/L [facility] Blood 02/27/2025 3:58 PM EDT 02/27/2025 4:07 PM EDT us Mirna Zhou PA-C LAB BLOOD ORDERABLES Final Result Performing Organization Address [facility] Co de Phone Number [address] [address] * (ABNORMAL) Urinalysis w/reflex Urine Culture (02/15/2025 10:04 AM EDT) COLOR Yellow Yellow [facility] CLARITY Clear [facility] GLUCOSE Negative Negative [facility] BILI Negative Negative [facility] KETONES Negative Negative [facility] SPECIFIC GRAVITY 1.015 1.005 - 1.030 [facility] BLOOD Negative Negative [facility] PH 5.5 5.0 - 8.0 [facility] Protein-UA Negative Negative [facility] NITRITE Negative Negative [facility] Leukocyte esterase, ur 1+(A) Negative [facility] Urine (Urine) 02/15/2025 10: 04 AM EDT 02/15/2025 10:06 AM EDT us Arron Alejandre DO URINE ORDERABLES Final Result Performing Organization Address [facility] Co de Phone Number [address] [address] * (ABNORMAL) Urine Culture (02/15/2025 10:04 AM EDT) Special Requests None Reflexed from [id number] 02/15/2025 7:23 PM EDT [facility] Urine Culture 10,000 to 100,000 colony forming units per mL MIXED FRANKY (3 OR MORE COLONY TYPES) Culture indicates contamination . Please resubmit if necessary.(A) 02/17/2025 7:21 AM EDT [facility] Urine 02/15/2025 10:0 4 AM EDT 02/15/2025 10:06 AM EDT us Arron Alejandre DO MICROBIOLOGY - GENERAL ORDERABLE S Final Result Performing Organization Address [facility]/ZIP Co de Phone Number [address] [address] * (ABNORMAL) Urine sediment (02/15/2025 10:04 AM EDT) WBC 21-49(A) NONE SEEN /hpf [facility] RBC 0-2(A) NONE SEEN /hpf [facility] URINE EPITHELIAL 0-4(A) NONE SEEN [facility] MUCUS Trace(A) NONE SEEN /hpf [facility] BACTERIA Trace(A) NONE SEEN /hpf [facility] 02/15/2025 10:0 4 AM EDT 02/15/2025 10:06 AM EDT Arron Alejandre DO URINE ORDERABLES Final Result Performing Organization Address [facility] Co de Phone Number [address] [address] * Celiac Screening Test Panel (02/15/2025 9:50 AM EDT) IgA 181 61 - 356 mg/dL [facility] Celiac Disease Panel/Interpret ation SEE NOTE [facility] Comment: (NOTE) See Comment: Negative serology. Celiac disease unlikely. However, approximately 10% of patients with celiac disease are seronegative. Also, patients who are already adhering to a gluten-free diet may be seronegative. If celiac disease is highly clinically suspected, consider HLA-DQ typing. Blood 02/15/2025 9:50 AM EDT 02/15/2025 9:57 AM EDT Arron Alejandre DO LAB BLOOD ORDERABLES Final Resul t Performing Organization Address [facility]/ZIP Co de Phone Number [facility] [address] [place] [address] * (ABNORMAL) Comprehensive metabolic panel (02/15/2025 9:50 AM EDT) SODIUM 143 133 - 146 mmol/L [facility] POTASSIUM 4.3 3.3 - 5.1 mmol/L [facility] CHLORIDE 105 96 - 108 mmol/L [facility] CO2 28 21 - 35 mmol/L [facility] BUN 11 6 - 19 mg/dL [facility] CREATININE 0.60 0.5 - 1.5 mg/dL [facility] GLUCOSE 145(H) 70 - 99 mg/dL [facility] ALBUMIN 3.9 3.9 - 4.8 g/dL [facility] TOTAL PROTEIN 6.8 6.5 - 8.0 g/dL [facility] CALCIUM 9.8 8.4 - 10.3 mg/dL [facility] ALKALINE PHOSPHATASE 104 39 - 117 U/L [facility] TOTAL BILIRUBIN <0.2 0.0 - 1.2 mg/dL [facility] AST 17 0 - 37 U/L [facility] ALT 10 0 - 40 U/L [facility] GLOBULIN 2.9 1 - 4.8 g/dL [facility] EGFR 98 >59 mL/min/1.7 3m2 [facility] Comment:Estimated glomerular filtration rate calculated using the CKD-EPI refit equation. ANION GAP 14 10 - 20 mmol/L [facility] Blood 02/15/2025 9:50 AM EDT 02/15/2025 9:57 AM EDT Arron Alejandre DO LAB BLOOD ORDERABLES Final Resul t Performing Organization Address City/[facility]/ZIP Co de Phone Number [address] [address] * Tissue transglutaminase IgA (02/15/2025 9:50 AM EDT) TTG IGA ANTIBODY <1.2 <4.0 (Negative) U/mL [facility] 02/15/2025 9:50 AM EDT 02/15/2025 9:57 AM EDT Arron Alejandre DO LAB BLOOD ORDERABLES Final Resul t [facility] [address] [place] [address] * (ABNORMAL) 25-OH vitamin D (02/15/2025 9:50 AM EDT) 25 OH VIT D (TOTAL) 29(L) 30 - 60 ng/mL [facility] Blood 02/15/2025 9:50 AM EDT 02/15/2025 9:57 AM EDT Arron Alejandre LAB BLOOD ORDERABLES Final Resul t Performing Organization Address [facility] Co de Phone Number [address] [address] * (ABNORMAL) CBC (02/15/2025 9:50 AM EDT) WBC 8.55 4.00 - 11.00 K/uL [facility] RBC 4.37 4.00 - 5.20 M/uL [facility] HGB 12.1 12.0 - 16.0 g/dL [facility] HCT 38.9 36.0 - 46.0 % [facility] PLT 226 150 - 450 K/uL [facility] MCV 89.0 80.0 - 100.0 fL [facility] MCH 27.7 27.0 - 31.0 pg [facility] MCHC 31.1(L) 32.0 - 36.0 g/dL [facility] RDW 14.7(H) 11.5 - 14.5 % [facility] MPV 10.9 8.4 - 12.0 [facility] NRBC 0.00 0.00 /100 WBCs [facility] ABSOLUTE NRBC 0.00 0.00 K/uL [facility] Blood 02/15/2025 9:50 AM EDT 02/15/2025 9:57 AM EDT Arron Alejandre DO LAB BLOOD ORDERABLES Final Resul t Performing Organization Address City/[facility] Co de Phone Number [address] [address] * Fecal leukocyte examination (02/11/2025 7:30 PM EDT) Special Requests None 02/12/2025 3:32 PM EDT [facility] GRAM STAIN No WBC seen on smear. 02/13/2025 8:32 AM EDT [facility] Stool (Stool) 02/11/2025 7:3 0 PM EDT 02/12/2025 3:36 PM EDT Vanessa Rubin MD MICROBIOLOGY - GENERAL ORD ERABLES Final Result Performing Organization Address [facility]/ZIP Co de Phone Number [address] [address] * C. DIFFICILE PCR (02/11/2025 7:30 PM EDT) C.DIFFICILE PCR Negative Negative [facility] C.DIFFICILE STRAIN PRESUMPTIVE NEGATIVE PRESUMPTIVE NEGATIVE [facility] Comment:Detection of 027/NAP 1/BI strains of C.difficile is presumptive and is solely for epidemiological purposes and is not intended to guide or monitor treatment of infections. Stool (Stool) 02/11/2025 7:3 0 PM EDT 02/12/2025 3:37 PM EDT Vanessa Rubin MD MICROBIOLOGY - GENERAL ORD ERABLES Final Result Performing Organization Address City/[facility]/ZIP Co de Phone Number [address] [address] * Ova and parasites, stool (02/11/2025 7:30 PM EDT) Parasitic exam FINAL 5 0934 [facility] OF LAB MED AND PAT+ Comment: (NOTE) SOURCE: STOOL, STLP OVA AND PARASITE, MICROSCOPY, F FINAL No parasites seen. Cryptosporidium, Cyclospora, and microsporidia are not readily detected by this method. Single negative specimen does not rule out parasitic infection. Stool (Stool) 02/11/2025 7:3 0 PM EDT 02/12/2025 3:37 PM EDT us Vanessa Rubin MD MICROBIOLOGY - GENERAL ORD ERABLES Final Result [facility] MED AND PAT+ [address] [place] [address] * (ABNORMAL) POCT Hemoglobin A1c (02/01/2025 12:58 PM EDT) Hemoglobin A1c 8.4(A) 4.2 - 5.6 % [employer] [facility] Other 02/01/2025 12:5 8 PM EDT us Anisa Crowell CNP POINT OF CARE TEST ORDERABLES Final Result Performing Organization Address City/[facility]/ZIP Co de Phone Number [employer] [facility] [address] [place] [address], [facility] * Ambulatory referral to [facility] Physical Therapy (01/29/2025 3:28 PM EDT) Other us Cordell Lutz PA-C, MBA AMB [facility] REFERRALS Teena l Result * XR CHEST PA AND LATERAL 2 VIEWS (01/17/2025 1:58 PM EDT) Anatomical Region Laterality Modality Chest Computed Radiogr aphy 01/17/2025 2:08 PM EDT Impressions 01/17/2025 2:13 PM EDT No acute abnormality. Narrative 01/17/2025 2:13 PM EDT XR CHEST PA AND LATERAL 2 VIEWS Referring clinician's provided indication for this examination in Epic: Cough COMPARISON: XR CHEST PORTABLE FINDINGS: Devices/Tubes/Lines: Left chest wall dual-lead pacemaker with leads projected over the right atrium and ventricle. Lungs: The lungs are clear. No focal consolidation or pulmonary edema. Pleura: No pleural effusion or pneumothorax. Heart/Mediastinum: Unchanged in appearance. Bones/Soft Tissues: Multilevel degenerative changes of the spine. Procedure Note Dania Aquino MD - 01/17/2025 XR CHEST PA AND LATERAL 2 VIEWS Referring clinician's provided indication for this examination in Epic:Cough COMPARISON: XR CHEST PORTABLE FINDINGS: Devices/Tubes/Lines: Left chest wall dual-lead pacemaker with leadsprojected over the right atrium and ventricle. Lungs: The lungs are clear. No focal consolidation or pulmonary edema. Pleura: No pleural effusion or pneumothorax. Heart/Mediastinum: Unchanged in appearance. Bones/Soft Tissues: Multilevel degenerative changes of the spine. IMPRESSION: No acute abnormality. us Arron Alejandre DO IMG XR CHEST Final Result * POCT COVID-19 RT-PCR/Influenza A & B/RSV (Cepheid) (01/10/2025 2:49 PM EDT) Pathologist [facility] RSV PCR Negative Negative [facility] SARS-CoV-2 (COVID-19) Negative Negative [facility] POC Influenza A PCR Negative Negative [facility] POC Influenza B PCR Negative Negative [facility] 01/10/2025 2:49 PM EDT 01/10/2025 3:34 PM EDT Sherrill Alford [facility] POINT OF CARE TE ST ORDERABLES Final Result [facility] [address] [place] [address], [facility] [phone] * (ABNORMAL) TSH with reflex (10/13/2024 8:43 AM EDT) Pathologist [facility] TSH 4.92(H) 0.27 - 4.20 uIU/mL [facility] Blood 10/13/2024 8:43 AM EDT 10/13/2024 8:45 AM EDT us Dru Castro MD LAB BLOOD ORDERABLES Final Resu lt Performing Organization Address [facility] Co de Phone Number [address] [address] * Fecal immunochemical test x1 (FIT) (07/12/2024 4:00 PM EST) Immuno Fecal Occult Negative Negative [facility] Stool (Stool) 07/12/2024 4:0 0 PM EST 07/13/2024 4:48 PM EST Arron Alejandre DO BODY FLUIDS AND STOOLS ORDERABLE S Final Result Performing Organization Address [facility] [[email or web address]] de Phone Number [address] [address] * Hepatitis C antibody, qualitative (07/07/2024 1:58 PM EST) HCV NON-REACTIV E NON-REACTI VE [facility] Blood 07/07/2024 1:58 PM EST 07/07/2024 2:08 PM EST us Arron Alejandre DO LAB BLOOD ORDERABLES Final Resul t Performing Organization Address [facility] de Phone Number [address] [address] * ENDOSCOPY, COLON (02/09/2024 11:46 AM EDT) Narrative Transcriptions Diaz Ceja MD - 02/09/2024 11:46 AM EDT [facility] Patient Name: Alice Ramirez MD:: DIAZ CEJA MD, Procedure Date: 02/09/2024 11:46 AM Date of : 1955 Age: 68 Admit Type: Outpatient Gender: Female Room: [facility] 05 Referring MD: Toña Treviño Exam Type: Colonoscopy Indications: Screening for colorectal malignant neoplasm, Last colonoscopy 10 years ago Medications: Monitored Anesthesia Care Procedure: Informed consent was obtained from the patientafter discussion of the indications, limitations, alternatives, benefits, and risks of the procedure. Risks specifically discussed include but are not limited to medication reactions, missed lesions, bleeding, perforation, or the need for emergent surgery. Throughout the procedure, the patient's blood pressure, pulse, end-tidal CO2, and oxygensaturations were monitored continuously. The Olympus adult variable colonoscope [id number] #1 was introduced through the anus and advanced to the terminal ileum, with identification of theappendiceal orifice and IC valve. The colonoscopy was performed without difficulty. The patient tolerated the procedure well. The quality of the bowelpreparation was good. The terminal ileum, ileocecal valve, appendiceal orifice, and rectum werephotographed. Complications: No immediate complications. Estimated blood loss:None. Findings: The terminal ileum appeared normal. Examination of the right colon was repeated in retroflexion and again in NBI. Retroflexion wasalso performed in the rectum. Multiple diverticula were found in the sigmoidcolon. A 7 mm polyp was found in the transverse colon. The polyp was sessile. The polyp was removed with acold snare. Resection and retrieval were complete. The exam was otherwise without abnormality. Impression: - The examined portion of the ileum was normal. - Diverticulosis in the sigmoid colon. - One 7 mm polyp in the transverse colon, removedwith a cold snare. Resected and retrieved. - The examination was otherwise normal. Recommendation: - Patient has a contact number available for emergencies. The signs and symptoms of potential delayed complications were discussed with thepatient. Return to normal activities tomorrow. Written discharge instructions were provided to thepatient. - Await pathology results. - Repeat colonoscopy for surveillance based on pathology results. - Consider Bala Ceja DIAZ CEJA MD 02/09/2024 12:31:50 PM This report has been signed electronically. Number of Addenda: 0 Note Initiated On: 02/09/2024 11:46 AM Procedure Code(s): --- Professional --- 25836, Colonoscopy, flexible; with removal of tumor(s), polyp(s), or other lesion(s) by snare technique --- Technical --- 06552, Colonoscopy, flexible; with removal of tumor(s), polyp(s), or other lesion(s) by snare technique CPT copyright 2021 [employer]. All rights reserved. The codes documented in this report are preliminary and upon asp web developer reviewmay be revised to meet current compliance requirements. Procedure Date: 02/09/2024 11:46:[address] [place], [place] [id number] Toña Treviño [facility] GI PROCEDURE ORDERABLES Teena nichole Result * BI MAMMOGRAM SCREENING WITH TOMOSYNTHESIS WITH CAD (BILATERAL) (10/21/2023 2:18 PM EDT) Anatomical Region Laterality Modality Breast Left, Breast Right, Breast Bilateral Bila teral Mammography 10/25/2023 11:4 6 AM EDT Impressions 10/25/2023 11:47 AM EDT No mammographic evidence of malignancy in either breast. Annual screening mammography is recommended. BI-RADS 1 NEGATIVE The patient will be notified of the results and recommendations. Narrative 10/25/2023 11:47 AM EDT BI MAMMOGRAM SCREENING WITH TOMOSYNTHESIS WITH CAD (BILATERAL) Additional patient information: Screening. COMPARISON: Comparison is made with relevant prior imaging. Breast composition: The breast tissue is almost entirely fatty. FINDINGS: No abnormal masses, suspicious calcifications, or other significant findings are identified mammographically in either breast. Procedure Note Zena Wright MD - 10/25/2023 BI MAMMOGRAM SCREENING WITH TOMOSYNTHESIS WITH CAD (BILATERAL) Additional patient information: Screening. COMPARISON: Comparison is made with relevant prior imaging. Breast composition: The breast tissue is almost entirely fatty. FINDINGS: No abnormal masses, suspicious calcifications, or other significantfindings are identified mammographically in either breast. IMPRESSION: No mammographic evidence of malignancy in either breast. Annual screening mammography is recommended. BI-RADS 1 NEGATIVE The patient will be notified of the results and recommendations. Toña Treviño CNP IMG MG EXAMS Final Result * DIABETES EYE EXAM FOR RESULT ENTRY ONLY (12/26/2021) EYE EXAM See report Historical Provider HEALTH MAINTENANCE Final Result from Last 3 Months or Most Recently Relevant to Health Maintenance Additional Health Concerns Active Problems Noted Date Diagnosed Date Activity intolerance / Impaired Functional Mobil ity 12/14/2019 Chronic Condition Self-Management 12/14/2019 Insurance MEDICARE PART A & B [facility]IC[facility] PART [facility] & [facility] MEDICARE PART A & B [facility] MEDICARE PART A & B [facility] MEDICARE PART A & B [facility] Advance Directives For more information, please contact: [phone] (9AM - 5PM [facility], Wednesday-Wednesday) Documents on File Type Date Recorded Patient Pension Adviser Expl anation Healthcare Proxy 06/05/2020 1:41 PM * Full Code (Latest Code Status on File) Date Activated Date Inactivated Comments 10/13/2024 10:35 AM Question Answer Comments Code Status Confirmed With: Patient * Full Code Date Activated Date Inactivated Comments 10/13/2024 10:01 AM 10/13/2024 10:35 AM Question Answer Comments Code Status Confirmed With: Patient * Full Code Date Activated Date Inactivated Comments 06/01/2020 5:32 PM 10/13/2024 10:01 AM Question Answer Comments Code Status Confirmed With: Patient Healthcare Agents on File Name Relationship Healthcare Agent [facility] Communication Rachana Escalante Friend .Primary Health Care Agent (Proxy form on file) Gregory Benjamin Friend Alternate Health care Agent (Proxy form on file) Care Teams Window Covering Sales Consultant Relationship Specialty Start Date End Date Toña Treviño CNP [address] [place] [address], [address] [place], [place] [id number] PCP - General Nurse Practitioner 02/23/23 Telma Chino, RN [address] [place] [address] PHCM [employer] 10/24/19 Mirna Zhou PA-C [address] [place] [address] [email or web address] Physician Curtain Stretcher 02/18/24 Marv Olmos MD [address] [place] [address] [email or web address] Dermatology 07/11/24 Toña Treviño CNP [address] [place] [address] [address] [place] [address] [email or web address] Insurance Assigned Provider 08/13/24 Tori Esposito [address] [place] [address] [email or web address] Community Health Worker 02/26/25 Additional Source Comments The information contained in this document represents components of the legal health record. It is not the complete legal health record.[facility]
--- OUTSIDE RECORDS SUMMARY | 2025-03-01 18:51 | XMS_ITS | Encounter Summary ---
Author Organization [facility] Address [address] [place] [address] Phone Care Team Providers Care Central Office Repairer Supervisor Name Role Phone Luci Marsh SHREDDER TENDER PEAT Primary Care Provider [phone] Janis Aquino MD Unavailable Telma Chino RN Unavailable Mihir Garner MD Unavailable SahArron balderas DO Primary Care Provider [phone] Luci Marsh [facility] Primary Care Provider [phone] SahArron balderas DO Primary Care Provider [phone] Toña Garza [facility] Primary Care Provider Arron Alejandre DO Unavailable Mirna Zhou PA-C Unavailable Marv Olmos MD Unavailable Toña Garza SHREDDER TENDER PEAT Unavailable Laura Valencia Unavailable heidi Tori Esposito Unavailable [phone] Encounter Details Date Type Department Care Team (Late st Contact Info) Description 07/05/2022 Procedure Pass [facility], Ct Scan - [facility] [address] [place] [address] Social History Tobacco Use Types Packs/Day Years [...] high school, GED, job training, learning the Macedonian language, technical skills, or developing parenting skills)? [...] Date of Assessment Author No Risk Indicated 07/05/2022 2:21 AM EST Karyn Dominguez RN * [place] Suicide Severity Rating Scale (Screener/Recent Self-Report) Question Answer Date of Assessment Author 1. Wish to be (Past 1 Month) No 023 2:21 AM Karyn Hong, DIXIE 2. Non-Specific Active Suici lupe Thoughts (Past 1 Month) No 07/05/2022 2:21 AM GEOVANI Estrada Ma ra, RN 6. Suicidal Behavior (Lifetime) No 2:21 AM Karyn Hong, DIXIE documented as of this encounter Plan of Treatment Upcoming Encounters Date Type Department Care Team (Late st Contact Info) Description 03/02/2025 1:45 PM EDT Office Visit [facility] 8 [place] [address] Cordell Lutz PA-C, MARIXA [address] [place] [address] Marshal Jimenez, PT 8 [place] [address] [email or web address] 03/06/2025 12:00 PM EDT Telemedicine - audio only [facility] 30 [place] [address] Mirna Zhou PA-C 30 [place] [address] 03/06/2025 2:40 PM EDT Office Visit [facility] [address] [place] [phone] Jasmina Peraza MD 22 [facility], 1st [place] [address] 03/08/2025 1:00 PM EDT Office Visit [facility] 8 [place] [address] Cordell Lutz PA-C, MARIXA [address] [place] [address] Charleswade Marshal, PT 8 [place] [address] [email or web address] 03/12/2025 1:15 PM EST Office Visit [facility] [address] [place] [address] Yessenia Shah MD, MPH [address] [place] [address] Qiana Llamas, OT 8 [place] [address] 03/19/2025 1:15 PM EST Office Visit [facility] [address] [place] [address] Yessenia Shah MD, MPH [address] [place] [address] Qiana Llamas, OT 8 [place] [address] 03/20/2025 1:20 PM EST Telemedicine [facility] 2 [place] [address] Aniyah Ogden, PA-C 2 [place] [phone] 03/26/2025 2:10 PM EST Office Visit [facility] [address] [place] [address] Yessenia Shah MD, MPH [address] [place] [address] 03/30/2025 4:15 PM EST Office Visit [facility] [address] [place] [address] Arron Alejandre, 234 [facility] 7 [place] [address] 04/12/2025 2:00 PM EST Nutrition [facility] 40 [place] [address] Maddison Lea, KATHYN 22 [facility], [address] [place] [address] 04/20/2025 2:30 PM EST Office Visit [facility] [address] [place] [address] Toña Garza, SHREDDER TENDER PEAT [address] [address] maria 06/04/2025 1:30 PM EST Office Visit [facility] [address] [place] [address] Anisa Crowell, SHREDDER TENDER PEAT 22 [facility], [address] [place] [address] 08/06/2025 1:00 PM EDT Office Visit [facility] [address] [place] [address], [address] [place] [address] Beulah Watkins DNP 22 [facility], [address] [place] [address] 02/07/2026 1:20 PM EDT Office Visit [facility] [address] [place] [address], [address] [place] [address] [place] Verdugo MD 22 [facility], [address] [place] [address] [email or web address] documented as of this encounter Goals Goal [...] documented as of this encounter Care Teams Central Office Repairer Supervisor Relationship Specialty Start Date End Date Luci Marsh CNP 15 [facility], 2nd [place] [address] [email or web address] PCP - General 05/20/17 10/20/22 Arron Alejandre DO [address] [place] [address] [address] [place] [address] [email or web address] PCP - General Family Medicine 10/21/22 01/16/23 Luci Marsh, RAFAEL [address] [place] [address], 2nd [place] [address] [email or web address] PCP - General Nurse Practitioner 01/17/23 02/01/23 Arron Alejandre DO [address] [place] [address] 7 [place] [address] [email or web address] PCP - General Family Medicine 02/02/23 02/22/23 Toña Garza CNP [address] [place] [address] 7 [place] [address] [email or web address] PCP - General Nurse Practitioner 02/23/23 Janis Aquino MD [address] [place] [address] 7 [place] [address] [email or web address] Insurance Assigned Provider 09/10/18 08/15/22 Telma Chino, RN 10 [place], [place] [phone] [email or web address] [employer] [place] Window And Door Installer 10/24/19 Mihir Garner MD [address] [place] [address] 7 [place] [address] [email or web address] Insurance Assigned Provider 08/15/22 08/14/23 Arron Alejandre DO [address] [place] [address] 7 [place] [address] [email or web address] Insurance Assigned Provider 08/14/23 08/13/24 Mirna Zhou, CEFERINO 30 [place] [address] [email or web address] Physician Commissioner Of Officials 02/18/24 Marv Olmos MD 29 [place] [address] [email or web address] Dermatology 07/11/24 Toña Garza CNP [address] [place] [address], [address] [place] [address] [email or web address] Insurance Assigned Provider 08/13/24 Laura Valencia [address] [place] [address] [email or web address] PHCM Community Field Nurse 10/09/24 10/09/24 Tori Esposito [address] [place] [address] [email or web address] Community Health Worker 02/26/25 documented as of this encounter Additional Source Comments The information contained in this document represents components of the legal health record. It is not the complete legal health record.[facility]
--- OUTSIDE RECORDS SUMMARY | 2025-03-01 18:51 | XMS_ITS | Encounter Summary ---
Author Organization [facility] Address [address] [place] [address] Phone Care Team Providers Care Artist Mannequin Coloring Name Role Phone Telma Chino RN Unavailable Mihir Garner MD Unavailable SahArron balderas DO Primary Care Provider [phone] Luci Marsh PHARMACIST MANAGER Primary Care Provider [phone] SahArron balderas DO Primary Care Provider [phone] Toña Garza CNP Primary Care Provider SahArron balderas DO Unavailable Mirna Zhou PA-C Unavailable Marv Olmos MD Unavailable [phone] Toña Garza CNP Unavailable Laura Valencia Unavailable heidi Tori Esposito Unavailable [phone] Encounter Details Date Type Department Care Team (Late st Contact Info) Description 12/15/2022 Ancillary Orders [facility] [address] [place] [address] Yessenia Shah MD, MPH 22 [facility], [address] [place] [address] [email or web address] Psoriasis; Multiple joint pain Social History Tobacco Use Types Packs/Day Years [...] PM EDT Office Visit [facility] 8 [place] [address] Cordell Lutz PA-C, MARIXA [address] [place] [address] Marshal Jimenez, PT 8 [place] [address] [email or web address] 03/06/2025 12:00 PM EDT Telemedicine - audio only [facility] 30 [place] [address] Mirna Zhou PA-C 30 [place] [address] 03/06/2025 2:40 PM EDT Office Visit [facility] 234 [place] [phone] Jasmina Peraza MD 22 [facility], 1st [place] [address] 03/08/2025 1:00 PM EDT Office Visit [facility] 8 [place] [address] Cordell Lutz PA-C, MARIXA [address] [place] [address] Marshal Jimenez, PT 8 [place] [address] [email or web address] 03/12/[email or web address] 1:15 PM EST Office Visit [facility] [address] [place] [address] Yessenia Shah MD, MPH [address] [place] [address] [email or web address] Qiana Llamas, OT 8 [place] [address] [email or web address] 03/19/2025 1:15 PM EST Office Visit [address] [place] [address] Yessenia Shah MD, MPH [address] [place] [address] [email or web address] Qiana Llamas, OT 8 [place] [address] 03/20/2025 1:20 PM EST Telemedicine [facility] 2 [place] [address] Aniyah Ogden, PA-C 2 [place] [phone] [email or web address] 03/26/2025 2:10 PM EST Office Visit [facility] [address] [place] [address] Yessenia Shah MD, MPH [address] [place] [address] [email or web address] 03/30/2025 4:15 PM EST Office Visit [facility] Medicine [address] [place] [address] Arron Alejandre, DO 234 [facility], [address] [place], [place] [address] 04/12/2025 2:00 PM EST Nutrition [facility] 40 [place] [address] Maddison Lea LDN 22 [facility], [address] [place] [address] 04/20/2025 2:30 PM EST Office Visit [facility] 234 [place] [address] Toña Garza, PHARMACIST MANAGER [address] [address] 06/04/2025 1:30 PM EST Office Visit [facility] [address] [place] [address] Anisa Crowell, PHARMACIST MANAGER [address] [place] [address], [address] [place] [address] 08/06/2025 1:00 PM EDT Office Visit [facility] [address] [place] [address] [place] [address], [address] [place] [address] Beulah Watkins DNP [address] [place] [address], [address] [address] 02/07/2026 1:20 PM EDT Office Visit [facility] [address] [place] [address] Dr 3rd [facility], [address] [place] [address] [place] Verdugo MD 22 [facility], [address] [address] documented as of this encounter Goals Goal Patient Goal Type Associated Problems Recent Progress Patient-Stated? Author Increase physical activity / mobility Care Plan Activity intolerance / Impaired Functional Mobility Telma Schneider, RN Note: Adhere to treatment plan Care Plan Chronic Condition Self-Management No Telma Chino RN Note: documented as of this encounter Results * XR KNEE 4 OR MORE VIEWS (BILATERAL) (12/15/2022 3:42 PM EDT) Anatomical Region Laterality Modality Knee Bilateral, Knee Right, Knee Left Computed Radiography 12/19/2022 4:53 PM EDT Impressions 12/19/2022 4:54 PM EDT Mild/moderate degenerative changes of the knee, right greater than left. Narrative 12/19/2022 4:54 PM EDT XR KNEE 4 OR MORE VIEWS (BILATERAL) COMPARISON: XR KNEE 4 OR MORE VIEWS (LEFT) FINDINGS: Left Knee: Mild degenerative changes with medial joint space narrowing. No evidence of joint effusion. No evidence of acute fracture. Right Knee: Mild/moderate degenerative changes with medial joint space narrowing and osteophyte formation. Patellofemoral joint osteophytes are also identified. No evidence of joint effusion. There are vascular calcifications. Procedure Note Bruna Tompkins MD - 12/19/2022 XR KNEE 4 OR MORE VIEWS (BILATERAL) COMPARISON: XR KNEE 4 OR MORE VIEWS (LEFT) FINDINGS: Left Knee: Mild degenerative changes with medial joint space narrowing. Noevidence of joint effusion. No evidence of acute fracture. Right Knee: Mild/moderate degenerative changes with medial joint spacenarrowing and osteophyte formation. Patellofemoral joint osteophytes arealso identified. No evidence of joint effusion. There are vascular calcifications. IMPRESSION: Mild/moderate degenerative changes of the knee, right greater than left. Yessenia Shah MD, MPH IMG XR LOWER EXTREMITY F inal Result documented in this encounter Visit Diagnoses Diagnosis Psoriasis Other psoriasis Multiple joint pain Pain in joint, multiple sites Psoriasis Other psoriasis Multiple joint pain Pain in joint, multiple sites documented in this encounter Additional Health Concerns [...] documented as of this encounter Care Teams Artist Mannequin Coloring Relationship Specialty Start Date End Date Arron Alejandre DO 234 [facility], [facility] 7 [place] [address] [email or web address] PCP - General Family Medicine 10/21/22 01/16/23 Luci Marsh, RAFAEL 15 [facility], 2nd [place] [address] [email or web address] PCP - General Nurse Practitioner 01/17/23 02/01/23 Arron Alejandre DO 234 [facility], [facility] 7 [place] [address] [email or web address] PCP - General Family Medicine 02/02/23 02/22/23 Toña Garza, RAFAEL 234 [facility], [facility] 7 [place] [address] [email or web address] PCP - General Nurse Practitioner 02/23/23 Telma Chino, RN [address] [place] [address] [email or web address] PHCM Fretted Instruments Inspector 10/24/19 Mihir Garner MD [address] [place] [address] 7 [place] [address] [email or web address] Insurance Assigned Provider 08/15/22 08/14/23 Arron Alejandre DO [address] [place] [address] 7 [place] [address] [email or web address] Insurance Assigned Provider 08/14/23 08/13/24 Mirna Zhou PA-C [address] [place] [address] [email or web address] Physician Eligibility Worker 02/18/24 Marv Olmos MD [address] [place] [address] [email or web address] Dermatology 07/11/24 Toña Garza CNP [address] [place] [address] 7 [place] [address] [email or web address] Insurance Assigned Provider 08/13/24 Laura Valencia [address] [place] [address] [email or web address] PHCM Community Car Installations Supervisor 10/09/24 10/09/24 Tori Esposito [address] [place] [address] [email or web address] Community Health Worker 02/26/25 documented as of this encounter Additional Source Comments The information contained in this document represents components of the legal health record. It is not the complete legal health record.[facility]
--- OUTSIDE RECORDS SUMMARY | 2025-03-01 18:51 | XMS_ITS | Encounter Summary ---
Author Organization [facility] Address [address] [place] [address] Phone Care Team Providers Care Boulevard Glassware Replacer Name Role Phone Telma Chino RN Unavailable [phone] Toña Garza DATA EXAMINATION CLERK Primary Care Provider Arron Alejandre DO Unavailable Mirna Zhou PA-C Unavailable Marv Olmos MD Unavailable Toña Garza DATA EXAMINATION CLERK Unavailable [phone] Laura Valencia Unavailable [email or web address] Tori Esposito Unavailable [phone] Encounter Details Date Type Department Care Team (Late st Contact Info) Description 07/21/2024 Procedure Pass [facility], Ct Scan - [address] [address] Social History Tobacco Use Types Packs/Day Years [...] as food, clothing, or medical care? No 07/21/2024 In the past 12 months have y ou been in a relationship with a person who hurts, threatens, or tries to control you? No 07/21/2024 Are you denied basic needs s uch as food, clothing, or medical care? No 07/21/2024 In the past 12 months have y ou been in a relationship with a person who hurts, threatens, or tries to control you? No 07/21/2024 Comments No Sex and Gender Information Value [...] Date of Assessment Author No Risk Indicated 07/21/2024 12:14 AM EDT Blanquita Cade RN * [place] Suicide Severity Rating Scale (Screener/Recent Self-Report) Question Answer Date of Assessment Author 1. Wish to be (Past 1 Month) No 07/21/2024 12:14 AM EDT Yolie Pond, DIXIE 2. Non-Specific Active Suici lupe Thoughts (Past 1 Month) No 07/21/2024 12:14 AM EDT Ty Pond, DIXIE 6. Suicidal Behavior (Lifetime) No 12:14 AM EDT Blanquita Pond RN documented as of this encounter Plan of Treatment Upcoming Encounters Date Type Department Care Team (Late st Contact Info) Description 03/02/2025 1:45 PM EDT Office Visit [facility] Services [address] [place] [address] Cordell Lutz PA-C, MARIXA [address] [place] [address] Marshal Jimenez, PT 8 [place] [address] [email or web address] 03/06/[email or web address] 12:00 PM EDT Telemedicine - audio only [facility] 30 [place] [address] Mirna Zhou PA-C 30 [place] [address] 03/06/2025 2:40 PM EDT Office Visit [facility] 234 [place] [address] Jasmina Peraza MD 22 [facility], 1st [place] [address] 03/08/2025 1:00 PM EDT Office Visit [address] [address] Cordell Lutz PA-C, MARIXA [address] [place] [address] Marshal Jimenez, PT 8 [place] [address] [email or web address] 03/12/[email or web address] 1:15 PM EST Office Visit [address] [address] Yessenia Shah MD, MPH [address] [place] [address] Qiana Llamas, OT 8 [place] [address] 03/19/2025 1:15 PM EST Office Visit [address] [address] Yessenia Shah MD, MPH [address] [place] [address] Qiana Llamas, OT 8 [place] [address] 03/20/2025 1:20 PM EST Telemedicine [facility] 2 [place] [address] Aniyah Ogden PA-C 2 [place] [phone] 03/26/2025 2:10 PM EST Office Visit [facility] Rheumatology [address] [place] [address] Yessenia Shah MD, MPH 22 [facility], [address] [place] [address] 03/30/2025 4:15 PM EST Office Visit [facility] 234 [place] [address] Arron Alejandre, DO [address] [address] 04/12/2025 2:00 PM EST Nutrition [facility] 40 [place] [phone] Maddison Lea LDN 22 [facility], 1st [place] [address] 04/20/2025 2:30 PM EST Office Visit [address] [address] Toña Garza, DATA EXAMINATION CLERK [address] [address] 06/04/2025 1:30 PM EST Office Visit [facility] [address] [place] [address] [place] [address] Anisa Crowell, DATA EXAMINATION CLERK 22 [facility], 1st [place] [address] 08/06/2025 1:00 PM EDT Office Visit [facility] [address] [place] [address] 3rd Floor, [address] [place] [address] Beulah Watkins DNP 22 [facility], [address] [place] [address] 02/07/2026 1:20 PM EDT Office Visit [facility] 22 [facility] 3rd Floor, [address] [place] [address] Diaz Verdugo MD 22 [facility], [address] [place] [address] documented as of this encounter Goals Goal [...] documented as of this encounter Care Teams Boulevard Glassware Replacer Relationship Specialty Start Date End Date Toña Garza CNP [address] [place] [address] [address] [place] [address] PCP - General Nurse Practitioner 02/23/23 Telma Chino, DIXIE [address] [place] [address] PHCM Ophthalmic Technician Apprentice 10/24/19 Arron Alejander DO [address] [place] [address] 7 [place] [address] [email or web address] Insurance Assigned Provider 08/14/23 08/13/24 Mirna Zhou PA-C 30 [place] [address] Physician Solar Consultant 02/18/24 Marv Olmos MD 29 [place] [address] Dermatology 07/11/24 Toña Garza CNP [address] [place] [address] 7 [place] [address] Insurance Assigned Provider 08/13/24 Laura Valencia [address] [place] [address] [email or web address] PHCM Community School Business Administrator 10/09/24 10/09/24 Tori Esposito [address] [place] [address] [email or web address] Community Health Worker 02/26/25 documented as of this encounter Additional Source Comments The information contained in this document represents components of the legal health record. It is not the complete legal health record.[facility]
--- OUTSIDE RECORDS SUMMARY | 2025-03-01 18:51 | XMS_ITS | Encounter Summary ---
Author Organization [facility] Address [address] [place] [address] Phone Care Team Providers Care Tradeshow Worker Name Role Phone Luci Marsh COUNTER CUTTER Primary Care Provider [phone] Janis Aquino MD Unavailable [phone] Telma Chino RN Unavailable [phone] Tori Esposito Unavailable Mihir Garner MD Unavailable SahArron balderas DO Primary Care Provider [phone] Luci Marsh COUNTER CUTTER Primary Care Provider [phone] [facility] Primary Care Provider [phone] Toña Garza COUNTER CUTTER Primary Care Provider [phone] Arron Alejandre DO Unavailable Mirna Zhou PA-C Unavailable Marv Olmos MD Unavailable Toña Garza CNP Unavailable [phone] Laura Valencia Unavailable heidi Tori Esposito Unavailable [phone] Encounter Details Date Type Department Care Team (Late Contact Info) Description 03/15/2019 Transcribe Orders [facility] [address] [place] [address] Luci Marsh, COUNTER CUTTER 15 [facility], 2nd [place] [address] Social History Tobacco Use Types Packs/Day Years [...] 03/02/2025 1:45 PM EDT Office Visit [facility] 8 [place] [address] Cordell Lutz PA-C, MARIXA [address] [place] [address] Marshal Jimenez, PT 8 [place] [address] [email or web address] 03/06/2025 12:00 PM EDT Telemedicine - audio only [facility] 30 [place] [address] Mirna Zhou PA-C 30 [place] [address] 03/06/2025 2:40 PM EDT Office Visit [facility] 234 [place] [phone] Jasmina Peraza MD 22 [facility], 1st [place] [address] 03/08/2025 1:00 PM EDT Office Visit [address] [address] Cordell Lutz PA-C, MARIXA 8 [place] [address] Marshal Jimenez, PT 8 [place] [address] [email or web address] 03/12/2025 1:15 PM EST Office Visit [address] [address] Yessenia Shah MD, MPH 22 [facility], [facility] 203 [place] [address] [email or web address] Qiana Llamas, OT 8 [place] [address] 03/19/2025 1:15 PM EST Office Visit [address] [place] [address] Yessenia Shah MD, MPH 22 [facility], [facility] 203 [place] [address] Qiana Llamas, OT 8 [place] [address] 03/20/2025 1:20 PM EST Telemedicine [facility] 2 [place] [address] Aniyah Ogden PA-C 2 [place] [phone] [email or web address] 03/26/2025 2:10 PM EST Office Visit [facility] Rheumat[facility] [address] [place] [address] [place] [address] Yessenia Shah MD, MPH 22 [facility], [address] [place] [address] [email or web address] 03/30/2025 4:15 PM EST Office Visit [address] [address] Arron Alejandre, 234 [facility] 7 [place] [address] [email or web address] 04/12/2025 2:00 PM EST Nutrition [facility] 40 [place] [address] Maddison Lea, JULIETTE 22 [facility], [address] [place] [address] 04/20/2025 2:30 PM EST Office Visit [address] [address] Toña Garza, COUNTER CUTTER 234 [facility] 7 [place] [address] [email or web address] 06/04/2025 1:30 PM EST Office Visit [facility] [address] [place] [address] Anisa Crowell, COUNTER CUTTER 22 [facility], 1st [place] [address] 08/06/2025 1:00 PM EDT Office Visit [facility] [address] [place] [address] Dr 3rd Floor, [address] [place] [address] Beulah Watkins DNP 22 [facility], [address] [place] [address] 02/07/2026 1:20 PM EDT Office Visit [facility] [address] 3rd Floor, [address] [place] [address] Diaz Verdugo MD [address] [place] [address], [address] [address] [email or web address] documented as of this encounter Visit Diagnoses Not on filedocumented in this encounter Additional Health Concerns Infection Onset Date Last Indicated Resolved Time CoV-Risk Comment:Per note documentation 04/16/2020 04/17/2020 2:00 PM EST CoV-Risk 06/10/2020 06/10/2020 06/20/2020 [...] documented as of this encounter Care Teams Tradeshow Worker Relationship Specialty Start Date End Date Luci Marsh COUNTER CUTTER [address] [address] [email or web address] PCP - General 05/20/17 10/20/22 Arron Alejandre DO [address] [place] [address] 7 [place] [address] [email or web address] PCP - General Family Medicine 10/21/22 01/16/23 Luci Marsh CNP [address] [address] [email or web address] PCP - General Nurse Practitioner 01/17/23 02/01/23 Arron Alejandre DO [address] [place] [address] 7 [place] [address] [email or web address] PCP - General Family Medicine 02/02/23 02/22/23 Toña Garza CNP [address] [place] [address] 7 [place] [address] [email or web address] PCP - General Nurse Practitioner 02/23/23 Janis Aquino MD [address] [place] [address] 7 [place] [address] Insurance Assigned Provider 09/10/18 08/15/22 Telma Chino, RN [address] [place] [address] [email or web address] PHCM Veteran Appeals Reviewer 10/24/19 Tori Esposito [address] [place] [address] [email or web address] PHC Community Health Worker 01/08/20 01/27/21 Mihir Garner MD [address] [place] [address], [facility] 7 [place] [address] [email or web address] Insurance Assigned Provider 08/15/22 08/14/23 Arron Alejandre DO [address] [place] [address], [facility] 7 [place] [address] [email or web address] Insurance Assigned Provider 08/14/23 08/13/24 Mirna Zhou PA-C [address] [place] [address] [email or web address] Physician Bobbin Collector 02/18/24 Marv Olmos MD 29 [place] [address] Dermatology 07/11/24 Toña Garza CNP [address] [place] [address], [facility] 7 [place] [address] [email or web address] Insurance Assigned Provider 08/13/24 Laura Valencia [address] [place] [address] [email or web address] PHC Community Chiropractic Doctor 10/09/24 10/09/24 Tori Esposito [address] [place] [address] Community Health Worker 02/26/25 documented as of this encounter Additional Source Comments The information contained in this document represents components of the legal health record. It is not the complete legal health record.[facility]
--- OUTSIDE RECORDS SUMMARY | 2025-03-01 18:51 | XMS_ITS | Encounter Summary ---
Author Organization [facility] Address [address] [place] [address] Phone Care Team Providers Care Foreign Clerk Name Role Phone Telma Chino RN Unavailable Toña Garza BANANA RIPENING ROOM SUPERVISOR Primary Care Provider Arron Alejandre DO Unavailable Mirna Zhou PA-C Unavailable Marv Olmos MD Unavailable Toña Garza BANANA RIPENING ROOM SUPERVISOR Unavailable [phone] Laura Valencia Unavailable [email or web address] Tori Esposito Unavailable [phone] Encounter Details Date Type Department Care Team (Late st Contact Info) Description 04/22/20[address] [facility], Ct Scan - [address] [address] Social History Tobacco Use Types Packs/Day Years [...] Date of Assessment Author No Risk Indicated 04/22/2024 4:50 AM Sanam Welsh RN * [place] Suicide Severity Rating Scale (Screener/Recent Self-Report) Question Answer Date of Assessment Author 1. Wish to be (Past 1 Month) No 04/22/2024 4:50 AM Sanam Khan RN 2. Non-Specific Active Suicidal Thoughts (Past 1 Month) No 04/22/2024 4:50 AM Sanam Khan RN 6. Suicidal Behavior (Lifetime) No 04/22/2024 4:50 AM Sanam Khan RN documented as of this encounter Plan of Treatment Upcoming Encounters Date Type Department Care Team (Late st Contact Info) Description 03/02/2025 1:45 PM EDT Office Visit [facility] Rehabilitation Services [address] [place] [address] Cordell Lutz PA-C, MARIXA [address] [place] [address] Marshal Jimenez, PT 8 [place] [address] [email or web address] 03/06/2025 12:00 PM EDT Telemedicine - audio only [facility] 30 [place] [address] Mirna Zhou PA-C 30 [place] [address] 03/06/2025 2:40 PM EDT Office Visit [facility] [address] [place] [phone] Jasmina Peraza MD 22 [facility], 1st [place] [address] 03/08/2025 1:00 PM EDT Office Visit [address] [place] [address] Cordell Lutz PA-C, MARIXA [address] [place] [address] Marshal Jimenez, PT 8 [place] [address] [email or web address] 03/12/2025 1:15 PM EST Office Visit [address] [place] [address] Yessenia Shah MD, MPH [address] [place] [address] Qiana Llamas, OT 8 [place] [address] 03/19/2025 1:15 PM EST Office Visit [address] [place] [address] Yessenia Shah MD, MPH [address] [place] [address] Qiana Llamas, OT 8 [place] [address] 03/20/2025 1:20 PM EST Telemedicine [facility] 2 [place] [address] Aniyah Ogden PA-C 2 [place] [address] 03/26/2025 2:10 PM EST Office Visit [facility] Rheumatology [address] [place] [address] Yessenia Shah MD, MPH 22 [facility], [address] [place] [address] 03/30/2025 4:15 PM EST Office Visit [address] [address] Arron Alejandre, 234 [facility] 7 [place] [address] 04/12/2025 2:00 PM EST Nutrition [facility] 40 [place] [phone] Maddison Lea, KATHYN 22 [facility], 1st [place] [address] 04/20/2025 2:30 PM EST Office Visit [address] [address] Toña Garza, BANANA RIPENING ROOM SUPERVISOR [address] [address] 06/04/2025 1:30 PM EST Office Visit [facility] [address] [place] [address] Anisa Crowell, BANANA RIPENING ROOM SUPERVISOR 22 [facility], 1st [place] [address] 08/06/2025 1:00 PM EDT Office Visit [facility] [address] [place] [address] Dr 3rd Floor, [address] [place] [address] Beulah Watkins DNP 22 [facility], [address] [place] [address] 02/07/2026 1:20 PM EDT Office Visit [facility] [address] [place] [address] 3rd Floor, [address] [place] [address] Diaz Verdugo MD 22 [facility], [address] [place] [address] documented as of this encounter Goals Goal [...] documented as of this encounter Care Teams Foreign Clerk Relationship Specialty Start Date End Date Toña Garza CNP [address] [place] [address], [address] [place] [address] PCP - General Nurse Practitioner 02/23/23 Telma Chino, DIXIE [address] [place] [address] PHCM Presto Log Operator 10/24/19 Arron Alejandre DO [address] [place] [address], [address] [place] [address] [email or web address] Insurance Assigned Provider 08/14/23 08/13/24 Mirna Zhou PA-C 30 [place] [address] Physician Cementer Helper 02/18/24 Marv Olmos MD 29 [place] [address] Dermatology 07/11/24 Toña Garza CNP [address] [place] [address] 7 [place] [address] maria Insurance Assigned Provider 08/13/24 Laura Valencia [address] [place] [address] [email or web address] PHCM Community Antiquer 10/09/24 10/09/24 Tori Esposito [address] [place] [address] [email or web address] Community Health Worker 02/26/25 documented as of this encounter Additional Source Comments The information contained in this document represents components of the legal health record. It is not the complete legal health record.[facility]
--- OUTSIDE RECORDS SUMMARY | 2025-03-01 18:51 | XMS_ITS | Encounter Summary ---
Author Organization [facility] Address [address] [place] [address] Phone Care Team Providers Care Talent Acquisition Project Manager Name Role Phone Telma Chino RN Unavailable Mihir Garner MD Unavailable Toña Garza DIRECTOR OF IN SERVICE EDUCATION Primary Care Provider [phone] Arron Alejandre DO Unavailable Mirna Zhou PA-C Unavailable Marv Olmos MD Unavailable Toña Garza DIRECTOR OF IN SERVICE EDUCATION Unavailable [phone] Laura Valencia Unavailable heidi Tori Esposito Unavailable [phone] Encounter Details Date Type Department Care Team (Late st Contact Info) Description 04/11/2023 Procedure Pass [facility], [facility] 30 [place] [address] Social History Tobacco Use Types Packs/Day Years [...] Description 03/02/2025 1:45 PM EDT Office Visit [facility] Rehabilitation Services [address] [place] [address] Cordell Lutz PA-C, MARIXA 978 [place] [address] Marshal Jimenez, PT 8 [place] [address] [email or web address] 03/06/2025 12:00 PM EDT Telemedicine - audio only [facility] at [facility] 30 [place] [address] Mirna Zhou PA-C 30 [place] [address] 03/06/2025 2:40 PM EDT Office Visit [facility] [address] [place] [phone] Jasmina Peraza MD 22 [facility], 1st [place] [address] 03/08/2025 1:00 PM EDT Office Visit [facility] 8 [place] [address] Cordell Lutz PA-C, MARIXA [address] [place] [address] Marshal Jimenez, PT 8 [place] [address] [email or web address] 03/12/[email or web address] 1:15 PM EST Office Visit [facility] 8 [place] [address] Yessenia Shah MD, MPH 22 [facility], [address] [place] [address] Qiana Llamas, OT 8 [place] [address] 03/19/2025 1:15 PM EST Office Visit [facility] [address] [place] [address] Yessenia Shah MD, MPH [address] [place] [address], [facility] 203 [place] [address] [email or web address] Qiana Llamas, OT 8 [place] [address] [email or web address] 03/20/2025 1:20 PM EST Telemedicine [facility] 2 [place] [address] Aniyah Ogden, PA-C 2 [place] [address] [email or web address] 03/26/2025 2:10 PM EST Office Visit [facility] Rheumatology [address] [place] [address] Yessenia Shah MD, MPH 22 [facility], [address] [address] [email or web address] 03/30/2025 4:15 PM EST Office Visit [address] [address] Arron Alejandre, [address] [place] [address] [email or web address] 04/12/2025 2:00 PM EST Nutrition [facility] 40 [facility] [place] [address] Maddison Lea LDN 22 [facility], 1st [place] [address] [email or web address] 04/20/2025 2:30 PM EST Office Visit [facility] [address] [place] [address] Toña Garza, DIRECTOR OF IN SERVICE EDUCATION 234 [facility] 7 [place] [address] [email or web address] 06/04/2025 1:30 PM EST Office Visit [facility] [address] [place] [address] [place] [address] Anisa Crowell, DIRECTOR OF IN SERVICE EDUCATION 22 [facility], 1st [place] [address] 08/06/2025 1:00 PM EDT Office Visit [facility] [address] 3rd Floor, [address] [place] [address] Beulah Watkins DNP 22 [facility], [address] [address] [email or web address] 02/07/2026 1:20 PM EDT Office Visit [facility] [address] 3rd [facility], [address] [place] [address] Diaz Verdugo MD 22 [facility], [address] [address] [email or web address] documented as of this encounter Goals [...] documented as of this encounter Care Teams Talent Acquisition Project Manager Relationship Specialty Start Date End Date Toña GarzaRAFAEL [address] [place] [address] [email or web address] PCP - General Nurse Practitioner 02/23/23 Telma Chino, RN [address] [place] [address] [email or web address] PHCM Print Line Supervisor 10/24/19 Mihir Garner MD [address] [place] [address] [email or web address] Insurance Assigned Provider 08/15/22 08/14/23 Arron Alejandre DO [address] [place] [address] [email or web address] Insurance Assigned Provider 08/14/23 08/13/24 Mirna Zhou PA-C [address] [place] [address] Physician Indoor Plant Technician 02/18/24 Marv Olmos MD [address] [place] [address] [email or web address] Dermatology 07/11/24 Toña Garza CNP [address] [place] [address], [address] [place] [address] [email or web address] Insurance Assigned Provider 08/13/24 Laura Valencia [address] [place] [address] [email or web address] PHCM Community Dairy Grazer 10/09/24 10/09/24 Tori Esposito [address] [place] [address] [email or web address] Community Health Worker 02/26/25 documented as of this encounter Additional Source Comments The information contained in this document represents components of the legal health record. It is not the complete legal health record.[facility]
--- OUTSIDE RECORDS SUMMARY | 2025-03-01 18:52 | XMS_ITS | Encounter Summary ---
Author Organization [facility] Address [address] [place] [address] Phone Care Team Providers Care Ink Blender Name Role Phone Luci Marsh JIG FILLER Primary Care Provider [phone] Janis Aquino MD Unavailable [phone] Telma Chino RN Unavailable [phone] Tori Esposito Unavailable [phone] Mihir Garner MD Unavailable SahArron balderas DO Primary Care Provider [phone] Luci Marsh JIG FILLER Primary Care Provider [phone] [facility] Primary Care Provider [phone] Toña Garza JIG FILLER Primary Care Provider [phone] Arron Alejandre DO Unavailable Mirna Zhou PA-C Unavailable Marv Olmos MD Unavailable Toña Garza CNP Unavailable [phone] Laura Valencia Unavailable heidi Tori Esposito Unavailable Encounter Details Date Type Department Care Team ([facility] Contact Info) Description 06/04/2020 Procedure Pass [facility] 30 [place] [address] Social History Tobacco Use Types Packs/Day Years [...] Description 03/02/2025 1:45 PM EDT Office Visit [facility] 8 [place] [address] Cordell Lutz PA-C, MARIXA [address] [place] [address] Marshal Jimenez, PT 8 [place] [address] [email or web address] 03/06/2025 12:00 PM EDT Telemedicine - audio only [facility] 30 [place] [address] Mirna Zhou PA-C 30 [place] [address] 03/06/2025 2:40 PM EDT Office Visit [facility] [address] [place] [phone] Jasmina Peraza MD [address] [facility], 1st [place] [address] 03/08/2025 1:00 PM EDT Office Visit [facility] 8 [place] [address] Cordell Ltuz PA-C, MARIXA [address] [place] [address] Marshal Jimenez, PT 8 [place] [address] [email or web address] 03/12/2025 1:15 PM EST Office Visit [address] [address] Yessenia Shah MD, MPH [address] [place] [address] Qiana Llamas, OT 8 [place] [address] 03/19/2025 1:15 PM EST Office Visit [address] [address] Yessenia Shah MD, MPH [address] [place] [address] Qiana Llamas OT 8 [place] [address] 03/20/2025 1:20 PM EST Telemedicine [facility] 2 [place] [address] Aniayh Ogden PA-C 2 [place] [phone] 03/26/2025 2:10 PM EST Office Visit [facility] Rhe[facility] [address] [place] [address] Yessenia Shah MD, MPH [address] [facility], [address] [place] [address] 03/30/2025 4:15 PM EST Office Visit [address] [address] Arron Alejandre, [address] [address] 04/12/2025 2:00 PM EST Nutrition [facility] 40 [place] [address] Maddison Lea, JULIETTE [address] [place] [address], [address] [place] [address] 04/20/2025 2:30 PM EST Office Visit [address] [address] Toña Garza, JIG FILLER [address] [address] 06/04/2025 1:30 PM EST Office Visit [facility] [address] [place] [address] Anisa Crowell, JIG FILLER [address] [facility], [address] [place] [address] 08/06/2025 1:00 PM EDT Office Visit [facility] [address] [place] [address] 3rd Floor, [address] [place] [address] Beulah Watkins DNP [address] [facility], [address] [address] [email or web address] 02/07/2026 1:20 PM EDT Office Visit [facility] [address] [place] [address] 3rd [facility], [address] [place] [address] Diaz Verdugo MD [address] [facility], [address] [address] [email or web address] documented as of this encounter Goals Goal [...] Onset Date Last Indicated Resolved Time CoV-Risk 06/10/2020 06/10/2020 06/20/2020 1:24 AM EST CoV-Risk 07/09/2020 07/09/2020 07/10/2020 7:23 PM EST CoV-Presumed Comment:Negative second test 07/09/2020 07/09/2020 07/15/2020 11:28 AM EST CoV-Exposed Comment:Recent close contact documented in the COVID-19 PCR/PRO order 12/08/2020 12/14/2020 12/23/2020 1:25 AM E DT CoV-Presumed 03/25/2022 03/25/2022 04/15/2022 2:31 AM EST CoV-Risk 03/29/2022 03/29/2022 04/09/2022 1:36 AM EST CoV-Risk 05/18/2023 05/18/202305/18/2023 6:21 PM EST COVID-19 05/18/2023 05/18/2023 06/08/2023 1:22 AM EST CoV-Risk 08/16/2023 08/16/2023 08/27/2023 1:25 AM EDT CDiff-Risk 01/30/2025 02/12/2025 02/06/2025 1:25 AM EDT CDiff-Risk 02/11/2025 02/11/2025 02/12/2025 7:15 PM EDT Assessment Noted Time PHQ-2 Depression Total Score: 2 06/01/19 11:15 AM EST documented as of this encounter Care Teams Ink Blender Relationship Specialty Start Date End Date Luci Marsh CNP [address] [address] PCP - General 05/20/17 10/20/22 Arron Alejandre DO [address] [place] [address] 7 [place] [address] PCP - General Family Medicine 10/21/22 01/16/23 Luci Marsh CNP [address] [address] PCP - General Nurse Practitioner 01/17/23 02/01/23 Arron Alejandre DO [address] [place] [address] 7 [place] [address] PCP - General Family Medicine 02/02/23 02/22/23 Toña Garza CNP [address] [place] [address] 7 [place] [address] PCP - General Nurse Practitioner 02/23/23 Janis Aquino MD [address] [place] [address] 7 [place] [address] [email or web address] Insurance Assigned Provider 09/10/18 08/15/22 Telma Chino, DIXIE [address] [place] [address] [email or web address] PHC Electrolog Operator 10/24/19 Tori Esposito [address] [place] [address] [email or web address] PHC Community Health Worker 01/08/20 01/27/21 Mihir Garner MD [address] [place] [address] 7 [place] [address] [email or web address] Insurance Assigned Provider 08/15/22 08/14/23 Arron Alejandre DO [address] [place] [address] 7 [place] [address] [email or web address] Insurance Assigned Provider 08/14/23 08/13/24 Mirna Zhou PA-C [address] [place] [address] [email or web address] Physician Manager Cath Lab 02/18/24 Marv Olmos MD 29 [place] [address] [email or web address] Dermatology 07/11/24 Toña Garza CNP [address] [place] [address] 7 [place] [address] [email or web address] Insurance Assigned Provider 08/13/24 Laura Valencia [address] [place] [address] [email or web address] PHCM Community Label Printing Machinist 10/09/24 10/09/24 Tori Esposito [address] [place] [address] [email or web address] Community Health Worker 02/26/25 documented as of this encounter Additional Source Comments The information contained in this document represents components of the legal health record. It is not the complete legal health record.[facility]
--- OUTSIDE RECORDS SUMMARY | 2025-03-01 18:52 | XMS_ITS | Encounter Summary ---
Author Organization [facility] Address [address] [place] [address] Phone Care Team Providers Care Waybill Clerk Name Role Phone Telma Chino RN Unavailable Mihir Garner MD Unavailable Toña Garza MANDARIN SPEAKING NANNY Primary Care Provider [phone] Arron Alejandre DO Unavailable Mirna Zhou PA-C Unavailable Marv Olmos MD Unavailable Toña Garza MANDARIN SPEAKING NANNY Unavailable [phone] Laura Valencia Unavailable heidi Tori Epsosito Unavailable [phone] Encounter Details Date Type Department Care Team (Late st Contact Info) Description 04/06/2023 Procedure Pass [facility], [facility] 30 [place] [address] Social History Tobacco Use Types Packs/Day Years [...] Date of Assessment Author No Risk Indicated 04/06/2023 5:31 PM Temitope Blanchard RN * Searchlight Suicide Severity Rating Scale (Screener/Recent Self-Report) Question Answer Date of Assessment Author 1. Wish to be (Past 1 Month) No 023 5:31 PM Temitope Blanchard RN 2. Non-Specific Active Suici lupe Thoughts (Past 1 Month) No 04/06/2023 5:31 PM Temitope Blanchard , RN 6. Suicidal Behavior (Lifetime) No 5:31 PM Temitope Blanchard RN documented as of this encounter Plan of Treatment Upcoming Encounters Date Type Department Care Team (Late st Contact Info) Description 03/02/2025 1:45 PM EDT Office Visit [facility] 8 [place] [address] Cordell Lutz PA-C, MARIXA [address] [place] [address] Marshal Jimenez, PT 8 [place] [address] [email or web address] 03/06/2025 12:00 PM EDT Telemedicine - audio only [facility] 30 [place] [address] Mirna Zhou PA-C 30 [place] [address] 03/06/2025 2:40 PM EDT Office Visit [facility] [address] [place] [phone] Jasmina Peraza MD 22 [facility], 1st [place] [address] 03/08/2025 1:00 PM EDT Office Visit [facility] [address] [place] [address] Cordell Lutz PA-C, MARIXA [address] [place] [address] Marshal Jimenez, PT 8 [place] [address] [email or web address] 03/12/2025 1:15 PM EST Office Visit [facility] [address] [place] [address] Yessenia Shah MD, MPH [address] [place] [address] Qiana Llamas, OT 8 [place] [address] 03/19/2025 1:15 PM EST Office Visit [facility] [address] [place] [address] Yessenia Shah MD, MPH [address] [place] [address] Qiana Llamas, OT 8 [place] [address] 03/20/2025 1:20 PM EST Telemedicine [facility] SU[facility] 2 [place] [address] Aniyah Ogden, PA-C 2 [place] [phone] 03/26/2025 2:10 PM EST Office Visit [facility] Rheumatology [address] [place] [address] Yessenia Shah MD, MPH [address] [place] [address] 03/30/2025 4:15 PM EST Office Visit [address] [address] SahArron balderas DO 234 [facility] 7 [place] [address] 04/12/2025 2:00 PM EST Nutrition [facility] 40 [place] [address] Maddison Lea LDN 22 [facility], [address] [place] [address] 04/20/2025 2:30 PM EST Office Visit [address] [address] Toña Garza, MANDARIN SPEAKING NANNY [address] [address] 06/04/2025 1:30 PM EST Office Visit [facility] [address] [place] [address] Anisa Crowell, MANDARIN SPEAKING NANNY [address] [place] [address], [address] [place] [address] 08/06/2025 1:00 PM EDT Office Visit [facility] [address] [place] [address] [place] [address], [address] [address] Beulah Watkins DNP [address] [place] [address], [address] [address] 02/07/2026 1:20 PM EDT Office Visit [facility] [address] [place] [address] [place] [address], [address] [address] Diaz Verdugo MD 22 [facility], [address] [address] documented as of this encounter Goals Goal [...] documented as of this encounter Care Teams Waybill Clerk Relationship Specialty Start Date End Date Toña Garza CNP [address] [address] [email or web address] PCP - General Nurse Practitioner 02/23/23 Telma Chino, DIXIE [address] [place] [address] [email or web address] PHCM Environmental Marketing Representative 10/24/19 Mihir Garner MD [address] [place] [address] Insurance Assigned Provider 08/15/22 08/14/23 Arron Alejandre DO [address] [place] [address] 7 [place] [address] [email or web address] Insurance Assigned Provider 08/14/23 08/13/24 Mirna Zhou PA-C [address] [place] [address] [email or web address] Physician Cinder Block Mason 02/18/24 Marv Olmos MD [address] [place] [address] [email or web address] Dermatology 07/11/24 Toña Garza CNP [address] [place] [address] 7 [place] [address] [email or web address] Insurance Assigned Provider 08/13/24 Laura Valencia [address] [place] [address] [email or web address] PHCM Community Scourer 10/09/24 10/09/24 Tori Esposito [address] [place] [address] [email or web address] Community Health Worker 02/26/25 documented as of this encounter Additional Source Comments The information contained in this document represents components of the legal health record. It is not the complete legal health record.[facility]
--- OUTSIDE RECORDS SUMMARY | 2025-03-01 18:52 | XMS_ITS | Encounter Summary ---
Author Organization [facility] Address [address] [place] [address] Phone Care Team Providers Care Biology Adjunct Instructor Name Role Phone Luci Marsh ASSISTANT NEWS DIRECTOR Primary Care Provider [phone] Janis Aquino MD Unavailable [phone] Telma Chino RN Unavailable [phone] Tori Esposito Unavailable [phone] Mihir Garner MD Unavailable SahArron balderas DO Primary Care Provider [phone] Luci Marsh ASSISTANT NEWS DIRECTOR Primary Care Provider [phone] [facility] Primary Care Provider [phone] Toña Garza ASSISTANT NEWS DIRECTOR Primary Care Provider [phone] Arron Alejandre DO Unavailable Mirna Zhou PA-C Unavailable Marv Olmos MD Unavailable Toña Garza CNP Unavailable [phone] Laura Valencia Unavailable heidi Tori Esposito Unavailable [phone] Encounter Details Date Type Department Care Team (Late st Contact Info) Description 06/02/2020 Procedure Pass [facility] 30 [place] [address] Social History Tobacco Use Types Packs/Day Years [...] 03/02/2025 1:45 PM EDT Office Visit [facility] 8 [place] [address] Cordell Lutz PA-C, MARIXA [address] [place] [address] Marshal Jimenez, PT 8 [place] [address] [email or web address] 03/06/2025 12:00 PM EDT Telemedicine - audio only [facility] 30 [place] [address] Mirna Zhou PA-C 30 [place] [address] 03/06/2025 2:40 PM EDT Office Visit [facility] 234 [place] [phone] Jasmina Peraza MD 22 [facility], 1st [place] [address] 03/08/2025 1:00 PM EDT Office Visit [address] [address] Cordell Lutz PA-C, MARIXA [address] [place] [address] Marshal Jimenez, PT 8 [place] [address] [email or web address] 03/12/2025 1:15 PM EST Office Visit [address] [address] Yessenia Shah MD, MPH [address] [place] [address] Qiana Llamas, OT 8 [place] [address] 03/19/2025 1:15 PM EST Office Visit [address] [address] Yessenia Shah MD, MPH [address] [place] [address] Qiana Llamas, OT 8 [place] [address] [email or web address] 03/20/2025 1:20 PM EST Telemedicine [facility] SUPPORT 2 [place] [address] Aniyah Ogden PA-C 2 [place] [phone] 03/26/2025 2:10 PM EST Office Visit [facility] [address] [place] [address] Yessenia Shah MD, MPH 22 [facility], [address] [place] [address] 03/30/2025 4:15 PM EST Office Visit [facility] 234 [place] [address] Arron Alejandre, 234 [facility] 7 [place] [address] 04/12/2025 2:00 PM EST Nutrition [facility] 40 [place] [address] Maddison Lea, JULIETTE 22 [facility], 1st [place] [address] 04/20/2025 2:30 PM EST Office Visit [facility] [address] [place] [address] Toña Garza, ASSISTANT NEWS DIRECTOR 234 [facility] 7 [place] [address] 06/04/2025 1:30 PM EST Office Visit [facility] [address] [place] [address] Anisa Crowell, ASSISTANT NEWS DIRECTOR 22 [facility], 1st [place] [address] 08/06/2025 1:00 PM EDT Office Visit [facility] [address] Floor, [address] [place] [address] Beulah Watkins DNP 22 [facility], [address] [address] [email or web address] 02/07/2026 1:20 PM EDT Office Visit [facility] [address]rd [facility], [address] [place] [address] Diaz Verdugo MD 22 [facility], [address] [address] [email or web address] documented as of this encounter [...] documented as of this encounter Care Teams Biology Adjunct Instructor Relationship Specialty Start Date End Date Luci Marsh CNP [address] [address] PCP - General 05/20/17 10/20/22 Arron Alejandre DO [address] [place] [address] 7 [place] [address] PCP - General Family Medicine 10/21/22 01/16/23 Luci Marsh CNP [address] [address] PCP - General Nurse Practitioner 01/17/23 02/01/23 Arron Alejandre DO [address] [place] [address] 7 [place] [address] PCP - General Family Medicine 02/02/23 02/22/23 Toña Garza CNP [address] [place] [address] 7 [place] [address] PCP - General Nurse Practitioner 02/23/23 Janis Aquino MD [address] [place] [address] 7 [place] [address] [email or web address] Insurance Assigned Provider 09/10/18 08/15/22 Telma Chino, DIXIE [address] [place] [address] [email or web address] PHC Boom Worker 10/24/19 Tori Esposito [address] [place] [address] [email or web address] Community Health Worker 01/08/20 01/27/21 Mihir Garner MD [address] [place] [address] 7 [place] [address] [email or web address] Insurance Assigned Provider 08/15/22 08/14/23 Arron Alejandre DO [address] [place] [address] 7 [place] [address] [email or web address] Insurance Assigned Provider 08/14/23 08/13/24 Mirna Zhou PA-C [address] [place] [id number] [email or web address] Physician Sociology Teacher 02/18/24 Marv Olmos MD 29 [place] [address] [email or web address] Dermatology 07/11/24 Toña Garza CNP [address] [place] [address] 7 [place] [address] [email or web address] Insurance Assigned Provider 08/13/24 Laura Valencia [address] [place] [address] [email or web address] PHCM Community Teradata Developer 10/09/24 10/09/24 Tori Esposito [address] [place] [address] [email or web address] Community Health Worker 02/26/25 documented as of this encounter Additional Source Comments The information contained in this document represents components of the legal health record. It is not the complete legal health record.[facility]
--- OUTSIDE RECORDS SUMMARY | 2025-03-01 18:52 | XMS_ITS | Encounter Summary ---
Author Organization [facility] Address [address] [place] [address] Phone Care Team Providers Care Court Deputy Name Role Phone Luci Marsh PRECISION DANCER Primary Care Provider [phone] Janis Aquino MD Unavailable [phone] Telma Chino RN Unavailable [phone] Tori Esposito Unavailable [phone] Mihir Garner MD Unavailable SahArron balderas DO Primary Care Provider [phone] Luci Marsh PRECISION DANCER Primary Care Provider [phone] [facility] Primary Care Provider [phone] Toña Garza PRECISION DANCER Primary Care Provider [phone] Arron Alejandre DO Unavailable Mirna Zhou PA-C Unavailable Marv Olmos MD Unavailable Toña Garza CNP Unavailable [phone] Laura Valencia Unavailable heidi Tori Esposito Unavailable [phone] Encounter Details Date Type Department Care Team (Late st Contact Info) Description 06/12/2020 Procedure Pass [facility] 30 [place] [address] Social History Tobacco Use Types Packs/Day Years [...] Description 03/02/2025 1:45 PM EDT Office Visit [facility] 8 [place] [address] Cordell Lutz PA-C, MARIXA [address] [place] [address] Marshal Jimenez, PT 8 [place] [address] [email or web address] 03/06/2025 12:00 PM EDT Telemedicine - audio only [facility] 30 [place] [address] Mirna Zhou PA-C 30 [place] [address] 03/06/2025 2:40 PM EDT Office Visit [facility] 234 [place] [phone] Jasmina Peraza MD [address] [facility], 1st [place] [address] 03/08/2025 1:00 PM EDT Office Visit [address] [address] Cordell Lutz PA-C, MARIXA [address] [place] [address] Marshal Jimenez, PT 8 [place] [address] [email or web address] 03/12/[email or web address] 1:15 PM EST Office Visit [address] [address] Yessenia Shah MD, MPH [address] [place] [address] Qiana Llamas, OT 8 [place] [address] [email or web address] 03/19/2025 1:15 PM EST Office Visit [address] [address] Yessenia Shah MD, MPH [address] [place] [address] Qiana Llamas, OT 8 [place] [address] [email or web address] 03/20/2025 1:20 PM EST Telemedicine [facility] 2 [place] [address] Aniyah Ogden PA-C 2 [place] [phone] 03/26/2025 2:10 PM EST Office Visit [facility] [address] [place] [address] Yessenia Shah MD, MPH [address] [facility], [address] [place] [address] 03/30/2025 4:15 PM EST Office Visit [facility] 234 [place] [address] Arron Alejandre, 234 [facility] 7 [place] [address] 04/12/2025 2:00 PM EST Nutrition [facility] 40 [place] [address] Maddison Lea, JULIETTE [address] [facility], 1st [place] [address] 04/20/2025 2:30 PM EST Office Visit [facility] 234 [place] [address] Toña Garaz, PRECISION DANCER 234 [facility] 7 [place] [address] 06/04/2025 1:30 PM EST Office Visit [facility] [address] [place] [address] Anisa Crowell, PRECISION DANCER [address] [facility], 1st [place] [address] 08/06/2025 1:00 PM EDT Office Visit [facility] [address] Floor, [address] [place] [address] Beulah Watkins DNP [address] [facility], [address] [address] [email or web address] 02/07/2026 1:20 PM EDT Office Visit [facility] [address] [facility], [address] [place] [address] Diaz Verdugo MD [address] [facility], [address] [address] [email or web address] documented [...] documented as of this encounter Care Teams Court Deputy Relationship Specialty Start Date End Date Luci Marsh CNP [address] [address] PCP - General 05/20/17 10/20/22 Arron Alejandre DO [address] [place] [address] 7 [place] [address] PCP - General Family Medicine 10/21/22 01/16/23 Luci Marsh CNP [address] [address] PCP - General Nurse Practitioner 01/17/23 02/01/23 Arron Alejandre DO [address] [place] [address] 7 [place] [address] PCP - General Family Medicine 02/02/23 02/22/23 Toña Garza CNP [address] [place] [address] 7 [place] [address] PCP - General Nurse Practitioner 02/23/23 Janis Aquino MD [address] [place] [address] 7 [place] [address] [email or web address] Insurance Assigned Provider 09/10/18 08/15/22 Telma Chino, DIXIE [address] [place] [address] [email or web address] PHC Datastage Architect 10/24/19 Tori Esposito [address] [place] [address] [email or web address] PHC Community Health Worker 01/08/20 01/27/21 Mihir Garner MD [address] [place] [address] 7 [place] [address] [email or web address] Insurance Assigned Provider 08/15/22 08/14/23 Arron Alejandre DO [address] [place] [address] 7 [place] [address] [email or web address] Insurance Assigned Provider 08/14/23 08/13/24 Mirna Zhou PA-C [address] [place] [address] [email or web address] Physician Patient Financial Services Coordinator 02/18/24 Marv Olmos MD 29 [place] [address] [email or web address] Dermatology 07/11/24 Toña Garza CNP [address] [place] [address] 7 [place] [address] [email or web address] Insurance Assigned Provider 08/13/24 Laura Valencia [address] [place] [address] [email or web address] PHCM Community Equities Trader 10/09/24 10/09/24 Tori Esposito [address] [place] [address] [email or web address] Community Health Worker 02/26/25 documented as of this encounter Additional Source Comments The information contained in this document represents components of the legal health record. It is not the complete legal health record.[facility]
--- OUTSIDE RECORDS SUMMARY | 2025-03-01 18:52 | XMS_ITS | Encounter Summary ---
Author Organization [facility] Address [address] [place] [address] Phone Care Team Providers Care Purification Supervisor Name Role Phone Telma Chino RN Unavailable Mihir Garner MD Unavailable Toña Garza GARDEN CENTER MANAGER Primary Care Provider [phone] Arron Alejandre DO Unavailable Mirna Zhou PA-C Unavailable Marv Olmos MD Unavailable Toña Garza GARDEN CENTER MANAGER Unavailable [phone] Laura Valencia Unavailable heidi Tori Esposito Unavailable [phone] Encounter Details Date Type Department Care Team (Late st Contact Info) Description 04/06/2023 Procedure Pass [facility], Ct Scan - [facility] 30 [place] [address] Social History Tobacco Use Types Packs/Day Years [...] 04/06/2023 5:31 PM Temitope Blanchard RN * [place] Suicide Severity Rating Scale (Screener/Recent Self-Report) Question [...] Visit [facility] 8 [place] [address] Cordell Lutz PA-C, MARIXA [address] [place] [address] Marshal Jimenez, PT 8 [place] [address] [email or web address] 03/06/2025 12:00 PM EDT Telemedicine - audio only [facility] 30 [place] [address] Mirna Zhou PA-C 30 [place] [address] 03/06/2025 2:40 PM EDT Office Visit [facility] [address] [place] [phone] Jasmina Peraza MD 22 [facility], 1st [place] [address] 03/08/2025 1:00 PM EDT Office Visit [facility] [address] [place] [address] Cordell Lutz PA-C, MARIXA [address] [place] [address] Marshal Jimenez, PT 8 [place] [address] [email or web address] 03/12/[email or web address] 1:15 PM EST Office Visit [facility] [address] [place] [address] Yessenia Shah MD, MPH [address] [place] [address] Qiana Llamas, OT 8 [place] [address] 03/19/2025 1:15 PM EST Office Visit [facility] [address] [place] [address] Yessenia Shah MD, MPH [address] [place] [address] Qiana Llamas, OT 8 [place] [address] [email or web address] 03/20/2025 1:20 PM EST Telemedicine [facility] 2 [place] [address] Aniyah Ogden, PA-C 2 [place] [phone] 03/26/2025 2:10 PM EST Office Visit [facility] [address] [place] [address] Yessenia Shah MD, MPH [address] [place] [address] 03/30/2025 4:15 PM EST Office Visit [address] [address] SahArron balderas DO 234 [facility] 7 [place] [address] 04/12/2025 2:00 PM EST Nutrition [facility] 40 [place] [address] Maddison Lea LDN 22 [facility], [address] [place] [address] 04/20/2025 2:30 PM EST Office Visit [address] [address] Toña Garza, GARDEN CENTER MANAGER [address] [address] 06/04/2025 1:30 PM EST Office Visit [facility] [address] [place] [address] Anisa Crowell, GARDEN CENTER MANAGER [address] [place] [address], [address] [place] [address] 08/06/2025 1:00 PM EDT Office Visit [facility] [address] [place] [address] [place] [address], [address] [address] Beulah Watkins DNP [address] [place] [address], [address] [address] 02/07/2026 1:20 PM EDT Office Visit [facility] [address] [place] [address] [place] [address], [address] [address] Diaz Verdugo MD 22 [facility], [address] [address] documented as of this encounter Goals Goal [...] documented as of this encounter Care Teams Purification Supervisor Relationship Specialty Start Date End Date Toña Garza CNP [address] [address] [email or web address] PCP - General Nurse Practitioner 02/23/23 Telma Chino, DIXIE [address] [place] [address] [email or web address] PHCM Raspberry Checker 10/24/19 Mihir Garner MD [address] [place] [address] Insurance Assigned Provider 08/15/22 08/14/23 Arron Alejandre DO [address] [place] [address] 7 [place] [address] [email or web address] Insurance Assigned Provider 08/14/23 08/13/24 Mirna Zhou PA-C [address] [place] [email or web address] Physician Timber Deadener 02/18/24 Marv Olmos MD [address] [place] [address] [email or web address] Dermatology 07/11/24 Toña Garza CNP [address] [place] [address] 7 [place] [address] [email or web address] Insurance Assigned Provider 08/13/24 Laura Valencia [address] [place] [address] [email or web address] PHCM Community Steward/Stewardess Wine 10/09/24 10/09/24 Tori Esposito [address] [place] [address] [email or web address] Community Health Worker 02/26/25 documented as of this encounter Additional Source Comments The information contained in this document represents components of the legal health record. It is not the complete legal health record.[facility]
--- OUTSIDE RECORDS SUMMARY | 2025-03-01 18:52 | XMS_ITS | Encounter Summary ---
Author Organization [facility] Address [address] [place] [address] Phone Care Team Providers Care Research Environmental Scientist Name Role Phone Telma Chino RN Unavailable Mihir Garner MD Unavailable Toña Garza LABOR EXPEDITER Primary Care Provider [phone] Arron Alejandre DO Unavailable Mirna Zhou PA-C Unavailable Marv Olmos MD Unavailable Toña Garza LABOR EXPEDITER Unavailable [phone] Laura Valencia Unavailable heidi Tori Esposito Unavailable [phone] Encounter Details Date Type Department Care Team (Late st Contact Info) Description 04/06/2023 [facility] - [facility] 30 [place] [address] Social History Tobacco Use Types Packs/Day Years [...] 04/06/2023 5:31 PM Temitope Blanchard RN * [place] Suicide Severity Rating Scale (Screener/Recent Self-Report) Question [...] Description 03/02/2025 1:45 PM EDT Office Visit [facility] 8 [place] [address] Cordell Lutz PA-C, MARIXA [address] [place] [address] Marshal Jimenez, PT 8 [place] [address] [email or web address] 03/06/[email or web address] 12:00 PM EDT Telemedicine - audio only [facility] at [facility] 30 [place] [address] Mirna Zhou PA-C 30 [place] [address] 03/06/2025 2:40 PM EDT Office Visit [facility] [address] [place] [phone] Jasmina Peraza MD 22 [facility], 1st [place] [address] 03/08/2025 1:00 PM EDT Office Visit [facility] [address] [place] [address] Cordell Lutz PA-C, MARIXA [address] [place] [address] Marshal Jimenez, PT 8 [place] [address] [email or web address] 03/12/[email or web address] 1:15 PM EST Office Visit [facility] [address] [place] [address] Yessenia Shah MD, MPH [address] [place] [address] Qiana Llamas, OT 8 [place] [address] 03/19/2025 1:15 PM EST Office Visit [facility] [address] [place] [address] Yessenia Shah MD, MPH [address] [place] [address] Qiana Llamas, OT 8 [place] [address] 03/20/2025 1:20 PM EST Telemedicine [facility] 2 [place] [address] Aniyah Ogden, PA-C 2 [place] [phone] 03/26/2025 2:10 PM EST Office Visit [facility] [address] [place] [address] Yessenia Shah MD, MPH [address] [place] [address] 03/30/2025 4:15 PM EST Office Visit [address] [address] SahArron balderas DO 234 [facility] 7 [place] [address] 04/12/2025 2:00 PM EST Nutrition [facility] 40 [place] [address] Maddison Lea LDN 22 [facility], [address] [place] [address] 04/20/2025 2:30 PM EST Office Visit [address] [address] Toña Garza, LABOR EXPEDITER [address] [address] 06/04/2025 1:30 PM EST Office Visit [facility] [address] [place] [address] Anisa Crowell, LABOR EXPEDITER [address] [place] [address], [address] [place] [address] 08/06/2025 1:00 PM EDT Office Visit [facility] [address] [place] [address] [place] [address], [address] [address] Beulah Watkins DNP [address] [place] [address], [address] [address] 02/07/2026 1:20 PM EDT Office Visit [facility] [address] [place] [address] [place] [address], [address] [address] Diaz Verdugo MD 22 [facility], [address] [address] documented as of this encounter Goals Goal [...] documented as of this encounter Care Teams Research Environmental Scientist Relationship Specialty Start Date End Date Toña Garza CNP [address] [address] [email or web address] PCP - General Nurse Practitioner 02/23/23 Telma Chino, DIXIE [address] [place] [address] [email or web address] PHCM Senior Telecommunications Consultant 10/24/19 Mihir Garner MD [address] [place] [address] Insurance Assigned Provider 08/15/22 08/14/23 Arron Alejandre DO [address] [place] [address] 7 [place] [address] [email or web address] Insurance Assigned Provider 08/14/23 08/13/24 Mirna Zhou PA-C [address] [place] [place] [address] [email or web address] Physician Hr Generalist 02/18/24 Marv Olmos MD [address] [place] [address] [email or web address] Dermatology 07/11/24 Toña Garza CNP [address] [place] [address] 7 [place] [address] [email or web address] Insurance Assigned Provider 08/13/24 Laura Valencia [address] [place] [address] [email or web address] PHCM Community Box Folding Machine Operator 10/09/24 10/09/24 Tori Esposito [address] [place] [address] [email or web address] Community Health Worker 02/26/25 documented as of this encounter Additional Source Comments The information contained in this document represents components of the legal health record. It is not the complete legal health record.[facility]
== END 2025-03-01 14:59 | disposition home or self-care (01) ==
LOC: HO.HOP 14:58
PROVIDERS: PCP Nurse Practitioner Adult Health; Visit Provider Psychiatry & Neurology Psychiatry
DX: F41.1 Generalized anxiety disorder (principal); F98.8 Other specified behavioral and emotional disorders with onset usually occurring in childhood and adolescence
CPT/HCPCS: 90833; 99213

== ENCOUNTER → 2025-03-01 14:58 | Outpatient (BNVA) | payer MEDICARE, MEDICAID, SELFPAY | PROVIDERS: PCP Nurse Practitioner Adult Health; Visit Provider Psychiatry & Neurology Psychiatry | DX: F41.1 Generalized anxiety disorder (principal); F98.8 Other specified behavioral and emotional disorders with onset usually occurring in childhood and adolescence | CPT/HCPCS: 99212 ==

== ENCOUNTER 2025-04-19 13:08 | Outpatient (AMB) | payer MEDICARE, MEDICAID, SELFPAY ==
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
== END 2025-04-19 17:22 | disposition home or self-care (01) ==
LOC: HO.HOP 13:08
PROVIDERS: PCP Nurse Practitioner Adult Health; Visit Provider Psychiatry & Neurology Psychiatry
DX: F41.1 Generalized anxiety disorder (principal); F98.8 Other specified behavioral and emotional disorders with onset usually occurring in childhood and adolescence; F33.41 Major depressive disorder, recurrent, in partial remission
CPT/HCPCS: 90833; 99213

== ENCOUNTER → 2025-04-19 13:08 | Outpatient (BNVA) | payer MEDICARE, MEDICAID, SELFPAY | PROVIDERS: PCP Nurse Practitioner Adult Health; Visit Provider Psychiatry & Neurology Psychiatry | DX: F33.41 Major depressive disorder, recurrent, in partial remission (principal); F41.1 Generalized anxiety disorder; F98.8 Other specified behavioral and emotional disorders with onset usually occurring in childhood and adolescence | CPT/HCPCS: 99212 ==